=== PATIENT | female | born 1955 | race Caucasian/White ===

== ENCOUNTER 2016-06-25 09:37 | Day surgery (SDC) | payer OTHER ==
[2016-06-20 16:13] VITALS: BMI 41.5
[~2016-06-25 09:37] MED LIST: LACTATED RINGERS 1,000 ML IV SCH
[2016-06-25 10:04] VITALS: TEMP 97.7
[2016-06-25] MEDS ORDERED: LIDOCAINE 1% 20 ML VIAL (10MG/ML) FOR IV START INTRADERMA ONE (10:04)
[2016-06-25 10:20] LABS: Glucose,Whole Blood 112 mg/dL (75-99)
--- NOTE | 2016-06-25 11:24 | P.PCN ---
Date of Procedure: 06/25/16 Procedure(s) Performed: PREOPERATIVE DIAGNOSIS : 1- Lumbar spondylosis with Facet Arthropathy without myelopathy . 2- Lumber degenerative disc disease POSTOPERATIVE DIAGNOSIS: 1- Lumbar spondylosis with Facet Arthropathy without myelopathy . 2- Lumber degenerative disc disease PROCEDURE: Diagnostic bilateral L2-3 , L3 -4 , L4 -5 , and L5-S1 medial branch block under fluoroscopy #2nd ANESTHESIA: Local with 1% lidocaine8 ml ,and IV sedation with Versed 2 mg and Fentanyl 100 mcg. EBL: Minimal COMPLICATION: None. IV FLUIDS: 100 mL of normal saline. PROCEDURE INDICATION: Chronic low back pain secondary to Facet arthropathy unresponsive to conservative treatment. PROCEDURE DESCRIPTION: the patient was seen and identified in the preop holding area , risks and benefits and possible complications of the procedure and alternative were discussed with the patient, and the patient agreed to proceed with the procedure and signed the consent IV was started and vital signs monitored during the procedure and fluoroscopy was used to maximize the benefit and accuracy of the needle placement, and sedation was given to decrease patient anxiety, patient was taken to the procedure room and placed in prone position vital signs monitored in the back prepped with chlorhexidine X3 then under strict sterile technique using a right oblique fluoroscopy ,the junction of the transverse process and the superior articulating process of the right L2-3 , L3- 4 , L4- 5, and L5-S1 vertebra which corresponding to the fluoroscopy image of the eye of the Paulino dog on the block side for the medial branches and subsequently , after local infiltration of skin and subcu tissuies with lidocaine 1% one mL at each level ,then 22-gauge 5 inches Quincke-type needles , 4 needle was used , each one of them placed at the junction of the base of the transverse process and the superior articular process at the appropriate level, and the needle was advanced until the periosteum contacted, needle placement confirmed with AP oblique and lateral view and after appropriate needle placement confirmed, and after negative aspiration for heme and CSF and there was no paresthesia 2 mL of Marcaine 0.5% , then half mL injected at each level after negative aspiration the needle subsequently removed and the same procedure repeated for the left side at left side at L2-3, L3-4, L4- 5 and L5-S1 levels. At the end of the procedure and the needles removed and a bandage applied after the skin was cleaned the cleaning solution patient taken to recovery room in stable condition and monitors in the recovery room for 20-30 minutes and discharged home in stable condition after discharge criteria met and patient will follow up with the pain clinic in 2-4 weeks NO steroid was used for the procedure .
[2016-06-25] MEDS ORDERED: BUPIVACAINE (PF) 0.5% 30 ML VIAL ONE (11:27)
[2016-06-25] MEDS ORDERED: MIDAZOLAM 2 MG/2 ML VIAL ONE (11:27)
[2016-06-25] MEDS ORDERED: fentaNYL (PF) 50 MCG/ML 2 ML AMP ONE (11:27)
[2016-06-25] MEDS ORDERED: IV FLUID CONTINUATION 1,000 ML IV ONE ×2 (11:34)
--- NOTE | 2016-06-25 11:34 | FL ---
Fluoroscopy INDICATION: Pain FINDINGS: Fluoroscopy time: 15 seconds. Images obtained: 4. IMPRESSIONS: 1. Documentation of fluoroscopy.
[2016-06-25 11:41] VITALS: RESP 16
[2016-06-25 12:03] VITALS: BP 136/83; PULSE 71
== END 2016-06-25 11:55 | disposition home or self-care (01) ==
LOC: ORPAIN 09:37
PROVIDERS: ATTEND Specialist
DX: G89.29 Other chronic pain (principal); M51.36 Other intervertebral disc degeneration, lumbar region; M47.816 Spondylosis without myelopathy or radiculopathy, lumbar region; M46.96 Unspecified inflammatory spondylopathy, lumbar region; J44.9 Chronic obstructive pulmonary disease, unspecified; J45.909 Unspecified asthma, uncomplicated
CPT/HCPCS: 64493; 64494; 64495; 99152; J2250; J3010

== ENCOUNTER 2016-08-02 09:34 | Day surgery (SDC) | payer OTHER ==
[2016-07-31 09:45] VITALS: BMI 39.9
[2016-08-02 09:55] VITALS: TEMP 97.9
[2016-08-02] MEDS ORDERED: BUPIVACAINE (PF) 0.25% 30 ML VIAL ONE (10:11)
--- NOTE | 2016-08-02 10:40 | P.PCN ---
Date of Procedure: 08/02/16 Preoperative Diagnosis: Postoperative Diagnosis: Procedure(s) Performed: Implants: Anesthesia: local Surgeon: Alvaro Jeff Pathology: none sent Condition: stable Disposition: PACU Indications for Procedure: Operative Findings: Description of Procedure: PREOPERATIVE DIAGNOSIS: Lumbar spondylosis without myelopathy and facet arthropathy POSTOPERATIVE DIAGNOSIS: Lumbar spondylosis without myelopathy and facet arthropathy PROCEDURES: Right Radiofrequency thermocoagulation, L2, L3, L4, and L5 medial branch, with fluoroscopic guidance. ANESTHESIA: 1% lidocaine plain EBL: Minimal PROCEDURE INDICATION: The patient with low back pain secondary to lumbar arthropathy who had more than 50% relief of pain with previous diagnostic lumbar medial branch block with bupivacaine. Patient presents for RFA today; no use of blood thinners. PROCEDURE DESCRIPTION / TECHNIQUE: The patient was seen and identified in the preoperative area. Risks, benefits, complications, and alternatives were discussed with the patient (including but not limited to incomplete pain relief , bleeding, infection, nerve damage, and allergies to medications), the patient agreed to proceed with the procedure and signed the consent after all questions were answered. Patient was taken to the OR and time out was completed to verify proper patient , position, laterality of pain, and allergies. Pt was placed in the prone position. IV was started. Vital signs remained stable throughout the procedure. A pillow was placed under the patients chest to decrease lordosis. The lumbosacral area was prepped and draped in the usual sterile fashion. Vital signs were closely monitored during the procedure. Using AP and then oblique fluoroscopy, the eye of the Paulino dog corresponding to the connection between the superior and transverse articular processes of right L3, L4, L5 and top of the sacrum were identified, marked, and localized with 1% lidocaine. Subsequently, a 18 gauge, 150-mm radiofrequency cannula with a 10-mm active tip was advanced guided by fluoroscopy to each of the eyes of the Paulino dog at right L2, L3, L4, and L5 medial branches. Each site then underwent sensory testing at 50 Hz and 0 to 1 volt and motor testing at 2 Hz and 0 to 3 volt with local stimulation, but no radicular symptoms down the legs. Thereafter the right L2, L3, L4, and L5 medial branch sites underwent radiofrequency thermocoagulation at 80 degrees Celsius for 90 seconds after injecting 0.5 ml of PF lidocaine 1%. After thermocoagulation, 1 ml of the block solution containing 2 mL of preservative- free 0.5% bupivacaine was injected at the right L2, L3, L4, and L5 medial branch levels after negative aspiration of CSF and blood and with no paresthesias. Cannulas were retracted while injecting lidocaine 1% until the needles were removed. At the end of the procedure, the skin was cleansed and bandages were applied. COMPLICATIONS: No acute complications. DISPOSITION / PLANS: The patient was placed in a supine position and transferred to the recovery area in a stable condition for observation and was discharged from the recovery room after meeting discharge criteria. Home discharge instructions given to the patient by the staff. The patient was reexamined prior to discharge and there were no issues. The patient will schedule a left lumbar L2-S1 RFA in 3-4 weeks.
--- NOTE | 2016-08-02 11:00 | FL ---
EXAMINATION TYPE: FL guided pain mgmt statistic DATE OF EXAM: 08/02/2016 10:44 AM CLINICAL HISTORY: Low back pain. TECHNIQUE: Fluoroscopy. COMPARISON: None. FINDINGS: Fluoroscopic guidance was provided during pain relief procedure performed by Dr. Jeff . A total of 24 seconds of fluoroscopic time was utilized during the procedure and two spot images are acquired. Images acquired shows needle localization at multiple levels off the midline in the lower lumbar spine. IMPRESSION: As Above.
[2016-08-02 11:05] VITALS: BP 142/85; PULSE 89; RESP 18
== END 2016-08-02 11:16 | disposition home or self-care (01) ==
LOC: ORPAIN 09:34
PROVIDERS: ATTEND Specialist
DX: G89.29 Other chronic pain (principal); M47.816 Spondylosis without myelopathy or radiculopathy, lumbar region; M46.96 Unspecified inflammatory spondylopathy, lumbar region; Z79.52 Long term (current) use of systemic steroids
CPT/HCPCS: 64635; 64636

== ENCOUNTER 2016-10-03 09:07 | Day surgery (SDC) | payer OTHER ==
[2016-09-27 15:44] VITALS: BMI 39.9
[2016-10-03 09:31] VITALS: RESP 20; TEMP 97.9
--- NOTE | 2016-10-03 10:44 | P.PCN ---
Date of Procedure: 10/03/16 Preoperative Diagnosis: Postoperative Diagnosis: Procedure(s) Performed: Implants: Surgeon: Alvaro Jeff Pathology: none sent Condition: stable Disposition: PACU Indications for Procedure: Operative Findings: Description of Procedure: PREOPERATIVE DIAGNOSIS: Lumbar spondylosis without myelopathy and facet arthropathy POSTOPERATIVE DIAGNOSIS: Lumbar spondylosis without myelopathy and facet arthropathy PROCEDURES: Left Radiofrequency thermocoagulation, L2-L3, L3-L4, L4-L5, and L5- S1 medial branch, with fluoroscopic guidance. ANESTHESIA: 1% lidocaine plain EBL: Minimal PROCEDURE INDICATION: The patient with low back pain secondary to lumbar arthropathy who had more than 50% relief of pain with previous diagnostic lumbar medial branch block with bupivacaine. Patient presents for left lumbar RFA today after right side completed in July with good results; no use of blood thinners. PROCEDURE DESCRIPTION / TECHNIQUE: The patient was seen and identified in the preoperative area. Risks, benefits, complications, and alternatives were discussed with the patient (including but not limited to incomplete pain relief , bleeding, infection, nerve damage, and allergies to medications), the patient agreed to proceed with the procedure and signed the consent after all questions were answered. Patient was taken to the OR and time out was completed to verify proper patient , position, laterality of pain, and allergies. Pt was placed in the prone position. IV was started. Vital signs remained stable throughout the procedure. A pillow was placed under the patients chest to decrease lordosis. The lumbosacral area was prepped and draped in the usual sterile fashion. Vital signs were closely monitored during the procedure. Using AP and then oblique fluoroscopy, the eye of the aPulino dog corresponding to the connection between the superior and transverse articular processes of left L3, L4, L5 and top of the sacrum were identified, marked, and localized with 1% lidocaine. Subsequently, a 18 gauge, 150-mm radiofrequency cannula with a 10-mm active tip was advanced guided by fluoroscopy to each of the eyes of the P[place]ino dog at left L2, L3, L4, and L5 medial branches. Each site then underwent sensory testing at 50 Hz and 0 to 1 volt and motor testing at 2 Hz and 0 to 3 volt with local stimulation, but no radicular symptoms down the legs. Thereafter the left L2, L3, L4, and L5 medial branch sites underwent radiofrequency thermocoagulation at 80 degrees Celsius for 90 seconds after injecting 0.5 ml of PF lidocaine 1%. After thermocoagulation, 1 ml of the block solution containing 2 mL of preservative-free 0.5% bupivacaine (NO STEROID) was injected at the left L2, L3, L4, and L5 medial branch levels after negative aspiration of CSF and blood and with no paresthesias. Cannulas were retracted while injecting lidocaine 1% until the needles were removed. At the end of the procedure, the skin was cleansed and bandages were applied. COMPLICATIONS: No acute complications. DISPOSITION / PLANS: The patient was placed in a supine position and transferred to the recovery area in a stable condition for observation and was discharged from the recovery room after meeting discharge criteria. Home discharge instructions given to the patient by the staff. The patient was reexamined prior to discharge and there were no issues. The patient will schedule a follow up in the pain clinic in 4-6 weeks.
[2016-10-03] MEDS ORDERED: IV FLUID CONTINUATION 1,000 ML IV ONE (10:58)
--- NOTE | 2016-10-03 10:58 | FL ---
FLUOROSCOPY 6 seconds of fluoroscopy time were utilized during Pain Injection. 4 images document the procedure.
[2016-10-03 11:16] VITALS: BP 132/82; PULSE 93
--- NOTE | 2016-10-05 10:01 | CDI ---
Documentation Clarification OP Dear Dr. Jeff, Please provide clarification regarding type of sedation provided. Procedure note states 1% lidocaine plain. The Anesthesia Record has Moderate Sedation checked under Anesthesia Plan. PLEASE RESPOND TO THIS QUERY BY DICTATING AN ADDENDUM TO YOU PROCEDURE NOTE. Thank you for our assistance, SOFIYA Sánchez If you have any questions, please contact Receiving Tank Operator, Demetria Degroot at [facility]
--- NOTE | 2016-10-10 10:13 | CDI ---
Documentation Clarification OP Dear Dr. Jeff, Please provide clarification regarding type of sedation provided. Procedure note states 1% lidocaine plain. The Anesthesia Record has Moderate Sedation checked under Anesthesia Plan. PLEASE RESPOND TO THIS QUERY BY DICTATING AN ADDENDUM TO YOU PROCEDURE NOTE. Thank you for our assistance, SOFIYA Sánchez If you have any questions, please contact Supervisor Belt And Link Assembly, Demetria Degroot at [facility]
== END 2016-10-03 11:37 | disposition home or self-care (01) ==
LOC: ORPAIN 09:07
PROVIDERS: ATTEND Anesthesiology
DX: G89.29 Other chronic pain (principal); M47.816 Spondylosis without myelopathy or radiculopathy, lumbar region; M46.96 Unspecified inflammatory spondylopathy, lumbar region
CPT/HCPCS: 64635; 64636 ×3; 99152; J2250; J3010

== ENCOUNTER → 2016-10-31 | Outpatient (CLI) | payer OTHER ==
--- NOTE | 2016-10-31 11:50 | NM ---
EXAMINATION TYPE: NM stress cardiolite complete DATE OF EXAM: 10/31/2016 COMPARISON: NONE HISTORY: Precordial chest pain and abnormal EKG TECHNIQUE: After the intravenous administration of 10.2 mCi Tc 99m Sestamibi - Rest images obtained 45 minutes post injection. The patient exercised using a PATIENCE protocol and 1 minute prior to peak exercise was injected with 27.0 mCi Tc 99m Sestamibi - Stress images obtained 10 minutes post injecti on. FINDINGS: Targeted heart rate was achieved during performance of the study. Review of stress and rest SPECT shelley ges demonstrates no distinct perfusion abnormality. Gated analysis shows normal wall motion with an estimated left ventricular ejection fraction of 58 %. IMPRESSION: No scintigraphic evidence for reversible ischemia
--- NOTE | 2016-10-31 14:26 | EST ---
DATE OF SERVICE: 10/31/2016 TYPE OF REPORT: PATIENCE CARDIOLITE STRESS TEST INDICATION: SVT, C/O dizzy BASELINE HEART RATE: 105 BASELINE BLOOD PRESSURE: 138/88 MAXIMUM HEART RATE: 143 MAXIMUM BLOOD PRESSURE: 154/101 85% MPHR: 133 100% MPHR: 157 METS: 4.0 MAXIMUM STAGE REACHED: I TOTAL EXERCISE TIME: 2:30 Baseline EKG revealed normal sinus rhythm without significant ST-T changes. Patient walked for nearly 3 minutes on standard Patience protocol, achieved a maximum heart rate of 143 beats per minute, developed fatigue and shortness of breath and some dizziness. EKG did not reveal any ST segment changes to indicate ischemia. IMPRESSION: 1. By EKG criteria, this is a negative stress test with extremely impaired exercise capacity. 2. The nuclear scan results, which are more pertinent will be reported by the radiologist. TARYN
== END ==
LOC: RADNMMAIN 08:56
PROVIDERS: ATTEND Nuclear Medicine Nuclear Cardiology
DX: I47.1 Supraventricular tachycardia (principal); R60.9 Edema, unspecified; R06.2 Wheezing
CPT/HCPCS: 93017; 93225; 93226; 78452; A9500

== ENCOUNTER → 2016-12-06 | Outpatient (CLI) | payer OTHER ==
--- NOTE | 2016-12-07 11:09 | MM ---
Reason for exam: screening (asymptomatic). Last mammogram was performed 1 year ago. History: Patient is postmenopausal and is nulliparous. Took hormonal contraceptives for 2 years. Physical Findings: A clinical breast exam by your physician is recommended on an annual basis and results should be correlated with mammographic findings. MG Screening Mammo w CAD Bilateral CC and MLO view(s) were taken. Prior study comparison: November 30, 2015, bilateral MG screening mammo w CAD. November 24, 2014, bilateral MG diagnostic mammo w CAD ROSINA. There are scattered fibroglandular densities. Benign calcifications in the left breast. No significant changes when compared with prior studies. ASSESSMENT: Benign, BI-RAD 2 RECOMMENDATION: Routine screening mammogram of both breasts in 1 year.
== END | disposition home or self-care (01) ==
LOC: RADMAMWWP 09:33
PROVIDERS: ATTEND Internal Medicine Geriatric Medicine
DX: Z12.31 Encounter for screening mammogram for malignant neoplasm of breast (principal)

== ENCOUNTER → 2016-12-18 | Outpatient (CLI) | payer OTHER ==
[2016-12-18 11:52] VITALS: BP 131/83; PULSE 95; RESP 18; TEMP 98
--- NOTE | 2016-12-18 21:59 | P.CONS ---
History of Present Illness - Reason for Consult Consult date: 12/18/16 - History of Present Illness This is a follow-up visit for this 61 years old female with a chronic history of low back pain, he was diagnosed with lumbar spondylosis and we did diagnostic medial branch block lumbar area was successful later on we did radiofrequency ablation of the medial branch lumbar area L2 to S1, currently patient complaining of severe low back pain localized in the buttock area bilaterally, at the lateral aspect of the buttock around the iliac crest area bilaterally, she denies any motor or sensory deficit she denies any fever or night sweats which she denies any change in the bowel movement or urination, the pain is constant with some exacerbation in intensity, she is currently on Zanaflex 2 mg every 8 hours Past Medical History Past Medical History: Asthma, COPD, GERD/Reflux, Hyperlipidemia, Osteoarthritis (OA) Additional Past Medical History / Comment(s): VOCAL CORD DYSFUNCTION-UNDER CONTROL AT THIS TIME W/MEDS, takes medication for elevated heart rate related to meds that she takes, pain lower back History of Any Multi-Drug Resistant Organisms: Acinetobacter (MDRO) Year Discovered:: 2016 MDRO Source:: STOMACH Past Surgical History: Hernia Repair, Orthopedic Surgery Additional Past Surgical History / Comment(s): BENIGN TUMOR REMOVED FROM RT HAND , BILATERAL CATARACTS, BILATERAL BUNIONECTOMY, left knee surgery. PAIN CLINIC PROCEDURES Past Anesthesia/Blood Transfusion Reactions: Previous Problems w/ Anesthesia Additional Past Anesthesia/Blood Transfusion Reaction / Comm: SLOW TO COME OUT OF ANESTHESIA, "does not take much" States has difficulty lying flat on her back. Past Psychological History: No Psychological Hx Reported Smoking Status: Former smoker Past Alcohol Use History: None Reported Additional Past Alcohol Use History / Comment(s): quit smoking 2010, smoked for 20 yrs- 1 PPD Past Drug Use History: None Reported - Past Family History Mother Family Medical History: Deep Vein Thrombosis (DVT) Father Family Medical History: Cancer Medications and Allergies Home Medications Medication Instructions Recorded Confirmed Type Albuterol Sulfate [Ventolin HFA] 1 - 2 puff INHALATION Q6H PRN 05/20/14 History Azelastine HCl 137 mcg NS BID PRN 05/20/14 12/18/16 History Budesonide [Pulmicort Flexhaler] 1 puff INHALATION DAILY 05/20/14 12/18/16 History Cetirizine HCl 10 mg PO DAILY 05/20/14 12/18/16 History Multivitamins, Thera [Multivitamin] 1 each PO DAILY 05/20/14 12/18/16 History Omeprazole [PriLOSEC] 40 mg PO AC-BRKFST 05/20/14 12/18/16 History Ranitidine HCl [Zantac] 150 mg PO BID 05/20/14 12/18/16 History Theophylline 12 Hour [Dean-Dur] 300 mg PO HS 05/20/14 12/18/16 History Ubidecarenone [Co Q-10] 200 mg PO DAILY 05/20/14 12/18/16 History Zafirlukast 10 mg PO BID 05/20/14 12/18/16 History Umeclidinium Brm/Vilanterol Tr 1 each IH DAILY 11/11/14 12/18/16 History [Anoro Ellipta 62.5-25 Mcg INH] Lovastatin [Lovastatin] 20 mg PO DAILY 12/17/14 12/18/16 History Verapamil HCl [Verapamil ER] 120 mg PO DAILY 12/17/14 12/18/16 History tiZANidine [Zanaflex] 2 mg PO Q8HR PRN #90 tablet 01/23/16 12/18/16 Rx Acetaminophen [Tylenol] 500 mg PO Q6H PRN 01/25/16 12/18/16 History Ibuprofen [Motrin] 800 mg PO DAILY PRN 01/25/16 12/18/16 History predniSONE 5 mg PO DAILY PRN 01/25/16 12/18/16 History Furosemide [Lasix] 20 mg PO DAILY PRN 05/01/16 12/18/16 History Cholecalciferol [Vitamin D3] 2,000 unit PO DAILY 06/11/16 12/18/16 History Potassium Chloride [Klor-Con 20] 20 meq PO DAILY PRN 06/11/16 12/18/16 History Albuterol Nebulized [Ventolin 2.5 mg INHALATION Q6H PRN 06/20/16 12/18/16 History Nebulized] Baclofen 5 mg PO HS PRN 06/20/16 12/18/16 History Loratadine [Claritin] 10 mg PO DAILY PRN 06/20/16 12/18/16 History Allergies Allergy/AdvReac Type Severity Reaction Status Date / Time amoxicillin Allergy GI Verified 12/18/16 11:42 DISTRESS AND DROWSINESS budesonide [From Symbicort] Allergy Anaphylaxis Verified 12/18/16 11:42 cholestyramine Allergy Diarrhea Verified 12/18/16 11:42 ciclesonide [From [place]] Allergy RINGING IN Verified 12/18/16 11:42 THE EARS clarithromycin Allergy GI Verified 12/18/16 11:42 DISTRESS AND DROWSINESS doxycycline Allergy GI Verified 12/18/16 11:42 DISTRESS AND DROWSINESS etodolac Allergy MUSCLE Verified 12/18/16 11:42 CRAMPS fluticasone propionate Allergy RASH, Verified 12/18/16 11:42 [From Advair Diskus] ITCHING formoterol fumarate Allergy DRY MOUTH, Verified 12/18/16 11:42 [From Symbicort] RINGING IN THE EARS gabapentin [From Neurontin] Allergy MUSCLE Verified 12/18/16 11:42 CRAMPS, SENSATION OF BUGS CRAWLING ON LEGS gemfibrozil Allergy Rapid Verified 12/18/16 11:42 Heart Rate mometasone furoate Allergy RASH, Verified 12/18/16 11:42 [From Asmanex Twisthaler] VISUAL CHANGES omalizumab [From Xolair] Allergy Anaphylaxis Verified 12/18/16 11:42 prednisolone acetate, Allergy LIPS AND Verified 12/18/16 11:42 micronized THROAT [prednisolone acetate, micro] SWELLING prednisone Allergy Anaphylaxis Verified 12/18/16 11:42 pregabalin [From Lyrica] Allergy MUSCLE Verified 12/18/16 11:42 CRAMPS, SENSATION OF BUGS CRAWLING ON LEGS rosuvastatin calcium Allergy MUSCLE Verified 12/18/16 11:42 [From Crestor] CRAMPS salmeterol xinafoate Allergy Rash/Hives Verified 12/18/16 11:42 [From Advair Diskus] simvastatin Allergy SENSATION Verified 12/18/16 11:42 OF BUGS CRAWLING ON LEGS thyroid, pork AdvReac Diarrhea Verified 12/18/16 11:42 [From [place] Thyroid] Physical Exam Vitals: Vital Signs Temp Pulse Resp BP Pulse Ox 12/18/16 11:46 98 F 95 18 131/83 97 Intake and Output 12/18/16 12/18/16 12/18/16 06:59 14:59 22:59 Other: Weight 113.398 kg Patient Weight 12/19/16 06:59 Weight 113.398 kg Physical Examinations : 1-Constitutiona : Cooperative , not in acute distress . 2-HEENT : nech ; supple , no Lymphadenopathy , normal thyroid size . eyes : no ptosis , no icterus, no photophobia . ENT : normal of hearing , normal oropharynx , no Thrush . 3- Respiratory : Chest clear to auscultations Bilaterally , no wheezing , no Rhonchi . 4- Cardiovascular : regular rate and rhythem , S1 , S2 , no S3 , no S4. 5- Gastrointestinal : abdomen soft no tenderness , bowel sounds positive all four quadrents , no organomegally . 6- Genitourinary : Defferred . 7- neurologic : Cranial nerve II to XII intact , no focal neurological deffecit . 8-psychatric : alert , oriented X 3 , appropriate affect , intact judgment and insight . 9-Lymphatic : no Lymphadenopathy . 10- musculoskeltal : , Lumber spine = normal moter stegnth lower extremities ,thigh and legs .5/5 deep tendon reflexes : normal Knee Jerk , normal ankle Jerk . 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
== END | disposition home or self-care (01) ==
LOC: PNWHC3 10:14
PROVIDERS: ATTEND Specialist
DX: M51.36 Other intervertebral disc degeneration, lumbar region (principal); M47.816 Spondylosis without myelopathy or radiculopathy, lumbar region; M46.86 Other specified inflammatory spondylopathies, lumbar region; Z79.899 Other long term (current) drug therapy; Z88.0 Allergy status to penicillin; Z88.8 Allergy status to other drugs, medicaments and biological substances
CPT/HCPCS: 99211

== ENCOUNTER → 2016-12-25 | Day surgery (SDC) | payer OTHER ==
[2016-12-20 14:32] VITALS: BMI 39.9
[~2016-12-25] MED LIST changes: +IV FLUID CONTINUATION 1,000 ML IV ONE; +LACTATED RINGERS 1,000 ML IV ONE; -LACTATED RINGERS 1,000 ML IV SCH; +LIDOCAINE 1% 20 ML VIAL (10MG/ML) FOR IV START INTRADERMA ONE
[2016-12-25 10:18] VITALS: RESP 16; TEMP 98
[2016-12-25 10:19] LABS: Glucose,Whole Blood 105 mg/dL (75-99)
--- NOTE | 2016-12-25 11:09 | P.PCN ---
Date of Procedure: 12/25/16 Surgeon: Alvaro Jeff Pathology: none sent Condition: stable Disposition: PACU Description of Procedure: PREOPERATIVE DIAGNOSIS: 1-Bilateral buttock pain likely secondary to cluneal neuralgia POSTOPERATIVE DIAGNOSIS:. same PROCEDURES: 1-Bilateral superior cluneal nerve block with fluoroscopic guidance EBL: Minimal. 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 No use of blood thinners. Cluneal NB #1 today. PROCEDURE DESCRIPTION: The patient was seen and identified in the preoperative area. Risks, benefits, complications, and alternatives were discussed with the patient, with risks including but not limited to bleeding, infection, nerve damage, incomplete pain relief, and allergic reactions to medications. The patient agreed to proceed with the procedure and signed the consent. IV was started, and vital signs were stable. Patient was taken to the OR and time out was completed to verify proper patient , laterality of procedure, and allergies. The patient was placed in the prone position on procedure table. The left gluteal buttock area and low back were prepped and draped in the usual sterile fashion. Vital signs were closely monitored during the procedure and sedation was given by anesthesia team. The fluoroscopic camera was placed in AP view and the top of the left iliac crest and greater sciatic foramen were identified. Subsequently, a 22-gauge 5 inch spinal needle was introduced to the posterior and top of the left iliac crest under direct fluoroscopic visualization. At first, the needle was directed toward the crest until it hit bone and was then walked off to the top of the crest. Subsequently, 1 ml of a solution containing total 12 mL of 0.5% preservative-free bupivacaine mixed with 40 mg of Kenalog was injected after negative aspiration. The needle was then maneuvered to the left and to the right to multiple locations long the top of the left side of the iliac crest and a total of 6 ml solution was injected on the left side after intermittent, negative aspirations. The entire procedure was repeated on the right side as above. Needle was withdrawn intact. Skin was cleansed, and bandages were applied. COMPLICATIONS: None. DISPOSITION / PLANS: The patient was placed in a supine position and transferred to the recovery area in a stable condition for observation and was discharged from the recovery room after meeting discharge criteria. Home discharge instructions given to the patient by the staff. The patient was reexamined prior to discharge and there were no issues. We will plan to repeat this procedure in 4-6 weeks if the patient gets relief.
--- NOTE | 2016-12-25 11:26 | FL ---
EXAMINATION TYPE: FL guided pain mgmt statistic DATE OF EXAM: 12/25/2016 HISTORY: Pain 13 sec fluro
[2016-12-25 13:03] VITALS: BP 122/87; PULSE 99
== END | disposition home or self-care (01) ==
LOC: ORPAIN 09:27
PROVIDERS: ATTEND Anesthesiology
DX: G89.29 Other chronic pain (principal); G58.8 Other specified mononeuropathies; J44.9 Chronic obstructive pulmonary disease, unspecified; B19.20 Unspecified viral hepatitis C without hepatic coma; K21.9 Gastro-esophageal reflux disease without esophagitis; E78.5 Hyperlipidemia, unspecified; M19.90 Unspecified osteoarthritis, unspecified site; Z87.891 Personal history of nicotine dependence; Z79.51 Long term (current) use of inhaled steroids; Z79.899 Other long term (current) drug therapy; Z88.1 Allergy status to other antibiotic agents; Z88.6 Allergy status to analgesic agent; Z88.0 Allergy status to penicillin; Z88.8 Allergy status to other drugs, medicaments and biological substances
CPT/HCPCS: 99152; 64450 ×2; J2250; J3301; J3010

== ENCOUNTER → 2017-01-01 | Outpatient (CLI) | payer OTHER ==
--- NOTE | 2017-01-02 13:02 | BD ---
EXAMINATION TYPE: MG DEXA axial skeleton. DATE OF EXAM: 01/01/2017 COMPARISON: NONE CLINICAL HISTORY: PT IS A 61 YR OLD FEMALE WITH HX OF: M81.0, OSTEOPOROSIS Height: 63.5 Weight: 256 FRAX RISK QUESTIONS: Alcohol (3 or more units per day): NO Family History (Parent hip fracture): NO Glucocorticoids (More than 3mos): YES (Ex: prednisone, prednisolone, methylprednisolone, dexamethasone, and hydrocortisone). History of Fracture in Adulthood: YES Secondary Osteoporosis: NO 1. Type 1 Diabetes: NO 2. Hyperthyroidism: NO 3. Menopause before 45: NO 4. Malnutrition: NO 5. Chronic liver disease: NO Rheumatoid Arthritis: NO Current Tobacco Use: NO RISK FACTORS HISTORY OF: TOE FX, AT 60 YRS OLD, THIS YR...LT FOOT IN THE PAST...WITH BILAT FOOT SURG. Family History of Osteoporosis: NO Active: NOT TOO MUCH Diet low in dairy products/other sources of calcium: NO Postmenopausal woman: AT 49 YRS OLD Take estrogen and/or progesterone medications: NO Hyperparathyroidism: NO Adrenal Insufficiency: NO MEDICATIONS: Prednisone or other steroids: PREDNISONE, AND ASTHMA INHALERS How Lon YRS, PREDNISONE PRN ON AND OFF X6 YRS Thyroid Medications: YES, IN THE PAST MEDS ABOUT 2 YRS Additional Medications: BP MEDS, REFLUX MEDS, STATINS FOR CHOLESTEROL, VIT D, NSAIDS, AND PAIN MEDS Additional History: SEVERE OSTEOARTHRITIS, ASTHMA, HYPERTENSION EXAM MEASUREMENTS: Bone mineral densitometry was performed using the SonoPlot System. Bone mineral density as measured about the Lumbar spine is: ----- L1-L4(G/cm2): 1.401 T Score Values are as follows: ----- L1: 1.5 ----- L2: 1.8 ----- L3: 2.4 ----- L4: 1.6 ----- L1-L4: 1.8 Bone mineral density THIS IS HER FIRST BONE DENSITY TEST AT [facility] Bone mineral density about the R hip (g/cm2): 1.086 Bone mineral density about the L hip (g/cm2): 1.045 T Score values are as follows: -----R Neck: -0.5 -----L Neck: -0.5 -----R Total: 0.6 -----L Total: 0.3 Bone mineral density FIRST STUDY WITH EVELYN AMBER MENDIETA FRAX%'S: THERE IS A 16.1% CHANCE OF MAJOR OSTEOPOROTIC FX AND A 0.7% FOR HIP FX....PROBABILITY OF F X IN 10YRS TIME IMPRESSION: Normal (Values between +1 and -1 indicate normal bone mass). Consider repeating this study in 5 year s or sooner if there is some new clinical indication. NOTE: T-SCORE=SD OF THE YOUNG ADULT MEAN.
== END | disposition home or self-care (01) ==
LOC: RADBDWWP 09:27
PROVIDERS: ATTEND Internal Medicine Geriatric Medicine
DX: M81.0 Age-related osteoporosis without current pathological fracture (principal)
CPT/HCPCS: 77080

== ENCOUNTER → 2017-05-16 | Outpatient (CLI) | payer OTHER ==
[2017-05-16 11:53] VITALS: BP 138/82; PULSE 83; RESP 16
--- NOTE | 2017-05-16 22:04 | P.PN ---
Subjective Progress Note Date: 05/16/17 This is 61 years old female, with a chronic history of severe bilateral buttock pain, we have done bilateral cluneal nerve block and the fluoroscopy guidance 2 , and she had excellent pain relief after each block, she was very satisfied with the result of the treatment, she denies any motor or sensory deficit, she continued to use Motrin 800 mg when necessary, Zanaflex 2 mg 3 times a day when necessary, she denies any side effect of the medication, and because patient had a good result after the cluneal nerve block she will be good candidate for radiofrequency ablation of the cluneal nerve, procedure risk and benefits and alternatives discussed with the patient and she agreed with proceeding Objective - Vital Signs Vital signs: Vital Signs Temp Pulse 83 05/16/17 11:44 Resp 16 05/16/17 11:44 BP 138/82 05/16/17 11:44 Pulse Ox Intake & Output 05/16/17 05/16/17 05/17/17 06:59 18:59 06:59 Weight 112.945 kg
== END ==
LOC: PNWHC3 10:17
PROVIDERS: ATTEND Specialist
DX: M54.31 Sciatica, right side (principal); M54.32 Sciatica, left side; Z79.899 Other long term (current) drug therapy; Z79.891 Long term (current) use of opiate analgesic
CPT/HCPCS: 99211

== ENCOUNTER 2017-06-13 09:13 | Day surgery (SDC) | payer OTHER ==
[2017-06-11 10:53] VITALS: BMI 39.3
[2017-06-13 09:52] VITALS: RESP 16; TEMP 97.5
[2017-06-13] MEDS ORDERED: LIDOCAINE 1% 20 ML VIAL (10MG/ML) FOR IV START INTRADERMA ONE (09:53)
[2017-06-13] MEDS ORDERED: LACTATED RINGERS 1,000 ML IV ONE (09:53)
[2017-06-13] MEDS ORDERED: LACTATED RINGERS 1,000 ML IV SCH (10:00)
[2017-06-13] MEDS ORDERED: IV FLUID CONTINUATION 600 ML IV ONE (11:08)
[2017-06-13 11:35] VITALS: BP 120/84; PULSE 91
--- NOTE | 2017-06-13 12:28 | FL ---
Fluoroscopy HISTORY: Pain 9 seconds fluoroscopy time supplied to the referring clinician. 1 intraoperative C-arm images docume nt the procedure. See dictated report from anesthesia.
--- NOTE | 2017-06-19 15:34 | P.PCN ---
Date of Procedure: 06/13/17 Surgeon: Alvaro Jeff Pathology: none sent Condition: stable Disposition: PACU Description of Procedure: PREOPERATIVE DIAGNOSIS: 1-Bilateral cluneal neuralgia POSTOPERATIVE DIAGNOSIS:. same PROCEDURES: Left superior cluneal nerve block (3 total) and radiofrequency ablation (3 total ) EBL:Minimal. PROCEDURE INDICATIONS: This patient with a history of buttock pain secondary to bilateral cluneal neuralgia unresponsive to conservative management, presents for cluneal NB and RFA at this visit. No use of blood thinners. PROCEDURE DESCRIPTION: The patient was seen and identified in the preoperative area. Risks, benefits, complications, and alternatives were discussed with the patient, with risks including but not limited to bleeding, infection, nerve damage, incomplete pain relief, and allergic reactions to medications. The patient agreed to proceed with the procedure and signed the consent. IV was started, and vital signs were stable. Patient was taken to the OR and time out was completed to verify proper patient , laterality of procedure, and allergies. The patient was placed in the prone position on procedure table. The left gluteal buttock area and low back were prepped and draped in the usual sterile fashion. Vital signs were closely monitored during the procedure. The fluoroscopic camera was placed in AP view and the top of the left iliac crest and greater sciatic foramen were identified. Subsequently, an 18-g 100-mm radiofrequency cannula with 10 mm active tip was placed at the top of the iliac crest on the posterior portion until it hit bone and was then walked off to the top of the crest. Subsequently, two more cannulas of the same size were placed approximately 3-4 mm medial and both were walked off the bone to the top of the iliac crest. Each site then underwent motor testing at 2 Hz and 0 to 3 volt with local stimulation, but no radicular symptoms down the legs or into the groin. Thereafter the three sites underwent radiofrequency thermocoagulation at 80 degrees celsius for 90 seconds after injecting 0.5 ml of PF lidocaine 1%. After thermocoagulation, 2 ml of the block solution containing Kenalog 40 mg and 3 mL of preservative-free 0.5% bupivacaine was injected at the each site after negative aspiration of CSF and blood and with no paresthesias. Cannulas were retracted while injecting lidocaine 1% until the needles were removed. [place] were withdrawn intact. Skin was cleansed, and bandages were applied. COMPLICATIONS: None. DISPOSITION / PLANS: The patient was placed in a supine position and transferred to the recovery area in a stable condition for observation and was discharged from the recovery room after meeting discharge criteria. Home discharge instructions given to the patient by the staff. The patient was reexamined prior to discharge and there were no issues except for some injection site pain. She will follow up for right cluneal RFA at next visit.
== END 2017-06-13 11:39 | disposition home or self-care (01) ==
LOC: ORPAIN 09:13
PROVIDERS: ATTEND Anesthesiology
DX: G58.8 Other specified mononeuropathies (principal)
CPT/HCPCS: 64640; J2250; J3301; J3010; 99152

== ENCOUNTER → 2017-07-03 | Outpatient (CLI) | payer OTHER ==
[~2017-07-03] MED LIST changes: -IV FLUID CONTINUATION 1,000 ML IV ONE; -LACTATED RINGERS 1,000 ML IV ONE; -LIDOCAINE 1% 20 ML VIAL (10MG/ML) FOR IV START INTRADERMA ONE; +TETANUS-DIPHTHERIA TOX (PF) 0.5 ML VIAL IM ONE
[2017-07-03 12:53] VITALS: BP 139/85; PULSE 86; RESP 16
--- NOTE | 2017-07-03 13:10 | P.PN ---
Progress Note - Text Progress Note Date: 07/03/17 Patient returns for followup for chronic back pain with radiation to buttocks and hips. Patient recently underwent left cluneal RFA, which caused bruising over her low back and very little relief, and also new pain in her left buttock. Patient continues on no regular medications for pain. Patient denies adverse drug effects from medications. Today, pt denies new-onset weakness, bowel/bladder incontinence, or any other signs or symptoms of cauda equina syndrome. There are no signs of acute intoxication, and no indications of medication diversion or overuse. In addition to above, 13-point review of systems is also negative for chest pain , shortness of breath, changes in vision, changes in hearing, new onset weakness , abdominal pain, diarrhea, extreme fatigue, malaise, fever, skin changes, homicidal or suicidal ideation, or bowel or bladder incontinence. Vital Signs: Reviewed in EMR Gen: WDWN, AAOx3, NAD HEENT: NCAT, EOMI, hearing grossly normal Pulm: resp unlabored Abd: soft, NT, ND Neck: supple, trachea midline TTP over lateral buttocks bilaterally Imaging: Reviewed in EMR Assessment: 1. lumbar spondylosis 2. cluneal neuralgia 3. chronic pain syndrome Plan: 1. Explanation: Opioid and psychological risk scores were reviewed. Diagnoses , prognoses, and multiple treatment options including but not limited to physical therapy, interventional therapies, adjuvant medical therapies, narcotic medication therapies, and surgery were discussed with the patient and all questions were answered to the patient's satisfaction. 2. Opioid agreement: no opioids prescribed today 3. Counseling: The patient was counseled extensively on BODY MASS INDEX, EXERCISE. Specifically, the patient was instructed regarding the importance of weight control, and exercise in the context of both chronic pain and overall health. 4. Procedures: change R cluneal RFA to bilateral cluneal NB 5. Consultations: None 6. Investigations: UDS appropriate, MAPS queried and appropriate 7. Medications: none prescribed; offered patient steroid dose karina, but she refused 8. Disposition: f/u for procedure as scheduled in July PQRS measures: 1-Patient's medications are documented in the chart. 2-Tobacco use is negative 3-Patient has not had a pneumococcal vaccine. 4-Advanced care planning discussed, patient unable to give. 5-Opioid contract NOT signed with the patient. 6-Pain positive, follow-up visit or procedure scheduled 7-Patient's blood pressure measured and documented, and patient will follow up with the primary care due to hypertension. 8-Patient's weight was measured, and body mass index ABOVE the normal limits, and counseling was done. Patient instructed to follow up with PCP. 9-Patient WAS NOT identified as an unhealthy alcohol user.
== END | disposition home or self-care (01) ==
LOC: PNWHC3 11:47
PROVIDERS: ATTEND Anesthesiology
DX: G89.4 Chronic pain syndrome (principal); M54.9 Dorsalgia, unspecified; M47.816 Spondylosis without myelopathy or radiculopathy, lumbar region; G58.8 Other specified mononeuropathies; Z23 Encounter for immunization
CPT/HCPCS: 90714; 90471; G0463; 99211

== ENCOUNTER 2017-07-22 08:56 | Day surgery (SDC) | payer OTHER ==
[2017-07-18 15:44] VITALS: BMI 39.3
[2017-07-22] MEDS ORDERED: LACTATED RINGERS 1,000 ML IV SCH (09:45)
[2017-07-22 10:23] VITALS: TEMP 98.6
--- NOTE | 2017-07-22 10:50 | P.PCN ---
Date of Procedure: 07/22/17 Surgeon: Alvaro Jeff Pathology: none sent Condition: stable Disposition: PACU Description of Procedure: PREOPERATIVE DIAGNOSIS: 1-Bilateral buttock pain likely secondary to cluneal neuralgia POSTOPERATIVE DIAGNOSIS:. same PROCEDURES: 1-Bilateral superior cluneal nerve block with fluoroscopic guidance EBL: Minimal. 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 No use of blood thinners. Cluneal NB today after nearly 100% relief for limited period of time from prior procedures. PROCEDURE DESCRIPTION: The patient was seen and identified in the preoperative area. Risks, benefits, complications, and alternatives were discussed with the patient, with risks including but not limited to bleeding, infection, nerve damage, incomplete pain relief, and allergic reactions to medications. The patient agreed to proceed with the procedure and signed the consent. IV was started, and vital signs were stable. Patient was taken to the OR and time out was completed to verify proper patient , laterality of procedure, and allergies. The patient was placed in the prone position on procedure table. The left gluteal buttock area and low back were prepped and draped in the usual sterile fashion. Vital signs were closely monitored during the procedure and sedation was given by anesthesia team. The fluoroscopic camera was placed in AP view and the top of the left iliac crest and greater sciatic foramen were identified. Subsequently, a 22-gauge 5 inch spinal needle was introduced to the posterior and top of the left iliac crest under direct fluoroscopic visualization. At first, the needle was directed toward the crest until it hit bone and was then walked off to the top of the crest. Subsequently, 1 ml of a solution containing total 11 mL of 0.5% preservative-free bupivacaine mixed with 40 mg of Kenalog was injected after negative aspiration. The needle was then maneuvered to the left and to the right to multiple locations long the top of the left side of the iliac crest and a total of 6 ml solution was injected on the left side after intermittent, negative aspirations. Needle was withdrawn intact. The entire procedure was repeated on the right side as above and 6 ml injected on right side as well. Needle was withdrawn intact. Skin was cleansed, and bandages were applied. COMPLICATIONS: None. DISPOSITION / PLANS: The patient was placed in a supine position and transferred to the recovery area in a stable condition for observation and was discharged from the recovery room after meeting discharge criteria. Home discharge instructions given to the patient by the staff. The patient was reexamined prior to discharge and there were no issues. We will plan to repeat this procedure in approximately 8 weeks. Patient had severe pain after cluneal RFA done previously and does not want this procedure done for the other side at this point.
[2017-07-22] MEDS ORDERED: IV FLUID CONTINUATION 1,000 ML IV ONE (10:56)
[2017-07-22 10:58] VITALS: RESP 18
[2017-07-22 11:15] VITALS: BP 124/71; PULSE 81
--- NOTE | 2017-07-22 11:45 | FL ---
EXAMINATION TYPE: FL guided pain mgmt statistic DATE OF EXAM: 07/22/2017 COMPARISON: NONE HISTORY: Pain TECHNIQUE: Fluoroscopy. FINDINGS/IMPRESSION: Fluoroscopic guidance was provided during procedure performed by Dr. Jeff. A total of 19 seconds of fluoroscopic time was utilized during the procedure and 12 spot images was acq uired demonstrating localization over the iliac crests.
== END 2017-07-22 11:34 | disposition home or self-care (01) ==
LOC: ORPAIN 08:56
PROVIDERS: ATTEND Anesthesiology
DX: G89.4 Chronic pain syndrome (principal); M79.2 Neuralgia and neuritis, unspecified; M47.816 Spondylosis without myelopathy or radiculopathy, lumbar region
CPT/HCPCS: 64450; J2250; J1030; J3010; 99152

== ENCOUNTER → 2017-09-03 | Outpatient (CLI) | payer OTHER ==
[2017-09-03 11:45] VITALS: BP 136/80; PULSE 91; RESP 18
--- NOTE | 2017-09-03 12:35 | P.PN ---
Progress Note - Text Progress Note Date: 09/03/17 Patient returns for followup for chronic back pain with radiation to buttocks and hips. Patient recently underwent bilateral cluneal NB, which gave her almost no relief; she has previously had excellent relief from these procedures when they were done in the past. Patient continues on no regular medications for pain except baclofen prescribed by Dr. Garnica. Patient denies adverse drug effects from medications. Today, pt denies new-onset weakness, bowel/bladder incontinence, or any other signs or symptoms of cauda equina syndrome. There are no signs of acute intoxication, and no indications of medication diversion or overuse. In addition to above, 13-point review of systems is also negative for chest pain , shortness of breath, changes in vision, changes in hearing, new onset weakness , abdominal pain, diarrhea, extreme fatigue, malaise, fever, skin changes, homicidal or suicidal ideation, or bowel or bladder incontinence. Vital Signs: Reviewed in EMR Gen: WDWN, AAOx3, NAD HEENT: NCAT, EOMI, hearing grossly normal Pulm: resp unlabored Abd: soft, NT, ND Neck: supple, trachea midline TTP over lateral buttocks bilaterally, R > L Imaging: Reviewed in EMR Assessment: 1. lumbar spondylosis 2. cluneal neuralgia 3. chronic pain syndrome Plan: 1. Explanation: Opioid and psychological risk scores were reviewed. Diagnoses , prognoses, and multiple treatment options including but not limited to physical therapy, interventional therapies, adjuvant medical therapies, narcotic medication therapies, and surgery were discussed with the patient and all questions were answered to the patient's satisfaction. 2. Opioid agreement: no opioids prescribed today 3. Counseling: The patient was counseled extensively on BODY MASS INDEX, EXERCISE. Specifically, the patient was instructed regarding the importance of weight control, and exercise in the context of both chronic pain and overall health. 4. Procedures: bilateral cluneal NB to be done on September 19. Consultations: None 6. Investigations: UDS prev appropriate, MAPS queried and appropriate 7. Medications: Fioricet #15 with no refill (patient has severe sedation with most opioids) 8. Disposition: f/u for procedure as scheduled PQRS measures: 1-Patient's medications are documented in the chart. 2-Tobacco use is negative 3-Patient has not had a pneumococcal vaccine. 4-Advanced care planning discussed, patient unable to give. 5-Opioid contract NOT signed with the patient. 6-Pain positive, follow-up visit or procedure scheduled 7-Patient's blood pressure measured and documented, and patient will follow up with the primary care due to hypertension. 8-Patient's weight was measured, and body mass index ABOVE the normal limits, and counseling was done. Patient instructed to follow up with PCP. 9-Patient WAS NOT identified as an unhealthy alcohol user.
== END | disposition home or self-care (01) ==
LOC: PNWHC3 09:53
PROVIDERS: ATTEND Anesthesiology
DX: G89.4 Chronic pain syndrome (principal); M47.816 Spondylosis without myelopathy or radiculopathy, lumbar region; G58.8 Other specified mononeuropathies; Z79.899 Other long term (current) drug therapy
CPT/HCPCS: 99211

== ENCOUNTER 2017-09-24 09:29 | Day surgery (SDC) | payer OTHER ==
[2017-09-20 12:58] VITALS: BMI 39.3
[2017-09-24 11:15] VITALS: TEMP 98.1
[2017-09-24 11:29] LABS: Glucose,Whole Blood 122 mg/dL (75-99)
[2017-09-24] MEDS ORDERED: LACTATED RINGERS 1,000 ML IV ONE (11:29)
--- NOTE | 2017-09-24 12:52 | P.PCN ---
Date of Procedure: 09/24/17 Procedure(s) Performed: PREOPERATIVE DIAGNOSIS: 1-Bilateral buttock pain likely secondary to cluneal neuralgia POSTOPERATIVE DIAGNOSIS:.same as preoperative diagnosis Anesthesia= moderate sedation with Versed 2 mg and fentanyl 100 g and local infiltration with lidocaine 1% 3 ml , forskin and subcutaneous tissue infiltration PROCEDURES: 1-Bilateral superior cluneal nerve block with fluoroscopic guidance EBL: Minimal. 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 No use of blood thinners. Cluneal NB today after nearly 100% relief for limited period of time from prior procedures. PROCEDURE DESCRIPTION: The patient was seen and identified in the preoperative area. Risks, benefits, complications, and alternatives were discussed with the patient, with risks including but not limited to bleeding, infection, nerve damage, incomplete pain relief, and allergic reactions to medications. The patient agreed to proceed with the procedure and signed the consent. IV was started, and vital signs were stable. Patient was taken to the OR and time out was completed to verify proper patient , laterality of procedure, and allergies. The patient was placed in the prone position on procedure table. The left gluteal buttock area and low back were prepped and draped in the usual sterile fashion. Vital signs were closely monitored during the procedure and sedation was given by anesthesia team. The fluoroscopic camera was placed in AP view and the top of the left iliac crest and greater sciatic foramen were identified. Subsequently, a 22-gauge 5 inch spinal needle was introduced to the posterior and top of the left iliac crest under direct fluoroscopic visualization. At first, the needle was directed toward the crest until it hit bone and was then walked off to the top of the crest. Subsequently, 1 ml of a solution containing total 6 mL of 0.5% preservative-free bupivacaine mixed with 40 mg of Kenalog was injected after negative aspiration. Needle was withdrawn intact. The entire procedure was repeated on the right side as above and 6 ml injected on right side as well. Needle was withdrawn intact. Skin was cleansed, and bandages were applied. COMPLICATIONS: None. DISPOSITION / PLANS: The patient was placed in a supine position and transferred to the recovery area in a stable condition for observation and was discharged from the recovery room after meeting discharge criteria. Home discharge instructions given to the patient by the staff. The patient was reexamined prior to discharge and there were no issues.
[2017-09-24 13:06] VITALS: RESP 18
--- NOTE | 2017-09-24 13:18 | FL ---
EXAMINATION TYPE: FL guided pain mgmt statistic DATE OF EXAM: 09/24/2017 HISTORY: Pain 8 seconds of fluoro. 2 images scanned.
[2017-09-24 13:24] VITALS: BP 119/78
[2017-09-24] MEDS ORDERED: IV FLUID CONTINUATION 1,000 ML IV ONE (13:35)
[2017-09-24 14:03] VITALS: PULSE 81
== END 2017-09-24 13:58 | disposition home or self-care (01) ==
LOC: ORPAIN 09:29
PROVIDERS: ATTEND Specialist
DX: G58.8 Other specified mononeuropathies (principal); Z78.0 Asymptomatic menopausal state
CPT/HCPCS: 64450; J2250; J3301

== ENCOUNTER → 2017-10-22 | Outpatient (CLI) | payer OTHER ==
[2017-10-22 12:10] VITALS: BP 157/91; PULSE 96; RESP 18; TEMP 98.1
--- NOTE | 2017-10-22 12:27 | P.PN ---
Subjective Progress Note Date: 10/22/17 This is a 62-year-old female with history of lower back pain with radiation to the mid thighs bilaterally. The patient had RFA on the lumbar medial branches and cluneal nerve blocks which did not help her pain. On the last MRI she had of the lumbar spine which was done in 2016 the right mild lumbar stenosis. In addition to above, 13-point review of systems is also negative for chest pain , shortness of breath, changes in vision, changes in hearing, new onset weakness , abdominal pain, diarrhea, extreme fatigue, malaise, fever, skin changes, homicidal or suicidal ideation, or bowel or bladder incontinence. Vital Signs: Reviewed in EMR Gen: WDWN, AAOx3, NAD HEENT: NCAT, EOMI, hearing grossly normal Pulm: resp unlabored,CTA Heart is regular no murmurs Neck: supple, trachea midline Neuro exam of the lower extremities showed normal muscle strength bilaterally and symmetrically however she has no deep tendon effacing bilaterally Imaging: Reviewed in EMR Assessment: 1. lumbar spondylosis without myelopathy 2. Lumbar stenosis 3. chronic pain syndrome Plan: 1. Explanation: Opioid and psychological risk scores were reviewed. Diagnoses , prognoses, and multiple treatment options including but not limited to physical therapy, interventional therapies, adjuvant medical therapies, narcotic medication therapies, and surgery were discussed with the patient and all questions were answered to the patient's satisfaction. 2. Opioid agreement: no opioids prescribed today 3. Counseling: The patient was counseled extensively on BODY MASS INDEX, EXERCISE. Specifically, the patient was instructed regarding the importance of weight control, and exercise in the context of both chronic pain and overall health. 4. Procedures: Lumbar epidural steroid injection under fluoroscopic guidance 5. Consultations: None 6. Investigations: UDS prev appropriate, MAPS queried and appropriate 7. Medications: None prescribed today 8. Disposition: f/u for procedure as scheduled PQRS measures: 1-Patient's medications are documented in the chart. 2-Tobacco use is negative 3-Patient has not had a pneumococcal vaccine. 4-Advanced care planning discussed, patient unable to give. 5-Opioid contract NOT signed with the patient. 6-Pain positive, follow-up visit or procedure scheduled 7-Patient's blood pressure measured and documented, and patient will follow up with the primary care due to hypertension. 8-Patient's weight was measured, and body mass index ABOVE the normal limits, and counseling was done. Patient instructed to follow up with PCP. 9-Patient WAS NOT identified as an unhealthy alcohol user. Objective - Vital Signs Vital signs: Vital Signs Temp 98.1 F 10/22/17 12:06 Pulse 96 10/22/17 12:06 Resp 18 10/22/17 12:06 BP 157/91 10/22/17 12:06 Pulse Ox Intake & Output 10/21/17 10/22/17 10/22/17 18:59 06:59 18:59 Weight 109.316 kg
== END | disposition home or self-care (01) ==
LOC: PNWHC3 11:00
PROVIDERS: ATTEND Anesthesiology
DX: G89.4 Chronic pain syndrome (principal); M48.061 Spinal stenosis, lumbar region without neurogenic claudication; M47.816 Spondylosis without myelopathy or radiculopathy, lumbar region
CPT/HCPCS: 99211

== ENCOUNTER 2017-11-13 09:02 | Day surgery (SDC) | payer OTHER ==
[2017-11-11 10:07] VITALS: BMI 39.3
[~2017-11-13 09:02] MED LIST changes: +LACTATED RINGERS 1,000 ML IV SCH; -TETANUS-DIPHTHERIA TOX (PF) 0.5 ML VIAL IM ONE
[2017-11-13 09:25] VITALS: RESP 16; TEMP 97.1
--- NOTE | 2017-11-13 10:12 | P.PCN ---
Date of Procedure: 11/13/17 Procedure(s) Performed: PREOPERATIVE DIAGNOSIS: 1- Lumbar spinal stenosis 2-Lumbar spondylosis with Facet arthropathy without myelopathy POSTOPERATIVE DIAGNOSIS: Same as preoperative diagnosis PROCEDURE 1. Lumbar epidural steroid injection under fluoroscopic guidance at the L5-S1 level. 2. Lumbar epidurogram. ANESTHESIA: Local with 1% lidocaine 3 ml and , moderate sedation with intravenous Versed 2 mg ,and fentanyle 50 Mcg EBL: Minimal PROCEDURE INDICATION: The patient with low back pain ,symptoms unresponsive to conservative treatment. Fluoroscopy was used to optimize visualization of the needle placement and to maximize safety. PROCEDURE DESCRIPTION / TECHNIQUE: The patient was seen and identified in the preoperative area. Risks, benefits , complications including but not limited to infections ,bleeding ,allergic reaction to the medications ,nerve damage and not complete pain releife , and alternatives were discussed with the patient. The patient agreed to proceed with the procedure and signed the consent. IV was started, and vital signs were stable. Patient was taken to the OR and time out was completed. The patient was placed in the prone position on procedure table and a pillow was placed under the abdomen to reduce lumbar lordosis. The lumbosacral area was prepped and draped in the usual sterile fashion.ere closely monitored during the procedure. Conscious sedation was used during the procedure to decrease patients anxiety. Vital signs was monitered during the entire procedure. Using anterior-posterior fluoroscopy, the L5-S1 interlaminar space was identified and the skin over this site was marked and then infiltrated with 1% lidocaine subcutaneously. Subsequently, a 20-gauge Tuohy epidural needle was inserted and advanced toward the epidural space using the ``Loss of resistance technique and guided by AP and lateral fluoroscopy. The correct needle position in the epidural space was verified with the injection of 2 mL of the water soluble contrast dye Isovue 200 contrast and observing an excellent epidurogram with the epidural spread of the dye, after negative aspiration for blood and CSF and in the absence of paresthesias. Again after negative aspiration, a 6 ml mixture containing 80 mg Depo-Medrol , and 2 ml of preservative free Normal Saline, and 2 ml of preservative free lidocaine 1% solution was injected and a washout of epidurogram was seen. Needle was withdrawn intact, skin was cleansed, and bandages were applied. COMPLICATIONS: None DISPOSITION / PLANS: The patient was placed in a supine position and transferred to the recovery area in a stable condition for observation. There was no evidence of lower extremity motor or sensory deficit after the procedure. Patient was discharged from the recovery room after meeting discharge criteria. Home discharge instructions were given to the patient by the staff. The patient was reexamined prior to discharge. The patient will schedule a follow up in the clinic in 2-4 weeks.
[2017-11-13 10:41] VITALS: BP 116/79; PULSE 94
--- NOTE | 2017-11-13 11:49 | FL ---
EXAMINATION TYPE: FL guided pain mgmt statistic DATE OF EXAM: 11/13/2017 HISTORY: Pain lumbar epidural, 1 sec fluoro, 1 image scanned
== END 2017-11-13 11:05 | disposition home or self-care (01) ==
LOC: ORPAIN 09:02
PROVIDERS: ATTEND Specialist
DX: M48.061 Spinal stenosis, lumbar region without neurogenic claudication (principal); M47.816 Spondylosis without myelopathy or radiculopathy, lumbar region; M51.36 Other intervertebral disc degeneration, lumbar region; J44.9 Chronic obstructive pulmonary disease, unspecified
CPT/HCPCS: 62323; J2250; J1030; J3010; Q9966

== ENCOUNTER → 2017-11-26 | Outpatient (CLI) | payer OTHER ==
--- NOTE | 2017-11-28 13:07 | MM ---
Reason for exam: screening (asymptomatic). Last mammogram was performed 1 year ago. History: Patient is postmenopausal and is nulliparous. Took hormonal contraceptives for 2 years. Physical Findings: A clinical breast exam by your physician is recommended on an annual basis and results should be correlated with mammographic findings. MG Screening Mammo w CAD Bilateral CC and MLO view(s) were taken. Prior study comparison: December 06, 2016, bilateral MG screening mammo w CAD. November 30, 2015, bilateral MG screening mammo w CAD. The breast tissue is almost entirely fat. Left 12 o'clock focal asymmetry unchanged. No significant changes when compared with prior studies. ASSESSMENT: Negative, BI-RAD 1 RECOMMENDATION: Routine screening mammogram of both breasts in 1 year.
== END | disposition home or self-care (01) ==
LOC: RADMAMWWP 09:26
PROVIDERS: ATTEND Internal Medicine Geriatric Medicine
DX: Z12.31 Encounter for screening mammogram for malignant neoplasm of breast (principal)
CPT/HCPCS: 77067

== ENCOUNTER 2017-12-03 09:15 | Day surgery (SDC) | payer OTHER ==
[2017-12-02 08:48] VITALS: BMI 39.3
[2017-12-03 11:27] VITALS: RESP 16; TEMP 98
[2017-12-03 11:46] LABS: Glucose,Whole Blood 104 mg/dL (75-99)
--- NOTE | 2017-12-03 12:44 | P.PCN ---
Date of Procedure: 12/03/17 Procedure(s) Performed: PREOPERATIVE DIAGNOSIS: 1- Lumbar spinal stenosis. 2-Lumbar spondylosis with Facet arthropathy without myelopathy POSTOPERATIVE DIAGNOSIS: 1-Lumber spinal stenosis 2-Lumbar spondylosis with Facet arthropathy without myelopathy PROCEDURE 1. Lumbar epidural steroid injection under fluoroscopic guidance at the L5-S1 level. 2. Lumbar epidurogram. ANESTHESIA: Local with 1% lidocaine 3 ml and , moderate sedation with intravenous Versed 2 mg ,and fentanyle 50 Mcg EBL: Minimal PROCEDURE INDICATION: The patient with low back pain and radiculitis symptoms unresponsive to conservative treatment. Fluoroscopy was used to optimize visualization of the needle placement and to maximize safety. PROCEDURE DESCRIPTION / TECHNIQUE: The patient was seen and identified in the preoperative area. Risks, benefits , complications including but not limited to infections ,bleeding ,allergic reaction to the medications ,nerve damage and not complete pain releife , and alternatives were discussed with the patient. The patient agreed to proceed with the procedure and signed the consent. IV was started, and vital signs were stable. Patient was taken to the OR and time out was completed. The patient was placed in the prone position on procedure table and a pillow was placed under the abdomen to reduce lumbar lordosis. The lumbosacral area was prepped and draped in the usual sterile fashion.ere closely monitored during the procedure. Conscious sedation was used during the procedure to decrease patients anxiety. Vital signs was monitered during the entire procedure. Using anterior-posterior fluoroscopy, the L5-S1 interlaminar space was identified and the skin over this site was marked and then infiltrated with 1% lidocaine subcutaneously. Subsequently, a 20-gauge Tuohy epidural needle was inserted and advanced toward the epidural space using the ``Loss of resistance technique and guided by AP and lateral fluoroscopy. The correct needle position in the epidural space was verified with the injection of 2 mL of the water soluble contrast dye Isovue 200 contrast and observing an excellent epidurogram with the epidural spread of the dye, after negative aspiration for blood and CSF and in the absence of paresthesias. Again after negative aspiration, a 6 ml mixture containing 80 mg Depomedrole, and 2 ml of preservative free Normal Saline, and 2 ml of preservative free lidocaine 1% solution was injected and a washout of epidurogram was seen. Needle was withdrawn intact, skin was cleansed, and bandages were applied. COMPLICATIONS: None DISPOSITION / PLANS: The patient was placed in a supine position and transferred to the recovery area in a stable condition for observation. There was no evidence of lower extremity motor or sensory deficit after the procedure. Patient was discharged from the recovery room after meeting discharge criteria. Home discharge instructions were given to the patient by the staff. The patient was reexamined prior to discharge. The patient will schedule a follow up in the clinic in 2-4 weeks.
[2017-12-03] MEDS ORDERED: IV FLUID CONTINUATION 1,000 ML IV ONE (13:07)
[2017-12-03 13:14] VITALS: BP 115/80; PULSE 84
--- NOTE | 2017-12-03 22:38 | FL ---
EXAMINATION TYPE: FL guided pain mgmt statistic DATE OF EXAM: 12/03/2017 FLUOROSCOPY Fluoroscopy time of seconds was used during lumbar epidural injection. 2 image/s document/s the proc edure.
== END 2017-12-03 13:27 | disposition home or self-care (01) ==
LOC: ORPAIN 09:15
PROVIDERS: ATTEND Specialist
DX: M48.061 Spinal stenosis, lumbar region without neurogenic claudication (principal); M47.26 Other spondylosis with radiculopathy, lumbar region; M51.16 Intervertebral disc disorders with radiculopathy, lumbar region; J44.9 Chronic obstructive pulmonary disease, unspecified; Z78.0 Asymptomatic menopausal state; Z91.09 Other allergy status, other than to drugs and biological substances
CPT/HCPCS: 62323; J2250; J1030; J3010; Q9966

== ENCOUNTER → 2017-12-27 | Outpatient (CLI) | payer OTHER ==
[2017-12-27 12:07] LABS: Albumin 4.2 g/dL (3.5-5.0); Calcium 9.3 mg/dL (8.4-10.2); Potassium 4.1 mmol/L (3.5-5.1); Total Bilirubin 0.4 mg/dL (0.2-1.3); Total Protein 7.1 g/dL (6.3-8.2)
--- NOTE | 2017-12-27 13:18 | CT ---
EXAMINATION TYPE: CT angio chest DATE OF EXAM: 12/27/2017 COMPARISON: NONE HISTORY: SOB CT DLP: 1375 mGycm. Automated Exposure Control for Dose Reduction was Utilized. CONTRAST: CTA scan of the thorax is performed without and with IV Contrast, patient injected with 100 ml mL of Isovue 370, pulmonary embolism protocol. MIP Images are created on CT scanner and reviewed. FINDINGS: LUNGS: There is background mild to borderline moderate underlying emphysematous change with mild ling pheral fibrosis and reticulation scattered throughout both lungs. Dependent atelectasis bilateral low er lobes is seen. No suspicious parenchymal nodule or mass is identified bilaterally. No pleural effu taya or pneumothorax is seen. Tracheobronchial tree shows mild central peribronchial wall thickening. MEDIASTINUM: There is suboptimal bolus, more dense contrast is seen in aorta, exam is essentially non diagnostic for pulmonary embolism. There are no greater than 1 cm hilar or mediastinal lymph nodes. No cardiomegaly or pericardial effusion is seen. OTHER: Small size hiatal hernia is present. Liver is diffusely low dense consistent with fatty infilt ration. Dextroconvex scoliosis centered in the lower thoracic spine is seen. IMPRESSION: 1. Nondiagnostic for pulmonary embolism. 2. Background mild underlying emphysematous change and scattered parenchymal fibrosis. No suspicious acute pulmonary process is seen.
== END | disposition home or self-care (01) ==
LOC: RADCTMAIN 11:06
PROVIDERS: ATTEND Nurse Practitioner Family
DX: I26.99 Other pulmonary embolism without acute cor pulmonale (principal); J84.10 Pulmonary fibrosis, unspecified; J43.9 Emphysema, unspecified
CPT/HCPCS: 80053; 71275; 36415; Q9967

== ENCOUNTER 2018-02-13 13:09 | Observation (INO) | payer OTHER ==
--- NOTE | 2018-02-13 14:08 | XR ---
EXAMINATION TYPE: XR chest 2V DATE OF EXAM: 02/13/2018 COMPARISON: 04/27/2015 HISTORY: Shortness of breath. History of asthma and COPD. TECHNIQUE: Frontal and lateral views of the chest are obtained. FINDINGS: There is no focal air space opacity, pleural effusion, or pneumothorax seen. The cardiac silhouette size is within normal limits. The osseous structures are intact. Multifocal linear bibas ilar atelectasis is seen. Pulmonary hyperinflation and flattening of the diaphragms represents underl rosalina COPD. There is slight right hemidiaphragm eventration. Mild multilevel degenerative changes of t he thoracic spine are seen. IMPRESSION: No acute cardiopulmonary process. Radiographic sequela of COPD and multifocal basilar at electasis.
[2018-02-13 16:31] LABS: Basophils # (A) 0.1 k/uL (0-0.2); Basophils % (A) 1 %; Eosinophils # (A) 0.6 k/uL (0-0.7); Eosinophils % (A) 6 %; HCT 42.8 % (34.0-46.0); HGB 14.5 gm/dL (11.4-16.0); Lymphocytes # (A) 2.9 k/uL (1.0-4.8); Lymphocytes % (A) 27 %; MCH 30.8 pg (25.0-35.0); MCHC 33.9 g/dL (31.0-37.0); MCV 90.7 fL (80.0-100.0); Mean Platelet Volume 7.5; Monocytes # (A) 0.4 k/uL (0-1.0); Monocytes % (A) 3 %; Neutrophils # (A) 6.8 k/uL (1.3-7.7); Neutrophils % (A) 63 %; Platelet Count 300 k/uL (150-450); RBC 4.71 m/uL (3.80-5.40); RDW 13.5 % (11.5-15.5); WBC 10.8 k/uL (3.8-10.6)
--- NOTE | 2018-02-13 16:44 | ED ---
General Adult HPI - General Chief complaint: Shortness of Breath Stated complaint: JACQUES Time Seen by Provider: 02/13/18 15:24 Source: patient, RN notes reviewed Mode of arrival: ambulatory Limitations: no limitations - History of Present Illness Initial comments: This a 62-year-old female presents emergency Department chief complaint of exertional shortness of breath. Patient states that she's had progressive shortness of breath over the last 3-4 weeks. Patient was seen by metal cnc operator and she was placed on antibiotics and steroids. She states that she is still worse. She states that she has no relief with her updraft. Patient denies any current chest pain. She has no history of congestive heart failure. Patient did have a CT a few weeks ago to rule out PE but is a nondiagnostic study. Patient denies any current fever, chills, headache or dizziness. Patient has not had a recent echo - Related Data Home Medications Medication Instructions Recorded Confirmed Albuterol Sulfate [Ventolin HFA] 1 - 2 puff INHALATION RT-Q6H PRN 05/20/1402/13 Azelastine HCl 137 mcg NS BID PRN 05/20/14 02/13/18 Budesonide [Pulmicort Flexhaler] 1 puff INHALATION RT-DAILY 05/20/14 02/13/18 Cetirizine HCl 10 mg PO DAILY 05/20/14 02/13/18 Multivitamins, Thera [Multivitamin] 1 tab PO DAILY 05/20/14 02/13/18 Omeprazole [PriLOSEC] 40 mg PO AC-BRKFST 05/20/14 02/13/18 Ranitidine HCl [Zantac] 150 mg PO BID 05/20/14 02/13/18 Umeclidinium Brm/Vilanterol Tr 1 puff INHALATION RT-DAILY 11/11/14 02/13/18 [Anoro Ellipta 62.5-25 Mcg INH] Acetaminophen [Tylenol] 500 mg PO Q6H PRN 01/25/16 02/13/18 predniSONE 5 mg PO DAILY PRN 01/25/16 02/13/18 Furosemide [Lasix] 20 mg PO DAILY PRN 05/01/16 02/13/18 Cholecalciferol [Vitamin D3] 2,000 unit PO Q48H 06/11/16 02/13/18 Potassium Chloride [Klor-Con 20] 20 meq PO HS PRN 06/11/16 02/13/18 Albuterol Nebulized [Ventolin 2.5 mg INHALATION Q6H PRN 06/20/16 02/13/18 Nebulized] Baclofen 5 mg PO HS PRN 06/20/16 02/13/18 Diltiazem HCl [Diltiazem 24Hr ER] 120 mg PO DAILY 07/18/17 02/13/18 Ibuprofen [Motrin] 800 mg PO BID 07/22/17 02/13/18 Meclizine [Antivert] 6.25 mg PO DAILY 07/22/17 02/13/18 Ketotifen 0.025% Ophth Soln 1 drop BOTH EYES BID PRN 09/03/17 02/13/18 [Zaditor] Ezetimibe [Zetia] 10 mg PO HS 11/11/17 02/13/18 Zafirlukast 10 mg PO BID 11/11/17 02/13/18 Allergies Allergy/AdvReac Type Severity Reaction Status Date / Time formoterol fumarate Allergy Severe Anaphylaxis Verified 02/13/18 15:45 [From Symbicort] amoxicillin Allergy GI Verified 02/13/18 15:45 DISTRESS AND DROWSINESS atorvastatin [From Lipitor] Allergy Unknown Verified 02/13/18 15:45 budesonide [From Symbicort] Allergy Anaphylaxis Verified 02/13/18 15:45 clarithromycin Allergy GI Verified 02/13/18 15:45 DISTRESS AND DROWSINESS doxycycline Allergy GI Verified 02/13/18 15:45 DISTRESS AND DROWSINESS omalizumab [From Xolair] Allergy Anaphylaxis Verified 02/13/18 15:45 prednisolone acetate, Allergy Anaphylaxis Verified 02/13/18 15:45 micronized [prednisolone acetate, micro] prednisone Allergy Anaphylaxis-IN Verified 02/13/18 15:45 LARGE DOSES cholestyramine AdvReac Diarrhea Verified 02/13/18 15:45 ciclesonide [From [place]] AdvReac RINGING IN Verified 02/13/18 15:45 THE EARS etodolac AdvReac MUSCLE Verified 02/13/18 15:45 CRAMPS fluticasone propionate AdvReac RASH, Verified 02/13/18 15:45 [From Advair Diskus] ITCHING gabapentin [From Neurontin] AdvReac MUSCLE Verified 02/13/18 15:45 CRAMPS, SENSATION OF BUGS CRAWLING ON LEGS gemfibrozil AdvReac Rapid Verified 02/13/18 15:45 Heart Rate lovastatin AdvReac cramps Verified 02/13/18 15:45 mometasone furoate AdvReac RASH, Verified 02/13/18 15:45 [From Asmanex Twisthaler] VISUAL CHANGES pregabalin [From Lyrica] AdvReac MUSCLE Verified 02/13/18 15:45 CRAMPS, SENSATION OF BUGS CRAWLING ON LEGS rosuvastatin calcium AdvReac MUSCLE Verified 02/13/18 15:45 [From Crestor] CRAMPS salmeterol xinafoate AdvReac Rash/Hives Verified 02/13/18 15:45 [From Advair Diskus] simvastatin AdvReac SENSATION Verified 02/13/18 15:45 OF BUGS CRAWLING ON LEGS thyroid, pork AdvReac Diarrhea Verified 02/13/18 15:45 [From [place] Thyroid] Review of Systems ROS Statement: Those systems with pertinent positive or pertinent negative responses have been documented in the HPI. ROS Other: All systems not noted in ROS Statement are negative. 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 PAIN CLINIC PROCEDURES Past Anesthesia/Blood Transfusion Reactions: Previous Problems w/ Anesthesia Additional Past Anesthesia/Blood Transfusion Reaction / Comment(s): SLOW TO COME OUT OF ANESTHESIA, "does not take much" States has difficulty lying flat on her back. Past Psychological History: No Psychological Hx Reported Smoking Status: Former smoker - Past Family History Mother Family Medical History: Deep Vein Thrombosis (DVT) Father Family Medical History: Cancer General Exam Limitations: no limitations General appearance: alert, in no apparent distress Head exam: Present: atraumatic, normocephalic, normal inspection Eye exam: Present: normal appearance, PERRL, EOMI. Absent: scleral icterus, conjunctival injection, periorbital swelling ENT exam: Present: normal exam, normal oropharynx, mucous membranes moist, TM's normal bilaterally, normal external ear exam Neck exam: Present: normal inspection, full ROM. Absent: tenderness, meningismus, lymphadenopathy Respiratory exam: Present: normal lung sounds bilaterally. Absent: respiratory distress, wheezes, rales, rhonchi, stridor Cardiovascular Exam: Present: normal rhythm, tachycardia, normal heart sounds. Absent: systolic murmur, diastolic murmur, rubs, gallop, clicks GI/Abdominal exam: Present: soft, normal bowel sounds. Absent: distended, tenderness, guarding, rebound, rigid Skin exam: Present: warm, dry, intact, normal color. Absent: rash Course Vital Signs 02/13/18 02/13/18 02/13/18 13:46 15:57 17:57 Temperature 98.4 F Pulse Rate 106 H 124 H Respiratory 18 20 24 Rate Blood Pressure 131/94 O2 Sat by Pulse 94 L 93 L Oximetry EKG Findings - EKG Comments: EKG Findings:: EKG performed at 16:30 sinus tachycardia with rate 109 MS 146 QRS 82 QT/QTC 354/476 Medical Decision Making - Medical Decision Making 62-year-old female presented for exertional shortness of breath. Patient does have underlying COPD though she has clear lungs at this time. D-dimer is negative CT does not need to be obtained throughout PE and she had a prior CT. Patient did have an for a pulse ox in which she became very dyspneic, tachycardic to 120 to 1:30 and desaturation. Patient will be admitted for cardiology evaluation, echocardiogram - Lab Data Result diagrams: 02/13/18 16:00 02/13/18 16:51 Lab Results 02/13/18 02/13/18 02/13/18 Range/Units 16:00 16:00 16:00 WBC 10.8 H (3.8-10.6) k/uL RBC 4.71 (3.80-5.40) m/uL Hgb 14.5 (11.4-16.0) gm/dL Hct 42.8 (34.0-46.0) % MCV 90.7 (80.0-100.0) fL MCH 30.8 (25.0-35.0) pg MCHC 33.9 (31.0-37.0) g/dL RDW 13.5 (11.5-15.5) % Plt Count 300 (150-450) k/uL Neutrophils % 63 % Lymphocytes % 27 % Monocytes % 3 % Eosinophils % 6 % Basophils % 1 % Neutrophils # 6.8 (1.3-7.7) k/uL Lymphocytes # 2.9 (1.0-4.8) k/uL Monocytes # 0.4 (0-1.0) k/uL Eosinophils # 0.6 (0-0.7) k/uL Basophils # 0.1 (0-0.2) k/uL PT 9.5 (9.0-12.0) sec INR 0.9 (<1.2) APTT 24.6 (22.0-30.0) sec D-Dimer 0.38 (<0.60) mg/L FEU Sodium (137-145) mmol/L Potassium (3.5-5.1) mmol/L Chloride (98-107) mmol/L Carbon Dioxide (22-30) mmol/L Anion Gap mmol/L BUN (7-17) mg/dL Creatinine (0.52-1.04) mg/dL Est GFR (CKD-EPI)AfAm (>60 ml/min/1.73 sqM) Est GFR (CKD-EPI)NonAf (>60 ml/min/1.73 sqM) Glucose (74-99) mg/dL Plasma Lactic Acid Kavon 2.2 H* (0.7-2.0) mmol/L Calcium (8.4-10.2) mg/dL Total Bilirubin (0.2-1.3) mg/dL AST (14-36) U/L ALT (9-52) U/L Alkaline Phosphatase (38-126) U/L Total Creatine Kinase (30-135) U/L CK-MB (CK-2) (0.0-2.4) ng/mL CK-MB (CK-2) Rel Index Troponin I (0.000-0.034) ng/mL NT-Pro-B Natriuret Pep pg/mL Total Protein (6.3-8.2) g/dL Albumin (3.5-5.0) g/dL 02/13/18 02/13/18 02/13/18 Range/Units 16:00 16:51 16:51 WBC (3.8-10.6) k/uL RBC (3.80-5.40) m/uL Hgb (11.4-16.0) gm/dL Hct (34.0-46.0) % MCV (80.0-100.0) fL MCH (25.0-35.0) pg MCHC (31.0-37.0) g/dL RDW (11.5-15.5) % Plt Count (150-450) k/uL Neutrophils % % Lymphocytes % % Monocytes % % Eosinophils % % Basophils % % Neutrophils # (1.3-7.7) k/uL Lymphocytes # (1.0-4.8) k/uL Monocytes # (0-1.0) k/uL Eosinophils # (0-0.7) k/uL Basophils # (0-0.2) k/uL PT (9.0-12.0) sec INR (<1.2) APTT (22.0-30.0) sec D-Dimer (<0.60) mg/L FEU Sodium 141 (137-145) mmol/L Potassium 3.9 (3.5-5.1) mmol/L Chloride 107 (98-107) mmol/L Carbon Dioxide 23 (22-30) mmol/L Anion Gap 11 mmol/L BUN 20 H (7-17) mg/dL Creatinine 0.98 (0.52-1.04) mg/dL Est GFR (CKD-EPI)AfAm 71 (>60 ml/min/1.73 sqM) Est GFR (CKD-EPI)NonAf 61 (>60 ml/min/1.73 sqM) Glucose 116 H (74-99) mg/dL Plasma Lactic Acid Kavon (0.7-2.0) mmol/L Calcium 9.9 (8.4-10.2) mg/dL Total Bilirubin 0.6 (0.2-1.3) mg/dL AST 51 H (14-36) U/L ALT 95 H (9-52) U/L Alkaline Phosphatase 107 (38-126) U/L Total Creatine Kinase 111 (30-135) U/L CK-MB (CK-2) 1.2 (0.0-2.4) ng/mL CK-MB (CK-2) Rel Index 1.1 Troponin I <0.012 (0.000-0.034) ng/mL NT-Pro-B Natriuret Pep 136 pg/mL Total Protein 6.9 (6.3-8.2) g/dL Albumin 4.1 (3.5-5.0) g/dL Disposition Clinical Impression: Exertional dyspnea, Oxygen desaturation, Tachycardia, COPD (chronic obstructive pulmonary disease) Disposition: ADMITTED IP TO THIS HOSP Condition: Fair Referrals: Yoel Garnica MD [Primary Care Provider] - 1-2 days
[2018-02-13 16:49] LABS: D-Dimer 0.38 mg/L FEU (<0.60); INR 0.9 (<1.2); Partial Thromboplastin Time 24.6 sec (22.0-30.0); Prothrombin Time 9.5 sec (9.0-12.0)
[2018-02-13 17:16] LABS: Albumin 4.1 g/dL (3.5-5.0); Calcium 9.9 mg/dL (8.4-10.2); Potassium 3.9 mmol/L (3.5-5.1); Total Bilirubin 0.6 mg/dL (0.2-1.3); Total Protein 6.9 g/dL (6.3-8.2)
[2018-02-13 17:28] LABS: Creatine Kinase 111 U/L (30-135)
[2018-02-13 17:41] LABS: Creatine Kinase MB 1.2 ng/mL (0.0-2.4); Troponin I <0.012 ng/mL (0.000-0.034)
[2018-02-13] MEDS ORDERED: NALOXONE 0.4 MG/ML 1 ML VIAL IV PRN (18:10)
[2018-02-13] MEDS ORDERED: ACETAMINOPHEN TAB 325 MG TAB PO PRN (18:10)
[2018-02-13] MEDS ORDERED: BACLOFEN 10 MG TAB PO PRN (18:11)
[2018-02-13] MEDS ORDERED: ALBUTEROL NEBULIZED 2.5 MG/3 ML INHALATION PRN (18:11)
[2018-02-13] MEDS ORDERED: POTASSIUM CHLORIDE ER 20 MEQ TAB.ER PO PRN (18:11)
[2018-02-13] MEDS ORDERED: FUROSEMIDE 20 MG TAB PO PRN (18:11)
[2018-02-13] MEDS ORDERED: SODIUM CHLORIDE 0.9% 500 ML 500 ML IV ONE (18:34)
[2018-02-13 19:16] VITALS: BMI 41.5
[2018-02-13] MEDS: FAMOTIDINE 20 MG TAB PO SCH (19:51)
[2018-02-13] MEDS ORDERED: CHOLECALCIFEROL 1,000 UNIT TAB PO SCH (20:00)
[2018-02-13] MEDS ORDERED: EZETIMIBE 10 MG TAB PO SCH (21:00)
[2018-02-13] MEDS ORDERED: MONTELUKAST 5 MG CHEWABLE PO SCH (21:00)
[2018-02-13 23:32] VITALS: RESP 18
[2018-02-14] MEDS ORDERED: PANTOPRAZOLE 40 MG TABLET PO SCH (07:30)
[2018-02-14] MEDS ORDERED: NON-FORMULARY DRUG (Budesonide [Pulmicort Flexhaler] 1 PUFF) INHALATION SCH (08:00)
[2018-02-14] MEDS ORDERED: NON-FORMULARY DRUG (Umeclidinium Brm/Vilanterol Tr [Anoro Ellipta 62.5-25 Mcg Inh] 1 PUFF) INHALATION SCH (08:00)
[2018-02-14] MEDS ORDERED: DILTIAZEM CD 120 MG CAP.ER.24H PO SCH (09:00)
[2018-02-14] MEDS ORDERED: MECLIZINE 12.5 MG TAB PO SCH (09:00)
[2018-02-14] MEDS ORDERED: LORATADINE 10 MG TAB PO SCH (09:00)
[2018-02-14] MEDS: FAMOTIDINE 20 MG TAB PO SCH (09:56)
[2018-02-14] MEDS ORDERED: FUROSEMIDE 10 MG/ML 4 ML VIAL IV STA (10:40)
[2018-02-14 10:57] LABS: Magnesium 1.9 mg/dL (1.6-2.3)
--- NOTE | 2018-02-14 11:02 | P.CRDCN ---
History of Present Illness History of present illness: This is a pleasant 62-year-old female past medical history significant for asthma, COPD, dyslipidemia, former nicotine dependency morbid obesity. She denies history of coronary artery disease, hypertension or diabetes mellitus. She states she has never followed with a ribbon hand for any reason. We have been asked to see her in consultation for symptoms of shortness of breath. She states for the previous month she has felt short of breath and tachycardic with minimal exertion. She states when this first started a month ago she saw her primary care physician and was sent for a CT of her chest which revealed mild underlying emphysematous changes with scattered parenchymal fibrosis with no suspicious acute pulmonary process seen and nondiagnostic for pulmonary embolism. She was then started on a Z-Timur for possible upper respiratory infection which she completed and had no change in her symptoms. She then saw her pillow agent in the office and was started on oral steroids. She has been taking these for approximately the previous 3 weeks. Around about the time when she started the steroids she started noting increased swelling of her legs. She has a prescription for Lasix 20 mg that she can take as needed for which she has been taking consistently for the previous 3 weeks every day. Despite all of this she continues to feel short of breath with exertion and states as soon as she stands up and moves around her heart starts racing in a regular fashion. She denies ever having symptoms of chest pain, dizziness, nausea, vomiting or diaphroesis. EKG reveals sinus tachycardia heart rate [address] or T wave abnormalities noted. Chest x-ray is negative for an acute cardiopulmonary process. Laboratory data reviewed, WBC 10.8, hemoglobin 14.5, platelets 300, d-dimer 0.3 , sodium 141, potassium 3.9, creatine 0.98, lactic asked on admission 2. 2 repeat this morning 1.8, cardiac enzymes negative 1, NT proBNP 136, AST 51 and ALT 95. Current cardiac medications include diltiazem 120 mg daily, Lasix 20 mg daily as needed. She states she was started on diltiazem secondary to chronic tachycardia related to all of her pulmonary medications. Most recent stress test performed October 2016 was a Cardiolite stress test was negative for stress-induced ischemia. She wore a Holter monitor October 2016 which revealed mostly sinus tachycardia with evidence of PVCs, couplets bigeminy and trigeminy and diary was asymptomatic. At the time of my exam: CONSTITUTIONAL: Denies fever. Denies chills. EYES: Denies blurred vision. Denies vision changes. Denies eye pain. EARS, NOSE, MOUTH & THROAT: Denies headache. Denies sore throat. Denies ear pain. CARDIOVASCULAR: Denies chest pain. Denies shortness of breath. Denies orthopnea. Denies PND. Denies palpitations. RESPIRATORY: Denies cough. GASTROINTESTINAL: Denies abdominal pain. Denies diarrhea. Denies constipation. Denies nausea. Denies vomiting. MUSCULOSKELETAL: Denies myalgias. INTEGUMENTARY: Denies pruitis. Denies rash. NEUROLOGIC: Denies numbness. Denies tingling. Denies weakness. PSYCHIATRIC: Denies anxiety. Denies depression. ENDOCRINE: Denies fatigue. Denies weight change. Denies polydipsia. Denies polyurina. GENITOURINARY: Denies burning, hematuria or urgency with micturation. HEMATOLOGIC: Denies history of anemia. Denies bleeding. Blood pressure 124/85 heart rate 107 afebrile maintaining oxygen saturation on room air GENERAL: This is a 62-year-old female in no apparent distress at the time of my examination. Morbidly obese. HEENT: Head is atraumatic, normocephalic. Pupils are equal, round. Sclerae anicteric. Conjunctivae are clear. Mucous membranes of the mouth are moist. Neck is supple. There is no jugular venous distention. No carotid bruit is heard. LUNGS: Clear to auscultation no wheezes, rales or rhonchi. No chest wall tenderness is noted on palpation or with deep breathing. Diminished bilaterally. HEART: Regular rate and rhythm without murmurs, rubs or gallops. S1 and S2 heard. ABDOMEN: Soft, nontender. Bowel sounds are heard. No organomegaly noted. EXTREMITIES: 1+ pitting bilateral lower extremity edema and no calf tenderness noted. VASCULAR: Radial and dorsalis pedis pulses palpated, no evidence of clubbing. NEUROLOGIC: Patient is awake, alert and oriented x3. ASSESSMENT Exertional shortness of breath for the last 4 weeks Sinus tachycardia Dyslipidemia Asthma COPD Former nicotine dependence Morbid obesity, BMI 41.6 PLAN Obtain 2D echocardiogram and doppler study to assess cardiac structure and function. Check magnesium and TSH. Give one time dose of IV lasix for lower extremity edema. This correlates with the initiation of steroids and may be reactive to that with no other symptoms of heart failure. Symptoms more likely related to pulmonary etiology. Treat the underlying causes of sinus tachycardia. No clinical evidence of heart failure with clear lungs, no orhopnea/PND and normal NTproBNP. Lifestyle modifications recommended for weight loss. Ongoing medical management. Thank you kindly for this consultation. Nurse Practitioner note has been reviewed, I agree with a documented findings and plan of care. Patient was seen and examined. 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 PAIN CLINIC PROCEDURES Past Anesthesia/Blood Transfusion Reactions: Previous Problems w/ Anesthesia Additional Past Anesthesia/Blood Transfusion Reaction / Comment(s): SLOW TO COME OUT OF ANESTHESIA, "does not take much" States has difficulty lying flat on her back. Past Psychological History: No Psychological Hx Reported Smoking Status: Former smoker Past Alcohol Use History: Rare Additional Past Alcohol Use History / Comment(s): quit smoking 2010, smoked for 20 yrs- 1 PPD Past Drug Use History: None Reported - Past Family History Mother Family Medical History: Deep Vein Thrombosis (DVT) Father Family Medical History: Cancer Medications and Allergies Home Medications Medication Instructions Recorded Confirmed Type Albuterol Sulfate [Ventolin HFA] 1 - 2 puff INHALATION RT-Q6H PRN 05/20/1402/13 History Azelastine HCl 137 mcg NS BID PRN 05/20/14 02/13/18 History Budesonide [Pulmicort Flexhaler] 1 puff INHALATION RT-DAILY 05/20/14 02/13/18 History Cetirizine HCl 10 mg PO DAILY 05/20/14 02/13/18 History Multivitamins, Thera [Multivitamin] 1 tab PO DAILY 05/20/14 02/13/18 History Omeprazole [PriLOSEC] 40 mg PO AC-BRKFST 05/20/14 02/13/18 History Ranitidine HCl [Zantac] 150 mg PO BID 05/20/14 02/13/18 History Umeclidinium Brm/Vilanterol Tr 1 puff INHALATION RT-DAILY 11/11/14 02/13/18 History [Anoro Ellipta 62.5-25 Mcg INH] Acetaminophen [Tylenol] 500 mg PO Q6H PRN 01/25/16 02/13/18 History predniSONE 5 mg PO DAILY PRN 01/25/16 02/13/18 History Furosemide [Lasix] 20 mg PO DAILY PRN 05/01/16 02/13/18 History Cholecalciferol [Vitamin D3] 2,000 unit PO Q48H 06/11/16 02/13/18 History Potassium Chloride [Klor-Con 20] 20 meq PO HS PRN 06/11/16 02/13/18 History Albuterol Nebulized [Ventolin 2.5 mg INHALATION Q6H PRN 06/20/16 02/13/18 History Nebulized] Baclofen 5 mg PO HS PRN 06/20/16 02/13/18 History Diltiazem HCl [Diltiazem 24Hr ER] 120 mg PO DAILY 07/18/17 02/13/18 History Ibuprofen [Motrin] 800 mg PO BID 07/22/17 02/13/18 History Meclizine [Antivert] 6.25 mg PO DAILY 07/22/17 02/13/18 History Ketotifen 0.025% Ophth Soln 1 drop BOTH EYES BID PRN 09/03/17 02/13/18 History [Zaditor] Ezetimibe [Zetia] 10 mg PO HS 11/11/17 02/13/18 History Zafirlukast 10 mg PO BID 11/11/17 02/13/18 History Allergies Allergy/AdvReac Type Severity Reaction Status Date / Time formoterol fumarate Allergy Severe Anaphylaxis Verified 02/13/18 15:45 [From Symbicort] amoxicillin Allergy GI Verified 02/13/18 15:45 DISTRESS AND DROWSINESS atorvastatin [From Lipitor] Allergy Unknown Verified 02/13/18 15:45 budesonide [From Symbicort] Allergy Anaphylaxis Verified 02/13/18 15:45 clarithromycin Allergy GI Verified 02/13/18 15:45 DISTRESS AND DROWSINESS doxycycline Allergy GI Verified 02/13/18 15:45 DISTRESS AND DROWSINESS omalizumab [From Xolair] Allergy Anaphylaxis Verified 02/13/18 15:45 prednisolone acetate, Allergy Anaphylaxis Verified 02/13/18 15:45 micronized [prednisolone acetate, micro] prednisone Allergy Anaphylaxis-IN Verified 02/13/18 15:45 LARGE DOSES cholestyramine AdvReac Diarrhea Verified 02/13/18 15:45 ciclesonide [From [place]] AdvReac RINGING IN Verified 02/13/18 15:45 THE EARS etodolac AdvReac MUSCLE Verified 02/13/18 15:45 CRAMPS fluticasone propionate AdvReac RASH, Verified 02/13/18 15:45 [From Advair Diskus] ITCHING gabapentin [From Neurontin] AdvReac MUSCLE Verified 02/13/18 15:45 CRAMPS, SENSATION OF BUGS CRAWLING ON LEGS gemfibrozil AdvReac Rapid Verified 02/13/18 15:45 Heart Rate lovastatin AdvReac cramps Verified 02/13/18 15:45 mometasone furoate AdvReac RASH, Verified 02/13/18 15:45 [From Asmanex Twisthaler] VISUAL CHANGES pregabalin [From Lyrica] AdvReac MUSCLE Verified 02/13/18 15:45 CRAMPS, SENSATION OF BUGS CRAWLING ON LEGS rosuvastatin calcium AdvReac MUSCLE Verified 02/13/18 15:45 [From Crestor] CRAMPS salmeterol xinafoate AdvReac Rash/Hives Verified 02/13/18 15:45 [From Advair Diskus] simvastatin AdvReac SENSATION Verified 02/13/18 15:45 OF BUGS CRAWLING ON LEGS thyroid, pork AdvReac Diarrhea Verified 02/13/18 15:45 [From [place] Thyroid] Physical Exam Vitals: Vital Signs Temp Pulse Pulse Resp BP BP Pulse Ox 02/14/18 08:00 97.4 F L 107 H 18 124/85 94 L 02/14/18 03:37 98.5 F 92 18 126/71 92 L 02/14/18 03:20 18 02/13/18 23:33 18 02/13/18 23:31 98.0 F 100 18 145/79 92 L 02/13/18 20:00 98.2 F 103 H 16 141/99 96 02/13/18 19:37 14 02/13/18 18:00 114 H 14 143/90 95 02/13/18 17:57 124 H 24 93 L 02/13/18 17:50 115 H 13 143/90 95 02/13/18 17:40 105 H 16 130/98 95 02/13/18 17:30 107 H 25 H 158/97 95 02/13/18 17:20 112 H 20 158/97 95 02/13/18 17:10 112 H 25 H 140/100 95 02/13/18 17:00 105 H 20 143/98 94 L 02/13/18 16:50 109 H 20 143/98 93 L 02/13/18 16:40 111 H 20 145/101 95 02/13/18 16:30 108 H 20 94 L 02/13/18 16:20 128 H 22 94 L 02/13/18 16:10 117 H 22 95 02/13/18 16:05 120 H 17 95 02/13/18 15:57 20 02/13/18 13:46 98.4 F 106 H 18 131/94 94 L Intake and Output 02/13/18 02/14/18 02/14/18 22:59 06:59 14:59 Other: Voiding Method Toilet Toilet Toilet # Voids 1 2 Weight 113.398 kg Results 02/13/18 16:00 02/13/18 16:51 Cardiac Enzymes 02/13/18 02/13/18 Range/Units 16:51 16:51 AST 51 H (14-36) U/L CK-MB (CK-2) 1.2 (0.0-2.4) ng/mL Troponin I <0.012 (0.000-0.034) ng/mL Coagulation 02/13/18 Range/Units 16:00 PT 9.5 (9.0-12.0) sec APTT 24.6 (22.0-30.0) sec CBC 02/13/18 Range/Units 16:00 WBC 10.8 H (3.8-10.6) k/uL RBC 4.71 (3.80-5.40) m/uL Hgb 14.5 (11.4-16.0) gm/dL Hct 42.8 (34.0-46.0) % Plt Count 300 (150-450) k/uL Comprehensive Metabolic Panel 02/13/18 Range/Units 16:51 Sodium 141 (137-145) mmol/L Potassium 3.9 (3.5-5.1) mmol/L Chloride 107 (98-107) mmol/L Carbon Dioxide 23 (22-30) mmol/L BUN 20 H (7-17) mg/dL Creatinine 0.98 (0.52-1.04) mg/dL Glucose 116 H (74-99) mg/dL Calcium 9.9 (8.4-10.2) mg/dL AST 51 H (14-36) U/L ALT 95 H (9-52) U/L Alkaline Phosphatase 107 (38-126) U/L Total Protein 6.9 (6.3-8.2) g/dL Albumin 4.1 (3.5-5.0) g/dL Current Medications Generic Name Dose Route Start Last Admin Trade Name Freq PRN Reason Stop Dose Admin Acetaminophen 650 mg 02/13/18 18:10 Tylenol Tab PO Q6HR PRN Mild Pain or Fever > 100.5 Albuterol Sulfate 2.5 mg 02/13/18 18:11 Ventolin Nebulized INHALATION RT-Q6H PRN Dyspnea Baclofen 5 mg 02/13/18 18:11 Lioresal PO HS PRN Muscle Spasm Cholecalciferol 2,000 unit 02/13/18 20:00 02/13/18 19:51 Vitamin D3 PO Not Given Q48H [facility] Diltiazem HCl 120 mg 02/14/18 09:00 02/14/18 09:56 Cardizem Cd PO Not Given DAILY DAVIS Ezetimibe 10 mg 02/13/18 21:00 02/13/18 19:51 Zetia PO Not Given HS DAVIS Famotidine 20 mg 02/13/18 21:00 02/14/18 09:56 Pepcid PO Not Given BID DAVIS Furosemide 20 mg 02/13/18 18:11 Lasix PO DAILY PRN Edema Loratadine 10 mg 02/14/18 09:00 02/14/18 09:56 Claritin PO Not Given DAILY [facility] Meclizine HCl 6.25 mg 02/14/18 09:00 02/14/18 09:57 Antivert PO Not Given DAILY DAVIS Montelukast Sodium 5 mg 02/13/18 21:00 02/13/18 19:51 Singulair Chew PO Not Given HS DAVIS Naloxone HCl 0.2 mg 02/13/18 18:10 Narcan IV Q2M PRN Opioid Reversal Non-Formulary Medication 1 puff 02/14/18 08:00 Budesonide [Pulmicort Flexhaler] INHALATION RT-DAILY DAVIS Non-Formulary Medication 1 puff 02/14/18 08:00 Umeclidinium Brm/Vilanterol Tr [Anoro Ellipta 62.5-25 Mcg Inh] INHALATION RT-DAILY DAVIS Pantoprazole Sodium 40 mg 02/14/18 07:30 02/14/18 09:55 Protonix PO Not Given AC-BRKFST [facility] Potassium Chloride 20 meq 02/13/18 18:11 K-Dur 20 PO HS PRN TAKE WITH FUROSEMIDE Intake and Output 02/13/18 02/14/18 02/14/18 22:59 06:59 14:59 Other: Voiding Method Toilet Toilet Toilet # Voids 1 2 Weight 113.398 kg 02/13/18 16:00 02/13/18 16:51
[2018-02-14 12:18] VITALS: BP 119/62; PULSE 87; TEMP 97.8
[2018-02-14] MEDS ORDERED: METOPROLOL TARTRATE 12.5 MG TAB PO SCH (13:15)
--- NOTE | 2018-02-14 15:19 | P.HPIM ---
History of Present Illness H&P Date: 02/14/18 (This document was also put's H&P and discharge summary) 62 years old female patient of Dr. Palmer and Dr. Rust past medical history of asthma, COPD, hyperlipidemia, osteoarthritis comes in with shortness of breath on exertion happening for a few weeks. Patient was seen by the nurse practitioner in the office and was given Z-Timur followed by seen by Dr. Rust with 3 weeks of steroid with no improvement. Patient states that she works 2030 feet she gets short of breath. She quit smoking 2010 and had a 20 pack year history. She did underwent a CT and she'll one month back but which was nondiagnostic for pulmonary embolism. Patient was seen by cardiology but filled patient's symptoms are more likely to be pulmonary associated. Patient does document sinus tachycardia. She does have history of palpitation the past and had a Holter monitor in October 2016 that showed PVCs, couplets bigeminy and trigeminy. Patient also underwent stress test in October 2016 which was negative for stress-induced ischemia. Patient was given the option of getting a CT angiogram while in the hospital as well as bilateral lower extremity Doppler but decided to get it as outpatient. On assessment and vitals patient is afebrile, tachycardic 107 sinus, blood pressure 124/85 saturating well on room air. EKG suggests a sinus tachycardia pvcs or PACs seen. Labs suggested WBC 10.8, creatinine 0.98, glucose 116 WBC 2.2 on admission and improved to 1.8. Review of Systems Constitutional: Denies chills, Denies fever, Denies lethargy, Denies malaise, Denies poor appetite, Denies weakness, Denies weight loss Eyes: denies decreased vision, denies diplopia, denies discharge, denies pain Ears: deny: decreased hearing Ears, nose, mouth and throat: Denies dental pain, Denies headache, Denies nasal discharge, Denies nose pain Cardiovascular: Denies chest pain, endorses decreased exercise tolerance, Denies edema, Denies high blood pressure, Denies irregular heart beat, endorses palpitations, Denies paroxysmal nocturnal dyspnea, Denies rapid heart beat, Denies shortness of breath Respiratory: Denies congestion, Denies cough, Denies cough with sputum, endorses dyspnea, Denies home oxygen, Denies wheezing Gastrointestinal: Denies abdominal pain, Denies change in bowel habits, Denies coffee ground emesis, Denies early satiety, Denies excessive gas, Denies heartburn, Denies hematemesis, Denies hematochezia, Denies loss of appetite, Denies nausea, Denies vomiting Genitourinary: Denies dysuria, Denies flank pain, Denies kidney stones, Denies menorrhagia, Denies urgency, Denies urinary frequency Musculoskeletal: Denies gait dysfunction, Denies limitation of motion, Denies morning stiffness, Denies muscle cramps Integumentary: Denies rash, Denies wounds, Denies brittle nails, Denies change in hair/nails, Denies darkening of skin Neurological: Denies balance difficulties, Denies change in speech, Denies double vision, Denies gait dysfunction, Denies loss of vision, Denies motor disturbance, Denies numbness, Denies paralysis, Denies paresthesias, Denies seizures Psychiatric: Denies anxiety, Denies depression Endocrine: Denies excessive sweating, Denies excessive thirst, Denies high blood sugars, Denies palpitations Hematologic/Lymphatic: Denies easy bruising, Denies lymphadenopathy Past Medical History Past Medical History: Asthma, COPD, GERD/Reflux, Hyperlipidemia, Osteoarthritis (OA) Additional Past Medical History / Comment(s): VOCAL CORD DYSFUNCTION-UNDER CONTROL AT THIS TIME W/MEDS, rapid heart rate History of Any Multi-Drug Resistant Organisms: Acinetobacter (MDRO) Date of last positivie culture/infection: 2015 MDRO Source:: unknown Past Surgical History: Hernia Repair, Orthopedic Surgery Additional Past Surgical History / Comment(s): BENIGN TUMOR REMOVED FROM RT HAND , BILATERAL CATARACTS, BILATERAL BUNIONECTOMY, left knee surgery. PAIN CLINIC PROCEDURES Past Anesthesia/Blood Transfusion Reactions: Previous Problems w/ Anesthesia Additional Past Anesthesia/Blood Transfusion Reaction / Comment(s): SLOW TO COME OUT OF ANESTHESIA, "does not take much" States has difficulty lying flat on her back. Past Psychological History: No Psychological Hx Reported Smoking Status: Former smoker Past Alcohol Use History: Rare Additional Past Alcohol Use History / Comment(s): quit smoking 2010, smoked for 20 yrs- 1 PPD Past Drug Use History: None Reported - Past Family History Mother Family Medical History: Deep Vein Thrombosis (DVT) Father Family Medical History: Cancer Medications and Allergies Home Medications Medication Instructions Recorded Confirmed Type Albuterol Sulfate [Ventolin HFA] 1 - 2 puff INHALATION RT-Q6H PRN 05/20/1402/13 History Azelastine HCl 137 mcg NS BID PRN 05/20/14 02/13/18 History Budesonide [Pulmicort Flexhaler] 1 puff INHALATION RT-DAILY 05/20/14 02/13/18 History Cetirizine HCl 10 mg PO DAILY 05/20/14 02/13/18 History Multivitamins, Thera [Multivitamin 1 tab PO DAILY 05/20/14 02/13/18 History (formulary)] Omeprazole [PriLOSEC] 40 mg PO AC-BRKFST 05/20/14 02/13/18 History Ranitidine HCl [Zantac] 150 mg PO BID 05/20/14 02/13/18 History Umeclidinium Brm/Vilanterol Tr 1 puff INHALATION RT-DAILY 11/11/14 02/13/18 History [Anoro Ellipta 62.5-25 Mcg INH] Acetaminophen [Tylenol] 500 mg PO Q6H PRN 01/25/16 02/13/18 History predniSONE 5 mg PO DAILY PRN 01/25/16 02/13/18 History Furosemide [Lasix] 20 mg PO DAILY PRN 05/01/16 02/13/18 History Cholecalciferol [Vitamin D3] 2,000 unit PO Q48H 06/11/16 02/13/18 History Potassium Chloride [Klor-Con 20] 20 meq PO HS PRN 06/11/16 02/13/18 History Albuterol Nebulized [Ventolin 2.5 mg INHALATION Q6H PRN 06/20/16 02/13/18 History Nebulized] Baclofen 5 mg PO HS PRN 06/20/16 02/13/18 History Diltiazem HCl [Diltiazem 24Hr ER] 120 mg PO DAILY 07/18/17 02/13/18 History Ibuprofen [Motrin] 800 mg PO BID 07/22/17 02/13/18 History Meclizine [Antivert] 6.25 mg PO DAILY 07/22/17 02/13/18 History Ketotifen 0.025% Ophth Soln 1 drop BOTH EYES BID PRN 09/03/17 02/13/18 History [Zaditor] Ezetimibe [Zetia] 10 mg PO HS 11/11/17 02/13/18 History Zafirlukast 10 mg PO BID 11/11/17 02/13/18 History Metoprolol Tartrate [Lopressor] 12.5 mg PO BID #60 tab 02/14/18 Rx Allergies Allergy/AdvReac Type Severity Reaction Status Date / Time formoterol fumarate Allergy Severe Anaphylaxis Verified 02/13/18 15:45 [From Symbicort] amoxicillin Allergy GI Verified 02/13/18 15:45 DISTRESS AND DROWSINESS atorvastatin [From Lipitor] Allergy Unknown Verified 02/13/18 15:45 budesonide [From Symbicort] Allergy Anaphylaxis Verified 02/13/18 15:45 clarithromycin Allergy GI Verified 02/13/18 15:45 DISTRESS AND DROWSINESS doxycycline Allergy GI Verified 02/13/18 15:45 DISTRESS AND DROWSINESS omalizumab [From Xolair] Allergy Anaphylaxis Verified 02/13/18 15:45 prednisolone acetate, Allergy Anaphylaxis Verified 02/13/18 15:45 micronized [prednisolone acetate, micro] prednisone Allergy Anaphylaxis-IN Verified 02/13/18 15:45 LARGE DOSES cholestyramine AdvReac Diarrhea Verified 02/13/18 15:45 ciclesonide [From [place]] AdvReac RINGING IN Verified 02/13/18 15:45 THE EARS etodolac AdvReac MUSCLE Verified 02/13/18 15:45 CRAMPS fluticasone propionate AdvReac RASH, Verified 02/13/18 15:45 [From Advair Diskus] ITCHING gabapentin [From Neurontin] AdvReac MUSCLE Verified 02/13/18 15:45 CRAMPS, SENSATION OF BUGS CRAWLING ON LEGS gemfibrozil AdvReac Rapid Verified 02/13/18 15:45 Heart Rate lovastatin AdvReac cramps Verified 02/13/18 15:45 mometasone furoate AdvReac RASH, Verified 02/13/18 15:45 [From Asmanex Twisthaler] VISUAL CHANGES pregabalin [From Lyrica] AdvReac MUSCLE Verified 02/13/18 15:45 CRAMPS, SENSATION OF BUGS CRAWLING ON LEGS rosuvastatin calcium AdvReac MUSCLE Verified 02/13/18 15:45 [From Crestor] CRAMPS salmeterol xinafoate AdvReac Rash/Hives Verified 02/13/18 15:45 [From Advair Diskus] simvastatin AdvReac SENSATION Verified 02/13/18 15:45 OF BUGS CRAWLING ON LEGS thyroid, pork AdvReac Diarrhea Verified 02/13/18 15:45 [From [place] Thyroid] Physical Exam Vitals: Vital Signs Temp Pulse Pulse Resp BP BP Pulse Ox 02/14/18 12:00 97.8 F 87 18 119/62 95 02/14/18 08:00 97.4 F L 107 H 18 124/85 94 L 02/14/18 03:37 98.5 F 92 18 126/71 92 L 02/14/18 03:20 18 02/13/18 23:33 18 02/13/18 23:31 98.0 F 100 18 145/79 92 L 02/13/18 20:00 98.2 F 103 H 16 141/99 96 02/13/18 19:37 14 02/13/18 18:00 114 H 14 143/90 95 02/13/18 17:57 124 H 24 93 L 02/13/18 17:50 115 H 13 143/90 95 02/13/18 17:40 105 H 16 130/98 95 02/13/18 17:30 107 H 25 H 158/97 95 02/13/18 17:20 112 H 20 158/97 95 02/13/18 17:10 112 H 25 H 140/100 95 02/13/18 17:00 105 H 20 143/98 94 L 02/13/18 16:50 109 H 20 143/98 93 L 02/13/18 16:40 111 H 20 145/101 95 02/13/18 16:30 108 H 20 94 L 02/13/18 16:20 128 H 22 94 L 02/13/18 16:10 117 H 22 95 02/13/18 16:05 120 H 17 95 02/13/18 15:57 20 Intake and Output 02/14/18 02/14/18 02/14/18 06:59 14:59 22:59 Intake Total 100 Balance 100 Intake: Oral 100 Other: Voiding Method Toilet Toilet # Voids 2 - Constitutional General appearance: cooperative, no acute distress, obese - EENT Eyes: anicteric sclerae, PERRLA, normal appearance ENT: hearing grossly normal - Neck Neck: no lymphadenopathy, normal ROM, no other, no rigidity, no stridor, no thyromegaly - Respiratory Respiratory: bilateral: CTA, negative: diminished, dullness, rales, rhonchi - Cardiovascular Rhythm: regular Heart sounds: normal: S1, S2 Abnormal Heart Sounds: no systolic murmur, no diastolic murmur, no rub, no S3 Gallop, no S4 Gallop, no click, 1+ pitting edema in lower extremity - Gastrointestinal General gastrointestinal: normal bowel sounds, soft - Integumentary Integumentary: no rash - Neurologic Neurologic: CNII-XII intact - Musculoskeletal Musculoskeletal: gait normal, strength equal bilaterally - Psychiatric Psychiatric: A&O x's 3, appropriate affect Results CBC & Chem 7: 02/13/18 16:00 02/13/18 16:51 Labs: Abnormal Lab Results - Last 24 Hours (Table) 02/13/18 02/13/18 02/13/18 Range/Units 16:00 16:00 16:51 WBC 10.8 H (3.8-10.6) k/uL BUN 20 H (7-17) mg/dL Glucose 116 H (74-99) mg/dL Plasma Lactic Acid Kavon 2.2 H* (0.7-2.0) mmol/L AST 51 H (14-36) U/L ALT 95 H (9-52) U/L Thrombosis Risk Factor Assmnt - DVT/VTE Prophylaxis DVT/VTE Prophylaxis: Pharmacologic Prophylaxis ordered - Choose All That Apply Each Risk Factor Represents 2 Points: Age 61-74 years Thrombosis Risk Factor Assessment Total Risk Factor Score: 2 Thrombosis Risk Factor Assessment Level: Low Risk Assessment and Plan Plan: #1 acute on chronic shortness of breath on exertion likely secondary to worsening COPD not currently in COPD exacerbation. Pulmonary embolism could not be ruled out with a CT as it was nondiagnostic for it. Patient offered CTA and venous Doppler is inpatient but she opted out of this option and decided to come to the clinic and get it evaluated. #2 sinus tachycardia. With history of bigeminy and quadrectomy Continue Cardizem 120 mg by mouth daily. Metoprolol 12.5 mg twice a day added. #3 COPD/asthma no wheezing on examination we'll continue DuoNeb as needed for shortness of breath. Continue Singulair. Continue anoro ellipta the patient need to be reevaluated with PFT as outpatient and would need advancement of care if no improvement with the above nebulizer treatment. Continue Pulmicort daily living #4 GERD continue ranitidine 150 twice a day #4 DVT prophylaxis with heparin every 12 #5 code status full code Position home with self-care
--- NOTE | 2018-02-14 18:14 | ECHOF ---
Referral Reason:sob MEASUREMENTS -------- HEIGHT: 165.1 cm WEIGHT: 113.4 kg BP: RVIDd: 2.9 cm (< 3.3) IVSd: 1.3 cm (0.6 - 1.1) LVIDd: 4.6 cm (3.9 - 5.3) LVPWd: 1.2 cm (0.6 - 1.1) IVSs: 1.6 cm LVIDs: 2.9 cm LVPWs: 1.3 cm LA Diam: 2.6 cm (2.7 - 3.8) LAESV Index (A-L): 19.25 ml/m Ao Diam: 3.4 cm (2.0 - 3.7) AV Cusp: 1.8 cm (1.5 - 2.6) LA Diam: 3.3 cm (2.7 - 3.8) MV EXCURSION: 17.961 mm (> 18.000) MV EF SLOPE: 68 mm/s (70 - 150) EPSS: 1.1 cm MV E Christiano: 0.51 m/s MV DecT: 259 ms MV A Christiano: 0.95 m/s MV E/A Ratio: 0.54 RAP: 5.00 mmHg RVSP: 12.36 mmHg FINDINGS -------- Sinus rhythm. This was a techncally difficult study with suboptimal views, , Lumason utilized for enhancement of im ages. The left ventricular size is normal. There is mild concentric left ventricular hypertrophy. Overa ll left ventricular systolic function is normal with, an EF between 55 - 60 %. The right ventricle is normal in size. The left atrial size is normal. The right atrial size is normal. 5.0mg OF Lumason UTLIZED: 2 OR MORE WALL SEGMENTS NOT VISUALIZED. The aortic valve is trileaflet, and appears structurally normal. No aortic stenosis or regurgitation. The mitral valve is normal. Mild mitral regurgitation is present. Mild tricuspid regurgitation present. There is no evidence of pulmonary hypertension. The right v entricular systolic pressure, as measured by Doppler, is 12.36mmHg. The pulmonic valve was not well visualized. There is no pulmonic regurgitation present. The aortic root size is normal. Echo free space represents a pericardial fat pad. CONCLUSIONS -------- 1. Sinus rhythm. 2. This was a techncally difficult study with suboptimal views, , Lumason utilized for enhancement of images. 3. The left ventricular size is normal. 4. There is mild concentric left ventricular hypertrophy. 5. Overall left ventricular systolic function is normal with, an EF between 55 - 60 %. 6. The left atrial size is normal. 7. 5.0mg OF Lumason UTLIZED: 2 OR MORE WALL SEGMENTS NOT VISUALIZED. 8. The aortic valve is trileaflet, and appears structurally normal. No aortic stenosis or regurgitati on. 9. Mild mitral regurgitation is present. 10. Mild tricuspid regurgitation present. 11. There is no evidence of pulmonary hypertension. 12. The pulmonic valve was not well visualized. 13. There is no pulmonic regurgitation present. 14. The aortic root size is normal. 15. Echo free space represents a pericardial fat pad. PRISON GUARD: Latanya Nguyen RDCS
== END 2018-02-14 13:49 | disposition home or self-care (01) ==
LOC: EC 13:09 → 1SOBS 18:20
PROVIDERS: ADMIT Internal Medicine; ATTEND Internal Medicine
DX: R06.02 Shortness of breath (principal); J44.9 Chronic obstructive pulmonary disease, unspecified; E78.5 Hyperlipidemia, unspecified; J38.3 Other diseases of vocal cords; M19.90 Unspecified osteoarthritis, unspecified site; R00.0 Tachycardia, unspecified; E66.01 Morbid (severe) obesity due to excess calories; Z68.41 Body mass index [BMI] 40.0-44.9, adult; Z86.19 Personal history of other infectious and parasitic diseases; Z87.891 Personal history of nicotine dependence; Z88.1 Allergy status to other antibiotic agents; Z88.3 Allergy status to other anti-infective agents; Z88.0 Allergy status to penicillin; Z88.8 Allergy status to other drugs, medicaments and biological substances
CPT/HCPCS: 99285; 36415; 93005; 85379; 83880; 80053; 84443; 82550; 82553; 83605; 83735; 84484; 85025; 85610; 85730; 87040; 71046; G0378 ×2; C8929; Q9950; 93306

== ENCOUNTER → 2018-02-18 | Outpatient (CLI) | payer OTHER ==
--- NOTE | 2018-02-18 10:18 | CT ---
EXAMINATION TYPE: CT angio chest DATE OF EXAM: 02/18/2018 COMPARISON: 12/27/2017 HISTORY: SOB CT DLP: 807.4 mGycm CONTRAST: CT chest with contrast and 3D reconstruction with MIP imaging is performed with IV Contrast, patient injected with 62 mL of Isovue 370. Contrast-enhanced CT of the chest was performed through the course of the pulmonary arteries with rachel g and mediastinal window settings submitted. 3D reconstruction with MIP imaging was also performed. PULMONARY ARTERIES: The pulmonary arteries and their major tributaries are patent. I do not see luis enrique dence for sizable filling defect to suggest pulmonary embolic process. LUNGS: The lungs are clear and free of infiltrate. No evidence for atelectasis. No pulmonary nodule or mass is detected. No pleural effusion. MEDIASTINUM: Thoracic aorta is of normal caliber,however, evaluation is limited given timing of the contrast bolus. If there is concern for thoracic aortic pathology consider KENNY. Correlate clinicall y . The heart is not enlarged. No evidence for mediastinal mass. No mediastinal lymph nodes greater than 1cm. HILAR STRUCTURES: No evidence for mass. No hilar lymph nodes greater than 1 cm. UPPER ABDOMEN: No significant abnormality is seen. IMPRESSION: 1. No evidence for Pulmonary embolism at this time.
== END | disposition home or self-care (01) ==
LOC: RADCTMAIN 09:34
PROVIDERS: ATTEND Internal Medicine
DX: R06.02 Shortness of breath (principal)
CPT/HCPCS: 71275; Q9967

== ENCOUNTER → 2018-04-03 | Outpatient (CLI) | payer OTHER ==
--- NOTE | 2018-04-03 11:59 | CT ---
EXAMINATION TYPE: CT abdomen pelvis w con DATE OF EXAM: 04/03/2018 COMPARISON: NONE HISTORY: 62-year-old female Left upper quadrant pain TECHNIQUE: Contiguous axial scanning of the abdomen and pelvis following administration of 100 ml Iso daniel 300 IV contrast. Delayed images through the kidneys and coronal/sagittal reconstructions perform ed. CT DLP: 3337.6 mGycm Automated exposure control for dose reduction was used. FINDINGS: Heart normal size without pericardial effusion. Small to moderate size hiatal hernia. Mild dependent atelectasis. No pleural effusion. Liver mildly enlarged at 19.0 cm with diffuse low attenuation of the hepatic parenchyma. Portal venou s system is patent. No biliary ductal dilatation. Gallbladder, adrenal glands, right kidney, spleen, and pancreas appear within normal limits. Subcentimeter hypodensity lateral left kidney too small for accurate CT characterization, likely cyst . Scattered nonenlarged mesenteric lymph nodes are present. No abdominal lymphadenopathy identified. Diverticulosis along the cecum and ascending colon and mild along the sigmoid colon. Scattered mild s tool wording there are no pericolonic inflammatory change. Normal appendix. Question prior ventral abdominal wall hernia repair. Along the right and inferior margin of possible mesh material, there is up. Local hernia containing a couple nondilated small bowel loops. The hernia sac measures 7.4 cm wide in the neck of the hernia, sagittal image 59, measures 2.0 cm. There is some irregular thickened soft tissue or inflammatory changes seen in the region of the umbil icus superficial to the abdominal wall. No dilated small bowel, free fluid, or free air. Bulky fibroid uterus with calcified and noncalcified fibroids measuring up to 5.9 cm. The uterus appe ars retroflexed. The endometrium is not evaluated. Ovaries not clearly seen. Some prominent external iliac chain lymph nodes measure up to 9 mm and are probably reactive/post inf lammatory. Bones: Degenerative changes mid to lower lumbar spine with grade 1 anterolisthesis at L4-L5. No osseo us destructive process. IMPRESSION: 1. QUESTION PRIOR VENTRAL ABDOMINAL MESH REPAIR. ALONG THE RIGHT INFEROLATERAL MARGIN OF POSSIBLE MES H MATERIAL, THERE IS A 7.4 CM RIGHT PERIUMBILICAL ABDOMINAL WALL HERNIA CONTAINING A COUPLE SMALL BOW EL LOOPS. THE HERNIA NECK MEASURES 2.0 CM. NO EVIDENCE FOR BOWEL OBSTRUCTION. 2. SOME IRREGULAR SOFT TISSUE THICKENING VERSUS INFLAMMATION ALONG THE UMBILICUS SUPERFICIAL TO THE A BDOMINAL WALL COULD REPRESENT SCARRING OR CELLULITIS. CLINICAL CORRELATION RECOMMENDED. 3. HEPATOMEGALY (19.0 CM) WITH AT LEAST MODERATE HEPATIC STEATOSIS. 4. SMALL HIATAL HERNIA. 5. SCATTERED MILD COLONIC DIVERTICULOSIS. NO EVIDENCE FOR ACUTE DIVERTICULITIS. 6. BULKY FIBROID UTERUS.
== END | disposition home or self-care (01) ==
LOC: RADCTMAIN 09:26
PROVIDERS: ATTEND Internal Medicine
DX: D25.9 Leiomyoma of uterus, unspecified (principal); K42.9 Umbilical hernia without obstruction or gangrene; K44.9 Diaphragmatic hernia without obstruction or gangrene; K57.30 Diverticulosis of large intestine without perforation or abscess without bleeding; K76.0 Fatty (change of) liver, not elsewhere classified; R16.0 Hepatomegaly, not elsewhere classified
CPT/HCPCS: 74177; Q9967

== ENCOUNTER 2018-05-21 09:11 | Day surgery (SDC) | payer OTHER ==
[2018-05-16 15:56] VITALS: BMI 43.2
[2018-05-21 10:06] VITALS: TEMP 96.9
[2018-05-21] MEDS: LACTATED RINGERS 1,000 ML IV SCH ×2 (10:28→10:29)
[2018-05-21] MEDS ORDERED: PROPOFOL 10 MG/ML 20 ML VIAL IV ONE (10:32)
[2018-05-21] MEDS ORDERED: LIDOCAINE 1% INJ 10MG/ML (20 ML MDV) ONE (10:32)
--- NOTE | 2018-05-21 10:42 | P.PCN ---
Date of Procedure: 05/21/18 Procedure(s) Performed: BRIEF HISTORY: Patient is a 62-year-old, pleasant, white female, scheduled for an upper endoscopy as a part of evaluation of epigastric pain and long-standing history of GERD.. PROCEDURE PERFORMED: Esophagogastroduodenoscopy with biopsy PREOPERATIVE DIAGNOSIS: Chronic epigastric pain and long-standing history of GERD . IV sedation per anesthesia. PROCEDURE: After informed consent was obtained, the patient was brought into the endoscopy unit. IV sedation was administered by Anesthesia under continuous monitoring. Initially the Olympus GIF-140 video endoscope was inserted into the mouth. Esophagus intubated without any difficulty. It was gradually advanced into the stomach and duodenum and carefully examined. The bulb and the second part of the duodenum appeared normal. The scope at this time was withdrawn to the stomach, adequately insufflated with air, and upon careful examination, mucosa of the antrum,had linear areas of erythema consistent with gastritis and biopsies were done from this area. They, cardia and the fundus appeared normal. The scope was then withdrawn into the esophagus. The GE junction was located at 36 cm from the incisors. Moderate size hiatal hernia noted. The esophagus appeared normal. There were no erosions or ulcerations seen and the patient tolerated the procedure well. IMPRESSION: 1 Mild antral gastritis . 2. Small to moderate size hiatal hernia but no evidence of esophagitis or Ivey's esophagus. RECOMMENDATIONS: The findings of this examination were discussed with the patient as well as a family. She was advised to follow with the biopsy results. She'll continue Prilosec and Zantac as prescribed and follow antireflux measures.
[2018-05-21 10:55] VITALS: RESP 16
[2018-05-21 11:12] VITALS: BP 140/94; PULSE 90
== END 2018-05-21 11:34 | disposition home or self-care (01) ==
LOC: ORWHC2ENDO 09:11
PROVIDERS: ATTEND Internal Medicine Gastroenterology
DX: K29.50 Unspecified chronic gastritis without bleeding (principal); K21.9 Gastro-esophageal reflux disease without esophagitis; K44.9 Diaphragmatic hernia without obstruction or gangrene; Z79.899 Other long term (current) drug therapy; J45.909 Unspecified asthma, uncomplicated; E66.01 Morbid (severe) obesity due to excess calories; Z68.41 Body mass index [BMI] 40.0-44.9, adult; Z79.51 Long term (current) use of inhaled steroids
CPT/HCPCS: 88305; 43239; J2001; J2704

== ENCOUNTER → 2018-11-28 | Outpatient (CLI) | payer MEDICARE, OTHER ==
--- NOTE | 2018-12-01 08:11 | MM ---
Reason for exam: screening (asymptomatic). Last mammogram was performed 1 year ago. History: Patient is postmenopausal and is nulliparous. Took hormonal contraceptives for 2 years. Physical Findings: A clinical breast exam by your physician is recommended on an annual basis and results should be correlated with mammographic findings. MG 3D Screening Mammo W/Cad Bilateral CC and MLO view(s) were taken. Prior study comparison: November 26, 2017, bilateral MG screening mammo w CAD. December 06, 2016, bilateral MG screening mammo w CAD. There are scattered fibroglandular densities. There are benign appearing round calcifications bilaterally. Asymmetric breast tissue in the left upper outer quadrant, stable. There is no discrete abnormality. ASSESSMENT: Benign, BI-RAD 2 RECOMMENDATION: Routine screening mammogram of both breasts in 1 year.
== END | disposition home or self-care (01) ==
LOC: RADMAMWWP 09:54
PROVIDERS: ATTEND Internal Medicine Geriatric Medicine
DX: Z12.31 Encounter for screening mammogram for malignant neoplasm of breast (principal)
CPT/HCPCS: 77063; 77067; 81001

== ENCOUNTER 2018-12-24 10:35 | Day surgery (SDC) | payer MEDICARE, OTHER ==
[2018-12-04 15:08] VITALS: BMI 43.2
[~2018-12-24 10:35] MED LIST changes: +ACETAMINOPHEN TAB 500 MG TAB PO ONE; +GABAPENTIN 300 MG CAP PO ONE; +HYDROmorphone 0.5 MG/0.5 ML SYRINGE IVP PRN; -LACTATED RINGERS 1,000 ML IV SCH; +LIDOCAINE 1% 20 ML VIAL (10MG/ML) FOR IV START INTRADERMA PRN; +MELOXICAM 7.5 MG TAB PO ONE; +METOCLOPRAMIDE 5 MG/ML 2 ML VIAL IVP PRN; +ONDANSETRON 4 MG/2 ML VIAL IVP ONE; +Pre Op ABX Message 1 EACH MISC MISCELLANE ONE; +ROPIVACAINE 246.25 MG, EPINEPHrine 0.5 MG, KETOROLAC 30 MG, cloNIDine HCL/PF 80 MCG, WA... MISCELLANE ONE; +TRANEXAMIC ACID 1,000 MG in SODIUM CHLORIDE 0.9% 100 ML IVPB ONE
[2018-12-24] MEDS: LACTATED RINGERS 1,000 ML IV SCH (11:44)
[2018-12-24] MEDS ORDERED: DEXAMETHASONE SOD PHOSPHATE 10 MG/ML 1 ML VIAL IV ONE (11:45)
[2018-12-24] MEDS ORDERED: fentaNYL (PF) 50 MCG/ML 2 ML AMP ONE (12:29)
[2018-12-24] MEDS ORDERED: TRANEXAMIC ACID 1,000 MG/10 ML VIAL ONE (12:29)
[2018-12-24] MEDS ORDERED: PHENYLEPHRINE-0.9% NACL SYG 1 MG/10 ML SYRINGE ONE (12:29)
[2018-12-24] MEDS ORDERED: MORPHINE SULFATE (PF) 0.3 MG/0.3 ML SYR ONE (12:29)
[2018-12-24] MEDS ORDERED: SODIUM CHLORIDE 0.9% 100 ML BAG ONE (12:29)
[2018-12-24] MEDS ORDERED: PROPOFOL 10 MG/ML 20 ML VIAL IV ONE (12:29)
[2018-12-24] MEDS ORDERED: MIDAZOLAM 2 MG/2 ML VIAL ONE (12:29)
[2018-12-24] MEDS ORDERED: ceFAZolin 3,000 MG in SODIUM CHLORIDE 0.9% IRRIGATIO 3,000 ML IRRIGATION ONE (12:33)
[2018-12-24] MEDS ORDERED: MAGNESIUM HYDROXIDE 2,400 MG/10 ML CUP PO PRN (12:38)
[2018-12-24] MEDS ORDERED: HYDROmorphone 0.5 MG/0.5 ML SYRINGE IVP PRN ×2 (12:38)
[2018-12-24] MEDS ORDERED: BISACODYL 10 MG SUPP RECTAL PRN (12:38)
[2018-12-24] MEDS ORDERED: ONDANSETRON 4 MG/2 ML VIAL IVP PRN (12:38)
[2018-12-24] MEDS ORDERED: HYDROcodone/APAP 5-325MG 1 EACH TAB PO PRN (12:38)
[2018-12-24] MEDS ORDERED: HYDROcodone/APAP 10-325MG 1 EACH TAB PO PRN (12:38)
[2018-12-24] MEDS ORDERED: NA PHOS,M-B/NA PHOS,DI-BA 133 ML ENEMA RECTAL PRN (12:38)
[2018-12-24] MEDS ORDERED: TEMAZEPAM 15 MG CAP PO PRN (12:38)
[2018-12-24] MEDS ORDERED: traMADol 50 MG TAB PO PRN (12:38)
[2018-12-24] MEDS ORDERED: NALOXONE 0.4 MG/ML 1 ML VIAL IV PRN ×2 (12:38→12:46)
[2018-12-24] MEDS ORDERED: DIAZEPAM 5 MG TAB PO PRN (12:38)
[2018-12-24] MEDS ORDERED: MORPHINE SULFATE 2 MG/ML SYRINGE IVP PRN (12:46)
[2018-12-24] MEDS ORDERED: LACTATED RINGERS 1,000 ML IV ONE (15:04)
--- NOTE | 2018-12-24 15:25 | XR ---
EXAMINATION TYPE: XR knee limited RT DATE OF EXAM: 12/24/2018 CLINICAL HISTORY: Right knee pain and arthritis status post total knee replacement. TECHNIQUE: Portable AP and crosstable lateral views of the right knee are obtained immediately posto peratively. COMPARISON: None FINDINGS: Metallic hardware from total right knee arthroplasty is seen and appears satisfactory in a lignment and position. There is evidence of recent surgery with diffuse subcutaneous gas and soft ti ssue swelling noted. IMPRESSION: METALLIC HARDWARE FROM TOTAL RIGHT KNEE ARTHROPLASTY IS SATISFACTORY IN ALIGNMENT.
[2018-12-24] MEDS: diphenhydrAMINE 50 MG/ML 1 ML VIAL IVP PRN ×2 (16:40→22:39)
[2018-12-24] MEDS ORDERED: POTASSIUM CHLORIDE ER 20 MEQ TAB.ER PO PRN (17:28)
[2018-12-24] MEDS ORDERED: AZELASTINE 137MCG/SPRAY NASAL PRN (17:28)
[2018-12-24] MEDS ORDERED: ALBUTEROL INHALER 60 PUFF/8 GM INHALER INHALATION PRN (17:28)
[2018-12-24] MEDS ORDERED: KETOTIFEN 0.025% OPHTH DROPS 5 ML BTL BOTH EYES PRN (17:28)
[2018-12-24] MEDS ORDERED: ALBUTEROL NEBULIZED 2.5 MG/3 ML INHALATION PRN (17:28)
[2018-12-24] MEDS: SENNOSIDES-DOCUSATE SODIUM 1 EACH TAB PO SCH (19:50)
[2018-12-24] MEDS ORDERED: EZETIMIBE 10 MG TAB PO SCH (21:00)
[2018-12-24] MEDS ORDERED: MONTELUKAST 5 MG CHEWABLE PO SCH (21:00)
--- NOTE | 2018-12-24 23:55 | OP ---
OPERATIVE REPORT DATE OF PROCEDURE: 12/24/2018 PREOPERATIVE DIAGNOSIS: Right knee osteoarthrosis. POSTOPERATIVE DIAGNOSIS: Right knee osteoarthrosis. PROCEDURE PERFORMED: Right total knee arthroplasty. SURGEON: Curtis Bateman MD KNOCKDOWN MAN: Arvind GREGORY ANESTHESIA: Spinal with sedation. ESTIMATED BLOOD LOSS: 100 mL. TOURNIQUET TIME: Tourniquet time was 44 minutes at 250 mmHg. COMPLICATIONS: None apparent. DRAINS: None. DISPOSITION: Post-Anesthesia Care Unit. INDICATIONS: Chinyere is a very pleasant 63-year-old female with longstanding history of right knee pain. History and physical examination were consistent with advanced right knee osteoarthrosis. She has been through very long and significant nonoperative management up to this point. Further treatment options were discussed and she has decided to go forward with right total knee arthroplasty. The risks of the procedure were discussed with her in detail. These risks include but are not limited to risk of infection, nerve damage, bleeding, pain and risk of deep vein thrombosis which could lead to fatal pulmonary embolism. There is also risk of loosening of the implant which could require revision operation. The patient understands these risks. All of her questions were answered to her satisfaction. Appropriate informed consent was obtained. DESCRIPTION OF THE PROCEDURE: The patient was identified in the preoperative holding area. Surgical site was marked by both the patient and myself. She was given 2 grams of Ancef IV for prophylactic purposes. She was then transferred to the operative suite. She was placed supine on the operating room table. Spinal anesthetic was then administered and dosed per the anesthesia department without apparent complication. Examination under anesthesia was then performed. The patient was 2 to 3 degrees shy of full extension. She had 100 degrees of flexion, and the medial collateral ligament, lateral collateral ligament and posterior cruciate ligaments were stable. Tourniquet was then placed high on the right upper thigh, well padded in preparation for surgery. The patient's right lower extremity than prepped and draped in the usual sterile fashion. Standard surgical pause was undertaken to ensure that we were operating on the correct site and that appropriate preoperative antibiotics had been given. All staff in the room were in agreement and we proceeded. The outlines of the patella were marked with a surgical pen. A planned 12 cm vertical incision centered over the patella was marked with the surgical pen. Leg was then exsanguinated with an Esmarch dressing. The knee was then flexed and the tourniquet was inflated to 250 mmHg. The total tourniquet time for the procedure was 44 minutes. Incision was then made with a 10 blade scalpel. Dissection was carried down sharply to the overlying fascia. Great care was taken to minimize the skin flaps. The knee was then exposed using a standard medial parapatellar approach. A small cuff of quadriceps tendon was then left for suturing. She was in a bit of varus preoperatively. A standard medial release was then made. The superficial medial collateral ligament was dissected off the bone around to the posterior aspect of the proximal tibia. The medial meniscus was then excised as well. The lateral meniscus was also released anteriorly. The leg was then externally rotated. The patella was everted. The knee was flexed. The retractors were then placed to protect the collateral ligaments. I then proceeded to remove the infrapatellar fat pad. This was excised sharply tangentially with the fibers of the patellar tendon. I then proceeded to remove the peripheral osteophytes. This was done with a rongeur. I then proceeded with the distal femoral resection. She did have near-full extension. A planned 9 mm resection was then done. The femoral canal was then entered in the midline of the femur approximately 10 mm anterior to the origin of the posterior cruciate ligament. The toshia was then advanced down the center of the femur and placed intramedullary. Based on the preoperative radiographs, the angle between the anatomic and mechanical axes of the femur was approximately 4 to 5 degrees. The valgus angle of the femoral cutting guide was then set at 4 degrees for the right knee. The distal femoral cutting guide was then advanced over the intramedullary toshia. This was seated firmly against the femur. I then, as mentioned, planned to take 9 mm off the distal femur. The cutting block was then secured onto the femur with pins. The jig was removed and the distal femoral cut was made through the slot of the block. The pins were then removed and the distal femoral cutting block was removed. The accuracy of the distal femoral cuts was checked with 2 flat bars. I then proceeded with femoral sizing. The posterior referencing sizing guide was held firmly against the resected distal surface of the femur. Posterior condyles were resting on the posterior plane of the guide. The sizing stylus was then placed onto the anterior femur. Size was measured as a size 7. I then assessed for femoral rotation. Plan was for 3 degrees of external rotation. Three degrees of external rotation was placed onto the jig. These holes were then marked. We then confirmed the rotation by 3 separate methods. This was done using epicondylar axis as well as Whitesides line and posterior referencing. It was deemed that the external rotation was proper. I then went forward with placing the femoral cutting block. This was placed over the previously placed pin holes. The Mejia wing was then placed onto the anterior slots, which ensured that we would not notch the anterior femur with the anterior femoral cut. I then proceeded with the anterior femoral cut. This was flush with the anterior cortex of the femur. The posterior cuts were then made followed by the anterior chamfer cut and then the posterior chamfer cut. The cutting block was then removed. Throughout the resection, the collateral ligaments were protected with retractors. I then placed a trial size 7 femur. It fit very nicely medial to lateral and fit flush with the distal end of the femur. The drill holes were then made. I then proceeded with the tibial cut. I planned for a cruciate-retaining knee. The guide was placed and set for varus, valgus and for slope. The height was set for an approximate 2 mm resection from the medial tibial plateau, which was the lower side. I was happy with the alignment and the amount of resection. The cutting block was then pinned to the proximal tibia. The alignment toshia was removed and the proximal tibia was resected with a reciprocating saw. Again this was done with retractors protecting the collateral ligaments as well as the posterior cruciate ligament. I then proceeded to evaluate the flexion and extension gaps. A 10 mm block was then placed. The flexion and extension gaps were equal. I then proceeded with resection of the posterior osteophytes. There were very minimal posterior osteophytes. This was done with a curved osteotome. This resected the posterior osteophytes, and posterior capsule stripping was done off the posterior aspect of the femur at this time. The osteophytes were then removed. I then proceeded with resection of the patella. The thickness of the patella was measured using the caliper. Thickness was 22 mm. Thickness of the anticipated patellar dome was taken into account. The resection was then performed and confirmed to be equal in 4 quadrants using a caliper. Approximately 14 mm of bone remained after resection. A 32 x 8.5 standard patellar trial was then placed. The holes were drilled and the trial was then placed. I then proceeded with sizing of the tibial plate. A size D tibial plate fit very nicely. I then placed the trial femur and the tibial tray and the patellar button. A 10 mm trial tibial insert was also placed. The components fit very nicely. She had full extension and flexion. The extension and flexion gaps were equal and stable to both varus and valgus stress. The patella tracked appropriately. Tibial tray rotation was marked with a Bovie. This was externally rotated properly. I then proceed with tibial preparation. I first drilled the femoral holes and removed the femoral component. The tibial tray was then set for proper external rotation as well as mediolateral placement onto the tibia. It was then pinned into place. I then proceeded with punching the keel. I then decided to proceed with cementing of all of our components. The knee was thoroughly irrigated with sterile saline solution via pulse lavage. The lateral geniculate artery was identified and cauterized. All blood was removed from the bone of the tibia, femur and patella with pulse lavage. I then proceeded with cementing. Two packs of antibiotic bone cement were prepared on the back table by the surgical oncologist. I then proceeded with cementing the tibia first. The cement was impacted into the keel as well as seated deeply seated in the bone. A second coat of cement was then placed. The tibia was then impacted into place. Excess cement was removed with Shashank's and Joker's. I then proceeded with cementing the femoral component. The femoral component was also cemented using standard technique. Excess cement was removed. A 10 mm trial insert was then placed into the knee. It was brought into full extension with a constant axial load placed until the cement had hardened. The patellar component was then cemented. This was held firmly with a compressive device until the cement had dried. When the cement had dried, the knee was taken out of extension. All excess cement was removed from around the prosthesis. I then trialed the knee with a 10 mm insert. Flexion and extension gaps were appropriate. The knee was stable. It came into full extension. I decided to go forward with a 10 mm medial-congruent cruciate-retaining tibial insert. Polyethylene was then placed onto the tibial tray and locked into place. The knee was then reduced. The knee was again further irrigated with sterile saline solution with antibiotic added. The tourniquet was then deflated. The total tourniquet time for the procedure was 44 minutes at 250 mmHg. Final components were Chidi Persona size 7 cruciate-retaining femoral component, size D tibial tray, a 10 mm medial-congruent cruciate-retaining polyethylene insert and a 32 x 8.5 mm patella. I then proceeded with closure. Again the knee was thoroughly irrigated. The quadriceps tendon and the medial retinaculum were reapproximated with #2 Ethibond suture. The extensor mechanism was then closed with a running #2 Quill suture. Subcutaneous tissues were closed with 2-0 Vicryl interrupted suture. The skin was closed with a running 3-0 Quill suture. Dermabond was applied to the incision. Sterile compressive dressings were then applied. All sponge and needle counts were deemed correct prior to closure. The patient tolerated the procedure without apparent complication. She was transferred to the recovery room in stable condition. MMODL / ERICN: [id number] /
[2018-12-25] MEDS: LACTATED RINGERS 1,000 ML IV SCH (03:33)
[2018-12-25] MEDS: diphenhydrAMINE 50 MG/ML 1 ML VIAL IVP PRN (04:40)
--- NOTE | 2018-12-25 05:23 | P.PN ---
Progress Note - Text Progress Note Date: 12/25/18 63 yo female s/p total right knee arthroplasty, pod#1. Patient received intrathecal morphine for post-op pain control. No complaints overnight except for severe itching which was successfully treated with three doses of Benadryl. VAS=o/10 at rest, 4-5/10 when ambulating. No headache, no nausea or vomiting. No urinary retention.
[2018-12-25 07:05] LABS: Basophils % (A) 0 %; Eosinophils # (A) 0.1 k/uL (0-0.7); Eosinophils % (A) 1 %; HCT 38.8 % (34.0-46.0); HGB 12.9 gm/dL (11.4-16.0); Lymphocytes # (A) 1.9 k/uL (1.0-4.8); Lymphocytes % (A) 13 %; MCHC 33.3 g/dL (31.0-37.0); MCV 93.2 fL (80.0-100.0); Monocytes # (A) 0.5 k/uL (0-1.0); Monocytes % (A) 3 %; Neutrophils # (A) 11.4 k/uL (1.3-7.7); Neutrophils % (A) 82 %; Platelet Count 242 k/uL (150-450); RBC 4.16 m/uL (3.80-5.40); RDW 12.8 % (11.5-15.5)
[2018-12-25] MEDS: UMECLIDINIUM BRM INHALATION SCH (08:23)
[2018-12-25] MEDS: VILANTEROL TR INHALATION SCH (08:23)
[2018-12-25] MEDS: PANTOPRAZOLE 40 MG TABLET PO SCH (08:50)
[2018-12-25] MEDS: amLODIPine 5 MG TAB PO SCH (08:50)
[2018-12-25] MEDS: LORATADINE 10 MG TAB PO SCH (08:51)
[2018-12-25] MEDS: HYDROCHLOROTHIAZIDE 25 MG TAB PO SCH (08:51)
[2018-12-25] MEDS: CHOLECALCIFEROL 1,000 UNIT TAB PO SCH (08:51)
[2018-12-25] MEDS: MAGNESIUM OXIDE 400 MG TAB PO SCH (08:51)
[2018-12-25] MEDS: MULTIVITAMINS, THERA 1 EACH TAB PO SCH (08:51)
[2018-12-25] MEDS ORDERED: NON FORMULARY DRUG (Ubidecarenone [Co Q-10] 200 MG) PO SCH (09:00)
--- NOTE | 2018-12-25 09:31 | P.DS ---
Providers Expected date of discharge: 12/25/18 Attending physician: Curtis Bateman Consults: 12/24/18 12:38 Consult Physician Routine Consulting Provider: Yoel Garnica Reason/Comments: pot op medical management Do you want consulting provider notified?: Yes Primary care physician: Yoel Garnica - Discharge Diagnosis(es) (1) Osteoarthritis of right knee Patient was admitted to the OR on 12/24/2018 to undergo a right total knee arthroplasty. She had failed conservative measures an outpatient and desired to proceed with elective surgery after given informed consent.. She underwent the above procedure which she tolerated well without complication. Postoperative hospital course has remained without complication. On day of discharge she is afebrile, vital signs stable, labs within acceptable ranges, tolerating by mouth meds and diet, voiding without difficulty, positive flatus, denies abdominal pain or calf pain, pain is controlled on oral pain medication and has no new complaints. Wound is benign, neurovascular status is intact, calf is soft and nontender, abdomen soft and nontender. Review of systems is negative for numbness, tingling, fever, chills, chest pain, shortness of breath, nausea, vomiting, dizziness, headaches, slurred speech or other. Current Visit: Yes Status: Acute Priority: Medium Procedures: Right TKA Patient Condition at Discharge: Good Plan - Discharge Summary Discharge Rx Participant: Yes New Discharge Prescriptions: New Aspirin 325 mg PO BID #60 tab HYDROcodone/APAP 7.5-325MG [[place] 7.5-325] 1 - 2 tab PO Q6HR PRN #56 tab PRN Reason: Pain No Action Ranitidine HCl [Zantac] 150 mg PO BID Omeprazole [PriLOSEC] 40 mg PO AC-BRKFST Cetirizine HCl 10 mg PO DAILY Albuterol Sulfate [Ventolin HFA] 1 - 2 puff INHALATION RT-Q6H PRN PRN Reason: Shortness Of Breath Budesonide [Pulmicort Flexhaler] 1 puff INHALATION RT-DAILY Azelastine HCl 137 mcg NS BID PRN PRN Reason: allergies Umeclidinium Brm/Vilanterol Tr [Anoro Ellipta 62.5-25 Mcg INH] 1 puff INHALATION RT-DAILY predniSONE 5 mg PO DAILY PRN PRN Reason: asthma Acetaminophen [Tylenol] 500 mg PO Q8H Potassium Chloride [Klor-Con 20] 20 meq PO HS PRN PRN Reason: takes w/hctz Cholecalciferol [Vitamin D3 (25 Mcg = 1000 Iu)] 2,000 unit PO Q48H Albuterol Nebulized [Ventolin Nebulized] 2.5 mg INHALATION Q6H PRN PRN Reason: Dyspnea Ketotifen 0.025% Ophth Soln [Zaditor] 1 drop BOTH EYES BID PRN PRN Reason: DRY EYES Zafirlukast 10 mg PO BID Ezetimibe [Zetia] 10 mg PO HS Loperamide [Imodium] 4 mg PO Q8H PRN PRN Reason: Diarrhea Lidocaine 5% Patch [Lidoderm] 1 patch TOPICAL DAILY PRN PRN Reason: Pain amLODIPine [Norvasc] 5 mg PO DAILY Hydrochlorothiazide [Hydrodiuril] 25 mg PO DAILY Ubidecarenone [Co Q-10] 200 mg PO DAILY Magnesium 400 mg PO DAILY Discharge Medication List Albuterol Sulfate [Ventolin HFA] 1 - 2 puff INHALATION RT-Q6H PRN 05/20/14 [History] Azelastine HCl 137 mcg NS BID PRN 05/20/14 [History] Budesonide [Pulmicort Flexhaler] 1 puff INHALATION RT-DAILY 05/20/14 [History] Cetirizine HCl 10 mg PO DAILY 05/20/14 [History] Omeprazole [PriLOSEC] 40 mg PO AC-BRKFST 05/20/14 [History] Ranitidine HCl [Zantac] 150 mg PO BID 05/20/14 [History] Umeclidinium Brm/Vilanterol Tr [Anoro Ellipta 62.5-25 Mcg INH] 1 puff INHALATION RT-DAILY 11/11/14 [History] Acetaminophen [Tylenol] 500 mg PO Q8H 01/25/16 [History] predniSONE 5 mg PO DAILY PRN 01/25/16 [History] Cholecalciferol [Vitamin D3 (25 Mcg = 1000 Iu)] 2,000 unit PO Q48H 06/11/16 [History] Potassium Chloride [Klor-Con 20] 20 meq PO HS PRN 06/11/16 [History] Albuterol Nebulized [Ventolin Nebulized] 2.5 mg INHALATION Q6H PRN 06/20/16 [History] Ketotifen 0.025% Ophth Soln [Zaditor] 1 drop BOTH EYES BID PRN 09/03/17 [History] Zafirlukast 10 mg PO BID 11/11/17 [History] Ezetimibe [Zetia] 10 mg PO HS 05/16/18 [History] Loperamide [Imodium] 4 mg PO Q8H PRN 05/21/18 [History] Hydrochlorothiazide [Hydrodiuril] 25 mg PO DAILY 12/04/18 [History] Lidocaine 5% Patch [Lidoderm] 1 patch TOPICAL DAILY PRN 12/04/18 [History] Magnesium 400 mg PO DAILY 12/04/18 [History] Ubidecarenone [Co Q-10] 200 mg PO DAILY 12/04/18 [History] amLODIPine [Norvasc] 5 mg PO DAILY 12/04/18 [History] Aspirin 325 mg PO BID #60 tab 12/25/18 [Rx] HYDROcodone/APAP 7.5-325MG [[place] 7.5-325] 1 - 2 tab PO Q6HR PRN #56 tab 12/25/18 [Rx] Follow up Appointment(s)/Referral(s): [facility], [NON-STAFF] - Curtis Bateman MD [STAFF PHYSICIAN] - 10 Days Activity/Diet/Wound Care/Special Instructions: Keep wound clean and dry Take meds as directed Follow-up with Dr. Bateman in office Weight bear as tolerated May shower in 3 days if no bleeding Discharge Disposition: HOME WITH HOME HEALTH SERVICES
--- NOTE | 2018-12-25 10:09 | P.CONS ---
History of Present Illness - Reason for Consult Consult date: 12/25/18 Requesting physician: Curtis Bateman - Chief Complaint Status post right total knee arthroplasty, asthma/COPD, hypertension, ather - History of Present Illness 83-year-old female one of my office patient with history of asthma, hypertension, panic edema, severe GERD, severe ALLERGY with multiple level ALLERGIC reaction to medication in the past who had severe osteoarthritis as well has been suffering from worsening pain and discomfort of the right knee for the last few years had seen orthopedic in the past had multiple conservative management with injection physical therapy and Synvix. Continue to be in pain and discomfort. Patient was seen Dr. Bateman and schedule elective right total knee arthroplasty which was done successfully on 12/24/2018 patient was admitted to the floor afterward she is in slight discomfort otherwise doing well developed to have mild itching from her wrap hydrocodone. Patient had epidural for her surgery did not have any pain management system afterward. Patient be going home today she has been stable able to ambulate with walker require minimum help and the pain is well controlled. Review of Systems CONSTITUTIONAL: Well-developed no acute respiratory distress. EYES: No icterus sclerae, no conjunctivitis. EARS, NOSE, MOUTH, THROAT, and FACE: No sore throat, lymphadenopathy, carotid bruits or deformity. Positive tinnitus RESPIRATORY: Positive shortness of breath and wheezes CARDIOVASCULAR: No CP, Palpitation, PND, Orthopnea, or angina. GASTROINTESTINAL: No Abd pain, Nausea or vomiting, no Diarrhea or constipation, No GI Bleed, no distention or masses. GENITOURINARY: Negative for Hematuria or UTI, no kidney stones. INTEGUMENT/BREAST: Negative for any muscular injury with mild osteoarthritis.. HEMATOLOGIC/LYMPHATIC: Negative for bleed or purpura. MUSCULOSKELTAL: Right knee slight discomfort from the incision area NEURLOGICAL: No LOC, Sz or syncope, blurred vision dizziness or abnormality.. BEHAVIORAL/PSYCH: Negative. ENDOCRINE: Negative. Past Medical History Past Medical History: Asthma, COPD, GERD/Reflux, Hyperlipidemia, Musculoskeletal Disorder, Osteoarthritis (OA) Additional Past Medical History / Comment(s): hx. rapid heart rate controlled by medication, low back pain History of Any Multi-Drug Resistant Organisms: Acinetobacter (MDRO) Year Discovered:: 2015 MDRO Source:: unknown Past Surgical History: Hernia Repair, Orthopedic Surgery Additional Past Surgical History / Comment(s): BENIGN TUMOR REMOVED FROM RT HAND, BILATERAL CATARACTS, BILATERAL BUNIONECTOMY, left knee surgery. PAIN CLINIC PROCEDURES Past Anesthesia/Blood Transfusion Reactions: Previous Problems w/ Anesthesia Additional Past Anesthesia/Blood Transfusion Reaction / Comm: SLOW TO COME OUT OF ANESTHESIA, "does not take much" States has difficulty lying flat on her back Past Psychological History: No Psychological Hx Reported Smoking Status: Former smoker Past Alcohol Use History: Rare Additional Past Alcohol Use History / Comment(s): quit smoking 2010, smoked for 20 yrs- 1 PPD Past Drug Use History: None Reported - Past Family History Mother Family Medical History: Deep Vein Thrombosis (DVT) Father Family Medical History: Cancer Medications and Allergies Home Medications Medication Instructions Recorded Confirmed Type Albuterol Sulfate [Ventolin HFA] 1 - 2 puff INHALATION RT-Q6H PRN 05/20/14 12/24/18 History Azelastine HCl 137 mcg NS BID PRN 05/20/14 12/24/18 History Budesonide [Pulmicort Flexhaler] 1 puff INHALATION RT-DAILY 05/20/14 12/24/18 History Cetirizine HCl 10 mg PO DAILY 05/20/14 12/24/18 History Omeprazole [PriLOSEC] 40 mg PO AC-BRKFST 05/20/14 12/24/18 History Ranitidine HCl [Zantac] 150 mg PO BID 05/20/14 12/24/18 History Umeclidinium Brm/Vilanterol Tr 1 puff INHALATION RT-DAILY 11/11/14 12/24/18 History [Anoro Ellipta 62.5-25 Mcg INH] Acetaminophen [Tylenol] 500 mg PO Q8H 01/25/16 12/24/18 History predniSONE 5 mg PO DAILY PRN 01/25/16 12/24/18 History Cholecalciferol [Vitamin D3 (25 2,000 unit PO Q48H 06/11/16 12/24/18 History Mcg = 1000 Iu)] Potassium Chloride [Klor-Con 20] 20 meq PO HS PRN 06/11/16 12/24/18 History Albuterol Nebulized [Ventolin 2.5 mg INHALATION Q6H PRN 06/20/16 12/24/18 History Nebulized] Ketotifen 0.025% Ophth Soln 1 drop BOTH EYES BID PRN 09/03/17 12/24/18 History [Zaditor] Zafirlukast 10 mg PO BID 11/11/17 12/24/18 History Ezetimibe [Zetia] 10 mg PO HS 05/16/18 12/24/18 History Loperamide [Imodium] 4 mg PO Q8H PRN 05/21/18 12/24/18 History Hydrochlorothiazide [Hydrodiuril] 25 mg PO DAILY 12/04/18 12/24/18 History Lidocaine 5% Patch [Lidoderm] 1 patch TOPICAL DAILY PRN 12/04/18 12/24/18 History Magnesium 400 mg PO DAILY 12/04/18 12/24/18 History Ubidecarenone [Co Q-10] 200 mg PO DAILY 12/04/18 12/24/18 History amLODIPine [Norvasc] 5 mg PO DAILY 12/04/18 12/24/18 History Aspirin 325 mg PO BID #60 tab 12/25/18 Rx HYDROcodone/APAP 7.5-325MG [[place] 1 - 2 tab PO Q6HR PRN #56 tab 12/25/18 Rx 7.5-325] hydrOXYzine PAMOATE [Vistaril] 25 mg PO QID PRN #90 cap 12/25/18 Rx Allergies Allergy/AdvReac Type Severity Reaction Status Date / Time formoterol fumarate Allergy Severe Anaphylaxis Verified 12/24/18 11:07 [From Symbicort] amoxicillin Allergy GI Verified 12/24/18 11:07 DISTRESS AND DROWSINESS atorvastatin [From Lipitor] Allergy Unknown Verified 12/24/18 11:07 budesonide [From Symbicort] Allergy Anaphylaxis Verified 12/24/18 11:07 clarithromycin Allergy GI Verified 12/24/18 11:07 DISTRESS AND DROWSINESS doxycycline Allergy GI Verified 12/24/18 11:07 DISTRESS AND DROWSINESS omalizumab [From Xolair] Allergy Anaphylaxis Verified 12/24/18 11:07 prednisolone acetate, Allergy Anaphylaxis Verified 12/24/18 11:07 micronized [prednisolone acetate, micro] prednisone Allergy Anaphylaxis-IN Verified 12/24/18 11:07 LARGE DOSES albuterol [From Combivent] AdvReac tinnitus Verified 12/24/18 11:07 cholestyramine AdvReac Diarrhea Verified 12/24/18 11:07 ciclesonide [From [place]] AdvReac RINGING IN Verified 12/24/18 11:07 THE EARS etodolac AdvReac MUSCLE Verified 12/24/18 11:07 CRAMPS fluorometholone AdvReac caused Verified 12/24/18 11:07 [From FML Forte] hair to fall out fluticasone propionate AdvReac RASH, Verified 12/24/18 11:07 [From Advair Diskus] ITCHING furosemide [From Lasix] AdvReac tinnitus Verified 12/24/18 11:07 gabapentin [From Neurontin] AdvReac MUSCLE Verified 12/24/18 11:07 CRAMPS, SENSATION OF BUGS CRAWLING ON LEGS gemfibrozil AdvReac Rapid Verified 12/24/18 11:07 Heart Rate ibuprofen AdvReac tinnitus Verified 12/24/18 11:07 ipratropium [From Combivent] AdvReac tinnitus Verified 12/24/18 11:07 lovastatin AdvReac cramps Verified 12/24/18 11:07 metoprolol AdvReac Diarrhea Verified 12/24/18 11:07 mometasone furoate AdvReac RASH, Verified 12/24/18 11:07 [From Asmanex Twisthaler] VISUAL CHANGES pregabalin [From Lyrica] AdvReac MUSCLE Verified 12/24/18 11:07 CRAMPS, SENSATION OF BUGS CRAWLING ON LEGS rosuvastatin calcium AdvReac MUSCLE Verified 12/24/18 11:07 [From Crestor] CRAMPS salmeterol xinafoate AdvReac Rash/Hives Verified 12/24/18 11:07 [From Advair Diskus] simvastatin AdvReac SENSATION Verified 12/24/18 11:07 OF BUGS CRAWLING ON LEGS thyroid, pork AdvReac Diarrhea Verified 12/24/18 11:07 [From [place] Thyroid] Physical Exam Vitals: Vital Signs Temp Pulse Pulse Pulse Resp BP Pulse Ox 12/25/18 02:38 98.8 F 95 17 115/83 91 L 12/25/18 00:50 18 12/24/18 20:15 18 12/24/18 20:10 97.8 F 102 H 18 110/75 92 L 12/24/18 19:58 97.8 F 102 H 18 110/75 92 L 10/09/19 17:15 89 130/80 12/24/18 17:00 89 135/75 12/24/18 16:52 15 96 12/24/18 16:45 90 133/108 12/24/18 16:30 89 123/82 12/24/18 16:15 89 121/84 12/24/18 16:00 94 136/84 12/24/18 15:45 87 120/79 12/24/18 15:30 64 113/71 12/24/18 15:15 97.7 F 90 14 116/76 91 L 12/24/18 15:00 92 18 124/69 92 L 12/24/18 14:46 93 18 118/64 92 L 12/24/18 14:32 91 18 115/64 92 L 12/24/18 14:22 97.4 F L 83 16 109/55 92 L 12/24/18 11:23 97.9 F 107 H 18 141/87 93 L Intake and Output 12/24/18 12/24/18 12/25/18 14:59 22:59 06:59 Intake Total 851 0 600 Output Total 100 Balance 751 0 600 Intake: IV 851 0 Intake, IV Titration 600 Amount Lactated Ringers 1,000 ml 600 @ 20 mls/hr IV .Q24H [facility] Rx#:[id number] Output: Estimated Blood Loss 100 Other: Voiding Method Toilet # Voids 1 2 Weight 119.7 kg General Appearance: Alert, cooperative, no distress, appears stated age. Mildly overweight Neck HEENT: Supple, no lymphadenopathy, no thyroid enlargement, no carotid bruits. Lungs: Decreased breath some bilaterally with fine rhonchi positive mild expiratory wheezes Chest Wall: Decrease expansion with deep inspiration no tenderness and no deformity was found on exam, no costochondral pain or discomfort. Heart: Regular rate and rhythm, S1, S2 normal, no murmur, rub or gallop. Back: Symmetric, no curvature, ROM normal, no CVA tenderness. Abdomen: Soft, non-tender, bowel sounds active all four quadrants, no masses, no organomegaly. Extremities: Incision on the right knee has no induration or redness discomfort no major swelling no pain or discomfort behind the knee area. Pulses: 2+ and symmetric. Skin: Skin color, texture, tugor normal, no rashes or lesions. Neurologic: Alert oriented x3 cranial nerves II through XII intact, no motor deficit, no abnormal balance or gait. Results CBC & Chem 7: 12/25/18 06:54 Assessment and Plan Plan: 1 status post total knee arthroplasty: Stable resume all home meds continue pain management, GI, DVT and pulmonary prophylaxis protocol. 2 hypertension: Continue patient on Norvasc 5 mg a day still on hydrochlorothiazide 25 mg daily. 3 chronic history of asthma/COPD with severe ALLERGY has been on Anoro along with Pulmicort and still on Ventolin nebulizer. 4 hyperlipidemia: Patient is on Zetia 10 mg a day could not tolerate any form of statin in the past with multiple side effect. 5 severe ALLERGY: Has been on Accolate along with sertraline and nasal spray. 6 severe GERD: Patient is doing well on omeprazole and Zantac. 7 mild IBS with mild diarrhea has been on Imodium on an as-needed basis. 8 pain management: Patient will be on hydrocodone 7.5 mg half to 1 tablet every 6 hours as needed and will Vistril 25 mg every 8 hours as needed as well. 9 GI prophylaxis: Patient is on PPI. CODE STATUS: Full code. Dr. Bateman thank you very much for the consult if I can be any further help to please let me know thank you.
[2018-12-25] MEDS: HYDROmorphone 0.5 MG/0.5 ML SYRINGE IVP PRN (12:04)
[2018-12-25] MEDS: oxyCODONE ER 10 MG TAB.ER.12H PO SCH ×2 (15:36→22:53)
[2018-12-25] MEDS: HYDROcodone/APAP 10-325MG 1 EACH TAB PO PRN (20:43)
[2018-12-25] MEDS: SENNOSIDES-DOCUSATE SODIUM 1 EACH TAB PO SCH (22:43)
[2018-12-26] MEDS: HYDROcodone/APAP 10-325MG 1 EACH TAB PO PRN ×2 (01:48→07:33)
[2018-12-26] MEDS: UMECLIDINIUM BRM INHALATION SCH (08:23)
[2018-12-26] MEDS: MAGNESIUM OXIDE 400 MG TAB PO SCH (08:23)
[2018-12-26] MEDS: VILANTEROL TR INHALATION SCH (08:23)
[2018-12-26] MEDS: LORATADINE 10 MG TAB PO SCH (08:24)
[2018-12-26] MEDS: oxyCODONE ER 10 MG TAB.ER.12H PO SCH (08:24)
[2018-12-26] MEDS: HYDROCHLOROTHIAZIDE 25 MG TAB PO SCH (08:25)
[2018-12-26] MEDS: amLODIPine 5 MG TAB PO SCH (08:25)
[2018-12-26] MEDS: PANTOPRAZOLE 40 MG TABLET PO SCH (08:25)
[2018-12-26] MEDS: LACTATED RINGERS 1,000 ML IV SCH (08:25)
[2018-12-26] MEDS ORDERED: oxyCODONE-APAP 10-325MG 1 EACH TAB PO PRN ×2 (09:21)
--- NOTE | 2018-12-26 09:30 | P.PN ---
Subjective Progress Note Date: 12/26/18 Principal diagnosis: S/P Right TKA Patient is seen at bedside this morning. She is postop day #2 from left total knee arthroplasty. She is struggling with pain control at the surgical site but denies any new complaints. She denies numbness, tingling or calf pain. Review of systems is negative for fever, chills, chest pain, shortness of breath or other Objective - Vital Signs Vital signs: Vital Signs Temp 98.5 F 12/26/18 07:00 Pulse 102 H 12/26/18 07:00 Resp 16 12/26/18 07:00 BP 116/65 12/26/18 07:00 Pulse Ox 92 L 12/26/18 07:00 Intake & Output 12/25/18 12/26/18 12/26/18 18:59 06:59 18:59 Other: Voiding Method Toilet Toilet # Voids 2 1 - Exam Inspection reveals a benign surgical wound. There is no active bleeding or drai nage. Neurovascular status is intact throughout the lower extremity with motor and sensation fully intact. Calf is soft and nontender. 2+ dorsalis pedis pulse and less than 2 second cap refill is present. - Constitutional General appearance: Present: no acute distress - Labs CBC & Chem 7: 12/25/18 06:54 Assessment and Plan (1) Osteoarthritis of right knee Narrative/Plan: Se will continue with routine postop orthopedic protocol including pain management, wound care, PT, DVT prophylaxis and medical management. We will increase/adjust her pain meds. Expect that she will transfer to home in next 1-2 days Current Visit: Yes Status: Acute Priority: Medium Code(s): M17.11 - UNILATERAL PRIMARY OSTEOARTHRITIS, RIGHT KNEE SNOMED Code(s): [id number] Time with Patient: Less than 30
[2018-12-26] MEDS: HYDROmorphone 0.5 MG/0.5 ML SYRINGE IVP PRN (09:49)
[2018-12-26] MEDS ORDERED: ASPIRIN 325 MG TAB PO STA (10:28)
[2018-12-26] MEDS: MULTIVITAMINS, THERA 1 EACH TAB PO SCH (11:47)
--- NOTE | 2018-12-26 12:34 | P.PN ---
Subjective Progress Note Date: 12/26/18 Principal diagnosis: Chief Complaint Status post right total knee arthroplasty, asthma/COPD, hypertension, ather - History of Present Illness 83-year-old female one of my office patient with history of asthma, hypertension, panic edema, severe GERD, severe ALLERGY with multiple level ALLERGIC reaction to medication in the past who had severe osteoarthritis as well has been suffering from worsening pain and discomfort of the right knee for the last few years had seen orthopedic in the past had multiple conservative management with injection physical therapy and Synvix. Continue to be in pain and discomfort. Patient was seen Dr. Bateman and schedule elective right total knee arthroplasty which was done successfully on 12/24/2018 patient was admitted to the floor afterward she is in slight discomfort otherwise doing well developed to have mild itching from her wrap hydrocodone. Patient had epidural for her surgery did not have any pain management system afterward. Patient be going home today she has been stable able to ambulate with walker require minimum help and the pain is well controlled. 12/26: Patient developed to have atypical pain through the night was kept in the hospital still complaining of significant pain and discomfort in the right side going all the way to her foot we'll consult anesthesia for possible epidural injection or Route trigger point injection on the side. As an outpatient patie nt now was having pain management to the lumbar area with the pain clinic in [facility]. Objective - Vital Signs Vital signs: Vital Signs Temp 98.5 F 12/26/18 07:00 Pulse 102 H 12/26/18 07:00 Resp 16 12/26/18 07:00 BP 116/65 12/26/18 07:00 Pulse Ox 92 L 12/26/18 07:00 Intake & Output 12/25/18 12/26/18 12/26/18 18:59 06:59 18:59 Other: Voiding Method Toilet Toilet # Voids 2 1 - Exam Review of Systems CONSTITUTIONAL: Well-developed no acute respiratory distress. EYES: No icterus sclerae, no conjunctivitis. EARS, NOSE, MOUTH, THROAT, and FACE: No sore throat, lymphadenopathy, carotid bruits or deformity. Positive tinnitus RESPIRATORY: Positive shortness of breath and wheezes CARDIOVASCULAR: No CP, Palpitation, PND, Orthopnea, or angina. GASTROINTESTINAL: No Abd pain, Nausea or vomiting, no Diarrhea or constipation, No GI Bleed, no distention or masses. GENITOURINARY: Negative for Hematuria or UTI, no kidney stones. INTEGUMENT/BREAST: Negative for any muscular injury with mild osteoarthritis.. HEMATOLOGIC/LYMPHATIC: Negative for bleed or purpura. MUSCULOSKELTAL: Right knee slight discomfort from the incision area NEURLOGICAL: No LOC, Sz or syncope, blurred vision dizziness or abnormality.. BEHAVIORAL/PSYCH: Negative. ENDOCRINE: Negative. PE: General Appearance: Alert, cooperative, no distress, appears stated age. Mildly overweight Neck HEENT: Supple, no lymphadenopathy, no thyroid enlargement, no carotid bruits. Lungs: Decreased breath some bilaterally with fine rhonchi positive mild expiratory wheezes Chest Wall: Decrease expansion with deep inspiration no tenderness and no deformity was found on exam, no costochondral pain or discomfort. Heart: Regular rate and rhythm, S1, S2 normal, no murmur, rub or gallop. Back: Symmetric, no curvature, ROM normal, no CVA tenderness. Abdomen: Soft, non-tender, bowel sounds active all four quadrants, no masses, no organomegaly. Extremities: Incision on the right knee has no induration or redness discomfort no major swelling no pain or discomfort behind the knee area. Pulses: 2+ and symmetric. Skin: Skin color, texture, tugor normal, no rashes or lesions. Neurologic: Alert oriented x3 cranial nerves II through XII intact, no motor deficit, no abnormal balance or gait. - Labs CBC & Chem 7: 12/25/18 06:54 Assessment and Plan Plan: 1 status post total knee arthroplasty: Stable resume all home meds continue pain management, GI, DVT and pulmonary prophylaxis protocol. Patient still have slight increased pain will be seen anesthesia pain management for possible trigger point injection in the meanwhile remain on hydrocodone and Dilaudid as needed. 2 hypertension: Continue patient on Norvasc 5 mg a day still on hydrochlorothiazide 25 mg daily. 3 chronic history of asthma/COPD with severe ALLERGY has been on Anoro along with Pulmicort and still on Ventolin nebulizer. 4 hyperlipidemia: Patient is on Zetia 10 mg a day could not tolerate any form of statin in the past with multiple side effect. 5 severe ALLERGY: Has been on Accolate along with sertraline and nasal spray. 6 severe GERD: Patient is doing well on omeprazole and Zantac. 7 mild IBS with mild diarrhea has been on Imodium on an as-needed basis. 8 pain management: Patient will be on hydrocodone 7.5 mg half to 1 tablet every 6 hours as needed and will Vistril 25 mg every 8 hours as needed as well. With the worsening pain possible consult anesthesia and trigger point injection might be helpful.
[2018-12-26] MEDS ORDERED: fentaNYL (PF) 50 MCG/ML 2 ML AMP IV ONE (12:47)
[2018-12-26] MEDS ORDERED: MIDAZOLAM 2 MG/2 ML VIAL IV ONE (12:50)
--- NOTE | 2018-12-26 13:17 | P.ANPRN ---
Procedure Note - Anesthesia - Nerve Block Performed Right Adductor Canal Infusion Time Out Performed: Yes Date of Procedure: 12/26/18 Procedure Start Time: 12:46 Procedure Stop Time: 13:03 Location of Patient Procedure: PACU Indication: Acute Post-Operative Pain, Requested by Surgeon Sedation Type: Sedate with meaningful contact maintained Preparation: Sterile Prep, Sterile Dressing Position: Supine Needle Types: Pajunk Needle Gauge: 21 Ultrasound used to visualize needle placement: Yes Ultrasound used to observe medication spread: Yes Blood Aspirated: No Pain Paresthesia on Injection Noted: No Resistance on Injection: Normal Image Stored and Saved: Yes Events: Uneventful and Well Tolerated (ropi .5% 20cc plus dexamethasone 4mg)
--- NOTE | 2018-12-26 13:21 | P.ANPRN ---
Procedure Note - Anesthesia - Nerve Block Performed Right Other (see comment) Single Time Out Performed: Yes ( ipack block) Date of Procedure: 12/26/18 Procedure Start Time: 12:46 Procedure Stop Time: 13:03 Location of Patient Procedure: PACU Indication: Acute Post-Operative Pain, Requested by Surgeon Sedation Type: Sedate with meaningful contact maintained Preparation: Sterile Prep Position: Left Lateral Needle Types: Pajunk Needle Gauge: 21 Ultrasound used to visualize needle placement: Yes Ultrasound used to observe medication spread: Yes Blood Aspirated: No Pain Paresthesia on Injection Noted: No Resistance on Injection: Normal Image Stored and Saved: Yes Events: Uneventful and Well Tolerated (ropi .5% 20cc)
[2018-12-26] MEDS ORDERED: ROPIVACAINE 0.2%-NS ON-Q PUMP 1,090 MG, EMPTY PAIN BALL 1 EACH MISCELLANE PRN ×2 (13:23→14:01)
[2018-12-26] MEDS: SENNOSIDES-DOCUSATE SODIUM 1 EACH TAB PO SCH (20:28)
[2018-12-26] MEDS: oxyCODONE ER 20 MG TAB.ER.12H PO SCH (20:28)
[2018-12-26] MEDS: ASPIRIN 325 MG TAB PO SCH (20:28)
[2018-12-27] MEDS: HYDROcodone/APAP 10-325MG 1 EACH TAB PO PRN (05:08)
[2018-12-27] MEDS: LACTATED RINGERS 1,000 ML IV SCH (05:20)
--- NOTE | 2018-12-27 07:09 | P.PN ---
Progress Note - Text Progress Note Date: 12/27/18 Patient with complaints of lateral thigh pain. Lateral thigh is tender to palpation. The knee pain is much improved after the adductor canal block and iPack block. Patient participating in PT. VSS Adductor canal catheter site clean and dry Lateral thigh without bruising or palpable hematoma A/P POD#3 s/p R TKA and Day#1 s/p adductor canal block and iPACK - continue adductor catheter - multimodal analgesia (NSAID that pt able to tolerate), [place]
[2018-12-27 07:16] LABS: Basophils % (A) 0 %; Eosinophils # (A) 0.1 k/uL (0-0.7); Eosinophils % (A) 1 %; HCT 38.4 % (34.0-46.0); HGB 12.1 gm/dL (11.4-16.0); Lymphocytes # (A) 2.7 k/uL (1.0-4.8); Lymphocytes % (A) 27 %; MCH 29.4 pg (25.0-35.0); MCHC 31.6 g/dL (31.0-37.0); MCV 93.2 fL (80.0-100.0); Monocytes # (A) 0.5 k/uL (0-1.0); Monocytes % (A) 5 %; Neutrophils # (A) 6.6 k/uL (1.3-7.7); Neutrophils % (A) 65 %; Platelet Count 237 k/uL (150-450); RBC 4.12 m/uL (3.80-5.40); RDW 12.8 % (11.5-15.5); WBC 10.2 k/uL (3.8-10.6)
[2018-12-27 07:37] VITALS: BP 144/89; PULSE 91; RESP 16; TEMP 98.2
[2018-12-27] MEDS: oxyCODONE ER 20 MG TAB.ER.12H PO SCH (08:00)
[2018-12-27] MEDS: amLODIPine 5 MG TAB PO SCH (08:01)
[2018-12-27] MEDS: ASPIRIN 325 MG TAB PO SCH (08:01)
[2018-12-27] MEDS: PANTOPRAZOLE 40 MG TABLET PO SCH (08:04)
[2018-12-27] MEDS: LORATADINE 10 MG TAB PO SCH (08:04)
[2018-12-27] MEDS: CHOLECALCIFEROL 1,000 UNIT TAB PO SCH (08:04)
[2018-12-27] MEDS: HYDROCHLOROTHIAZIDE 25 MG TAB PO SCH (08:04)
[2018-12-27] MEDS: MAGNESIUM OXIDE 400 MG TAB PO SCH (08:04)
--- NOTE | 2018-12-27 08:30 | P.DS ---
Providers Expected date of discharge: 12/27/18 Attending physician: Curtis Bateman Consults: 12/24/18 12:38 Consult Physician Routine Consulting Provider: Yoel Garnica Consult Reason/Comments: pot op medical management Do you want consulting provider notified?: Yes 12/26/18 10:37 Consult to Anesthesia Routine Consulting Provider: Anesthesia,Services Consult Reason/Comments: post op anesthesia Primary care physician: Yoel Garnica - Discharge Diagnosis(es) (1) Osteoarthritis of right knee Current Visit: Yes Status: Acute Priority: Medium (2) Status post total right knee replacement Current Visit: Yes Status: Acute Hospital Course: This is a 63-year-old female with known history of degenerative arthritis of the right knee. The patient presents for evaluation. After discussion and consideration patient elects to proceed with total knee arthroplasty. The patient is seen preoperatively by Dr. Bateman and medically cleared for surgery by their primary care physician. Patient is admitted to [facility] on 12/24/2018 for total knee arthroplasty. The procedures performed without complication or sequelae. The patient is doing well postoperatively. Labs and vital signs are stable on day of discharge. On day of discharge patient's knee incision is healing well. There is minimal erythema. There is no drainage noted at this time. There is minimal soft tissue swelling to the knee. Patient has full foot and ankle motion without difficulty or pain. Calf is soft and nontender to palpation. Neurovascular status to the right lower extremity is intact. Patient is discharged home in good condition. Opioid start talking form is reviewed and signed at patient bedside. Please see med rec for accurate list of home medications. Patient Condition at Discharge: Good Plan - Discharge Summary Discharge Rx Participant: Yes New Discharge Prescriptions: New Aspirin 325 mg PO BID #60 tab hydrOXYzine PAMOATE [Vistaril] 25 mg PO QID PRN #90 cap PRN Reason: Itching HYDROcodone/APAP 10-325MG [[place] 10-325] 1 - 2 tab PO Q6H PRN #45 tab PRN Reason: Pain oxyCODONE ER [OxyCONTIN] 20 mg PO Q12HR 3 Days #6 tab No Action Ranitidine HCl [Zantac] 150 mg PO BID Omeprazole [PriLOSEC] 40 mg PO AC-BRKFST Cetirizine HCl 10 mg PO DAILY Albuterol Sulfate [Ventolin HFA] 1 - 2 puff INHALATION RT-Q6H PRN PRN Reason: Shortness Of Breath Budesonide [Pulmicort Flexhaler] 1 puff INHALATION RT-DAILY Azelastine HCl 137 mcg NS BID PRN PRN Reason: allergies Umeclidinium Brm/Vilanterol Tr [Anoro Ellipta 62.5-25 Mcg INH] 1 puff INHALATION RT-DAILY predniSONE 5 mg PO DAILY PRN PRN Reason: asthma Acetaminophen [Tylenol] 500 mg PO Q8H Potassium Chloride [Klor-Con 20] 20 meq PO HS PRN PRN Reason: takes w/hctz Cholecalciferol [Vitamin D3 (25 Mcg = 1000 Iu)] 2,000 unit PO Q48H Albuterol Nebulized [Ventolin Nebulized] 2.5 mg INHALATION Q6H PRN PRN Reason: Dyspnea Ketotifen 0.025% Ophth Soln [Zaditor] 1 drop BOTH EYES BID PRN PRN Reason: DRY EYES Zafirlukast 10 mg PO BID Ezetimibe [Zetia] 10 mg PO HS Loperamide [Imodium] 4 mg PO Q8H PRN PRN Reason: Diarrhea Lidocaine 5% Patch [Lidoderm] 1 patch TOPICAL DAILY PRN PRN Reason: Pain amLODIPine [Norvasc] 5 mg PO DAILY Hydrochlorothiazide [Hydrodiuril] 25 mg PO DAILY Ubidecarenone [Co Q-10] 200 mg PO DAILY Magnesium 400 mg PO DAILY Discharge Medication List Albuterol Sulfate [Ventolin HFA] 1 - 2 puff INHALATION RT-Q6H PRN 05/20/14 [History] Azelastine HCl 137 mcg NS BID PRN 05/20/14 [History] Budesonide [Pulmicort Flexhaler] 1 puff INHALATION RT-DAILY 05/20/14 [History] Cetirizine HCl 10 mg PO DAILY 05/20/14 [History] Omeprazole [PriLOSEC] 40 mg PO AC-BRKFST 05/20/14 [History] Ranitidine HCl [Zantac] 150 mg PO BID 05/20/14 [History] Umeclidinium Brm/Vilanterol Tr [Anoro Ellipta 62.5-25 Mcg INH] 1 puff INHALATION RT-DAILY 11/11/14 [History] Acetaminophen [Tylenol] 500 mg PO Q8H 01/25/16 [History] predniSONE 5 mg PO DAILY PRN 01/25/16 [History] Cholecalciferol [Vitamin D3 (25 Mcg = 1000 Iu)] 2,000 unit PO Q48H 06/11/16 [History] Potassium Chloride [Klor-Con 20] 20 meq PO HS PRN 06/11/16 [History] Albuterol Nebulized [Ventolin Nebulized] 2.5 mg INHALATION Q6H PRN 06/20/16 [History] Ketotifen 0.025% Ophth Soln [Zaditor] 1 drop BOTH EYES BID PRN 09/03/17 [History] Zafirlukast 10 mg PO BID 11/11/17 [History] Ezetimibe [Zetia] 10 mg PO HS 05/16/18 [History] Loperamide [Imodium] 4 mg PO Q8H PRN 05/21/18 [History] Hydrochlorothiazide [Hydrodiuril] 25 mg PO DAILY 12/04/18 [History] Lidocaine 5% Patch [Lidoderm] 1 patch TOPICAL DAILY PRN 12/04/18 [History] Magnesium 400 mg PO DAILY 12/04/18 [History] Ubidecarenone [Co Q-10] 200 mg PO DAILY 12/04/18 [History] amLODIPine [Norvasc] 5 mg PO DAILY 12/04/18 [History] Aspirin 325 mg PO BID #60 tab 12/25/18 [Rx] hydrOXYzine PAMOATE [Vistaril] 25 mg PO QID PRN #90 cap 12/25/18 [Rx] HYDROcodone/APAP 10-325MG [Charl[place] 10-325] 1 - 2 tab PO Q6H PRN #45 tab 12/27/18 [Rx] oxyCODONE ER [OxyCONTIN] 20 mg PO Q12HR 3 Days #6 tab 12/27/18 [Rx] Follow up Appointment(s)/Referral(s): Yoel Garnica MD [Primary Care Provider] - 1 Week (office will call with appointment time ) [facility], [NON-STAFF] - Curtis Bateman MD [STAFF PHYSICIAN] - 01/06/19 9:50 am Patient Instructions/Handouts: Knee Replacement (DC) Activity/Diet/Wound Care/Special Instructions: Keep wound clean and dry Take meds as directed Follow-up with Dr. Bateman in office Weight bear as tolerated May shower in 3 days if no bleeding Discharge Disposition: HOME WITH HOME HEALTH SERVICES
[2018-12-27] MEDS ORDERED: HYDROcodone/APAP 7.5-325MG 1 EACH TAB PO PRN ×2 (10:03)
--- NOTE | 2018-12-27 10:30 | P.PN ---
Subjective Progress Note Date: 12/27/18 83-year-old female one of my office patient with history of asthma, hypertension, panic edema, severe GERD, severe ALLERGY with multiple level ALLERGIC reaction to medication in the past who had severe osteoarthritis as well has been suffering from worsening pain and discomfort of the right knee for the last few years had seen orthopedic in the past had multiple conservative management with injection physical therapy and [facility]. Continue to be in pain and discomfort. Patient was seen Dr. Bateman and schedule elective right total knee arthroplasty which was done successfully on 12/24/2018 patient was admitted to the floor afterward she is in slight discomfort otherwise doing well developed to have mild itching from her wrap hydrocodone. Patient had epidural for her surgery did not have any pain management system afterward. Patient be going home today she has been stable able to ambulate with walker require minimum help and the pain is well controlled. 12/26: Patient developed to have atypical pain through the night was kept in the hospital still complaining of significant pain and discomfort in the right side going all the way to her foot we'll consult anesthesia for possible epidural injection or Route trigger point injection on the side. As an outpatient patient now was having pain management to the lumbar area with the pain clinic in [facility]. 12/27/2017: Patient is doing well this morning. She is anxious to go home. Patient states that her pain has been managed at this time. She has On-Q pump in place. Vital signs are stable, patient is afebrile, lab work is unremarkab le. Review Of Systems: Constitutional: No fever, no chills, no night sweats. No weight change. No weakness, fatigue or lethargy. No daytime sleepiness. EENT: No headache. No blurred vision or double vision, no loss of vision. No loss of Hearing, no ringing in the ears, no dizziness. No nasal drainage or congestion. No epistaxis. No sore throat. Lungs: No shortness of breath, cough, no sputum production. No wheezing. Cardiovascular: No chest pain, no lower extremity edema. No palpitations. No paroxysmal nocturnal dyspnea. No orthopnea. No lightheadedness or dizziness. No syncopal episodes. Abdominal: no abdominal discomfort. No nausea, vomiting. no diarrhea. No constipation. No bloody or tarry stools. no loss of appetite. Genitourinary: No dysuria, increased frequency, urgency. No urinary retention. Musculoskeletal: Reports controlled right knee pain. No myalgias. No muscle weakness, no gait dysfunction, no frequent falls. No back pain. No neck pain. Integumentary: No wounds, no lesions. No rash or pruritus. No unusual bruising. No change in hair or nails. Neurologic: No aphasia. No facial droop. No change in mentation. No head injury. No headache. No paralysis. No paresthesia. Psychiatric: No depression. No anxiety. No mood swings. Endocrine: No abnormal blood sugars. No weight change. No excessive sweating or thirst. Objective - Vital Signs Vital signs: Vital Signs Temp 98.2 F 12/27/18 07:00 Pulse 91 12/27/18 07:00 Resp 16 12/27/18 07:00 BP 144/89 12/27/18 07:00 Pulse Ox 95 12/27/18 07:00 Intake & Output 12/26/18 12/27/18 12/27/18 18:59 06:59 18:59 Other: Voiding Method Toilet # Voids 3 1 - Exam General Appearance: Alert, cooperative, no distress, appears stated age. Mildly overweight Neck HEENT: Supple, no lymphadenopathy, no thyroid enlargement, no carotid bruits. Lungs: Decreased breath some bilaterally with fine rhonchi positive mild expiratory wheezes Chest Wall: Decrease expansion with deep inspiration no tenderness and no deformity was found on exam, no costochondral pain or discomfort. Heart: Regular rate and rhythm, S1, S2 normal, no murmur, rub or gallop. Back: Symmetric, no curvature, ROM normal, no CVA tenderness. Abdomen: Soft, non-tender, bowel sounds active all four quadrants, no masses, no organomegaly. Extremities: Incision on the right knee has no induration or redness discomfort no major swelling no pain or discomfort behind the knee area. Pulses: 2+ and symmetric. Skin: Skin color, texture, tugor normal, no rashes or lesions. Neurologic: Alert oriented x3 cranial nerves II through XII intact, no motor deficit, no abnormal balance or gait. - Labs CBC & Chem 7: 12/27/18 06:31 Assessment and Plan Plan: 1 status post total knee arthroplasty: Stable resume all home meds continue pain management, GI, DVT and pulmonary prophylaxis protocol. On-Q pump in place. Patient to be discharged today with home care. Follow up with primary care physician with [facility] scheduled appointment in 2 weeks. 2 hypertension: Continue patient on Norvasc 5 mg a day still on hydrochlorothiazide 25 mg daily. 3 chronic history of asthma/COPD with severe ALLERGY has been on Anoro along with Pulmicort and still on Ventolin nebulizer. 4 hyperlipidemia: Patient is on Zetia 10 mg a day could not tolerate any form of statin in the past with multiple side effect. 5 severe ALLERGY: Has been on Accolate along with sertraline and nasal spray. 6 severe GERD: Patient is doing well on omeprazole and Zantac. 7 mild IBS with mild diarrhea has been on Imodium on an as-needed basis. 8 pain management: Patient will be on hydrocodone 7.5 mg half to 1 tablet every 6 hours as needed and will Vistril 25 mg every 8 hours as needed as well. On-Q pump in place. Discharge plan: Home today with home care Impression and plan of care have been directed as dictated by the signing physician. Robina Martinez nurse practitioner acting as scribe for signing physician.
[2018-12-27] MEDS: VILANTEROL TR INHALATION SCH (11:50)
[2018-12-27] MEDS: UMECLIDINIUM BRM INHALATION SCH (11:50)
== END 2018-12-27 13:04 | disposition home health service (06) ==
LOC: OR 10:35 → 4SSUR 14:34 → OR 12-26 23:39 → 4SSUR 12-26 23:39 → OR 12-27 13:04
PROVIDERS: ATTEND Orthopaedic Surgery Sports Medicine
DX: M17.0 Bilateral primary osteoarthritis of knee (principal); E78.5 Hyperlipidemia, unspecified; J98.4 Other disorders of lung; J44.9 Chronic obstructive pulmonary disease, unspecified; R63.5 Abnormal weight gain; Z68.41 Body mass index [BMI] 40.0-44.9, adult; I10 Essential (primary) hypertension; K21.9 Gastro-esophageal reflux disease without esophagitis; Z97.3 Presence of spectacles and contact lenses; M75.41 Impingement syndrome of right shoulder; Z87.891 Personal history of nicotine dependence; Z98.42 Cataract extraction status, left eye; Z98.41 Cataract extraction status, right eye; Z80.0 Family history of malignant neoplasm of digestive organs; Z83.3 Family history of diabetes mellitus; Z82.49 Family history of ischemic heart disease and other diseases of the circulatory system; Z82.5 Family history of asthma and other chronic lower respiratory diseases; Z84.1 Family history of disorders of kidney and ureter; Z84.89 Family history of other specified conditions; Z79.891 Long term (current) use of opiate analgesic; Z79.51 Long term (current) use of inhaled steroids; Z79.899 Other long term (current) drug therapy; Z88.6 Allergy status to analgesic agent; Z88.1 Allergy status to other antibiotic agents; Z88.8 Allergy status to other drugs, medicaments and biological substances
CPT/HCPCS: 27447; 94640; 97116; 97161; 64448; 76942; 85025 ×2; 88300; 73560; C1776; C1713; J2250; J0171; J1200 ×2; J1100; J0690 ×3; J2405; J2274; J3010; J1885; J2795; J2370; J2704; J0735; J1170

== ENCOUNTER 2019-09-17 15:19 | Emergency (ER) | payer MEDICARE, OTHER ==
[2019-09-17] MEDS ORDERED: SODIUM CHLORIDE 0.9% 1,000 ML IV STA ×2 (15:28→16:49)
[2019-09-17] MEDS ORDERED: SODIUM CHLORIDE 0.9% 500 ML 500 ML IV STA (15:28)
--- NOTE | 2019-09-17 15:33 | ED ---
Arrhythmia/Palpitations HPI - General Stated Complaint: SVT Time Seen by Provider: 09/17/19 15:19 Source: patient, EMS, RN notes reviewed Mode of arrival: EMS - History of Present Illness Initial Comments: This is a 64-year-old female with a prior history of SVT approximately 7-8 years ago who states her normal heart rates between 9900 who states he had been out shopping this morning and while eating lunch started feeling a wave of warmth and flushed feeling going across her body some lightheadedness she put a pulse oximetry and noted that her heart rate was around 180 and 200 bpm she did call 911. She'll solve a maneuvers were performed with some moderate success patient did also resume SVT and after another she'll solve a maneuver heart rate dropped down to about 130s. Some vague discomfort to the sternal notch area but no other findings no sweating no cough fevers chills nausea and he kind of other symptoms reported. No new medications she believes the previous episode was secondary to gabapentum. No other modifying factors she is feeling improved at this time MD Complaint: rapid heart beat - Related Data Home Medications Medication Instructions Recorded Confirmed Albuterol Sulfate [Ventolin HFA] 2 puff INHALATION RT-Q4H PRN 05/20/14 09/17/19 Azelastine HCl 137 mcg EA NOSTRIL BID 05/20/14 09/17/19 Budesonide [Pulmicort Flexhaler] 1 puff INHALATION RT-DAILY 05/20/14 09/17/19 Omeprazole [PriLOSEC] 20 mg PO AC-BRKFST 05/20/14 09/17/19 Umeclidinium Brm/Vilanterol Tr 1 puff INHALATION RT-DAILY 11/11/14 09/17/19 [Anoro Ellipta 62.5-25 Mcg INH] Acetaminophen [Tylenol] 500 mg PO Q8H PRN 01/25/16 09/17/19 predniSONE 5 mg PO DAILY PRN 01/25/16 09/17/19 Albuterol Nebulized [Ventolin 2.5 mg INHALATION RT-QID PRN 06/20/16 09/17/19 Nebulized] Ketotifen 0.025% Ophth Soln 1 drop BOTH EYES BID PRN 09/03/17 09/17/19 [Zaditor] Zafirlukast 10 mg PO BID 11/11/17 09/17/19 Ezetimibe [Zetia] 10 mg PO HS 05/16/18 09/17/19 Hydrochlorothiazide [Hydrodiuril] 25 mg PO DAILY 12/04/18 09/17/19 amLODIPine [Norvasc] 5 mg PO DAILY 12/04/18 09/17/19 Magnesium Oxide 400 mg PO HS 09/17/19 09/17/19 Allergies Allergy/AdvReac Type Severity Reaction Status Date / Time formoterol fumarate Allergy Severe Anaphylaxis Verified 09/17/19 17:30 [From Symbicort] amoxicillin Allergy GI Verified 09/17/19 17:30 DISTRESS AND DROWSINESS atorvastatin [From Lipitor] Allergy Unknown Verified 09/17/19 17:30 budesonide [From Symbicort] Allergy Anaphylaxis Verified 09/17/19 17:30 clarithromycin Allergy GI Verified 09/17/19 17:30 DISTRESS AND DROWSINESS doxycycline Allergy GI Verified 09/17/19 17:30 DISTRESS AND DROWSINESS omalizumab [From Xolair] Allergy Anaphylaxis Verified 09/17/19 17:30 prednisolone acetate, Allergy Anaphylaxis Verified 09/17/19 17:30 micronized [prednisolone acetate, micro] prednisone Allergy Anaphylaxis-IN Verified 09/17/19 17:30 LARGE DOSES albuterol [From Combivent] AdvReac tinnitus Verified 09/17/19 17:30 cholestyramine AdvReac Diarrhea Verified 09/17/19 17:30 ciclesonide [From Alvesco] AdvReac RINGING IN Verified 09/17/19 17:30 THE EARS etodolac AdvReac MUSCLE Verified 09/17/19 17:30 CRAMPS fluorometholone AdvReac caused Verified 09/17/19 17:30 [From FML Forte] hair to fall out fluticasone propionate AdvReac RASH, Verified 09/17/19 17:30 [From Advair Diskus] ITCHING furosemide [From Lasix] AdvReac tinnitus Verified 09/17/19 17:30 gabapentin [From Neurontin] AdvReac MUSCLE Verified 09/17/19 17:30 CRAMPS, SENSATION OF BUGS CRAWLING ON LEGS gemfibrozil AdvReac Rapid Verified 09/17/19 17:30 Heart Rate ibuprofen AdvReac tinnitus Verified 09/17/19 17:30 ipratropium [From Combivent] AdvReac tinnitus Verified 09/17/19 17:30 lovastatin AdvReac cramps Verified 09/17/19 17:30 metoprolol AdvReac Diarrhea Verified 09/17/19 17:30 mometasone furoate AdvReac RASH, Verified 09/17/19 17:30 [From Asmanex Twisthaler] VISUAL CHANGES pregabalin [From Lyrica] AdvReac MUSCLE Verified 09/17/19 17:30 CRAMPS, SENSATION OF BUGS CRAWLING ON LEGS rosuvastatin calcium AdvReac MUSCLE Verified 09/17/19 17:30 [From Crestor] CRAMPS salmeterol xinafoate AdvReac Rash/Hives Verified 09/17/19 17:30 [From Advair Diskus] simvastatin AdvReac SENSATION Verified 09/17/19 17:30 OF BUGS CRAWLING ON LEGS thyroid, pork AdvReac Diarrhea Verified 09/17/19 17:30 [From Oketo Thyroid] Review of Systems ROS Statement: Those systems with pertinent positive or pertinent negative responses have been documented in the HPI. ROS Other: All systems not noted in ROS Statement are negative. Past Medical History Past Medical History: Asthma, COPD, GERD/Reflux, Hyperlipidemia, Musculoskeletal Disorder, Osteoarthritis (OA) Additional Past Medical History / Comment(s): hx. rapid heart rate controlled by medication, low back pain History of Any Multi-Drug Resistant Organisms: Acinetobacter (MDRO) Date of last positivie culture/infection: 2015 MDRO Source:: unknown Past Surgical History: Hernia Repair, Orthopedic Surgery Additional Past Surgical History / Comment(s): BENIGN TUMOR REMOVED FROM RT HAND, BILATERAL CATARACTS, BILATERAL BUNIONECTOMY, left knee surgery. PAIN CLINIC PROCEDURES Past Anesthesia/Blood Transfusion Reactions: Previous Problems w/ Anesthesia Additional Past Anesthesia/Blood Transfusion Reaction / Comment(s): SLOW TO COME OUT OF ANESTHESIA, "does not take much" States has difficulty lying flat on her back Past Psychological History: No Psychological Hx Reported Smoking Status: Former smoker Past Alcohol Use History: Rare Additional Past Alcohol Use History / Comment(s): quit smoking 2010, smoked for 20 yrs- 1 PPD Past Drug Use History: None Reported - Past Family History Mother Family Medical History: Deep Vein Thrombosis (DVT) Father Family Medical History: Cancer General Exam - General Exam Comments Initial Comments: This is a well-developed well-nourished awake alert oriented 3 female General appearance: alert, in no apparent distress Head exam: Present: atraumatic, normocephalic, normal inspection Eye exam: Present: normal appearance, PERRL, EOMI. Absent: scleral icterus, conjunctival injection, periorbital swelling ENT exam: Present: mucous membranes dry Neck exam: Present: normal inspection. Absent: tenderness, meningismus, lymphadenopathy Respiratory exam: Present: normal lung sounds bilaterally. Absent: respiratory distress, wheezes, rales, rhonchi, stridor Cardiovascular Exam: Present: normal rhythm, tachycardia, normal heart sounds. Absent: systolic murmur, diastolic murmur, rubs, gallop, clicks GI/Abdominal exam: Present: soft, normal bowel sounds. Absent: distended, tenderness, guarding, rebound, rigid Extremities exam: Present: normal inspection, full ROM, normal capillary refill. Absent: tenderness, pedal edema, joint swelling, calf tenderness Back exam: Present: normal inspection Neurological exam: Present: alert, oriented X3, CN II-XII intact Psychiatric exam: Present: normal affect, normal mood Skin exam: Present: warm, dry, intact, normal color. Absent: rash Course Vital Signs 09/17/19 09/17/19 09/17/19 15:39 15:47 16:50 Temperature 98.5 F Pulse Rate 124 H 122 H Pulse Rate [ 122 H 112 H Director [employer] ] Respiratory 18 18 18 Rate Blood Pressure 139/75 Blood Pressure [Sitting] Blood Pressure [Standing] Blood Pressure 106/72 [Supine] O2 Sat by Pulse 95 Oximetry 09/17/19 09/17/19 16:53 16:54 Temperature Pulse Rate Pulse Rate [ 115 H 125 H Director [employer] Education ] Respiratory 18 18 Rate Blood Pressure Blood Pressure 109/76 [Sitting] Blood Pressure 137/94 [Standing] Blood Pressure [Supine] O2 Sat by Pulse Oximetry EKG Findings - EKG Results: EKG: interpreted by ARIANNE, sinus rhythm EKG shows: tachycardia (Sinus tachycardia 124 IA interval 148 QRS 80 QT/QTC 318/456. Nonspecific ST configuration) Medical Decision Making - Medical Decision Making I did reevaluate patient multiple occasions she did spontaneously resolve from her SVT. She did respond to IV fluids with normalization of her heart rate. Symptoms. Patient will be discharged to follow-up with Dr. Garnica and return if needed. Patient is in agreement with this. - Lab Data Result diagrams: 09/17/19 15:41 09/17/19 15:41 Lab Results 09/17/19 09/17/19 09/17/19 Range/Units 15:41 15:41 15:41 WBC 10.1 (3.8-10.6) k/uL RBC 4.88 (3.80-5.40) m/uL Hgb 14.7 (11.4-16.0) gm/dL Hct 43.8 (34.0-46.0) % MCV 89.8 (80.0-100.0) fL MCH 30.1 (25.0-35.0) pg MCHC 33.5 (31.0-37.0) g/dL RDW 13.1 (11.5-15.5) % Plt Count 256 (150-450) k/uL Neutrophils % 64 % Lymphocytes % 28 % Monocytes % 4 % Eosinophils % 3 % Basophils % 0 % Neutrophils # 6.5 (1.3-7.7) k/uL Lymphocytes # 2.8 (1.0-4.8) k/uL Monocytes # 0.4 (0-1.0) k/uL Eosinophils # 0.3 (0-0.7) k/uL Basophils # 0.0 (0-0.2) k/uL PT 10.0 (9.0-12.0) sec INR 1.0 (<1.2) APTT 24.6 (22.0-30.0) sec D-Dimer 0.41 (<0.60) mg/L FEU Sodium 137 (137-145) mmol/L Potassium 4.0 (3.5-5.1) mmol/L Chloride 109 H (98-107) mmol/L Carbon Dioxide 21 L (22-30) mmol/L Anion Gap 7 mmol/L BUN 24 H (7-17) mg/dL Creatinine 1.20 H (0.52-1.04) mg/dL Est GFR (CKD-EPI)AfAm 55 (>60 ml/min/1.73 sqM) Est GFR (CKD-EPI)NonAf 47 (>60 ml/min/1.73 sqM) Glucose 140 H (74-99) mg/dL Calcium 9.6 (8.4-10.2) mg/dL Magnesium 1.9 (1.6-2.3) mg/dL Total Bilirubin 0.4 (0.2-1.3) mg/dL AST 31 (14-36) U/L ALT 37 H (4-34) U/L Alkaline Phosphatase 107 (38-126) U/L Creatine Kinase 142 H (30-135) U/L Troponin I (0.000-0.034) ng/mL Total Protein 6.8 (6.3-8.2) g/dL Albumin 4.2 (3.5-5.0) g/dL TSH 3.050 (0.465-4.680) mIU/L 09/17/19 Range/Units 15:41 WBC (3.8-10.6) k/uL RBC (3.80-5.40) m/uL Hgb (11.4-16.0) gm/dL Hct (34.0-46.0) % MCV (80.0-100.0) fL MCH (25.0-35.0) pg MCHC (31.0-37.0) g/dL RDW (11.5-15.5) % Plt Count (150-450) k/uL Neutrophils % % Lymphocytes % % Monocytes % % Eosinophils % % Basophils % % Neutrophils # (1.3-7.7) k/uL Lymphocytes # (1.0-4.8) k/uL Monocytes # (0-1.0) k/uL Eosinophils # (0-0.7) k/uL Basophils # (0-0.2) k/uL PT (9.0-12.0) sec INR (<1.2) APTT (22.0-30.0) sec D-Dimer (<0.60) mg/L FEU Sodium (137-145) mmol/L Potassium (3.5-5.1) mmol/L Chloride (98-107) mmol/L Carbon Dioxide (22-30) mmol/L Anion Gap mmol/L BUN (7-17) mg/dL Creatinine (0.52-1.04) mg/dL Est GFR (CKD-EPI)AfAm (>60 ml/min/1.73 sqM) Est GFR (CKD-EPI)NonAf (>60 ml/min/1.73 sqM) Glucose (74-99) mg/dL Calcium (8.4-10.2) mg/dL Magnesium (1.6-2.3) mg/dL Total Bilirubin (0.2-1.3) mg/dL AST (14-36) U/L ALT (4-34) U/L Alkaline Phosphatase (38-126) U/L Creatine Kinase (30-135) U/L Troponin I <0.012 (0.000-0.034) ng/mL Total Protein (6.3-8.2) g/dL Albumin (3.5-5.0) g/dL TSH (0.465-4.680) mIU/L - Radiology Data Radiology results: report reviewed (I did review the imaging and report no acute findings.), image reviewed Disposition Clinical Impression: Paroxysmal supraventricular tachycardia, Dehydration, Sinus tachycardia Disposition: HOME SELF-CARE Condition: Good Instructions (If sedation given, give patient instructions): Supraventricular Tachycardia (ED), Dehydration (ED) Is patient prescribed a controlled substance at d/c from ED?: No Referrals: Yoel Garnica MD [Primary Care Provider] - 1-2 days
[2019-09-17 15:53] LABS: Basophils % (A) 0 %; Eosinophils # (A) 0.3 k/uL (0-0.7); Eosinophils % (A) 3 %; HCT 43.8 % (34.0-46.0); HGB 14.7 gm/dL (11.4-16.0); Lymphocytes # (A) 2.8 k/uL (1.0-4.8); Lymphocytes % (A) 28 %; MCH 30.1 pg (25.0-35.0); MCHC 33.5 g/dL (31.0-37.0); MCV 89.8 fL (80.0-100.0); Mean Platelet Volume 7.7; Monocytes # (A) 0.4 k/uL (0-1.0); Monocytes % (A) 4 %; Neutrophils # (A) 6.5 k/uL (1.3-7.7); Neutrophils % (A) 64 %; Platelet Count 256 k/uL (150-450); RBC 4.88 m/uL (3.80-5.40); RDW 13.1 % (11.5-15.5); WBC 10.1 k/uL (3.8-10.6)
[2019-09-17 16:04] VITALS: RESP 18
[2019-09-17 16:04] LABS: Albumin 4.2 g/dL (3.5-5.0); Calcium 9.6 mg/dL (8.4-10.2); Magnesium 1.9 mg/dL (1.6-2.3); Total Bilirubin 0.4 mg/dL (0.2-1.3); Total Protein 6.8 g/dL (6.3-8.2)
[2019-09-17 16:08] LABS: D-Dimer 0.41 mg/L FEU (<0.60); Partial Thromboplastin Time 24.6 sec (22.0-30.0)
--- NOTE | 2019-09-17 16:34 | XR ---
EXAMINATION TYPE: XR chest 2V DATE OF EXAM: 09/17/2019 COMPARISON: 02/13/2018 HISTORY: 64-year-old female with dysrhythmia TECHNIQUE: AP and lateral views FINDINGS: Heart upper limits of normal in size. Mild interstitial prominence is unchanged. Hazy lung densities related to overlying soft tissue. No consolidation or pleural effusion. IMPRESSION: Chronic appearing changes. No definite acute cardiopulmonary process.
[2019-09-17 18:30] VITALS: BP 126/88; PULSE 96; TEMP 98
== END 2019-09-17 18:25 | disposition home or self-care (01) ==
LOC: EC 15:19
DX: I47.1 Supraventricular tachycardia (principal); E86.0 Dehydration; J44.9 Chronic obstructive pulmonary disease, unspecified; K21.9 Gastro-esophageal reflux disease without esophagitis; E78.5 Hyperlipidemia, unspecified; M19.90 Unspecified osteoarthritis, unspecified site; Z79.51 Long term (current) use of inhaled steroids; Z79.899 Other long term (current) drug therapy; Z88.0 Allergy status to penicillin; Z88.1 Allergy status to other antibiotic agents; Z88.6 Allergy status to analgesic agent; Z88.8 Allergy status to other drugs, medicaments and biological substances; Z87.891 Personal history of nicotine dependence
CPT/HCPCS: 36415; 71046; 80053; 82550; 83735; 84443; 84484; 85025; 85379; 85610; 85730; 96360; 96361; 99285

== ENCOUNTER → 2019-11-25 | Outpatient (CLI) | payer MEDICARE, OTHER | END | disposition home or self-care (01) | LOC: RADMRIMAIN 09:08 | PROVIDERS: ATTEND Orthopaedic Surgery Orthopaedic Surgery of the Spine | DX: Z53.9 Procedure and treatment not carried out, unspecified reason (principal) ==

== ENCOUNTER → 2020-01-08 | Outpatient (CLI) | payer MEDICARE, OTHER ==
--- NOTE | 2020-01-08 10:08 | US ---
EXAMINATION TYPE: US venous doppler duplex LE DATE OF EXAM: 01/08/2020 9:08 AM COMPARISON: NONE CLINICAL HISTORY: 64-year-old female M79.605 pain in limb. Redness, edema left lower leg SIDE PERFORMED: left TECHNIQUE: The lower extremity deep venous system is examined utilizing real time linear array sonog jarad with graded compression, doppler sonography and color-flow sonography. FINDINGS: VESSELS IMAGED: External Iliac Vein (EIV) Common Femoral Vein Deep Femoral Vein Greater Saphenous Vein * Femoral Vein Popliteal Vein Small Saphenous Vein * Proximal Calf Veins (* superficial vessels) Left Leg: no evidence of DVT IMPRESSION: No evidence for DVT within the left lower extremity imaged from the groin to the upper calf.
== END | disposition home or self-care (01) ==
LOC: RADUSWWP 08:47
PROVIDERS: ATTEND Internal Medicine Geriatric Medicine
DX: M79.605 Pain in left leg (principal)

== ENCOUNTER → 2020-02-03 | Outpatient (CLI) | payer MEDICARE, OTHER ==
--- NOTE | 2020-02-05 09:21 | MM ---
Reason for exam: screening (asymptomatic). Last mammogram was performed 1 year and 2 months ago. History: Patient is postmenopausal and is nulliparous. Took hormonal contraceptives for 2 years. Physical Findings: A clinical breast exam by your physician is recommended on an annual basis and results should be correlated with mammographic findings. MG 3D Screening Mammo W/Cad Bilateral CC and MLO view(s) were taken. Prior study comparison: November 28, 2018, bilateral MG 3d screening mammo w/cad. November 26, 2017, bilateral MG screening mammo w CAD. There are scattered fibroglandular densities. Focal asymmetry left anterior breast. No significant changes when compared with prior studies. ASSESSMENT: Benign, BI-RAD 2 RECOMMENDATION: Routine screening mammogram of both breasts in 1 year.
== END | disposition home or self-care (01) ==
LOC: RADMAMWWP 09:14
PROVIDERS: ATTEND Internal Medicine Geriatric Medicine
DX: Z12.31 Encounter for screening mammogram for malignant neoplasm of breast (principal)
CPT/HCPCS: 77063; 77067

== ENCOUNTER 2020-03-03 11:13 | Emergency (ER) | payer MEDICARE, OTHER ==
[2020-03-03 11:19] VITALS: RESP 18
[2020-03-03] MEDS ORDERED: SODIUM CHLORIDE 0.9% 500 ML 500 ML IV STA (11:37)
--- NOTE | 2020-03-03 11:42 | ED ---
General Adult HPI - General Chief complaint: Arrhythmia/Palpitations Stated complaint: Anxiety Time Seen by Provider: 03/03/20 11:17 Source: patient, EMS, RN notes reviewed Mode of arrival: EMS Limitations: no limitations - History of Present Illness Initial comments: 64-year-old female with a past medical history of asthma, COPD, GERD, hyperlipidemia, SVT presents to the emergency room for a chief complaint of rapid heart rate. Patient reports that she was making breakfast when she started to "feel funny." Patient checked her heart rate and it was 200. Patient reports that this has happened before to her and feels similar to previous episodes of SVT. She admits to mild shortness of breath that is improving. She had slight dizziness at the time. No chest pain. Patient reports that she has seen cardiology for this before.Patient has no other complaints at this time including chest pain, abdominal pain, nausea or vomiting, headache, or visual changes. - Related Data Home Medications Medication Instructions Recorded Confirmed Albuterol Sulfate [Ventolin HFA] 2 puff INHALATION RT-Q4H PRN 05/20/14 09/17/19 Azelastine HCl 137 mcg EA NOSTRIL BID 05/20/14 09/17/19 Budesonide [Pulmicort Flexhaler] 1 puff INHALATION RT-DAILY 05/20/14 09/17/19 Omeprazole [PriLOSEC] 20 mg PO AC-BRKFST 05/20/14 09/17/19 Umeclidinium Brm/Vilanterol Tr 1 puff INHALATION RT-DAILY 11/11/14 09/17/19 [Anoro Ellipta 62.5-25 Mcg INH] Acetaminophen [Tylenol] 500 mg PO Q8H PRN 01/25/16 09/17/19 predniSONE 5 mg PO DAILY PRN 01/25/16 09/17/19 Albuterol Nebulized [Ventolin 2.5 mg INHALATION RT-QID PRN 06/20/16 09/17/19 Nebulized] Ketotifen 0.025% Ophth Soln 1 drop BOTH EYES BID PRN 09/03/17 09/17/19 [Zaditor] Zafirlukast 10 mg PO BID 11/11/17 09/17/19 Ezetimibe [Zetia] 10 mg PO HS 05/16/18 09/17/19 amLODIPine [Norvasc] 5 mg PO DAILY 12/04/18 09/17/19 hydroCHLOROthiazide [Hydrodiuril] 25 mg PO DAILY 12/04/18 09/17/19 Magnesium Oxide 400 mg PO HS 09/17/19 09/17/19 Allergies Allergy/AdvReac Type Severity Reaction Status Date / Time formoterol fumarate Allergy Severe Anaphylaxis Verified 09/17/19 17:30 [From Symbicort] amoxicillin Allergy GI Verified 09/17/19 17:30 DISTRESS AND DROWSINESS atorvastatin [From Lipitor] Allergy Unknown Verified 09/17/19 17:30 budesonide [From Symbicort] Allergy Anaphylaxis Verified 09/17/19 17:30 clarithromycin Allergy GI Verified 09/17/19 17:30 DISTRESS AND DROWSINESS doxycycline Allergy GI Verified 09/17/19 17:30 DISTRESS AND DROWSINESS omalizumab [From Xolair] Allergy Anaphylaxis Verified 09/17/19 17:30 prednisolone acetate, Allergy Anaphylaxis Verified 09/17/19 17:30 micronized [prednisolone acetate, micro] prednisone Allergy Anaphylaxis-IN Verified 09/17/19 17:30 LARGE DOSES albuterol [From Combivent] AdvReac tinnitus Verified 09/17/19 17:30 cholestyramine AdvReac Diarrhea Verified 09/17/19 17:30 ciclesonide [From [place]vesco] AdvReac RINGING IN Verified 09/17/19 17:30 THE EARS etodolac AdvReac MUSCLE Verified 09/17/19 17:30 CRAMPS fluorometholone AdvReac caused Verified 09/17/19 17:30 [From FML Forte] hair to fall out fluticasone propionate AdvReac RASH, Verified 09/17/19 17:30 [From Advair Diskus] ITCHING furosemide [From Lasix] AdvReac tinnitus Verified 09/17/19 17:30 gabapentin [From Neurontin] AdvReac MUSCLE Verified 09/17/19 17:30 CRAMPS, SENSATION OF BUGS CRAWLING ON LEGS gemfibrozil AdvReac Rapid Verified 09/17/19 17:30 Heart Rate ibuprofen AdvReac tinnitus Verified 09/17/19 17:30 ipratropium [From Combivent] AdvReac tinnitus Verified 09/17/19 17:30 lovastatin AdvReac cramps Verified 09/17/19 17:30 metoprolol AdvReac Diarrhea Verified 09/17/19 17:30 mometasone furoate AdvReac RASH, Verified 09/17/19 17:30 [From Asmanex Twisthaler] VISUAL CHANGES pregabalin [From Lyrica] AdvReac MUSCLE Verified 09/17/19 17:30 CRAMPS, SENSATION OF BUGS CRAWLING ON LEGS rosuvastatin calcium AdvReac MUSCLE Verified 09/17/19 17:30 [From Crestor] CRAMPS salmeterol xinafoate AdvReac Rash/Hives Verified 09/17/19 17:30 [From Advair Diskus] simvastatin AdvReac SENSATION Verified 09/17/19 17:30 OF BUGS CRAWLING ON LEGS thyroid, pork AdvReac Diarrhea Verified 09/17/19 17:30 [From [place] Thyroid] Review of Systems ROS Statement: Those systems with pertinent positive or pertinent negative responses have been documented in the HPI. ROS Other: All systems not noted in ROS Statement are negative. Past Medical History Past Medical History: Asthma, COPD, GERD/Reflux, Hyperlipidemia, Musculoskeletal Disorder, Osteoarthritis (OA) Additional Past Medical History / Comment(s): hx. rapid heart rate controlled by medication, low back pain History of Any Multi-Drug Resistant Organisms: Acinetobacter (MDRO) Date of last positivie culture/infection: 2015 MDRO Source:: unknown Past Surgical History: Hernia Repair, Orthopedic Surgery Additional Past Surgical History / Comment(s): BENIGN TUMOR REMOVED FROM RT HAND, BILATERAL CATARACTS, BILATERAL BUNIONECTOMY, left knee surgery. PAIN CLINIC PROCEDURES Past Anesthesia/Blood Transfusion Reactions: Previous Problems w/ Anesthesia Additional Past Anesthesia/Blood Transfusion Reaction / Comment(s): SLOW TO COME OUT OF ANESTHESIA, "does not take much" States has difficulty lying flat on her back Past Psychological History: No Psychological Hx Reported Smoking Status: Former smoker Past Alcohol Use History: Rare Past Drug Use History: None Reported - Past Family History Mother Family Medical History: Deep Vein Thrombosis (DVT) Father Family Medical History: Cancer General Exam Limitations: no limitations Course Vital Signs 03/03/20 11:13 Temperature 97.1 F L Pulse Rate 106 H Respiratory 18 Rate Blood Pressure 146/87 O2 Sat by Pulse 97 Oximetry EKG Findings - EKG Comments: EKG Findings:: Normal sinus rhythm, ventricular rate 93, KS interval 166, QTc 445 Medical Decision Making - Medical Decision Making Patient presents with stable vitals, well-appearing. Symptoms subsiding. Patient in the 90s heart rate when I'm in the room. EKG shows normal sinus rhythm. Laboratory evaluation was obtained. CBC CMP unremarkable. Magnesium 2.0. Troponin is normal. Chest x-ray is negative. No history of chest pain with this episode. I discussed inpatient versus outpatient management. 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 She is taking diltiazem for this. She will return here for any worsening symptoms. - Lab Data Result diagrams: 03/03/20 11:42 03/03/20 11:42 Lab Results 03/03/20 03/03/20 03/03/20 Range/Units 11:42 11:42 11:42 WBC 10.0 (3.8-10.6) k/uL RBC 5.06 (3.80-5.40) m/uL Hgb 14.6 (11.4-16.0) gm/dL Hct 44.8 (34.0-46.0) % MCV 88.5 (80.0-100.0) fL MCH 29.0 (25.0-35.0) pg MCHC 32.7 (31.0-37.0) g/dL RDW 13.0 (11.5-15.5) % Plt Count 279 (150-450) k/uL MPV 7.8 Neutrophils % 66 % Lymphocytes % 24 % Monocytes % 4 % Eosinophils % 5 % Basophils % 1 % Neutrophils # 6.6 (1.3-7.7) k/uL Lymphocytes # 2.4 (1.0-4.8) k/uL Monocytes # 0.4 (0-1.0) k/uL Eosinophils # 0.5 (0-0.7) k/uL Basophils # 0.1 (0-0.2) k/uL PT 9.7 (9.0-12.0) sec INR 0.9 (<1.2) APTT 25.1 (22.0-30.0) sec Sodium 139 (137-145) mmol/L Potassium 4.4 (3.5-5.1) mmol/L Chloride 107 (98-107) mmol/L Carbon Dioxide 22 (22-30) mmol/L Anion Gap 10 mmol/L BUN 20 H (7-17) mg/dL Creatinine 0.98 (0.52-1.04) mg/dL Est GFR (CKD-EPI)AfAm 70 (>60 ml/min/1.73 sqM) Est GFR (CKD-EPI)NonAf 60 (>60 ml/min/1.73 sqM) Glucose 119 H (74-99) mg/dL Calcium 9.3 (8.4-10.2) mg/dL Magnesium 2.0 (1.6-2.3) mg/dL Total Bilirubin 0.5 (0.2-1.3) mg/dL AST 33 (14-36) U/L ALT 36 H (4-34) U/L Alkaline Phosphatase 91 (38-126) U/L Troponin I (0.000-0.034) ng/mL Total Protein 6.9 (6.3-8.2) g/dL Albumin 4.1 (3.5-5.0) g/dL 03/03/ Range/Units 11:42 WBC (3.8-10.6) k/uL RBC (3.80-5.40) m/uL Hgb (11.4-16.0) gm/dL Hct (34.0-46.0) % MCV (80.0-100.0) fL MCH (25.0-35.0) pg MCHC (31.0-37.0) g/dL RDW (11.5-15.5) % Plt Count (150-450) k/uL MPV Neutrophils % % Lymphocytes % % Monocytes % % Eosinophils % % Basophils % % Neutrophils # (1.3-7.7) k/uL Lymphocytes # (1.0-4.8) k/uL Monocytes # (0-1.0) k/uL Eosinophils # (0-0.7) k/uL Basophils # (0-0.2) k/uL PT (9.0-12.0) sec INR (<1.2) APTT (22.0-30.0) sec Sodium (137-145) mmol/L Potassium (3.5-5.1) mmol/L Chloride (98-107) mmol/L Carbon Dioxide (22-30) mmol/L Anion Gap mmol/L BUN (7-17) mg/dL Creatinine (0.52-1.04) mg/dL Est GFR (CKD-EPI)AfAm (>60 ml/min/1.73 sqM) Est GFR (CKD-EPI)NonAf (>60 ml/min/1.73 sqM) Glucose (74-99) mg/dL Calcium (8.4-10.2) mg/dL Magnesium (1.6-2.3) mg/dL Total Bilirubin (0.2-1.3) mg/dL AST (14-36) U/L ALT (4-34) U/L Alkaline Phosphatase (38-126) U/L Troponin I <0.012 (0.000-0.034) ng/mL Total Protein (6.3-8.2) g/dL Albumin (3.5-5.0) g/dL Disposition Clinical Impression: Palpitations, History of PSVT (paroxysmal supraventricular tachycardia) Disposition: HOME SELF-CARE Condition: Good Instructions (If sedation given, give patient instructions): Supraventricular Tachycardia (ED) Additional Instructions: Please follow-up with your cook specialty foreign food. Return to the emergency room for any worsening symptoms. Is patient prescribed a controlled substance at d/c from ED?: No Referrals: Yoel Garnica MD [Primary Care Provider] - 1-2 days Time of Disposition: 12:49
[2020-03-03 11:54] LABS: Basophils # (A) 0.1 k/uL (0-0.2); Basophils % (A) 1 %; Eosinophils # (A) 0.5 k/uL (0-0.7); Eosinophils % (A) 5 %; HCT 44.8 % (34.0-46.0); HGB 14.6 gm/dL (11.4-16.0); Lymphocytes # (A) 2.4 k/uL (1.0-4.8); Lymphocytes % (A) 24 %; MCHC 32.7 g/dL (31.0-37.0); MCV 88.5 fL (80.0-100.0); Mean Platelet Volume 7.8; Monocytes # (A) 0.4 k/uL (0-1.0); Monocytes % (A) 4 %; Neutrophils # (A) 6.6 k/uL (1.3-7.7); Neutrophils % (A) 66 %; Platelet Count 279 k/uL (150-450); RBC 5.06 m/uL (3.80-5.40)
[2020-03-03 12:03] LABS: Albumin 4.1 g/dL (3.5-5.0); Calcium 9.3 mg/dL (8.4-10.2); Potassium 4.4 mmol/L (3.5-5.1); Total Bilirubin 0.5 mg/dL (0.2-1.3); Total Protein 6.9 g/dL (6.3-8.2)
[2020-03-03 12:08] LABS: INR 0.9 (<1.2); Partial Thromboplastin Time 25.1 sec (22.0-30.0); Prothrombin Time 9.7 sec (9.0-12.0)
--- NOTE | 2020-03-03 12:23 | XR ---
EXAMINATION TYPE: XR chest 2V DATE OF EXAM: 03/03/2020 COMPARISON: 09/17/2019 INDICATION: Dysrhythmia TECHNIQUE: Frontal and lateral views of the chest are obtained. FINDINGS: The heart size is normal. The pulmonary vasculature is normal. The lungs are clear. There is hyperinflation and flattening the diaphragms. IMPRESSION: 1. No acute pulmonary process.
[2020-03-03 13:01] VITALS: BP 149/79; PULSE 88; TEMP 97.9
== END 2020-03-03 13:02 | disposition home or self-care (01) ==
LOC: EC 11:13
DX: R00.2 Palpitations (principal); J44.9 Chronic obstructive pulmonary disease, unspecified; K21.9 Gastro-esophageal reflux disease without esophagitis; E78.5 Hyperlipidemia, unspecified; Z79.51 Long term (current) use of inhaled steroids; Z79.899 Other long term (current) drug therapy; Z88.8 Allergy status to other drugs, medicaments and biological substances; Z88.0 Allergy status to penicillin; Z88.1 Allergy status to other antibiotic agents; Z88.6 Allergy status to analgesic agent; Z86.79 Personal history of other diseases of the circulatory system; Z87.891 Personal history of nicotine dependence
CPT/HCPCS: 36415; 71046; 80053; 83735; 84484; 85025; 85610; 85730; 93005; 99285

== ENCOUNTER 2020-05-20 10:18 | Observation (INO) | payer MEDICARE, OTHER ==
[2020-05-20] MEDS ORDERED: ASPIRIN 81 MG PO STA (10:36)
[2020-05-20] MEDS ORDERED: SODIUM CHLORIDE 0.9% 500 ML 500 ML IV STA (10:36)
[2020-05-20 11:06] LABS: Basophils # (A) 0.1 k/uL (0-0.2); Basophils % (A) 1 %; Eosinophils # (A) 0.5 k/uL (0-0.7); Eosinophils % (A) 4 %; HCT 45.6 % (34.0-46.0); HGB 15.6 gm/dL (11.4-16.0); Lymphocytes # (A) 3.2 k/uL (1.0-4.8); Lymphocytes % (A) 26 %; MCH 30.6 pg (25.0-35.0); MCHC 34.2 g/dL (31.0-37.0); MCV 89.3 fL (80.0-100.0); Mean Platelet Volume 7.6; Monocytes # (A) 0.6 k/uL (0-1.0); Monocytes % (A) 5 %; Neutrophils % (A) 64 %; Platelet Count 264 k/uL (150-450); RDW 12.9 % (11.5-15.5); WBC 12.5 k/uL (3.8-10.6)
--- NOTE | 2020-05-20 11:09 | ED ---
Chest Pain HPI - General Source: patient, RN notes reviewed Mode of arrival: wheelchair Limitations: no limitations <Esteban Clark - Last Filed: 05/20/20 12:36> <Shahid House - Last Filed: 05/20/20 13:04> - General Chief Complaint: Chest Pain Stated Complaint: palpitations, SOB Time Seen by Provider: 05/20/20 10:27 - History of Present Illness Initial Comments: 64-year-old female presents emergency Department with chief complaint of palpitations with chest discomfort. Patient states that started last night wher e she started having severe chest pounding, pressure. Patient states that she tries ambulate symptoms worsen. Patient states it's more short of breath. No history of PE or DVT she has no history of asthma but states not bothering her. Patient denies any prior cardiac disease she does take medications for hyperlipidemia. Denies leg pain and leg swelling or usual no back pain no abdominal complaints. (Esteban Clark) - Related Data Home Medications Medication Instructions Recorded Confirmed Albuterol Sulfate [Ventolin HFA] 2 puff INHALATION RT-Q4H PRN 05/20/14 05/20/20 Azelastine HCl 137 mcg EA NOSTRIL BID PRN 05/20/14 05/20/20 Budesonide [Pulmicort Flexhaler] 1 puff INHALATION RT-DAILY 05/20/14 05/20/20 Umeclidinium Brm/Vilanterol Tr 1 puff INHALATION RT-DAILY 11/11/14 05/20/20 [Anoro Ellipta 62.5-25 Mcg INH] predniSONE 5 mg PO DAILY PRN 01/25/16 05/20/20 Albuterol Nebulized [Ventolin 2.5 mg INHALATION RT-QID PRN 06/20/16 05/20/20 Nebulized] Ketotifen 0.025% Ophth Soln 1 drop BOTH EYES BID PRN 09/03/17 05/20/20 [Zaditor] Zafirlukast 10 mg PO BID 11/11/17 05/20/20 Ezetimibe [Zetia] 10 mg PO HS 05/16/18 05/20/20 Magnesium Oxide 400 mg PO HS 09/17/19 05/20/20 Clindamycin [Cleocin] 150 mg PO QID 05/20/20 05/20/20 HYDROcodone/APAP 5-325MG [[place] 1 tab PO Q4H PRN 05/20/20 05/20/20 5-325] Meclizine [Antivert] 6.25 mg PO DAILY 05/20/20 05/20/20 Omeprazole 40 mg PO DAILY 05/20/20 05/20/20 Triamcinolone 0.1% Cream [Kenalog 1 applic TOPICAL BID PRN 05/20/20 05/20/20 0.1% Cream] Ubidecarenone [Co Q-10] 200 mg PO DAILY 05/20/20 05/20/20 dilTIAZem HCL [Diltiazem HCl] 60 mg PO BID 05/20/20 05/20/20 hydrALAZINE HCL [Apresoline] 25 mg PO BID PRN 05/20/20 05/20/20 Allergies Allergy/AdvReac Type Severity Reaction Status Date / Time formoterol fumarate Allergy Severe Anaphylaxis Verified 05/20/20 12:11 [From Symbicort] amoxicillin Allergy GI Verified 05/20/20 12:11 DISTRESS AND DROWSINESS atorvastatin [From Lipitor] Allergy Leg Cramps Verified 05/20/20 12:11 budesonide [From Symbicort] Allergy Anaphylaxis Verified 05/20/20 12:11 clarithromycin Allergy GI Verified 05/20/20 12:11 DISTRESS AND DROWSINESS doxycycline Allergy GI Verified 05/20/20 12:11 DISTRESS AND DROWSINESS omalizumab [From Xolair] Allergy Anaphylaxis Verified 05/20/20 12:11 prednisolone acetate, Allergy Anaphylaxis Verified 05/20/20 12:11 micronized [prednisolone acetate, micro] prednisone Allergy Anaphylaxis-IN Verified 05/20/20 12:11 LARGE DOSES albuterol [From Combivent] AdvReac tinnitus Verified 05/20/20 12:11 beclomethasone [From Qvar] AdvReac Headache/Rash/Visual Verified 05/20/20 12:11 Changes cholestyramine AdvReac Diarrhea Verified 05/20/20 12:11 ciclesonide [From [place]vesco] AdvReac RINGING IN Verified 05/20/20 12:11 THE EARS diltiazem [From Cartia XT] AdvReac tinnitus Verified 05/20/20 12:11 etodolac AdvReac MUSCLE Verified 05/20/20 12:11 CRAMPS fluorometholone AdvReac caused Verified 05/20/20 12:11 [From FML Forte] hair to fall out fluticasone propionate AdvReac RASH, Verified 05/20/20 12:11 [From Advair Diskus] ITCHING furosemide [From Lasix] AdvReac tinnitus Verified 05/20/20 12:11 gabapentin [From Neurontin] AdvReac MUSCLE Verified 05/20/20 12:11 CRAMPS, SENSATION OF BUGS CRAWLING ON LEGS gemfibrozil AdvReac Rapid Verified 05/20/20 12:11 Heart Rate ibuprofen AdvReac tinnitus Verified 05/20/20 12:11 ipratropium [From Combivent] AdvReac tinnitus Verified 05/20/20 12:11 levofloxacin [From Levaquin] AdvReac Muscle Verified 05/20/20 12:11 Cramps/Lower Back Pain lovastatin AdvReac cramps Verified 05/20/20 12:11 metoprolol AdvReac Diarrhea Verified 05/20/20 12:11 mometasone furoate AdvReac RASH, Verified 05/20/20 12:11 [From Asmanex Twisthaler] VISUAL CHANGES pregabalin [From Lyrica] AdvReac MUSCLE Verified 05/20/20 12:11 CRAMPS, SENSATION OF BUGS CRAWLING ON LEGS rosuvastatin calcium AdvReac MUSCLE Verified 05/20/20 12:11 [From Crestor] CRAMPS salmeterol xinafoate AdvReac Rash/Hives Verified 05/20/20 12:11 [From Advair Diskus] simvastatin AdvReac SENSATION Verified 05/20/20 12:11 OF BUGS CRAWLING ON LEGS thyroid, pork AdvReac Diarrhea Verified 05/20/20 12:11 [From [place] Thyroid] tiotropium AdvReac Dry Verified 05/20/20 12:11 [From [place]iriva with mouth/Ringing HandiHaler] in ears Review of Systems ROS Other: All systems not noted in ROS Statement are negative. <Esteban Clark - Last Filed: 05/20/20 12:36> ROS Other: All systems not noted in ROS Statement are negative. <Shahid House - Last Filed: 05/20/20 13:04> ROS Statement: Those systems with pertinent positive or pertinent negative responses have been documented in the HPI. EKG Findings - EKG Comments: EKG Findings:: EKG performed at 10:33 sinus tachycardia rate of 103 [address] 154 QRS 78 QT/QTC 346/453 <Esteban Clark - Last Filed: 05/20/20 12:36> Past Medical History Past Medical History: Asthma, COPD, GERD/Reflux, Hyperlipidemia, Musculoskeletal Disorder, Osteoarthritis (OA) Additional Past Medical History / Comment(s): hx. rapid heart rate controlled by medication, low back pain History of Any Multi-Drug Resistant Organisms: Acinetobacter (MDRO) Date of last positivie culture/infection: 2015 MDRO Source:: unknown Past Surgical History: Hernia Repair, Orthopedic Surgery Additional Past Surgical History / Comment(s): BENIGN TUMOR REMOVED FROM RT HAND, BILATERAL CATARACTS, BILATERAL BUNIONECTOMY, left knee surgery. PAIN CLINIC PROCEDURES Past Anesthesia/Blood Transfusion Reactions: Previous Problems w/ Anesthesia Additional Past Anesthesia/Blood Transfusion Reaction / Comment(s): SLOW TO COME OUT OF ANESTHESIA, "does not take much" States has difficulty lying flat on her back Past Psychological History: No Psychological Hx Reported Smoking Status: Former smoker Past Alcohol Use History: Rare Past Drug Use History: None Reported - Past Family History Mother Family Medical History: Deep Vein Thrombosis (DVT) Father Family Medical History: Cancer <Esteban Clark - Last Filed: 05/20/20 12:36> General Exam Limitations: no limitations General appearance: alert, in no apparent distress Head exam: Present: atraumatic, normocephalic, normal inspection Eye exam: Present: normal appearance, PERRL, EOMI. Absent: scleral icterus, conjunctival injection, periorbital swelling ENT exam: Present: normal exam, normal oropharynx, mucous membranes moist Neck exam: Present: normal inspection, full ROM. Absent: tenderness, meningismus, lymphadenopathy Respiratory exam: Present: normal lung sounds bilaterally. Absent: respiratory distress, wheezes, rales, rhonchi, stridor Cardiovascular Exam: Present: normal rhythm, tachycardia, normal heart sounds. Absent: systolic murmur, diastolic murmur, rubs, gallop, clicks GI/Abdominal exam: Present: soft, normal bowel sounds. Absent: distended, tenderness, guarding, rebound, rigid Extremities exam: Present: normal capillary refill. Absent: pedal edema, calf tenderness Neurological exam: Present: alert, oriented X3 <Esteban Clark - Last Filed: 05/20/20 12:36> Course <Shahid House - Last Filed: 05/20/20 13:04> Vital Signs 05/20/20 05/20/20 10:23 11:53 Temperature 97.8 F Pulse Rate 105 H 83 Respiratory 16 18 Rate Blood Pressure 151/62 115/75 O2 Sat by Pulse 95 98 Oximetry - Reevaluation(s) Reevaluation #1: 05/20/20 13:02 Patient reexamined and reevaluated by myself, Dr. House. Patient resting comfortably in bed. Patient still complains of some palpitations and mild discomfort at this time. Patient has had exertional dyspnea. Radial and pedal pulses 2/4 bilateral. Heart sounds are normal. Case was discussed with Dr. Patterson, who will admit covering for Dr. Garnica. She does request metoprolol 20.5 twice a day. This was held secondary to ALLERGY. Also requests echo and aspirin. I do agree with PA findings. This includes diagnostic of dictation and treatment plan. 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 (Shahid House) Chest Pain MDM <Esteban Clark - Last Filed: 05/20/20 12:36> - [facility] EKG did not reveal any acute changes. Patient still symptomatic. Patient labs including d-dimer negative. Patiently will be placed inpatient for echocardiogram, cardiac rule out, triage evaluation. (Esteban Clark) Disposition <Esteban Clark - Last Filed: 05/20/20 12:36> <Shahid House - Last Filed: 05/20/20 13:04> Clinical Impression: Chest pain, Palpitations, Exertional dyspnea Disposition: ADMITTED IP TO THIS HOSP Condition: Fair Referrals: Yoel Garnica MD [Primary Care Provider] - 1-2 days
[2020-05-20 11:16] LABS: Albumin 4.3 g/dL (3.5-5.0); Calcium 9.6 mg/dL (8.4-10.2); Magnesium 1.9 mg/dL (1.6-2.3); Potassium 4.4 mmol/L (3.5-5.1); Total Bilirubin 0.4 mg/dL (0.2-1.3); Total Protein 7.1 g/dL (6.3-8.2)
[2020-05-20 11:18] LABS: D-Dimer 0.27 mg/L FEU (<0.60); INR 0.9 (<1.2); Partial Thromboplastin Time 23.7 sec (22.0-30.0); Prothrombin Time 9.8 sec (9.0-12.0)
--- NOTE | 2020-05-20 11:18 | XR ---
EXAMINATION TYPE: XR chest 2V DATE OF EXAM: 05/20/2020 COMPARISON: Chest x-ray March 03, 2020 HISTORY: Chest pain. TECHNIQUE: Frontal and lateral views of the chest are obtained. FINDINGS: There is chronic parenchymal change without suspicious new focal air space opacity, pleura l effusion, or pneumothorax seen. The cardiac silhouette size is stable and within normal limits. Overlying EKG leads. Underlying scoliotic curvature redemonstrated. IMPRESSION: Chronic changes without acute pulmonary process.
[2020-05-20] MEDS ORDERED: HEPARIN SODIUM,PORCINE 5,000 UNIT/ML 1 ML VIAL IV ONE (12:37)
[2020-05-20] MEDS ORDERED: NITROGLYCERIN SL TABS 0.4 MG TAB SUBLINGUAL PRN (12:37)
[2020-05-20] MEDS ORDERED: HEPARIN SODIUM,PORCINE 5,000 UNIT/ML 1 ML VIAL IV PRN (12:37)
[2020-05-20] MEDS ORDERED: HEPARIN SOD,PORK IN 0.45% NACL 25,000 UNIT in 0.45% NACL 1 250ML.BAG IV SCH (12:45)
--- NOTE | 2020-05-20 14:58 | P.HPIM ---
History of Present Illness H&P Date: 05/20/20 This is a 64-year-old pleasant female patient of Dr. Garnica, and Dr. Israel, underlying history of asthma on allergen immunotherapy from dr Foley and COPD osteoarthritis, SVT, CK D stage II anxiety disorder, focal cord dysfunction, multiple drug ALLERGIES in sensitivities admitted through the emerg ency room secondary to palpitations, no prior history of CAD or diabetes mellitus, admitted through emergency room secondary to palpitations an d her heart beating hard. And chest discomfort. Patient also has dyspnea on exertion, for the past few days. Patient denies any cough no fever no chills, no nausea no vomiting no hemoptysis no diarrhea, her last stress test was performed approximately October 2016 for Cardiolite stress test which was negative for stress-induced ischemia, patient currently is on diltiazem, however she comes in with palpitations, which is pounding, and worse with exertion. Patient denies any edema, or leg pain. Patient does not have any epigastric or abdominal complaints, she is on albuterol HFA at home every 4 when necessary, and zafirlucast or her asthma. She cannot take Symbicort secondary to anaphylaxis action, also cannot get prednisolone, secondary to anaphylaxis, and cannot take prednisone clobetasol [place] fluticasone from Advair. She comes into the emergency room with the above complaints, she was screened negative for coronary virus PCR, troponin is 0.012, WBC count of 12.5, chest x- ray chronic changes without any acute processes EKG shows sinus tachycardia, age undetermined inferior infarct, heart rate 103, normal QT, she was kept in for observation secondary to chest pain and the palpitations and dyspnea on exertion. No d-dimer was done from the emergency room, creatinine on admission was 1.17, from a previous of 1.2 in September, and 0.98 in 2018. nt-proBNP of 105. Consult with cardiology, for dyspnea and exertion with chest pressure, with thumping heart beats Palpitations but not irregular rhythm Review of Systems Constitutional: Reports as per HPI, Denies anorexia, Denies chills, Denies chronic headaches, Denies chronic pain, Denies daytime sleepiness, Denies fatigue, Denies fever, Denies lethargy, Denies malaise, Denies night sweats, Denies poor appetite, Denies sweats, Denies weakness, Denies weight gain, Denies weight loss Ears, nose, mouth and throat: Reports as per HPI Cardiovascular: Reports as per HPI, Reports chest pain, Reports decreased exercise tolerance, Reports dyspnea on exertion Respiratory: Reports dyspnea, Denies as per HPI, Denies congestion, Denies cough, Denies cough with sputum, Denies excessive sputum, Denies hemoptysis, Denies home oxygen, Denies pain, Denies pain on inspiration, Denies pleurisy, Denies respiratory infections, Denies sleep apnea, Denies snoring, Denies whee zing Gastrointestinal: Reports as per HPI Genitourinary: Reports as per HPI, Denies abnormal vaginal bleeding, Denies decreased libido, Denies difficulty conceiving, Denies difficulty voiding, Denies dysmenorrhea, Denies dyspareunia, Denies dysuria, Denies flank pain, Denies genital sores, Denies hematuria, Denies hot flashes, Denies incomplete emptying, Denies kidney stones, Denies menorrhagia, Denies mixed incontinence, Denies nocturia, Denies pelvic pain, Denies post void dribbling, Denies , Denies prolapse symptoms, Denies stress incontinence, Denies urge incontinence, Denies urgency, Denies urinary frequency, Denies vaginal disch arge, Denies vaginal dryness, Denies vaginal itching, Denies vaginal odor Menstruation: Reports as per HPI Musculoskeletal: Reports as per HPI Integumentary: Reports as per HPI, Denies acne, Denies boils, Denies brittle nails, Denies change in hair/nails, Denies color changes, Denies darkening of skin, Denies depigmentation, Denies dryness, Denies foot/leg ulcers, Denies growths, Denies hirsutism, Denies lesions, Denies onychomycosis, Denies pruritus, Denies rash, Denies sores, Denies striae, Denies unusual bruising, De nies wounds Neurological: Reports as per HPI, Denies aphasia, Denies ataxia, Denies balance difficulties, Denies burning pain, Denies change in mentation, Denies change in smell/taste, Denies change in speech, Denies confusion, Denies convulsions, Denies double vision, Denies gait dysfunction, Denies head injury, Denies headaches, Denies hearing difficulties, Denies lack of coordination, Denies loss of vision, Denies memory loss, Denies migraines, Denies motor disturbance, Denies numbness, Denies paralysis, Denies paresthesias, Denies seizures, Denies sensory deficit, Denies spasticity, Denies syncope, Denies tic, Denies tingling, Denies transient paralysis, Denies tremors, Denies vertigo, Denies weakness, Denies visual changes Psychiatric: Reports as per HPI Endocrine: Reports as per HPI, Denies cold intolerance, Denies deepening of the voice, Denies excessive sweating, Denies excessive thirst, Denies fatigue, Denies flushing, Denies heat intolerance, Denies high blood sugars, Denies increase in ring/shoe/hat size, Denies low blood sugars, Denies nocturia, Denies palpitations, Denies polydipsia, Denies polyphagia, Denies polyuria, Denies proptosis, Denies recent glucocorticoid use, Denies thyroid mass, Denies weight change Allergic/Immunologic: Reports as per HPI Past Medical History Past Medical History: Asthma, COPD, GERD/Reflux, Hyperlipidemia, Musculoskeletal Disorder, Osteoarthritis (OA), Pneumonia Additional Past Medical History / Comment(s): Rapid heart beat at times, past COPD, hiatal hernia, bronchitis, arthritis in multiple joints, chronic low back pain, occasional vertigo, currently being treated for tonsillitis with antibiotic. History of Any Multi-Drug Resistant Organisms: Acinetobacter (MDRO) Date of last positivie culture/infection: 2015 MDRO Source:: unknown Past Surgical History: Hernia Repair, Orthopedic Surgery Additional Past Surgical History / Comment(s): R hand benign tumor removed, bilateral feet bunionectomies, total R knee arthroplaty, pain clinic procedures, abdominal hernia repair, colonoscopy. Past Anesthesia/Blood Transfusion Reactions: Previous Problems w/ Anesthesia Additional Past Anesthesia/Blood Transfusion Reaction / Comment(s): SLOW TO COME OUT OF ANESTHESIA, "does not take much" States has difficulty lying flat on her back Smoking Status: Former smoker - Past Family History Mother Family Medical History: Deep Vein Thrombosis (DVT) Father Family Medical History: Cancer Additional Family Medical History / Comment(s): Father of pancreatic cancer. Medications and Allergies Home Medications Medication Instructions Recorded Confirmed Type Albuterol Sulfate [Ventolin HFA] 2 puff INHALATION RT-Q4H PRN 05/20/14 05/20/20 History Azelastine HCl 137 mcg EA NOSTRIL BID PRN 05/20/14 05/20/20 History Budesonide [Pulmicort Flexhaler] 1 puff INHALATION RT-DAILY 05/20/14 05/20/20 History Umeclidinium Brm/Vilanterol Tr 1 puff INHALATION RT-DAILY 11/11/14 05/20/20 History [Anoro Ellipta 62.5-25 Mcg INH] predniSONE 5 mg PO DAILY PRN 01/25/16 05/20/20 History Albuterol Nebulized [Ventolin 2.5 mg INHALATION RT-QID PRN 06/20/16 05/20/20 History Nebulized] Ketotifen 0.025% Ophth Soln 1 drop BOTH EYES BID PRN 09/03/17 05/20/20 History [Zaditor] Zafirlukast 10 mg PO BID 11/11/17 05/20/20 History Ezetimibe [Zetia] 10 mg PO HS 05/16/18 05/20/20 History Magnesium Oxide 400 mg PO HS 09/17/19 05/20/20 History Clindamycin [Cleocin] 150 mg PO QID 05/20/20 05/20/20 History HYDROcodone/APAP 5-325MG [[place] 1 tab PO Q4H PRN 05/20/20 05/20/20 History 5-325] Meclizine [Antivert] 6.25 mg PO DAILY 05/20/20 05/20/20 History Omeprazole 40 mg PO DAILY 05/20/20 05/20/20 History Triamcinolone 0.1% Cream [Kenalog 1 applic TOPICAL BID PRN 05/20/20 05/20/20 History 0.1% Cream] Ubidecarenone [Co Q-10] 200 mg PO DAILY 05/20/20 05/20/20 History dilTIAZem HCL [Diltiazem HCl] 60 mg PO BID 05/20/20 05/20/20 History hydrALAZINE HCL [Apresoline] 25 mg PO BID PRN 05/20/20 05/20/20 History Allergies Allergy/AdvReac Type Severity Reaction Status Date / Time formoterol fumarate Allergy Severe Anaphylaxis Verified 05/20/20 12:11 [From Symbicort] amoxicillin Allergy GI Verified 05/20/20 12:11 DISTRESS AND DROWSINESS atorvastatin [From Lipitor] Allergy Leg Cramps Verified 05/20/20 12:11 budesonide [From Symbicort] Allergy Anaphylaxis Verified 05/20/20 12:11 clarithromycin Allergy GI Verified 05/20/20 12:11 DISTRESS AND DROWSINESS doxycycline Allergy GI Verified 05/20/20 12:11 DISTRESS AND DROWSINESS omalizumab [From Xolair] Allergy Anaphylaxis Verified 05/20/20 12:11 prednisolone acetate, Allergy Anaphylaxis Verified 05/20/20 12:11 micronized [prednisolone acetate, micro] prednisone Allergy Anaphylaxis-IN Verified 05/20/20 12:11 LARGE DOSES albuterol [From Combivent] AdvReac tinnitus Verified 05/20/20 12:11 beclomethasone [From Qvar] AdvReac Headache/Rash/Visual Verified 05/20/20 12:11 Changes cholestyramine AdvReac Diarrhea Verified 05/20/20 12:11 ciclesonide [From Alvesco] AdvReac RINGING IN Verified 05/20/20 12:11 THE EARS diltiazem [From Cartia XT] AdvReac tinnitus Verified 05/20/20 12:11 etodolac AdvReac MUSCLE Verified 05/20/20 12:11 CRAMPS fluorometholone AdvReac caused Verified 05/20/20 12:11 [From FML Forte] hair to fall out fluticasone propionate AdvReac RASH, Verified 05/20/20 12:11 [From Advair Diskus] ITCHING furosemide [From Lasix] AdvReac tinnitus Verified 05/20/20 12:11 gabapentin [From Neurontin] AdvReac MUSCLE Verified 05/20/20 12:11 CRAMPS, SENSATION OF BUGS CRAWLING ON LEGS gemfibrozil AdvReac Rapid Verified 05/20/20 12:11 Heart Rate ibuprofen AdvReac tinnitus Verified 05/20/20 12:11 ipratropium [From Combivent] AdvReac tinnitus Verified 05/20/20 12:11 levofloxacin [From Levaquin] AdvReac Muscle Verified 05/20/20 12:11 Cramps/Lower Back Pain lovastatin AdvReac cramps Verified 05/20/20 12:11 metoprolol AdvReac Diarrhea Verified 05/20/20 12:11 mometasone furoate AdvReac RASH, Verified 05/20/20 12:11 [From Asmanex Twisthaler] VISUAL CHANGES pregabalin [From Lyrica] AdvReac MUSCLE Verified 05/20/20 12:11 CRAMPS, SENSATION OF BUGS CRAWLING ON LEGS rosuvastatin calcium AdvReac MUSCLE Verified 05/20/20 12:11 [From Crestor] CRAMPS salmeterol xinafoate AdvReac Rash/Hives Verified 05/20/20 12:11 [From Advair Diskus] simvastatin AdvReac SENSATION Verified 05/20/20 12:11 OF BUGS CRAWLING ON LEGS thyroid, pork AdvReac Diarrhea Verified 05/20/20 12:11 [From [place] Thyroid] tiotropium AdvReac Dry Verified 05/20/20 12:11 [From Spiriva with mouth/Ringing HandiHaler] in ears Physical Exam Vitals: Vital Signs Temp Pulse Pulse Resp BP BP Pulse Ox 05/20/20 14:22 98.1 F 91 16 142/83 97 05/20/20 13:21 91 17 112/86 98 05/20/20 11:53 83 18 115/75 98 05/20/20 10:23 97.8 F 105 H 16 151/62 95 Intake and Output 05/19/20 05/20/20 05/20/20 22:59 06:59 14:59 Other: Weight 117.934 kg - Constitutional General appearance: cooperative, no acute distress - EENT Eyes: EOMI, PERRLA, dentition normal ENT: NA/AT, normal oropharynx - Neck Neck: normal ROM - Respiratory Respiratory: bilateral: CTA, negative: diminished, dullness, rales, rhonchi - Cardiovascular Rhythm: regular Heart sounds: normal: S1, S2 Results CBC & Chem 7: 05/20/20 10:53 05/20/20 10:53 Labs: Abnormal Lab Results - Last 24 Hours (Table) 05/20/20 05/20/20 Range/Units 10:53 10:53 WBC 12.5 H (3.8-10.6) k/uL Neutrophils # 8.0 H (1.3-7.7) k/uL Carbon Dioxide 21 L (22-30) mmol/L BUN 23 H (7-17) mg/dL Creatinine 1.17 H (0.52-1.04) mg/dL Glucose 106 H (74-99) mg/dL Laboratory Results WBC 12.5 k/uL (3.8-10.6) H 05/20/20 10:53 RBC 5.10 m/uL (3.80-5.40) 05/20/20 10:53 Hgb 15.6 gm/dL (11.4-16.0) 05/20/20 10:53 Hct 45.6 % (34.0-46.0) 05/20/20 10:53 MCV 89.3 fL (80.0-100.0) 05/20/20 10:53 MCH 30.6 pg (25.0-35.0) 05/20/20 10:53 MCHC 34.2 g/dL (31.0-37.0) 05/20/20 10:53 RDW 12.9 % (11.5-15.5) 05/20/20 10:53 Plt Count 264 k/uL (150-450) 05/20/20 10:53 MPV 7.6 05/20/20 10:53 Neutrophils % 64 % 05/20/20 10:53 Lymphocytes % 26 % 05/20/20 10:53 Monocytes % 5 % 05/20/20 10:53 Eosinophils % 4 % 05/20/20 10:53 Basophils % 1 % 05/20/20 10:53 Neutrophils # 8.0 k/uL (1.3-7.7) H 05/20/20 10:53 Lymphocytes # 3.2 k/uL (1.0-4.8) 05/20/20 10:53 Monocytes # 0.6 k/uL (0-1.0) 05/20/20 10:53 Eosinophils # 0.5 k/uL (0-0.7) 05/20/20 10:53 Basophils # 0.1 k/uL (0-0.2) 05/20/20 10:53 PT 9.8 sec (9.0-12.0) 05/20/20 10:53 INR 0.9 (<1.2) 05/20/20 10:53 APTT 23.7 sec (22.0-30.0) 05/20/20 10:53 D-Dimer 0.27 mg/L FEU (<0.60) 05/20/20 10:53 Sodium 137 mmol/L (137-145) 05/20/20 10:53 Potassium 4.4 mmol/L (3.5-5.1) 05/20/20 10:53 Chloride 106 mmol/L (98-107) 05/20/20 10:53 Carbon Dioxide 21 mmol/L (22-30) L 05/20/20 10:53 Anion Gap 10 mmol/L 05/20/20 10:53 BUN 23 mg/dL (7-17) H 05/20/20 10:53 Creatinine 1.17 mg/dL (0.52-1.04) H 05/20/20 10:53 Est GFR (CKD-EPI)AfAm 56 (>60 ml/min/1.73 sqM) 05/20/20 10:53 Est GFR (CKD-EPI)NonAf 49 (>60 ml/min/1.73 sqM) 05/20/20 10:53 Glucose 106 mg/dL (74-99) H 05/20/20 10:53 Calcium 9.6 mg/dL (8.4-10.2) 05/20/20 10:53 Magnesium 1.9 mg/dL (1.6-2.3) 05/20/20 10:53 Total Bilirubin 0.4 mg/dL (0.2-1.3) 05/20/20 10:53 AST 25 U/L (14-36) 05/20/20 10:53 ALT 33 U/L (4-34) 05/20/20 10:53 Alkaline Phosphatase 88 U/L (38-126) 05/20/20 10:53 Troponin I <0.012 ng/mL (0.000-0.034) 05/20/20 10:53 NT-Pro-B Natriuret Pep 105 pg/mL 05/20/20 10:53 Total Protein 7.1 g/dL (6.3-8.2) 05/20/20 10:53 Albumin 4.3 g/dL (3.5-5.0) 05/20/20 10:53 Coronavirus (PCR) Not Detected (Not Detectd) 05/20/20 13:21 Thrombosis Risk Factor Assmnt - DVT/VTE Prophylaxis DVT/VTE Prophylaxis: Pharmacologic Prophylaxis ordered - Choose All That Apply Any of the Below Risk Factors Present?: Yes Each Factor Represents 1 point: Obesity (BMI >25) Other Risk Factors: Yes Each Risk Factor Represents 2 Points: Age 61-74 years Each Risk Factor Represents 3 Points: Family history of DVT/PE Other congenital or acquired thrombophilia - If yes, enter type in comment: No Thrombosis Risk Factor Assessment Total Risk Factor Score: 6 Thrombosis Risk Factor Assessment Level: High Risk Assessment and Plan Plan: #1 acute chest pressure, with no prior history of CAD, acute on chronic shortness of breath on exertion , ruled out acute Pulmonary embolism but cannot rule out underlying occlusive coronary disease,, check d-dimer normal at 0.27, check IgE, initial set of troponins negative, [employer]PER[employer] proBNP is normal, checked for IgE, underlying history of asthma with multiple sensitivities to prescription medications,, patient most likely would need a chemical stress test, Lexiscan, however I will wait for further recommendations from cardiology. 2 sinus tachycardia. With history of bigeminy and quadrectomy Continue Cardizem 60 mg by mouth daily. Which can be increased to 60 mg 3 times a day pending blood pressure regulation, patient taking tea, which we recommend to cahnge to green tea or pomegranate tea 3 COPD/asthma no bronchospasm examination we'll continue DuoNeb as needed for shortness of breath. Continue Singulair. Patient is noted to have anaphylaxis from omalizumab (Xolair) Continue anoro ellipta the patient need to be reevaluated with PFT as outpatient follows with Dr. Israel, checkfor IgE levels and alpha-1 antitrypsin level and phenotype 4. Hyperlipidemia on Zetia, unable to get statins again as above 5 GERD on omeprazole 40 mg maintenance daily however she is now on omeprazole, this can be changed to Pepcid if tolerated. 6 . CK D stage III, current GFR of 49 7 DVT prophylaxis with heparin every 12 5 code status full code discharge planning, expect discharge to home, once cleared by cardiology 23 hour observation
[2020-05-20] MEDS ORDERED: AZELASTINE 137MCG/SPRAY EA NOSTRIL PRN (15:26)
[2020-05-20] MEDS ORDERED: HYDROcodone/APAP 5-325MG 1 EACH TAB PO PRN (15:26)
[2020-05-20] MEDS ORDERED: ALBUTEROL NEBULIZED 2.5 MG/3 ML INHALATION PRN (15:26)
[2020-05-20] MEDS ORDERED: KETOTIFEN 0.025% OPHTH DROPS 5 ML BTL BOTH EYES PRN (15:26)
[2020-05-20] MEDS ORDERED: TRIAMCINOLONE 0.1% CREAM 80 GM TUBE TOPICAL PRN (15:26)
[2020-05-20] MEDS ORDERED: hydrALAZINE HCL 20 MG/ML 1 ML VIAL IVP PRN (15:29)
[2020-05-20] MEDS: CLINDAMYCIN 150 MG CAP PO SCH ×2 (17:37→20:28)
[2020-05-20] MEDS: MONTELUKAST 10 MG TAB PO SCH (20:28)
[2020-05-20] MEDS: EZETIMIBE 10 MG TAB PO SCH (20:28)
[2020-05-20] MEDS: MAGNESIUM OXIDE 400 MG TAB PO SCH (20:28)
[2020-05-20] MEDS: DILTIAZEM ORAL 60 MG TAB PO SCH (20:28)
[2020-05-21 03:45] LABS: Mean Platelet Volume 7.5; Platelet Count 215 k/uL (150-450)
[2020-05-21 05:48] LABS: Cholesterol 232 mg/dL (<200); HDL Cholesterol 82 mg/dL (40-60); LDL Cholesterol,Calculated 122 mg/dL (0-99); Triglycerides 139 mg/dL (<150)
[2020-05-21] MEDS ORDERED: ASPIRIN 325 MG TAB PO SCH (09:00)
[2020-05-21] MEDS: DILTIAZEM ORAL 60 MG TAB PO SCH ×2 (09:04→20:37)
[2020-05-21] MEDS: PANTOPRAZOLE 40 MG TABLET PO SCH (09:04)
[2020-05-21] MEDS: CLINDAMYCIN 150 MG CAP PO SCH ×4 (09:04→20:37)
[2020-05-21] MEDS: MECLIZINE 12.5 MG TAB PO SCH (09:04)
[2020-05-21] MEDS: NYSTATIN 100,000 UNIT/ML SUSP 500,000 UNIT/5 ML CUP PO SCH ×4 (12:26→20:37)
--- NOTE | 2020-05-21 14:00 | P.DS ---
Providers Date of admission: 05/20/20 13:01 Attending physician: Hodan Patterson Consults: 05/20/20 12:37 Consult Physician Urgent Consulting Provider: Bridger Smith Consult Reason/Comments: chest pain, palpitations Do you want consulting provider notified?: Yes [facility] Course: This is a 64-year-old pleasant female patient of Dr. Garnica, and Dr. Israel, underlying history of asthma on allergen immunotherapy from dr Foley and COPD osteoarthritis, SVT, CK D stage II anxiety disorder, focal cord dysfunction, multiple drug ALLERGIES in sensitivities admitted through the emergency room secondary to palpitations, no prior history of CAD or diabetes mellitus, admitted through emergency room secondary to palpitations an d her heart beating hard. And chest discomfort. Patient also has dyspnea on exertion, for the past few days. Patient denies any cough no fever no chills, no nausea no vomiting no hemoptysis no diarrhea, her last stress test was performed approximately October 2016 for Cardiolite stress test which was negative for stress-induced ischemia, patient currently is on diltiazem, however she comes in with palpitations, which is pounding, and worse with exertion. Patient denies any edema, or leg pain. Patient does not have any epigastric or abdominal complaints, she is on albuterol HFA at home every 4 when necessary, and zafirlucast or her asthma. She cannot take Symbicort secondary to anaphylaxis action, also cannot get prednisolone, secondary to anaphylaxis, and cannot take prednisone clobetasol [place]ves[place] fluticasone from Advair. She comes into the emergency room with the above complaints, she was screened negative for coronary virus PCR, troponin is 0.012, WBC count of 12.5, chest x- ray chronic changes without any acute processes EKG shows sinus tachycardia, age undetermined inferior infarct, heart rate 103, normal QT, she was kept in for observation secondary to chest pain and the palpitations and dyspnea on exertion. No d-dimer was done from the emergency room, creatinine on admission was 1.17, from a previous of 1.2 in September, and 0.98 in 2018. nt-proBNP of 105. Consult with cardiology, for dyspnea and exertion with chest pressure, with thumping heart beats Palpitations but not irregular rhythm 05/21: Patient is on resting comfortably at the edge of the bed. No acute distress. Patient states she continues to have palpitations and pounding in her chest however she has no shortness of breath or difficulty breathing. Patient is set up an appointment with Dr. Bonds next Saturday. She'll be able to go home if cleared by cardiology today. Discharge diagnoses 1. Acute chest pressure with no prior history of CAD. Acute on chronic shortness of breath on exertion, rule out acute pulmonary embolism but cannot rule out underlying occlusive coronary disease. 2. Sinus tachycardia 3. COPD/asthma 4. Hyperlipidemia 5. GERD 6. Chronic kidney disease stage III Discharge disposition: Home with self-care Impression and plan of care have been directed as dictated by the signing physician. Robina Martinez nurse practitioner acting as scribe for signing physician. Patient Condition at Discharge: Fair Plan - Discharge Summary Discharge Rx Participant: No New Discharge Prescriptions: Continue Albuterol Sulfate [Ventolin HFA] 2 puff INHALATION RT-Q4H PRN PRN Reason: Shortness Of Breath Budesonide [Pulmicort Flexhaler] 1 puff INHALATION RT-DAILY Azelastine HCl 137 mcg EA NOSTRIL BID PRN PRN Reason: Allergy Symptoms Umeclidinium Brm/Vilanterol Tr [Anoro Ellipta 62.5-25 Mcg INH] 1 puff INHALATION RT-DAILY predniSONE 5 mg PO DAILY PRN PRN Reason: asthma Albuterol Nebulized [Ventolin Nebulized] 2.5 mg INHALATION RT-QID PRN PRN Reason: Dyspnea Ketotifen 0.025% Ophth Soln [Zaditor] 1 drop BOTH EYES BID PRN PRN Reason: DRY/ITCHY EYES Zafirlukast 10 mg PO BID Ezetimibe [Zetia] 10 mg PO HS Magnesium Oxide 400 mg PO HS Clindamycin [Cleocin] 150 mg PO QID dilTIAZem HCL [Diltiazem HCl] 60 mg PO BID hydrALAZINE HCL [Apresoline] 25 mg PO BID PRN PRN Reason: bp over 160/90 HYDROcodone/APAP 5-325MG [[place] 5-325] 1 tab PO Q4H PRN PRN Reason: Pain Meclizine [Antivert] 6.25 mg PO DAILY Omeprazole 40 mg PO DAILY Triamcinolone 0.1% Cream [Kenalog 0.1% Cream] 1 applic TOPICAL BID PRN PRN Reason: Rash Ubidecarenone [Co Q-10] 200 mg PO DAILY Discharge Medication List Albuterol Sulfate [Ventolin HFA] 2 puff INHALATION RT-Q4H PRN 05/20/14 [History] Azelastine HCl 137 mcg EA NOSTRIL BID PRN 05/20/14 [History] Budesonide [Pulmicort Flexhaler] 1 puff INHALATION RT-DAILY 05/20/14 [History] Umeclidinium Brm/Vilanterol Tr [Anoro Ellipta 62.5-25 Mcg INH] 1 puff INHALATION RT-DAILY 11/11/14 [History] predniSONE 5 mg PO DAILY PRN 01/25/16 [History] Albuterol Nebulized [Ventolin Nebulized] 2.5 mg INHALATION RT-QID PRN 06/20/16 [History] Ketotifen 0.025% Ophth Soln [Zaditor] 1 drop BOTH EYES BID PRN 09/03/17 [History] Zafirlukast 10 mg PO BID 11/11/17 [History] Ezetimibe [Zetia] 10 mg PO HS 05/16/18 [History] Magnesium Oxide 400 mg PO HS 09/17/19 [History] Clindamycin [Cleocin] 150 mg PO QID 05/20/20 [History] HYDROcodone/APAP 5-325MG [[place] 5-325] 1 tab PO Q4H PRN 05/20/20 [History] Meclizine [Antivert] 6.25 mg PO DAILY 05/20/20 [History] Omeprazole 40 mg PO DAILY 05/20/20 [History] Triamcinolone 0.1% Cream [Kenalog 0.1% Cream] 1 applic TOPICAL BID PRN 05/20/20 [History] Ubidecarenone [Co Q-10] 200 mg PO DAILY 05/20/20 [History] dilTIAZem HCL [Diltiazem HCl] 60 mg PO BID 05/20/20 [History] hydrALAZINE HCL [Apresoline] 25 mg PO BID PRN 05/20/20 [History] Follow up Appointment(s)/Referral(s): Yoel Garnica MD [Primary Care Provider] - 1-2 days
--- NOTE | 2020-05-21 15:33 | P.CRDCN ---
<Leena Sykes - Last Filed: 05/21/20 15:32> History of Present Illness Consult date: 05/21/20 History of present illness: HISTORY OF PRESENT ILLNESS: This is a 64-year-old female with a past medical history significant for hypertension, hyperlipidemia, asthma, and former nicotine dependence. 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 We have been asked to see the patient in consultation for chest pain. Patient examined this morning at the bedside. Patient denies having any chest pain prior to coming to the hospital or sense she has been admitted. She reports her main complaint was feeling like her heart was pounding. She states that she did not feel like her heart was racing but could just feel her heart beating out of her chest. She also reports she has been short of breath with exertion. She denies any shortness of breath at rest. Patient had an echocardiogram performed in 2018 revealing ejection fraction 55-60%. Patient also underwent stress test in 2017 which was negative for ischemia. DIAGNOSTICS: EKG reveals sinus tachycardia with a heart rate of 103. ST depression in V3 through V6 which is slightly more pronounced from previous EKG. Q waves inferiorly. Chest xray chronic changes without acute pulmonary process Laboratory data: WBC 12.5. Hemoglobin 15.6. Platelet count 264. D-dimer 0.27. Sodium 137. Potassium 4.4. BUN 23. Creatinine 1.17. Troponin negative 3. BNP 105. Current home cardiac medications include hydralazine 25 mg twice a day and Cardizem 60 mg twice a day REVIEW OF SYSTEMS: At the time of my exam: CONSTITUTIONAL: Denies fever or chills. HEENT: Denies blurred vision, vision changes, or eye pain. Denies hemoptysis CARDIOVASCULAR: Denies chest pain, orthopnea, PND or palpitations RESPIRATORY: No shortness of breath. GASTROINTESTINAL: Denies abdominal pain. Denies nausea or vomiting. HEMATOLOGIC: Denies bleeding disorders. GENITOURINARY: Denies any blood in urine. SKIN: Denies pruitis. Denies rash. PHYSICAL EXAM: VITAL SIGNS: Reviewed. GENERAL: Well-developed in no acute distress. HEENT: Head is normocephalic. Pupils are equal, round. Sclerae anicteric. Mucous membranes of the mouth are moist. Neck supple. No JVD or thyromegaly LUNGS: Respirations even and unlabored. Lungs essentially clear to auscultation bilaterally. HEART: Regular rate and rhythm. S1 and S2 heard. ABDOMEN: Soft. Nondistended. Nontender. EXTREMITIES: Normal range of motion. No clubbing or cyanosis. Peripheral pulses intact. No lower extremity edema NEUROLOGIC: Awake and alert. Oriented x 3. ASSESSMENT: Exertional shortness of breath with complaints of "feeling her heart pounding" Hypertension Hyperlipidemia Asthma Former nicotine dependence PLAN: An acute coronary event has been ruled out Discontinue IV heparin Patient currently without complaints of chest pain Resume home cardiac medications Obtain 2D echo to assess cardiac structure and function Patient will be scheduled for Rochelle scan on Saturday Nurse practitioner note has been reviewed by physician. Signing provider agrees with the documented findings, assessment, and plan of care. Past Medical History Past Medical History: Asthma, COPD, GERD/Reflux, Hyperlipidemia, Musculoskeletal Disorder, Osteoarthritis (OA), Pneumonia Additional Past Medical History / Comment(s): Rapid heart beat at times, past COPD, hiatal hernia, bronchitis, arthritis in multiple joints, chronic low back pain, occasional vertigo, currently being treated for tonsillitis with antibiotic. History of Any Multi-Drug Resistant Organisms: Acinetobacter (MDRO) Date of last positivie culture/infection: 2015 MDRO Source:: unknown Past Surgical History: Hernia Repair, Orthopedic Surgery Additional Past Surgical History / Comment(s): R hand benign tumor removed, bilateral feet bunionectomies, total R knee arthroplaty, pain clinic procedures, abdominal hernia repair, colonoscopy. Past Anesthesia/Blood Transfusion Reactions: Previous Problems w/ Anesthesia Additional Past Anesthesia/Blood Transfusion Reaction / Comment(s): SLOW TO COME OUT OF ANESTHESIA, "does not take much" States has difficulty lying flat on her back Smoking Status: Former smoker - Past Family History Mother Family Medical History: Deep Vein Thrombosis (DVT) Father Family Medical History: Cancer Additional Family Medical History / Comment(s): Father of pancreatic cancer. Medications and Allergies Home Medications Medication Instructions Recorded Confirmed Type Albuterol Sulfate [Ventolin HFA] 2 puff INHALATION RT-Q4H PRN 05/20/14 05/20/20 History Azelastine HCl 137 mcg EA NOSTRIL BID PRN 05/20/14 05/20/20 History Budesonide [Pulmicort Flexhaler] 1 puff INHALATION RT-DAILY 05/20/14 05/20/20 History Umeclidinium Brm/Vilanterol Tr 1 puff INHALATION RT-DAILY 11/11/14 05/20/20 History [Anoro Ellipta 62.5-25 Mcg INH] predniSONE 5 mg PO DAILY PRN 01/25/16 05/20/20 History Albuterol Nebulized [Ventolin 2.5 mg INHALATION RT-QID PRN 06/20/16 05/20/20 History Nebulized] Ketotifen 0.025% Ophth Soln 1 drop BOTH EYES BID PRN 09/03/17 05/20/20 History [Zaditor] Zafirlukast 10 mg PO BID 11/11/17 05/20/20 History Ezetimibe [Zetia] 10 mg PO HS 05/16/18 05/20/20 History Magnesium Oxide 400 mg PO HS 09/17/19 05/20/20 History Clindamycin [Cleocin] 150 mg PO QID 05/20/20 05/20/20 History HYDROcodone/APAP 5-325MG [Thurman 1 tab PO Q4H PRN 05/20/20 05/20/20 History 5-325] Meclizine [Antivert] 6.25 mg PO DAILY 05/20/20 05/20/20 History Omeprazole 40 mg PO DAILY 05/20/20 05/20/20 History Triamcinolone 0.1% Cream [Kenalog 1 applic TOPICAL BID PRN 05/20/20 05/20/20 History 0.1% Cream] Ubidecarenone [Co Q-10] 200 mg PO DAILY 05/20/20 05/20/20 History dilTIAZem HCL [Diltiazem HCl] 60 mg PO BID 05/20/20 05/20/20 History hydrALAZINE HCL [Apresoline] 25 mg PO BID PRN 05/20/20 05/20/20 History Allergies Allergy/AdvReac Type Severity Reaction Status Date / Time formoterol fumarate Allergy Severe Anaphylaxis Verified 05/20/20 12:11 [From Symbicort] amoxicillin Allergy GI Verified 05/20/20 12:11 DISTRESS AND DROWSINESS atorvastatin [From Lipitor] Allergy Leg Cramps Verified 05/20/20 12:11 budesonide [From Symbicort] Allergy Anaphylaxis Verified 05/20/20 12:11 clarithromycin Allergy GI Verified 05/20/20 12:11 DISTRESS AND DROWSINESS doxycycline Allergy GI Verified 05/20/20 12:11 DISTRESS AND DROWSINESS omalizumab [From Xolair] Allergy Anaphylaxis Verified 05/20/20 12:11 prednisolone acetate, Allergy Anaphylaxis Verified 05/20/20 12:11 micronized [prednisolone acetate, micro] prednisone Allergy Anaphylaxis-IN Verified 05/20/20 12:11 LARGE DOSES albuterol [From Combivent] AdvReac tinnitus Verified 05/20/20 12:11 beclomethasone [From Qvar] AdvReac Headache/Rash/Visual Verified 05/20/20 12:11 Changes cholestyramine AdvReac Diarrhea Verified 05/20/20 12:11 ciclesonide [From [place]] AdvReac RINGING IN Verified 05/20/20 12:11 THE EARS diltiazem [From Cartia XT] AdvReac tinnitus Verified 05/20/20 12:11 etodolac AdvReac MUSCLE Verified 05/20/20 12:11 CRAMPS fluorometholone AdvReac caused Verified 05/20/20 12:11 [From FML Forte] hair to fall out fluticasone propionate AdvReac RASH, Verified 05/20/20 12:11 [From Advair Diskus] ITCHING furosemide [From Lasix] AdvReac tinnitus Verified 05/20/20 12:11 gabapentin [From Neurontin] AdvReac MUSCLE Verified 05/20/20 12:11 CRAMPS, SENSATION OF BUGS CRAWLING ON LEGS gemfibrozil AdvReac Rapid Verified 05/20/20 12:11 Heart Rate ibuprofen AdvReac tinnitus Verified 05/20/20 12:11 ipratropium [From Combivent] AdvReac tinnitus Verified 05/20/20 12:11 levofloxacin [From Levaquin] AdvReac Muscle Verified 05/20/20 12:11 Cramps/Lower Back Pain lovastatin AdvReac cramps Verified 05/20/20 12:11 metoprolol AdvReac Diarrhea Verified 05/20/20 12:11 mometasone furoate AdvReac RASH, Verified 05/20/20 12:11 [From Asmanex Twisthaler] VISUAL CHANGES pregabalin [From Lyrica] AdvReac MUSCLE Verified 05/20/20 12:11 CRAMPS, SENSATION OF BUGS CRAWLING ON LEGS rosuvastatin calcium AdvReac MUSCLE Verified 05/20/20 12:11 [From Crestor] CRAMPS salmeterol xinafoate AdvReac Rash/Hives Verified 05/20/20 12:11 [From Advair Diskus] simvastatin AdvReac SENSATION Verified 05/20/20 12:11 OF BUGS CRAWLING ON LEGS thyroid, pork AdvReac Diarrhea Verified 05/20/20 12:11 [From [place] Thyroid] tiotropium AdvReac Dry Verified 05/20/20 12:11 [From Spiriva with mouth/Ringing HandiHaler] in ears Physical Exam Vitals: Vital Signs Temp Pulse Pulse Resp BP BP Pulse Ox 05/21/20 08:00 16 05/21/20 07:00 97.6 F 85 16 145/93 94 L 05/21/20 01:35 97.6 F 70 18 105/63 95 05/20/20 20:00 18 05/20/20 19:16 97.6 F 85 18 121/75 94 L 05/20/20 15:05 91 16 05/20/20 14:22 98.1 F 91 16 142/83 97 05/20/20 13:21 91 17 112/86 98 Intake and Output 05/20/20 05/21/20 05/21/20 22:59 06:59 14:59 Intake Total 614.841 95.576 Balance 614.841 95.576 Intake: Intake, IV Titration 74.841 95.576 Amount Heparin Sod,Pork in 0.45% 74.841 95.576 NaCl 25,000 unit In 0.45 % NaCl 1 250ml.bag @ 8.48 UNITS/KG/HR 10.001 mls/ hr IV .Q24H [facility] Rx#: [id number] Oral 540 Other: Voiding Method Toilet Toilet # Voids 2 Results 05/21/20 03:09 05/20/20 10:53 Cardiac Enzymes 05/20/20 05/20/20 Range/Units 17:00 19:46 Troponin I <0.012 <0.012 (0.000-0.034) ng/mL Coagulation 05/20/20 05/21/20 Range/Units 19:46 03:09 APTT 38.6 H 69.4 H (22.0-30.0) sec Lipids 05/21/20 Range/Units 03:09 Triglycerides 139 (<150) mg/dL Cholesterol 232 H (<200) mg/dL HDL Cholesterol 82 H (40-60) mg/dL CBC 05/21/20 Range/Units 03:09 Plt Count 215 (150-450) k/uL Current Medications Generic Name Dose Route Start Last Admin Trade Name Freq PRN Reason Stop Dose Admin Hydrocodone Bitart/Acetaminophen 1 each 05/20/20 15:26 Hydrocodone/Apap 5-325mg 1 Each Tab PO Q4H PRN Pain Albuterol Sulfate 2.5 mg 05/20/20 15:26 Albuterol Nebulized 2.5 Mg/3 Ml INHALATION RT-Q4H PRN Shortness Of Breath Aspirin 325 mg 05/21/20 09:00 05/21/20 09:04 Aspirin 325 Mg Tab PO 325 mg DAILY DAVIS Administration Azelastine HCl 1 spray 05/20/20 15:26 Azelastine 137mcg/Geff EA NOSTRIL BID PRN Allergy Symptoms Clindamycin HCl 150 mg 05/20/20 18:00 05/21/20 12:30 Clindamycin 150 Mg Cap PO 05/24/20 23:59 150 mg QID DAVIS Administration Diltiazem HCl 60 mg 05/20/20 21:00 05/21/20 09:04 Diltiazem Oral 60 Mg Tab PO 60 mg BID DAVIS Administration Ezetimibe 10 mg 05/20/20 21:00 05/20/20 20:28 Ezetimibe 10 Mg Tab PO 10 mg HS DAVIS Administration Hydralazine HCl 10 mg 05/20/20 15:29 Hydralazine Hcl 20 Mg/Ml 1 Ml Vial IVP Q6HR PRN systolic > 160 Ketotifen Fumarate 1 drops 05/20/20 15:26 Ketotifen 0.025% Ophth Drops 5 Ml Btl BOTH EYES BID PRN DRY/ITCHY EYES Magnesium Oxide 400 mg 05/20/20 21:00 05/20/20 20:28 Magnesium Oxide 400 Mg Tab PO Not Given HS DAVIS Meclizine HCl 6.25 mg 05/21/20 09:00 05/21/20 09:04 Meclizine 12.5 Mg Tab PO 6.25 mg DAILY DAVIS Administration Montelukast Sodium 5 mg 05/20/20 21:00 05/20/20 20:28 Montelukast 10 Mg Tab PO Not Given HS DAVIS Nitroglycerin 0.4 mg 05/20/20 12:37 Nitroglycerin Sl Tabs 0.4 Mg Tab SUBLINGUAL Q5M PRN Chest Pain Nystatin 500,000 unit 05/21/20 09:00 05/21/20 12:27 Nystatin 100,000 Unit/Ml Susp 500,000 Unit/5 Ml Cup PO Not Given QID DAVIS Pantoprazole Sodium 40 mg 05/21/20 07:30 05/21/20 09:04 Pantoprazole 40 Mg Tablet PO 40 mg AC-BRKFST DAVIS Administration Triamcinolone Acetonide 1 applic 05/20/20 15:26 Triamcinolone 0.1% Cream 80 Gm Tube TOPICAL BID PRN Rash Intake and Output 05/20/20 05/21/20 05/21/20 22:59 06:59 14:59 Intake Total 614.841 95.576 Balance 614.841 95.576 Intake: Intake, IV Titration 74.841 95.576 Amount Heparin Sod,Pork in 0.45% 74.841 95.576 NaCl 25,000 unit In 0.45 % NaCl 1 250ml.bag @ 8.48 UNITS/KG/HR 10.001 mls/ hr IV .Q24H [facility] Rx#: [id number] Oral 540 Other: Voiding Method Toilet Toilet # Voids 2 05/21/20 03:09 05/20/20 10:53 <Hitesh Combs - Last Filed: 05/21/20 20:30> Physical Exam Vitals: Vital Signs Temp Pulse Resp BP Pulse Ox 05/21/20 18:59 97.7 F 82 18 113/76 97 05/21/20 15:00 97.9 F 83 20 126/81 94 L 05/21/20 14:00 83 20 05/21/20 08:00 16 05/21/20 07:00 97.6 F 85 16 145/93 94 L 05/21/20 01:35 97.6 F 70 18 105/63 95 Intake and Output 05/21/20 05/21/20 05/21/20 06:59 14:59 22:59 Intake Total 95.576 100 Balance 95.576 100 Intake: Intake, IV Titration 95.576 Amount Heparin Sod,Pork in 0.45% 95.576 NaCl 25,000 unit In 0.45 % NaCl 1 250ml.bag @ 8.48 UNITS/KG/HR 10.001 mls/ hr IV .Q24H [facility] Rx#: [id number] Oral 100 Other: Voiding Method Toilet # Voids 2 3 Results 05/21/20 03:09 05/20/20 10:53 Cardiac Enzymes 05/20/20 Range/Units 19:46 Troponin I <0.012 (0.000-0.034) ng/mL Coagulation 05/20/20 05/21/20 Range/Units 19:46 03:09 APTT 38.6 H 69.4 H (22.0-30.0) sec Lipids 05/21/20 Range/Units 03:09 Triglycerides 139 (<150) mg/dL Cholesterol 232 H (<200) mg/dL HDL Cholesterol 82 H (40-60) mg/dL CBC 05/21/20 Range/Units 03:09 Plt Count 215 (150-450) k/uL Current Medications Generic Name Dose Route Start Last Admin Trade Name Freq PRN Reason Stop Dose Admin Hydrocodone Bitart/Acetaminophen 1 each 05/20/20 15:26 Hydrocodone/Apap 5-325mg 1 Each Tab PO Q4H PRN Pain Albuterol Sulfate 2.5 mg 05/20/20 15:26 Albuterol Nebulized 2.5 Mg/3 Ml INHALATION RT-Q4H PRN Shortness Of Breath Aminophylline 100 mg 05/23/20 06:00 Aminophylline 500 Mg/20 Ml Vial IV 05/23/20 20:00 ONCE PRN Patient Response Aspirin 81 mg 05/22/20 09:00 Aspirin 81 Mg PO DAILY [facility] Azelastine HCl 1 spray 05/20/20 15:26 Azelastine 137mcg/Geff EA NOSTRIL BID PRN Allergy Symptoms Caffeine Citrate 60 mg 05/23/20 06:00 Caffeine Citrate 60 Mg/3 Ml Vial IV 05/23/20 20:00 ONCE PRN Patient Response Clindamycin HCl 150 mg 05/20/20 18:00 05/21/20 17:25 Clindamycin 150 Mg Cap PO 05/24/20 23:59 150 mg QID DAVIS Administration Diltiazem HCl 60 mg 05/20/20 21:00 05/21/20 09:04 Diltiazem Oral 60 Mg Tab PO 60 mg BID DAVIS Administration Ezetimibe 10 mg 05/20/20 21:00 05/20/20 20:28 Ezetimibe 10 Mg Tab PO 10 mg HS DAVIS Administration Hydralazine HCl 10 mg 05/20/20 15:29 Hydralazine Hcl 20 Mg/Ml 1 Ml Vial IVP Q6HR PRN systolic > 160 Ketotifen Fumarate 1 drops 05/20/20 15:26 Ketotifen 0.025% Ophth Drops 5 Ml Btl BOTH EYES BID PRN DRY/ITCHY EYES Magnesium Oxide 400 mg 05/20/20 21:00 05/20/20 20:28 Magnesium Oxide 400 Mg Tab PO Not Given HS DAVIS Meclizine HCl 6.25 mg 05/21/20 09:00 05/21/20 09:04 Meclizine 12.5 Mg Tab PO 6.25 mg DAILY DAVIS Administration Montelukast Sodium 5 mg 05/20/20 21:00 05/20/20 20:28 Montelukast 10 Mg Tab PO Not Given HS DAVIS Nitroglycerin 0.4 mg 05/20/20 12:37 Nitroglycerin Sl Tabs 0.4 Mg Tab SUBLINGUAL Q5M PRN Chest Pain Nystatin 500,000 unit 05/21/20 09:00 05/21/20 17:25 Nystatin 100,000 Unit/Ml Susp 500,000 Unit/5 Ml Cup PO 500,000 unit QID DAVIS Administration Pantoprazole Sodium 40 mg 05/21/20 07:30 05/21/20 09:04 Pantoprazole 40 Mg Tablet PO 40 mg AC-BRKFST DAVIS Administration Regadenoson 0.4 mg 05/23/20 06:00 Regadenoson 0.4 Mg/5 Ml Syringe IV 05/23/20 20:00 ONCE PRN Per Protocol Triamcinolone Acetonide 1 applic 05/20/20 15:26 Triamcinolone 0.1% Cream 80 Gm Tube TOPICAL BID PRN Rash Intake and Output 05/21/20 05/21/20 05/21/20 06:59 14:59 22:59 Intake Total 95.576 100 Balance 95.576 100 Intake: Intake, IV Titration 95.576 Amount Heparin Sod,Pork in 0.45% 95.576 NaCl 25,000 unit In 0.45 % NaCl 1 250ml.bag @ 8.48 UNITS/KG/HR 10.001 mls/ hr IV .Q24H [facility] Rx#: [id number] Oral 100 Other: Voiding Method Toilet # Voids 2 3 05/21/20 03:09 05/20/20 10:53
--- NOTE | 2020-05-21 17:38 | ECHOF ---
Referral Reason:Chest pain, exertional dyspnea MEASUREMENTS -------- HEIGHT: 165.1 cm WEIGHT: 117.9 kg BP: 112/86 RVIDd: 3.2 cm (< 3.3) IVSd: 1.3 cm (0.6 - 1.1) LVIDd: 4.5 cm (3.9 - 5.3) LVPWd: 1.1 cm (0.6 - 1.1) IVSs: 1.6 cm LVIDs: 2.3 cm LVPWs: 1.7 cm LA Diam: 3.3 cm (2.7 - 3.8) Ao Diam: 3.5 cm (2.0 - 3.7) AV Cusp: 2.3 cm (1.5 - 2.6) MV EXCURSION: 12.690 mm (> 18.000) MV EF SLOPE: 45 mm/s (70 - 150) EPSS: 1.0 cm MV E Christiano: 0.81 m/s MV DecT: 217 ms MV A Christiano: 1.13 m/s MV E/A Ratio: 0.72 FINDINGS -------- Sinus rhythm. This was a technically adequate study. The left ventricular size is normal. There is mild concentric left ventricular hypertrophy. Overa ll left ventricular systolic function is normal with, an EF between 60 - 65 %. The right ventricle is normal in size. The left atrium is normal in size. The right atrium is normal in size. Interatrial and interventricular septum intact. The aortic valve is trileaflet and appears structurally normal. There is trace mitral regurgitation. Unable to estimate RVSP due to inadequate TR jet spectral doppler profile. Trace/mild (physiologic) pulmonic regurgitation. The aortic root size is normal. IVC Not well visulized. There is no pericardial effusion. CONCLUSIONS -------- 1. The left ventricular size is normal. 2. There is mild concentric left ventricular hypertrophy. 3. Overall left ventricular systolic function is normal with, an EF between 60 - 65 %. 4. The right ventricle is normal in size. 5. There is trace mitral regurgitation. 6. Trace/mild (physiologic) pulmonic regurgitation. 7. There is no pericardial effusion. STORE RECEIVING CLERK: Chiquita Espitia [facility]
[2020-05-21] MEDS: EZETIMIBE 10 MG TAB PO SCH (20:37)
[2020-05-21] MEDS: MONTELUKAST 10 MG TAB PO SCH (20:37)
[2020-05-21] MEDS: MAGNESIUM OXIDE 400 MG TAB PO SCH (20:37)
[2020-05-22 06:30] LABS: Mean Platelet Volume 7.3; Platelet Count 213 k/uL (150-450)
[2020-05-22] MEDS: DILTIAZEM ORAL 60 MG TAB PO SCH ×2 (08:12→20:25)
[2020-05-22] MEDS: PANTOPRAZOLE 40 MG TABLET PO SCH (08:12)
[2020-05-22] MEDS: NYSTATIN 100,000 UNIT/ML SUSP 500,000 UNIT/5 ML CUP PO SCH ×4 (08:12→22:08)
[2020-05-22] MEDS: MECLIZINE 12.5 MG TAB PO SCH (08:12)
[2020-05-22] MEDS: CLINDAMYCIN 150 MG CAP PO SCH ×4 (08:12→22:08)
[2020-05-22] MEDS: ASPIRIN 81 MG PO SCH (08:12)
--- NOTE | 2020-05-22 11:48 | P.PN ---
Subjective Progress Note Date: 05/22/20 This is a 64-year-old pleasant female patient of Dr. Garnica, and Dr. Israel, underlying history of asthma on allergen immunotherapy from dr Foley and COPD osteoarthritis, SVT, CK D stage II anxiety disorder, focal cord dysfunction, multiple drug ALLERGIES in sensitivities admitted through the emergency room secondary to palpitations, no prior history of CAD or diabetes mellitus, admitted through emergency room secondary to palpitations an d her heart beating hard. And chest discomfort. Patient also has dyspnea on exertion, for the past few days. Patient denies any cough no fever no chills, no nausea no vomiting no hemoptysis no diarrhea, her last stress test was performed approximately October 2016 for Cardiolite stress test which was negative for stress-induced ischemia, patient currently is on diltiazem, however she comes in with palpitations, which is pounding, and worse with exertion. P atient denies any edema, or leg pain. Patient does not have any epigastric or abdominal complaints, she is on albuterol HFA at home every 4 when necessary, and zafirlucast or her asthma. She cannot take Symbicort secondary to anaphylaxis action, also cannot get prednisolone, secondary to anaphylaxis, and cannot take prednisone clobetasol Alvesco fluticasone from [facility]. She comes into the emergency room with the above complaints, she was screened negative for coronary virus PCR, troponin is 0.012, WBC count of 12.5, chest x- ray chronic changes without any acute processes EKG shows sinus tachycardia, age undetermined inferior infarct, heart rate 103, normal QT, she was kept in for observation secondary to chest pain and the palpitations and dyspnea on exertion. No d-dimer was done from the emergency room, creatinine on admission was 1.17, from a previous of 1.2 in September, and 0.98 in 2018. nt-proBNP of 105. Consult with cardiology, for dyspnea and exertion with chest pressure, with thumping heart beats Palpitations but not irregular rhythm 05/21: Patient is on resting comfortably at the edge of the bed. No acute distress. Patient states she continues to have palpitations and pounding in her chest however she has no shortness of breath or difficulty breathing. Patient is set up an appointment with Dr. Bonds next Saturday. She'll be able to go home if cleared by cardiology today. 05/22: She was seen by cardiology yesterday and felt that due to the frequency of her palpitations and being in the hospital 6 times in the last few months that a Rochelle scan would be an appropriate testing to be done on Saturday. Patient was given the option to do this as an outpatient when she requested to stay in the hospital for her to be done. Patient was found to be resting on the edge of the bed without any complaints of difficulty breathing. Patient states that she utilizes a Pulmicort inhaler at home. We will order a Pulmicort nebulizer at this time. If the lexiscan is negative on Saturday she will be discharged home. RTC to keep her appointment with Dr. weiner on Saturday. Review of Systems Constitutional: Reports as per HPI, Denies anorexia, Denies chills, Denies chronic headaches, Denies chronic pain, Denies daytime sleepiness, Denies fatigue, Denies fever, Denies lethargy, Denies malaise, Denies night sweats, Denies poor appetite, Denies sweats, Denies weakness, Denies weight gain, Denies weight loss Ears, nose, mouth and throat: Reports as per HPI Cardiovascular: Reports as per HPI, Reports chest pain, Reports decreased exercise tolerance, Reports dyspnea on exertion Respiratory: Reports dyspnea, Denies as per HPI, Denies congestion, Denies cough, Denies cough with sputum, Denies excessive sputum, Denies hemoptysis, Denies home oxygen, Denies pain, Denies pain on inspiration, Denies pleurisy, Denies respiratory infections, Denies sleep apnea, Denies snoring, Denies wheezing Gastrointestinal: Reports as per HPI Genitourinary: Reports as per HPI, Denies abnormal vaginal bleeding, Denies decreased libido, Denies difficulty conceiving, Denies difficulty voiding, Denies dysmenorrhea, Denies dyspareunia, Denies dysuria, Denies flank pain, Denies genital sores, Denies hematuria, Denies hot flashes, Denies incomplete emptying, Denies kidney stones, Denies menorrhagia, Denies mixed incontinence, Denies nocturia, Denies pelvic pain, Denies post void dribbling, Denies , Denies prolapse symptoms, Denies stress incontinence, Denies urge incontinence, Denies urgency, Denies urinary frequency, Denies vaginal discharge, Denies vaginal dryness, Denies vaginal itching, Denies vaginal odor Menstruation: Reports as per HPI Musculoskeletal: Reports as per HPI Integumentary: Reports as per HPI, Denies acne, Denies boils, Denies brittle nails, Denies change in hair/nails, Denies color changes, Denies darkening of skin, Denies depigmentation, Denies dryness, Denies foot/leg ulcers, Denies growths, Denies hirsutism, Denies lesions, Denies onychomycosis, Denies pruritus, Denies rash, Denies sores, Denies striae, Denies unusual bruising, Denies wounds Neurological: Reports as per HPI, Denies aphasia, Denies ataxia, Denies balance difficulties, Denies burning pain, Denies change in mentation, Denies change in smell/taste, Denies change in speech, Denies confusion, Denies convulsions, Denies double vision, Denies gait dysfunction, Denies head injury, Denies headaches, Denies hearing difficulties, Denies lack of coordination, Denies loss of vision, Denies memory loss, Denies migraines, Denies motor disturbance, Denies numbness, Denies paralysis, Denies paresthesias, Denies seizures, Denies sensory deficit, Denies spasticity, Denies syncope, Denies tic, Denies tingling, Denies transient paralysis, Denies tremors, Denies vertigo, Denies weakness, Denies visual changes Psychiatric: Reports as per HPI Endocrine: Reports as per HPI, Denies cold intolerance, Denies deepening of the voice, Denies excessive sweating, Denies excessive thirst, Denies fatigue, Denies flushing, Denies heat intolerance, Denies high blood sugars, Denies increase in ring/shoe/hat size, Denies low blood sugars, Denies nocturia, Denies palpitations, Denies polydipsia, Denies polyphagia, Denies polyuria, Denies proptosis, Denies recent glucocorticoid use, Denies thyroid mass, Denies weight change Allergic/Immunologic: Reports as per HPI Physical exam: General Appearance: Alert, cooperative, no distress, appears stated age. Neck HEENT: Supple, no lymphadenopathy, no thyroid enlargement, no carotid bruits. Lungs: Clear to auscultation without crackles or wheezes no rhonchi, no deformity. Chest Wall: Chest wall normal expansion with deep inspiration no tenderness and no deformity was found on exam, no costochondral pain or discomfort. Heart: Regular rate and rhythm, S1, S2 normal, no murmur, rub or gallop. Back: Symmetric, no curvature, ROM normal, no CVA tenderness. Abdomen: Soft, non-tender, no rebound or rigidity, no hepatosplenomegaly. Extremities: Extremities normal, atraumatic, no cyanosis or edema. Pulses: 2+ and symmetric. Skin: Skin color, texture, tugor normal, no rashes or lesions. Neurologic: Alert oriented x3 cranial nerves II through XII intact, no motor deficit, no abnormal balance or gait Assessment/plan 1 acute chest pressure, with no prior history of CAD, acute on chronic shortness of breath on exertion , ruled out acute Pulmonary embolism but cannot rule out underlying occlusive coronary disease,, check d-dimer normal at 0.27,, initial set of troponins negative, INSPECTOR BICYCLE proBNP is normal, checked for IgE, underlying history of asthma with multiple sensitivities to prescription medications,,Lexiscan ordered for Saturday. Cardiology consult appreciated., 2 sinus tachycardia. With history of bigeminy and quadrectomy Continue Cardize m 60 mg by mouth daily. Which can be increased to 60 mg 3 times a day pending blood pressure regulation, patient taking tea, which we recommend to cahnge to green tea or pomegranate tea 3 COPD/asthma no bronchospasm examination we'll continue DuoNeb as needed for shortness of breath. Continue Singulair. Patient is noted to have anaphylaxis from omalizumab (Xolair) Continue anoro ellipta the patient need to be reevaluated with PFT as outpatient follows with Dr. Israel, checkfor IgE levels an d alpha-1 antitrypsin level and phenotype. pulimcort Palak ordered 4. Hyperlipidemia on Zetia, unable to get statins again as above 5 GERD on omeprazole 40 mg maintenance daily however she is now on omeprazole, this can be changed to Pepcid if tolerated. 6 . CK D stage III, current GFR of 49 7 DVT prophylaxis with heparin every 12 code status full code discharge planning: Possibly Saturday if Lexiscan is negative Impression and plan of care have been directed as dictated by the signing physician. Robina Martinez nurse practitioner acting as scribe for signing physician. Objective - Vital Signs Vital signs: Vital Signs Temp 97.7 F 05/22/20 06:45 Pulse 73 05/22/20 06:45 Resp 18 05/22/20 06:45 BP 139/71 05/22/20 06:45 Pulse Ox 95 05/22/20 06:45 Intake & Output 05/21/20 05/22/20 05/22/20 18:59 06:59 18:59 Intake Total 100 550 Balance 100 550 Intake: IV 10 Invasive Line 2 10 Oral 100 540 Other: Voiding Method Toilet Toilet # Voids 3 2 - Labs CBC & Chem 7: 05/22/20 05:43 05/20/20 10:53
--- NOTE | 2020-05-22 12:32 | P.PN ---
Subjective Progress Note Date: 05/22/20 HISTORY OF PRESENT ILLNESS: 05/21/2020 This is a 64-year-old female with a past medical history significant for hypertension, hyperlipidemia, asthma, and former nicotine dependence. 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 We have been asked to see the patient in consultation for chest pain. Patient examined this morning at the bedside. Patient denies having any chest pain prior to coming to the hospital or sense she has been admitted. She reports her main complaint was feeling like her heart was pounding. She states that she did not feel like her heart was racing but could just feel her heart beating out of her chest. She also reports she has been short of breath with exertion. She denies any shortness of breath at rest. Patient had an echocardiogram performed in 2018 revealing ejection fraction 55-60%. Patient also underwent stress test in 2017 which was negative for ischemia. EKG reveals sinus tachycardia with a heart rate of 103. ST depression in V3 th rough V6 which is slightly more pronounced from previous EKG. Q waves inferiorly. Chest xray chronic changes without acute pulmonary process Laboratory data: WBC 12.5. Hemoglobin 15.6. Platelet count 264. D-dimer 0.27. Sodium 137. Potassium 4.4. BUN 23. Creatinine 1.17. Troponin negative 3. BNP 105. Current home cardiac medications include hydralazine 25 mg twice a day and Cardizem 60 mg twice a day 05/22/2020 Patient examined this morning at the bedside. She denies chest pain or press ure. Denies shortness of breath. She continues to report a sensation of feeling her heart pounding. However she denies having any palpitations. Echocardiogram completed revealing ejection fraction 60-65% and trace mitral regurgitation. PHYSICAL EXAM: VITAL SIGNS: Reviewed. GENERAL: Well-developed in no acute distress. HEENT: Head is normocephalic. Pupils are equal, round. Sclerae anicteric. Mucous membranes of the mouth are moist. Neck supple. No JVD or thyromegaly LUNGS: Respirations even and unlabored. Lungs essentially clear to auscultation bilaterally. HEART: Regular rate and rhythm. S1 and S2 heard. ABDOMEN: Soft. Nondistended. Nontender. EXTREMITIES: Normal range of motion. No clubbing or cyanosis. Peripheral pulses intact. No lower extremity edema NEUROLOGIC: Awake and alert. Oriented x 3. ASSESSMENT: Exertional shortness of breath with complaints of "feeling her heart pounding" Hypertension Hyperlipidemia Asthma Former nicotine dependence PLAN: Continue current cardiac medications Continue telemetry monitoring Patient is scheduled for Rochelle scan tomorrow Nurse practitioner note has been reviewed by physician. Signing provider agrees with the documented findings, assessment, and plan of care. Objective - Vital Signs Vital signs: Vital Signs Temp 97.7 F 05/22/20 06:45 Pulse 73 05/22/20 06:45 Resp 18 05/22/20 06:45 BP 139/71 05/22/20 06:45 Pulse Ox 95 05/22/20 06:45 Intake & Output 05/21/20 05/22/20 05/22/20 18:59 06:59 18:59 Intake Total 100 550 Balance 100 550 Intake: IV 10 Invasive Line 2 10 Oral 100 540 Other: Voiding Method Toilet Toilet # Voids 3 2 - Labs CBC & Chem 7: 05/22/20 05:43 05/20/20 10:53
[2020-05-22] MEDS: BUDESONIDE 0.5 MG/2 ML NEBU INHALATION SCH (19:18)
[2020-05-22] MEDS ORDERED: BUDESONIDE 1 MG/2 ML NEBU INHALATION SCH (20:00)
[2020-05-22] MEDS: MAGNESIUM OXIDE 400 MG TAB PO SCH (20:25)
[2020-05-22] MEDS: EZETIMIBE 10 MG TAB PO SCH (20:25)
[2020-05-22] MEDS: MONTELUKAST 10 MG TAB PO SCH (20:25)
[2020-05-23 05:51] LABS: Mean Platelet Volume 7.3; Platelet Count 267 k/uL (150-450)
[2020-05-23] MEDS ORDERED: AMINOPHYLLINE 500 MG/20 ML VIAL IV PRN (06:00)
[2020-05-23] MEDS ORDERED: CAFFEINE CITRATE 60 MG/3 ML VIAL IV PRN (06:00)
[2020-05-23 06:57] VITALS: BP 125/68; PULSE 72; RESP 16; TEMP 97.4
[2020-05-23] MEDS ORDERED: REGADENOSON 0.4 MG/5 ML SYRINGE IV PRN (07:00)
[2020-05-23] MEDS: PANTOPRAZOLE 40 MG TABLET PO SCH (08:02)
[2020-05-23] MEDS: BUDESONIDE 0.5 MG/2 ML NEBU INHALATION SCH (08:36)
--- NOTE | 2020-05-23 11:14 | P.PN ---
Subjective This is a pleasant 64-year-old female past medical history significant for hypertension, dyslipidemia, asthma and former nicotine dependence. She is seen and examined sitting up in bed in no acute distress. She continues to complain of a pounding sensation in her chest. She had an episode this morning of tachycardia that lasted for 6 beats. According to the patient her pounding is constant. She does not recall specific episode this morning. Blood pressure 125/68 heart rate 72 afebrile maintaining oxygen saturation on room air. Currently maintained on aspirin 81 mg daily, diltiazem 60 mg twice a day and Zetia 10 mg daily. GENERAL: Well-appearing, well-nourished and in no acute distress. NECK: Supple without JVD or thyromegaly. LUNGS: Breath sounds clear to auscultation bilaterally. Respiration equal and unlabored. No wheezes, rales or rhonchi. HEART: Regular rate and rhythm without murmurs, rubs or gallops. S1 and S2 heard. EXTREMITIES: Normal range of motion, no edema. No clubbing or cyanosis. Peripheral pulses intact. ASSESSMENT Chest pain Hypertension Dyslipidemia Asthma Former nicotine dependence Morbid obesity, BMI 43 PLAN Proceed with lexiscan stress test as previously ordered. If abnormal we will con sand analyst coronary angiography. If negative she can be discharged home to follow up in the office. Nurse Practitioner note has been reviewed, I agree with a documented findings and plan of care. Patient was seen and examined. Objective - Vital Signs Vital signs: Vital Signs Temp 97.4 F L 05/23/20 06:56 Pulse 72 05/23/20 06:56 Resp 16 05/23/20 06:56 BP 125/68 05/23/20 06:56 Pulse Ox 96 05/23/20 06:56 Intake & Output 05/22/20 05/23/20 05/23/20 18:59 06:59 18:59 Intake Total 1200 Balance 1200 Weight 117.93 kg Intake: Oral 1200 Other: # Voids 5 1 - Labs CBC & Chem 7: 05/23/20 04:55 05/20/20 10:53
--- NOTE | 2020-05-23 11:14 | EST ---
EXERCISE STRESS AGE: 64 SEX: Female HT: 5'5" WT: 259 lbs. PROTOCOL: Lexiscan Cardiolite STAGE: N/A DURATION OF EXERCISE: N/A HEART RATE REST: 88 BLOOD PRESSURE REST: 128/83 MAXIMUM HEART RATE ACHIEVED: 107 MAXIMUM BLOOD PRESSURE: 145/87 85% MPHR: 131 100% MPHR: 154 METS: N/A INDICATIONS: Chest pain CLINICAL INFORMATION: Baseline rhythm is sinus mechanism, rate of 88, normal axis and intervals. Normal electrocardiogram. Baseline blood pressure 128/83 mmHg. Patient received an injection of Lexiscan. Electrocardiograph monitoring revealed rare PVCs. There was no evidence of diagnostic ischemic ST deviation. Cardiolite was injected per protocol. CONCLUSION: 1. Nondiagnostic electrocardiographic stress testing. 2. Nuclear images will be reported separately. MMODL / IJN: [id number] /
[2020-05-23] MEDS: CLINDAMYCIN 150 MG CAP PO SCH (12:22)
[2020-05-23] MEDS: NYSTATIN 100,000 UNIT/ML SUSP 500,000 UNIT/5 ML CUP PO SCH (12:22)
[2020-05-23] MEDS: MECLIZINE 12.5 MG TAB PO SCH (12:22)
[2020-05-23] MEDS: DILTIAZEM ORAL 60 MG TAB PO SCH (12:22)
[2020-05-23] MEDS: ASPIRIN 81 MG PO SCH (12:22)
--- NOTE | 2020-05-23 14:39 | NM ---
EXAMINATION TYPE: NM stress lexiscan cardiolite DATE OF EXAM: 05/23/2020 COMPARISON: Nuclear medicine Stress test October 31, 2016 HISTORY: Shortness of breath. Chest pain and palpitations. History of tobacco use in the past. Person al history of hypercholesterolemia and asthma. TECHNIQUE: After the intravenous administration of 9.6 mCi Tc 99m Sestamibi - Cardiolite resting SPE CT images acquired 45 minutes post injection. The patient received 0.4mg Lexiscan, 26.6 mCi Tc 99m Sestamibi - Stress images obtained [address] injection FINDINGS: Review of stress and rest SPECT images demonstrates no distinct perfusion abnormality. Area of concer n in the septum towards the base: Reconstructed images is not reproducible on the 3 planar views. Gat ed analysis shows normal wall motion with an estimated left ventricular ejection fraction of 56-63 %. IMPRESSION: No scintigraphic evidence for reversible ischemia.
--- NOTE | 2020-05-23 14:58 | P.DS ---
Providers Date of admission: 05/20/20 13:01 Expected date of discharge: 05/23/20 Attending physician: Hodan Patterson Consults: 05/20/20 12:37 Consult Physician Urgent Consulting Provider: Bridger Smith Consult Reason/Comments: chest pain, palpitations Do you want consulting provider notified?: Yes Primary care physician: [facility] Course: Hospital Course: This is a 64-year-old pleasant female patient of Dr. Garnica, and Dr. Israel, underlying history of asthma on allergen immunotherapy from dr Foley and COPD osteoarthritis, SVT, CK D stage II anxiety disorder, focal cord dysfunction, multiple drug ALLERGIES in sensitivities admitted through the emergency room secondary to palpitations, no prior history of CAD or diabetes mellitus, admitted through emergency room secondary to palpitations an d her heart beating hard. And chest discomfort. Patient also has dyspnea on exertion, for the past few days. Patient denies any cough no fever no chills, no nausea no vomiting no hemoptysis no diarrhea, her last stress test was performed approximately October 2016 for Cardiolite stress test which was negative for stress-induced ischemia, patient currently is on diltiazem, however she comes in with palpitations, which is pounding, and worse with exertion. Patient denies any edema, or leg pain. Patient does not have any epigastric or abdominal complaints, she is on albuterol HFA at home every 4 when necessary, and zafirlucast or her asthma. She cannot take Symbicort secondary to anaphylaxis action, also cannot get prednisolone, secondary to anaphylaxis, and cannot take prednisone clobetasol Alvesco fluticasone from [facility]. She comes into the emergency room with the above complaints, she was screened negative for coronary virus PCR, troponin is 0.012, WBC count of 12.5, chest x- ray chronic changes without any acute processes EKG shows sinus tachycardia, age undetermined inferior infarct, heart rate 103, normal QT, she was kept in for observation secondary to chest pain and the palpitations and dyspnea on exertion. No d-dimer was done from the emergency room, creatinine on admission was 1.17, from a previous of 1.2 in September, and 0.98 in 2018. nt-proBNP of 105. Consult with cardiology, for dyspnea and exertion with chest pressure, with thumping heart beats Palpitations but not irregular rhythm 05/21: Patient is on resting comfortably at the edge of the bed. No acute distress. Patient states she continues to have palpitations and pounding in her chest however she has no shortness of breath or difficulty breathing. Patient is set up an appointment with Dr. Bonds next Saturday. She'll be able to go home if cleared by cardiology today. 05/22: She was seen by cardiology yesterday and felt that due to the frequency of her palpitations and being in the hospital 6 times in the last few months that a Rochelle scan would be an appropriate testing to be done on Saturday. Patient was given the option to do this as an outpatient when she requested to stay in the hospital for her to be done. Patient was found to be resting on the edge of the bed without any complaints of difficulty breathing. Patient states that she utilizes a Pulmicort inhaler at home. We will order a Pulmicort nebulizer at this time. If the lexiscan is negative on Saturday she will be discharged home. RTC to keep her appointment with Dr. weiner on Saturday. 05/23: Patient denies any chest pain, shortness breath, cough. Patient underwent stress Rochelle scan today which was negative and patient was cleared by cardiology for discharge home. He has been afebrile, heart rate 72, blood pressure 125/68, pulse ox 96% on room air. Patient will be discharged home today in stable condition. Discharge diagnoses 1. Acute chest pressure with no prior history of CAD. 2. Sinus tachycardia 3. COPD/asthma 4. Hyperlipidemia 5. GERD 6. Chronic kidney disease stage III Discharge disposition: Home with self-care Patient Condition at Discharge: Good Plan - Discharge Summary Discharge Rx Participant: No New Discharge Prescriptions: Continue Albuterol Sulfate [Ventolin HFA] 2 puff INHALATION RT-Q4H PRN PRN Reason: Shortness Of Breath Budesonide [Pulmicort Flexhaler] 1 puff INHALATION RT-DAILY Azelastine HCl 137 mcg EA NOSTRIL BID PRN PRN Reason: Allergy Symptoms Umeclidinium Brm/Vilanterol Tr [Anoro Ellipta 62.5-25 Mcg INH] 1 puff INHALATION RT-DAILY predniSONE 5 mg PO DAILY PRN PRN Reason: asthma Albuterol Nebulized [Ventolin Nebulized] 2.5 mg INHALATION RT-QID PRN PRN Reason: Dyspnea Ketotifen 0.025% Ophth Soln [Zaditor] 1 drop BOTH EYES BID PRN PRN Reason: DRY/ITCHY EYES Zafirlukast 10 mg PO BID Ezetimibe [Zetia] 10 mg PO HS Magnesium Oxide 400 mg PO HS Clindamycin [Cleocin] 150 mg PO QID dilTIAZem HCL [Diltiazem HCl] 60 mg PO BID hydrALAZINE HCL [Apresoline] 25 mg PO BID PRN PRN Reason: bp over 160/90 HYDROcodone/APAP 5-325MG [Sherburn 5-325] 1 tab PO Q4H PRN PRN Reason: Pain Meclizine [Antivert] 6.25 mg PO DAILY Omeprazole 40 mg PO DAILY Triamcinolone 0.1% Cream [Kenalog 0.1% Cream] 1 applic TOPICAL BID PRN PRN Reason: Rash Ubidecarenone [Co Q-10] 200 mg PO DAILY Discharge Medication List Albuterol Sulfate [Ventolin HFA] 2 puff INHALATION RT-Q4H PRN 05/20/14 [History] Azelastine HCl 137 mcg EA NOSTRIL BID PRN 05/20/14 [History] Budesonide [Pulmicort Flexhaler] 1 puff INHALATION RT-DAILY 05/20/14 [History] Umeclidinium Brm/Vilanterol Tr [Anoro Ellipta 62.5-25 Mcg INH] 1 puff INHALATION RT-DAILY 11/11/14 [History] predniSONE 5 mg PO DAILY PRN 01/25/16 [History] Albuterol Nebulized [Ventolin Nebulized] 2.5 mg INHALATION RT-QID PRN 06/20/16 [History] Ketotifen 0.025% Ophth Soln [Zaditor] 1 drop BOTH EYES BID PRN 09/03/17 [History] Zafirlukast 10 mg PO BID 11/11/17 [History] Ezetimibe [Zetia] 10 mg PO HS 05/16/18 [History] Magnesium Oxide 400 mg PO HS 09/17/19 [History] Clindamycin [Cleocin] 150 mg PO QID 05/20/20 [History] HYDROcodone/APAP 5-325MG [Sherburn 5-325] 1 tab PO Q4H PRN 05/20/20 [History] Meclizine [Antivert] 6.25 mg PO DAILY 05/20/20 [History] Omeprazole 40 mg PO DAILY 05/20/20 [History] Triamcinolone 0.1% Cream [Kenalog 0.1% Cream] 1 applic TOPICAL BID PRN 05/20/20 [History] Ubidecarenone [Co Q-10] 200 mg PO DAILY 05/20/20 [History] dilTIAZem HCL [Diltiazem HCl] 60 mg PO BID 05/20/20 [History] hydrALAZINE HCL [Apresoline] 25 mg PO BID PRN 05/20/20 [History] Follow up Appointment(s)/Referral(s): Hitesh Combs DO [STAFF PHYSICIAN] - 2 Weeks Yoel Garnica MD [Primary Care Provider] - 1 Week Discharge Disposition: HOME SELF-CARE
[2020-05-24 15:19] LABS: Alpha 1 Anti-Trypsin 109 mg/dL (90 - 200)
== END 2020-05-23 15:30 | disposition home or self-care (01) ==
LOC: EC 10:18 → 6NMEDSUR 13:01
PROVIDERS: ADMIT Family Medicine; ATTEND Family Medicine
DX: R07.89 Other chest pain (principal); I47.1 Supraventricular tachycardia; J44.9 Chronic obstructive pulmonary disease, unspecified; I12.9 Hypertensive chronic kidney disease with stage 1 through stage 4 chronic kidney disease, or unspecified chronic kidney disease; N18.30 Chronic kidney disease, stage 3 unspecified; E78.5 Hyperlipidemia, unspecified; K21.9 Gastro-esophageal reflux disease without esophagitis; J03.90 Acute tonsillitis, unspecified; M19.90 Unspecified osteoarthritis, unspecified site; F41.9 Anxiety disorder, unspecified; G89.29 Other chronic pain; M54.5 Low back pain; K44.9 Diaphragmatic hernia without obstruction or gangrene; Z20.822 Contact with and (suspected) exposure to COVID-19; E66.01 Morbid (severe) obesity due to excess calories; Z68.41 Body mass index [BMI] 40.0-44.9, adult; Z79.51 Long term (current) use of inhaled steroids; Z79.52 Long term (current) use of systemic steroids; Z79.899 Other long term (current) drug therapy; Z79.891 Long term (current) use of opiate analgesic; Z88.6 Allergy status to analgesic agent; Z88.1 Allergy status to other antibiotic agents; Z88.0 Allergy status to penicillin; Z91.09 Other allergy status, other than to drugs and biological substances; Z16.24 Resistance to multiple antibiotics; Z87.891 Personal history of nicotine dependence; Z98.42 Cataract extraction status, left eye; Z98.41 Cataract extraction status, right eye; Z98.890 Other specified postprocedural states; Z87.39 Personal history of other diseases of the musculoskeletal system and connective tissue; Z87.01 Personal history of pneumonia (recurrent); Z82.49 Family history of ischemic heart disease and other diseases of the circulatory system; J38.3 Other diseases of vocal cords; Z80.0 Family history of malignant neoplasm of digestive organs
CPT/HCPCS: 96376 ×2; 96366 ×2; 93005 ×2; 96361; 96365; 99285; 36415; 94640; 93017; 93306; 85379; 82103 ×2; 83880; 80061; 80053; 82104; 83735; 84484; 85025; 85049 ×3; 85610; 85730 ×2; 82785; 87635; 71046; 78452; G0378 ×4; A9500; J1644 ×2

== ENCOUNTER → 2020-06-27 | Outpatient (CLI) | payer MEDICARE, OTHER ==
--- NOTE | 2020-06-27 10:33 | CT ---
EXAMINATION TYPE: CT knee RT wo con DATE OF EXAM: 06/27/2020 COMPARISON: Old radiograph 12/24/2018 HISTORY: 64-year-old female M25.561, right knee pain TECHNIQUE: Contiguous axial scanning of the right knee without IV contrast. Coronal and sagittal paulina nstructions performed. CT DLP: 324 mGycm Automated exposure control for dose reduction was used. FINDINGS: Extensive streak and beam hardening artifact from the patient's right knee total arthroplasty. Both d istal femoral and proximal tibial components of the prosthesis appear well seated. Questionable sligh t lucency about the retropatellar facet component. Lucency measures 1.5 mm. Refer to sagittal image 3 5 and axial image 37. Slight lateral patellar tilt is noted. There is a small suprapatellar joint eff usion. Extensor mechanism appears intact. No periprosthetic fracture seen. Otherwise, no evident abno rmal fluid collection seen. IMPRESSION: 1. PATIENT STATUS POST RIGHT TOTAL KNEE ARTHROPLASTY. METAL ARTIFACT LIMITS THE EVALUATION. 2. QUESTIONABLE SLIGHT LUCENCY ABOUT THE RETROPATELLAR FACET COMPONENT OF 1.5 MM. FOR EXAMPLE, REFER TO SAGITTAL IMAGE 35 AND AXIAL IMAGE 37. THIS MAY BE NORMAL POSTSURGICAL CHANGE OR COULD REFLECT FRANSISCA Y LOOSENING AND SHOULD BE CORRELATED CLINICALLY. SLIGHT LATERAL PATELLAR TILT. 3. THE FEMORAL AND TIBIAL COMPONENTS TO THE HARDWARE APPEAR WELL SEATED. 4. SMALL SUPRAPATELLAR JOINT EFFUSION.
== END | disposition home or self-care (01) ==
LOC: RADCTMAIN 08:48
PROVIDERS: ATTEND Orthopaedic Surgery
DX: M25.461 Effusion, right knee (principal); Z96.651 Presence of right artificial knee joint

== ENCOUNTER 2020-11-13 04:24 | Inpatient (IN) | payer MEDICARE, OTHER ==
--- NOTE | 2020-11-13 04:56 | ED ---
Arrhythmia/Palpitations HPI - General Chief Complaint: Arrhythmia/Palpitations Stated Complaint: SVT Time Seen by Provider: 11/13/20 04:26 Source: patient, EMS Mode of arrival: EMS Limitations: no limitations - History of Present Illness Initial Comments: This patient is 65-year-old woman who presents here by ambulance to be evaluated for rapid heartbeat. She has previous history of SVT. She states that she developed an episode of SVT on Saturday night that lasted number of minutes and resolved spontaneously. Tonight the symptoms recurred and they lasted a couple of hours. When the symptoms were not resolving she called EMS. EMS found her heart rate in the 180s to 190s. Initially, they attempted vagal maneuvers to slowly patient's heart rate. They did give a dose of adenosine which return patient to sinus rhythm in the 120s. Patient states that she did have some chest pressure while waiting to be seen in the emergency department, and this was after her heart rate had decreased. MD Complaint: rapid heart beat -: hour(s) Context: occurred during rest Arrhythmia History: SVT Associated Symptoms: shortness of breath, anxiety Treatments Prior to Arrival: vagal maneuvers, adenosine - Related Data Home Medications Medication Instructions Recorded Confirmed Albuterol Sulfate [Ventolin HFA] 2 puff INHALATION RT-Q4H PRN 05/20/14 11/13/20 Budesonide [Pulmicort Flexhaler] 1 puff INHALATION RT-DAILY 05/20/14 11/13/20 Umeclidinium Brm/Vilanterol Tr 1 puff INHALATION RT-DAILY 11/11/14 11/13/20 [Anoro Ellipta 62.5-25 Mcg INH] Albuterol Nebulized [Ventolin 2.5 mg INHALATION RT-QID PRN 06/20/16 11/13/20 Nebulized] Ketotifen 0.025% Ophth Soln 1 drop BOTH EYES BID PRN 09/03/17 11/13/20 [Zaditor] Zafirlukast 10 mg PO BID 11/11/17 11/13/20 Ezetimibe [Zetia] 10 mg PO HS 05/16/18 11/13/20 Magnesium Oxide 400 mg PO HS PRN 09/17/19 11/13/20 HYDROcodone/APAP 5-325MG [[place] 0.3 tab PO Q4H PRN 05/20/20 11/13/20 5-325] Triamcinolone 0.1% Cream [Kenalog 1 applic TOPICAL DAILY PRN 05/20/20 11/13/20 0.1% Cream] Ubidecarenone [Co Q-10] 200 mg PO DAILY 05/20/20 11/13/20 hydrALAZINE HCL [Apresoline] 25 mg PO BID PRN 05/20/20 11/13/20 Omeprazole 20 mg PO DAILY 11/13/20 11/13/20 Previous Rx's Medication Instructions Recorded Diltiazem Oral [Cardizem*] 90 mg PO BID tab 11/14/20 predniSONE 5 mg PO DAILY PRN tab 11/14/20 Allergies Allergy/AdvReac Type Severity Reaction Status Date / Time formoterol fumarate Allergy Severe Anaphylaxis Verified 11/13/20 07:41 [From Symbicort] amoxicillin Allergy GI Verified 11/13/20 07:41 DISTRESS AND DROWSINESS atorvastatin [From Lipitor] Allergy Leg Cramps Verified 11/13/20 07:41 budesonide [From Symbicort] Allergy Anaphylaxis Verified 11/13/20 07:41 clarithromycin Allergy GI Verified 11/13/20 07:41 DISTRESS AND DROWSINESS doxycycline Allergy GI Verified 11/13/20 07:41 DISTRESS AND DROWSINESS omalizumab [From Xolair] Allergy Anaphylaxis Verified 11/13/20 07:41 prednisolone acetate, Allergy Anaphylaxis Verified 11/13/20 07:41 micronized [prednisolone acetate, micro] prednisone Allergy Anaphylaxis-IN Verified 11/13/20 07:41 LARGE DOSES albuterol [From Combivent] AdvReac tinnitus Verified 11/13/20 07:41 beclomethasone [From Qvar] AdvReac Headache/Rash/Visual Verified 11/13/20 07:41 Changes cholestyramine AdvReac Diarrhea Verified 11/13/20 07:41 ciclesonide [From [place]] AdvReac RINGING IN Verified 11/13/20 07:41 THE EARS diltiazem [From Cartia XT] AdvReac tinnitus Verified 11/13/20 07:41 etodolac AdvReac MUSCLE Verified 11/13/20 07:41 CRAMPS fluorometholone AdvReac caused Verified 11/13/20 07:41 [From L Forte] hair to fall out fluticasone propionate AdvReac RASH, Verified 11/13/20 07:41 [From Advair Diskus] ITCHING furosemide [From Lasix] AdvReac tinnitus Verified 11/13/20 07:41 gabapentin [From Neurontin] AdvReac MUSCLE Verified 11/13/20 07:41 CRAMPS, SENSATION OF BUGS CRAWLING ON LEGS gemfibrozil AdvReac Rapid Verified 11/13/20 07:41 Heart Rate ibuprofen AdvReac tinnitus Verified 11/13/20 07:41 ipratropium [From Combivent] AdvReac tinnitus Verified 11/13/20 07:41 levofloxacin [From Levaquin] AdvReac Muscle Verified 11/13/20 07:41 Cramps/Lower Back Pain lovastatin AdvReac cramps Verified 11/13/20 07:41 metoprolol AdvReac Diarrhea Verified 11/13/20 07:41 mometasone furoate AdvReac RASH, Verified 11/13/20 07:41 [From Asmanex Twisthaler] VISUAL CHANGES pregabalin [From Lyrica] AdvReac MUSCLE Verified 11/13/20 07:41 CRAMPS, SENSATION OF BUGS CRAWLING ON LEGS rosuvastatin calcium AdvReac MUSCLE Verified 11/13/20 07:41 [From Crestor] CRAMPS salmeterol xinafoate AdvReac Rash/Hives Verified 11/13/20 07:41 [From Advair Diskus] simvastatin AdvReac SENSATION Verified 11/13/20 07:41 OF BUGS CRAWLING ON LEGS thyroid, pork AdvReac Diarrhea Verified 11/13/20 07:41 [From Loyal Thyroid] tiotropium AdvReac Dry Verified 11/13/20 07:41 [From Spiriva with mouth/Ringing HandiHaler] in ears Review of Systems ROS Statement: Those systems with pertinent positive or pertinent negative responses have been documented in the HPI. ROS Other: All systems not noted in ROS Statement are negative. Constitutional: Denies: fever, chills Respiratory: Denies: cough, dyspnea Cardiovascular: Reports: as per HPI, chest pain, palpitations. Denies: edema, syncope Gastrointestinal: Denies: abdominal pain, nausea, vomiting, diarrhea Genitourinary: Denies: dysuria, hematuria Musculoskeletal: Denies: back pain Skin: Denies: rash Neurological: Denies: headache, weakness Hematological/Lymphatic: Denies: easy bleeding Past Medical History Past Medical History: Asthma, COPD, GERD/Reflux, Hyperlipidemia, Musculoskeletal Disorder, Osteoarthritis (OA), Pneumonia Additional Past Medical History / Comment(s): Rapid heart beat at times, past COPD, hiatal hernia, bronchitis, arthritis in multiple joints, chronic low back pain, occasional vertigo, currently being treated for tonsillitis with ant ibiotic. History of Any Multi-Drug Resistant Organisms: Acinetobacter (MDRO) Date of last positivie culture/infection: 2015 MDRO Source:: unknown Past Surgical History: Hernia Repair, Orthopedic Surgery Additional Past Surgical History / Comment(s): R hand benign tumor removed, bilateral feet bunionectomies, total R knee arthroplaty, pain clinic procedures, abdominal hernia repair, colonoscopy. Past Anesthesia/Blood Transfusion Reactions: Previous Problems w/ Anesthesia Additional Past Anesthesia/Blood Transfusion Reaction / Comment(s): SLOW TO COME OUT OF ANESTHESIA, "does not take much" States has difficulty lying flat on her back Past Psychological History: No Psychological Hx Reported Smoking Status: Former smoker - Past Family History Mother Family Medical History: Deep Vein Thrombosis (DVT) Father Family Medical History: Cancer Additional Family Medical History / Comment(s): Father of pancreatic cancer. General Exam Limitations: no limitations General appearance: alert, in no apparent distress Head exam: Present: atraumatic, normocephalic Eye exam: Present: normal appearance Respiratory exam: Present: normal lung sounds bilaterally. Absent: respiratory distress, wheezes, rales, rhonchi, stridor Cardiovascular Exam: Present: regular rate, normal rhythm, normal heart sounds. Absent: systolic murmur, diastolic murmur, rubs, gallop GI/Abdominal exam: Present: soft. Absent: distended, tenderness, guarding, rebound, rigid, mass, pulsatile mass Extremities exam: Present: normal inspection, normal capillary refill. Absent: pedal edema, calf tenderness Back exam: Present: normal inspection. Absent: CVA tenderness (R), CVA tenderness (L) Neurological exam: Present: alert Skin exam: Present: warm, dry, intact, normal color. Absent: rash Course Vital Signs 11/13/20 11/13/20 11/13/20 04:32 05:32 06:03 Temperature 98.2 F Pulse Rate 122 H 94 84 Respiratory 18 16 16 Rate Blood Pressure 128/76 110/69 O2 Sat by Pulse 98 97 97 Oximetry 11/13/20 06:50 Temperature Pulse Rate 84 Respiratory Rate Blood Pressure O2 Sat by Pulse Oximetry EKG Findings - EKG Results: EKG: interpreted by ERMD, sinus rhythm, normal axis, normal QRS, normal ST/T, no acute changes EKG shows: tachycardia (Rate 104 bpm) Medical Decision Making - Lab Data Result diagrams: 11/13/20 04:47 11/13/20 04:47 Lab Results 11/13/20 11/13/20 11/13/20 Range/Units 04:47 04:47 04:47 WBC 10.0 (3.8-10.6) k/uL RBC 4.79 (3.80-5.40) m/uL Hgb 14.7 (11.4-16.0) gm/dL Hct 44.6 (34.0-46.0) % MCV 93.2 (80.0-100.0) fL MCH 30.7 (25.0-35.0) pg MCHC 32.9 (31.0-37.0) g/dL RDW 13.7 (11.5-15.5) % Plt Count 221 (150-450) k/uL MPV 7.7 Neutrophils % 66 % Lymphocytes % 24 % Monocytes % 4 % Eosinophils % 4 % Basophils % 1 % Neutrophils # 6.6 (1.3-7.7) k/uL Lymphocytes # 2.3 (1.0-4.8) k/uL Monocytes # 0.4 (0-1.0) k/uL Eosinophils # 0.4 (0-0.7) k/uL Basophils # 0.1 (0-0.2) k/uL PT 9.7 (9.0-12.0) sec INR 0.9 (<1.2) APTT 20.9 L (22.0-30.0) sec Sodium 136 L (137-145) mmol/L Potassium 4.1 (3.5-5.1) mmol/L Chloride 108 H (98-107) mmol/L Carbon Dioxide 19 L (22-30) mmol/L Anion Gap 9 mmol/L BUN 17 (7-17) mg/dL Creatinine 1.07 H (0.52-1.04) mg/dL Est GFR (CKD-EPI)AfAm 62 (>60 ml/min/1.73 sqM) Est GFR (CKD-EPI)NonAf 54 (>60 ml/min/1.73 sqM) Glucose 153 H (74-99) mg/dL Calcium 9.4 (8.4-10.2) mg/dL Magnesium 2.1 (1.6-2.3) mg/dL Total Bilirubin 0.4 (0.2-1.3) mg/dL AST 47 H (14-36) U/L ALT 56 H (4-34) U/L Alkaline Phosphatase 116 (38-126) U/L Troponin I (0.000-0.034) ng/mL Total Protein 6.5 (6.3-8.2) g/dL Albumin 3.9 (3.5-5.0) g/dL TSH (0.465-4.680) mIU/L 11/13/20 11/13/20 Range/Units 04:47 04:47 WBC (3.8-10.6) k/uL RBC (3.80-5.40) m/uL Hgb (11.4-16.0) gm/dL Hct (34.0-46.0) % MCV (80.0-100.0) fL MCH (25.0-35.0) pg MCHC (31.0-37.0) g/dL RDW (11.5-15.5) % Plt Count (150-450) k/uL MPV Neutrophils % % Lymphocytes % % Monocytes % % Eosinophils % % Basophils % % Neutrophils # (1.3-7.7) k/uL Lymphocytes # (1.0-4.8) k/uL Monocytes # (0-1.0) k/uL Eosinophils # (0-0.7) k/uL Basophils # (0-0.2) k/uL PT (9.0-12.0) sec INR (<1.2) APTT (22.0-30.0) sec Sodium (137-145) mmol/L Potassium (3.5-5.1) mmol/L Chloride (98-107) mmol/L Carbon Dioxide (22-30) mmol/L Anion Gap mmol/L BUN (7-17) mg/dL Creatinine (0.52-1.04) mg/dL Est GFR (CKD-EPI)AfAm (>60 ml/min/1.73 sqM) Est GFR (CKD-EPI)NonAf (>60 ml/min/1.73 sqM) Glucose (74-99) mg/dL Calcium (8.4-10.2) mg/dL Magnesium (1.6-2.3) mg/dL Total Bilirubin (0.2-1.3) mg/dL AST (14-36) U/L ALT (4-34) U/L Alkaline Phosphatase (38-126) U/L Troponin I <0.012 (0.000-0.034) ng/mL Total Protein (6.3-8.2) g/dL Albumin (3.5-5.0) g/dL TSH 3.380 (0.465-4.680) mIU/L Disposition Clinical Impression: Supraventricular tachycardia, Chest pain Disposition: ADMITTED IP TO THIS HOSP Condition: Good Is patient prescribed a controlled substance at d/c from ED?: No
[2020-11-13 04:59] LABS: Basophils # (A) 0.1 k/uL (0-0.2); Basophils % (A) 1 %; Eosinophils # (A) 0.4 k/uL (0-0.7); Eosinophils % (A) 4 %; HCT 44.6 % (34.0-46.0); HGB 14.7 gm/dL (11.4-16.0); Lymphocytes # (A) 2.3 k/uL (1.0-4.8); Lymphocytes % (A) 24 %; MCH 30.7 pg (25.0-35.0); MCHC 32.9 g/dL (31.0-37.0); MCV 93.2 fL (80.0-100.0); Mean Platelet Volume 7.7; Monocytes # (A) 0.4 k/uL (0-1.0); Monocytes % (A) 4 %; Neutrophils # (A) 6.6 k/uL (1.3-7.7); Neutrophils % (A) 66 %; Platelet Count 221 k/uL (150-450); RBC 4.79 m/uL (3.80-5.40); RDW 13.7 % (11.5-15.5)
--- NOTE | 2020-11-13 05:00 | XR ---
EXAMINATION TYPE: XR chest 1V portable DATE OF EXAM: 11/13/2020 COMPARISON: 05/20/2020 HISTORY: Dysrhythmia. Tachycardia. TECHNIQUE: Single view FINDINGS: Heart is normal. Lungs are clear of consolidation. There are no hilar masses. There is some minimal linear density left lung base. Exam limited by patient's size. IMPRESSION: There is probably some minimal subsegmental atelectasis left lung base that is new compar ed to old exam. No heart failure.
[2020-11-13 05:05] LABS: Albumin 3.9 g/dL (3.5-5.0); Calcium 9.4 mg/dL (8.4-10.2); Magnesium 2.1 mg/dL (1.6-2.3); Potassium 4.1 mmol/L (3.5-5.1); Total Bilirubin 0.4 mg/dL (0.2-1.3); Total Protein 6.5 g/dL (6.3-8.2)
[2020-11-13 05:14] LABS: INR 0.9 (<1.2); Partial Thromboplastin Time 20.9 sec (22.0-30.0); Prothrombin Time 9.7 sec (9.0-12.0)
[2020-11-13] MEDS ORDERED: NITROGLYCERIN SL TABS 0.4 MG TAB SUBLINGUAL PRN (06:29)
[2020-11-13] MEDS ORDERED: hydrALAZINE HCL 25 MG TAB PO PRN (06:32)
[2020-11-13] MEDS ORDERED: HYDROcodone/APAP 5-325MG 1 EACH TAB PO PRN (06:32)
[2020-11-13] MEDS ORDERED: ALBUTEROL NEBULIZED 2.5 MG/3 ML INHALATION PRN (06:32)
[2020-11-13] MEDS ORDERED: KETOTIFEN 0.025% OPHTH DROPS 5 ML BTL BOTH EYES PRN (06:32)
[2020-11-13] MEDS ORDERED: predniSONE 5 MG TAB PO PRN (06:32)
[2020-11-13] MEDS ORDERED: AZELASTINE 137MCG/SPRAY EA NOSTRIL PRN (06:32)
--- NOTE | 2020-11-13 08:30 | P.CRDCN ---
History of Present Illness Consult date: 11/13/20 History of present illness: HISTORY OF PRESENT ILLNESS: This is a 65-year-old female with a past medical history significant for SVT, hypertension, hyperlipidemia, asthma, and former nicotine dependence. Patient follows in the office with Dr. Bergeron. We have been asked to see the patient in consultation for SVT. Patient examined at the bedside. Patient states she was sitting at home as morning around 1:00 when she began to feel her heart johana nding. She states she tried multiple things at home to get her rate to come down such as vagal maneuvers and taking an extra dose of Cardizem but her palpitations persisted so she called EMS. The patient was found to be in SVT with a heart rate in the 180s. Patient was given adenosine with improvement in her heart rate. Patient states this is her third episode this month where she has felt her heart racing but the other 2 episodes resolved on their own. She also reports having an episode in August and one in September. She currently denies chest pain or pressure. She denies shortness of breath. She denies palpitations. Patient states she used to be on 120 mg of Cardizem twice a day but was exhausted and could barely function on that dose so her dose was decreased about 6 months ago. She is currently taking 60 mg twice a day. Telemetry reviewed from EMS revealing SVT. EKG completed on arrival to the hospital revealed sinus mechanism. Chest xray probably some minimal subsegmental atelectasis left lung base that is new compared to exam. No heart failure. Laboratory data: WBC 10.0. Hemoglobin 14.7. Platelet count 221. Sodium 136. Potassium 4.1. BUN 17. Creatinine 1.07. Magnesium 2.1. Troponin negative 1. Current home cardiac medications include hydralazine 25 mg twice a day as needed, Cardizem 60 mg twice a day, Zetia 10 mg daily Most recent echocardiogram obtained in May 2020 revealed ejection fraction 60- 65%. Trace mitral regurgitation. Patient underwent Lexiscan stress test in May 2020 which was negative for ischemia Patient had an event monitor placed in May 2020 at the office which revealed one episode of nonsustained ventricular tachycardia of 7 beats REVIEW OF SYSTEMS: At the time of my exam: CONSTITUTIONAL: Denies fever or chills. HEENT: Denies blurred vision, vision changes, or eye pain. Denies hemoptysis CARDIOVASCULAR: Denies chest pain. Denies orthopnea. Denies PND. Denies palpitations RESPIRATORY: Denies shortness of breath. GASTROINTESTINAL: Denies abdominal pain. Denies nausea or vomiting. HEMATOLOGIC: Denies bleeding disorders. GENITOURINARY: Denies any blood in urine. SKIN: Denies pruitis. Denies rash. PHYSICAL EXAM: VITAL SIGNS: Reviewed. GENERAL: Well-developed in no acute distress. HEENT: Head is normocephalic. Pupils are equal, round. Sclerae anicteric. Mucous membranes of the mouth are moist. Neck supple. No JVD or thyromegaly LUNGS: Respirations even and unlabored. Lungs essentially clear to auscultation bilaterally. HEART: Regular rate and rhythm. S1 and S2 heard. ABDOMEN: Soft. Nondistended. Nontender. EXTREMITIES: Normal range of motion. No clubbing or cyanosis. Peripheral pulses intact. No lower extremity edema NEUROLOGIC: Awake and alert. Oriented x 3. ASSESSMENT: Paroxysmal SVT, converted to sinus mechanism with adenosine Abnormal troponin, may be secondary to above, no evidence of ACS Hypertension Hyperlipidemia Asthma Former nicotine dependence Morbid obesity: BMI 43.3 PLAN: No need to repeat echocardiogram as this was performed in May 2020 Continue telemetry monitoring Continue home cardiac medications Increase Cardizem to 90 mg twice a day Patient may require outpatient EP evaluation for possible ablation Anticipate discharge home tomorrow Further recommendations pending patient course Nurse practitioner note has been reviewed by physician. Signing provider agrees with the documented findings, assessment, and plan of care. Past Medical History Past Medical History: Asthma, COPD, GERD/Reflux, Hyperlipidemia, Musculoskeletal Disorder, Osteoarthritis (OA), Pneumonia Additional Past Medical History / Comment(s): Rapid heart beat at times, past COPD, hiatal hernia, bronchitis, arthritis in multiple joints, chronic low back pain, occasional vertigo, currently being treated for tonsillitis with antibiotic. History of Any Multi-Drug Resistant Organisms: Acinetobacter (MDRO) Date of last positivie culture/infection: 2015 MDRO Source:: unknown Past Surgical History: Hernia Repair, Orthopedic Surgery Additional Past Surgical History / Comment(s): R hand benign tumor removed, bilateral feet bunionectomies, total R knee arthroplaty, pain clinic procedures, abdominal hernia repair, colonoscopy. Past Anesthesia/Blood Transfusion Reactions: Previous Problems w/ Anesthesia Additional Past Anesthesia/Blood Transfusion Reaction / Comment(s): SLOW TO COME OUT OF ANESTHESIA, "does not take much" States has difficulty lying flat on her back Past Psychological History: No Psychological Hx Reported Smoking Status: Former smoker - Past Family History Mother Family Medical History: Deep Vein Thrombosis (DVT) Father Family Medical History: Cancer Additional Family Medical History / Comment(s): Father of pancreatic cancer. Medications and Allergies Home Medications Medication Instructions Recorded Confirmed Type Albuterol Sulfate [Ventolin HFA] 2 puff INHALATION RT-Q4H PRN 05/20/14 11/13/20 History Budesonide [Pulmicort Flexhaler] 1 puff INHALATION RT-DAILY 05/20/14 11/13/20 History Umeclidinium Brm/Vilanterol Tr 1 puff INHALATION RT-DAILY 11/11/14 11/13/20 History [Anoro Ellipta 62.5-25 Mcg INH] Albuterol Nebulized [Ventolin 2.5 mg INHALATION RT-QID PRN 06/20/16 11/13/20 History Nebulized] Ketotifen 0.025% Ophth Soln 1 drop BOTH EYES BID PRN 09/03/17 11/13/20 History [Zaditor] Zafirlukast 10 mg PO BID 11/11/17 11/13/20 History Ezetimibe [Zetia] 10 mg PO HS 05/16/18 11/13/20 History Magnesium Oxide 400 mg PO HS PRN 09/17/19 11/13/20 History HYDROcodone/APAP 5-325MG [[place] 0.3 tab PO Q4H PRN 05/20/20 11/13/20 History 5-325] Triamcinolone 0.1% Cream [Kenalog 1 applic TOPICAL DAILY PRN 05/20/20 11/13/20 History 0.1% Cream] Ubidecarenone [Co Q-10] 200 mg PO DAILY 05/20/20 11/13/20 History dilTIAZem HCL [Diltiazem HCl] 60 mg PO BID 05/20/20 11/13/20 History hydrALAZINE HCL [Apresoline] 25 mg PO BID PRN 05/20/20 11/13/20 History Omeprazole 20 mg PO DAILY 11/13/20 11/13/20 History Allergies Allergy/AdvReac Type Severity Reaction Status Date / Time formoterol fumarate Allergy Severe Anaphylaxis Verified 11/13/20 07:41 [From Symbicort] amoxicillin Allergy GI Verified 11/13/20 07:41 DISTRESS AND DROWSINESS atorvastatin [From Lipitor] Allergy Leg Cramps Verified 11/13/20 07:41 budesonide [From Symbicort] Allergy Anaphylaxis Verified 11/13/20 07:41 clarithromycin Allergy GI Verified 11/13/20 07:41 DISTRESS AND DROWSINESS doxycycline Allergy GI Verified 11/13/20 07:41 DISTRESS AND DROWSINESS omalizumab [From Xolair] Allergy Anaphylaxis Verified 11/13/20 07:41 prednisolone acetate, Allergy Anaphylaxis Verified 11/13/20 07:41 micronized [prednisolone acetate, micro] prednisone Allergy Anaphylaxis-IN Verified 11/13/20 07:41 LARGE DOSES albuterol [From Combivent] AdvReac tinnitus Verified 11/13/20 07:41 beclomethasone [From Qvar] AdvReac Headache/Rash/Visual Verified 11/13/20 07:41 Changes cholestyramine AdvReac Diarrhea Verified 11/13/20 07:41 ciclesonide [From Alvesco] AdvReac RINGING IN Verified 11/13/20 07:41 THE EARS diltiazem [From Cartia XT] AdvReac tinnitus Verified 11/13/20 07:41 etodolac AdvReac MUSCLE Verified 11/13/20 07:41 CRAMPS fluorometholone AdvReac caused Verified 11/13/20 07:41 [From FML Forte] hair to fall out fluticasone propionate AdvReac RASH, Verified 11/13/20 07:41 [From Advair Diskus] ITCHING furosemide [From Lasix] AdvReac tinnitus Verified 11/13/20 07:41 gabapentin [From Neurontin] AdvReac MUSCLE Verified 11/13/20 07:41 CRAMPS, SENSATION OF BUGS CRAWLING ON LEGS gemfibrozil AdvReac Rapid Verified 11/13/20 07:41 Heart Rate ibuprofen AdvReac tinnitus Verified 11/13/20 07:41 ipratropium [From Combivent] AdvReac tinnitus Verified 11/13/20 07:41 levofloxacin [From Levaquin] AdvReac Muscle Verified 11/13/20 07:41 Cramps/Lower Back Pain lovastatin AdvReac cramps Verified 11/13/20 07:41 metoprolol AdvReac Diarrhea Verified 11/13/20 07:41 mometasone furoate AdvReac RASH, Verified 11/13/20 07:41 [From Asmanex Twisthaler] VISUAL CHANGES pregabalin [From Lyrica] AdvReac MUSCLE Verified 11/13/20 07:41 CRAMPS, SENSATION OF BUGS CRAWLING ON LEGS rosuvastatin calcium AdvReac MUSCLE Verified 11/13/20 07:41 [From Crestor] CRAMPS salmeterol xinafoate AdvReac Rash/Hives Verified 11/13/20 07:41 [From Advair Diskus] simvastatin AdvReac SENSATION Verified 11/13/20 07:41 OF BUGS CRAWLING ON LEGS thyroid, pork AdvReac Diarrhea Verified 11/13/20 07:41 [From [place] Thyroid] tiotropium AdvReac Dry Verified 11/13/20 07:41 [From Spiriva with mouth/Ringing HandiHaler] in ears Physical Exam Vitals: Vital Signs Temp Pulse Pulse Resp BP BP Pulse Ox 11/13/20 07:09 97.6 F 88 18 133/87 97 11/13/20 06:50 84 11/13/20 06:03 84 16 110/69 97 11/13/20 05:32 94 16 97 11/13/20 04:32 98.2 F 122 H 18 128/76 98 Intake and Output 11/12/20 11/13/20 11/13/20 22:59 06:59 14:59 Other: # Voids 1 Weight 117.934 kg Results 11/13/20 04:47 11/13/20 04:47 Cardiac Enzymes 11/13/20 11/13/20 Range/Units 04:47 04:47 AST 47 H (14-36) U/L Troponin I <0.012 (0.000-0.034) ng/mL Coagulation 11/13/20 Range/Units 04:47 PT 9.7 (9.0-12.0) sec APTT 20.9 L (22.0-30.0) sec CBC 11/13/20 Range/Units 04:47 WBC 10.0 (3.8-10.6) k/uL RBC 4.79 (3.80-5.40) m/uL Hgb 14.7 (11.4-16.0) gm/dL Hct 44.6 (34.0-46.0) % Plt Count 221 (150-450) k/uL Comprehensive Metabolic Panel 11/13/20 Range/Units 04:47 Sodium 136 L (137-145) mmol/L Potassium 4.1 (3.5-5.1) mmol/L Chloride 108 H (98-107) mmol/L Carbon Dioxide 19 L (22-30) mmol/L BUN 17 (7-17) mg/dL Creatinine 1.07 H (0.52-1.04) mg/dL Glucose 153 H (74-99) mg/dL Calcium 9.4 (8.4-10.2) mg/dL AST 47 H (14-36) U/L ALT 56 H (4-34) U/L Alkaline Phosphatase 116 (38-126) U/L Total Protein 6.5 (6.3-8.2) g/dL Albumin 3.9 (3.5-5.0) g/dL Current Medications Generic Name Dose Route Start Last Admin Trade Name Freq PRN Reason Stop Dose Admin Hydrocodone Bitart/Acetaminophen 1 each 11/13/20 06:32 Hydrocodone/Apap 5-325mg 1 Each Tab PO Q4H PRN Pain Albuterol Sulfate 2.5 mg 11/13/20 06:32 Albuterol Nebulized 2.5 Mg/3 Ml INHALATION RT-QID PRN Dyspnea Azelastine HCl 1 spray 11/13/20 06:32 Azelastine 137mcg/[place] EA NOSTRIL BID PRN Allergy Symptoms Diltiazem HCl 90 mg 11/13/20 09:00 Diltiazem Oral 60 Mg Tab PO BID DAVIS Ezetimibe 10 mg 11/13/20 21:00 Ezetimibe 10 Mg Tab PO HS [facility] Hydralazine HCl 25 mg 11/13/20 06:32 Hydralazine Hcl 25 Mg Tab PO BID PRN bp over 160/90 Ketotifen Fumarate 1 drops 11/13/20 06:32 Ketotifen 0.025% Ophth Drops 5 Ml Btl BOTH EYES BID PRN DRY/ITCHY EYES Magnesium Oxide 400 mg 11/13/20 21:00 Magnesium Oxide 400 Mg Tab PO HS [facility] Meclizine HCl 6.25 mg 11/13/20 09:00 Meclizine 12.5 Mg Tab PO DAILY DAVIS Montelukast Sodium 5 mg 11/13/20 21:00 11/13/20 07:54 Montelukast 5 Mg Chewable PO Not Given HS [facility] Nitroglycerin 0.4 mg 11/13/20 06:29 Nitroglycerin Sl Tabs 0.4 Mg Tab SUBLINGUAL Q5M PRN Chest Pain Non-Formulary Medication 1 puff 11/13/20 08:00 Umeclidinium Brm/Vilanterol Tr [Anoro Ellipta 62.5-25 Mcg Inh] INHALATION RT-DAILY [facility] Non-Formulary Medication 1 puff 11/13/20 08:00 Budesonide [Pulmicort Flexhaler] INHALATION RT-DAILY [facility] Pantoprazole Sodium 40 mg 11/13/20 07:30 Pantoprazole 40 Mg Tablet PO AC-BRKFST [facility] Prednisone 5 mg 11/13/20 06:32 Prednisone 5 Mg Tab PO DAILY PRN asthma Intake and Output 11/12/20 11/13/20 11/13/20 22:59 06:59 14:59 Other: # Voids 1 Weight 117.934 kg 11/13/20 04:47 11/13/20 04:47
[2020-11-13] MEDS ORDERED: NON FORMULARY DRUG (Ubidecarenone [Co Q-10] 100 MG Capsule) PO SCH (09:00)
[2020-11-13] MEDS ORDERED: DILTIAZEM ORAL 60 MG TAB PO SCH (09:00)
[2020-11-13] MEDS: PANTOPRAZOLE 40 MG TABLET PO SCH (09:49)
[2020-11-13] MEDS: DILTIAZEM ORAL 30 MG TAB PO SCH ×2 (09:49→21:29)
--- NOTE | 2020-11-13 10:26 | P.HPIM ---
History of Present Illness H&P Date: 11/13/20 This is a 64-year-old pleasant female patient of Dr. Garnica, and Dr. Israel, underlying history of asthma on allergen immunotherapy from dr Foley ,COPD, osteoarthritis, SVT, CKD stage II, anxiety disorder, focal cord dysfunction, and multiple drug ALLERGIES and sensitivities. She also had a hospitalization in May of this year with complaints of chest pain and palpitations, acute coronary syndrome was ruled out and Lexiscan stress test was negative for any ischemia and patient was cleared to follow up with cardiology as outpatient. Patient now presented to the emergency room after calling EMS due to sustained rapid heart rate. She reports having a few episodes which only had lasted a min rama and resolved on their own previously. She did try multiple things at home to get her heart rate down such as vagal maneuvers and took an extra dose of Cardizem before calling EMS. The patient was found to be in SVT with a heart rate in the 180s. EMS did give her a dose of adenosine with improvement at the time when she arrived to ER she was in sinus tach in the 120s. She currently denies any chest pain or pressure, shortness of breath, palpitations. Chest x- ray showed minimal atelectasis, white blood cells were 10, hemoglobin 14.7 sodium 136, potassium 4.1, B UN 17, creatinine 1.07, first troponin was negative. Vital signs are stable, patient is afebrile, pulse rate 88, blood pressure 133/87, pulse ox 97% on room air. Second troponin did come back marginally positive at 0.039. Cardiology is on the case and will follow with their recommendations. ROS At the time of my exam: CONSTITUTIONAL: Denies fever or chills. Denies malaise, weakness, weight gain or weight loss. CARDIOVASCULAR: Denies chest pain, orthopnea, PND, palpitations, or edema. RESPIRATORY: Denies cough, shortness of breath, or wheezing GASTROINTESTINAL: Denies abdominal pain, diarrhea, constipation, nausea or vomiting. MUSCULOSKELETAL: Denies myalgias. NEUROLOGIC: Denies numbness, tingling or weakness. ENDOCRINE: Denies fatigue, weight change, polydipsia or polyurina. GENITOURINARY: Denies burning, hematuria or urgency with micturation. HEMATOLOGIC: Denies history of anemia or bleeding. PHYSICAL ASSESSMENT General: Patient awake alert and oriented x 3. No acute distress. HEENT: Sclerae are clear. Pupils equal, round and reactive to light bilaterally. No cervical adenopathy. No pharyngeal erythema or exudate. No thyromegaly. Lymphatic: No anterior cervical adenopathy. Chest: Heart regular in rate and rhythm positive S1 and S2. No S3. No S4. No clicks, rubs or murmurs. Lungs: Clear to auscultation bilaterally. No wheezes rales or rhonchi. Respirations even and nonlabored. Abdomen/GI: Bowel sounds present in all 4 quadrants. Bowel sounds normoactive. No abdominal tenderness. No mass. No hepatomegaly or splenomegaly. No bruits. Musculoskeletal/ Extremities: No tenderness on muscular exam. No ecchymosis. Vascular: Radial pulses equal. 2/4. Skin: No rash. Neurologic: Awake, alert and oriented times 3. No lateralizing deficits noted on gross inspection Past Medical History Past Medical History: Asthma, COPD, GERD/Reflux, Hyperlipidemia, Musculoskeletal Disorder, Osteoarthritis (OA), Pneumonia, Supraventricular Tachycardia (SVT) Additional Past Medical History / Comment(s): Rapid heart beat at times, past COPD, hiatal hernia, bronchitis, arthritis in multiple joints, chronic low back pain, occasional vertigo, History of Any Multi-Drug Resistant Organisms: Acinetobacter (MDRO) Date of last positivie culture/infection: 2015 MDRO Source:: unknown Past Surgical History: Hernia Repair, Orthopedic Surgery Additional Past Surgical History / Comment(s): R hand benign tumor removed, bilateral feet bunionectomies, total R knee arthroplaty, pain clinic procedures, abdominal hernia repair, colonoscopy. Past Anesthesia/Blood Transfusion Reactions: Previous Problems w/ Anesthesia Additional Past Anesthesia/Blood Transfusion Reaction / Comment(s): SLOW TO COME OUT OF ANESTHESIA, "does not take much" States has difficulty lying flat on her back Past Psychological History: No Psychological Hx Reported Smoking Status: Former smoker - Past Family History Mother Family Medical History: Deep Vein Thrombosis (DVT) Father Family Medical History: Cancer Additional Family Medical History / Comment(s): Father of pancreatic cancer. Medications and Allergies Home Medications Medication Instructions Recorded Confirmed Type Albuterol Sulfate [Ventolin HFA] 2 puff INHALATION RT-Q4H PRN 05/20/11/13/20 History Budesonide [Pulmicort Flexhaler] 1 puff INHALATION RT-DAILY 05/20/14 11/13/20 History Umeclidinium Brm/Vilanterol Tr 1 puff INHALATION RT-DAILY 11/11/14 11/13/20 History [Anoro Ellipta 62.5-25 Mcg INH] Albuterol Nebulized [Ventolin 2.5 mg INHALATION RT-QID PRN 06/20/16 11/13/20 History Nebulized] Ketotifen 0.025% Ophth Soln 1 drop BOTH EYES BID PRN 09/03/17 11/13/20 History [Zaditor] Zafirlukast 10 mg PO BID 11/11/17 11/13/20 History Ezetimibe [Zetia] 10 mg PO HS 05/16/18 11/13/20 History Magnesium Oxide 400 mg PO HS PRN 09/17/19 11/13/20 History HYDROcodone/APAP 5-325MG [[place] 0.3 tab PO Q4H PRN 05/20/20 11/13/20 History 5-325] Triamcinolone 0.1% Cream [Kenalog 1 applic TOPICAL DAILY PRN 05/20/20 11/13/20 History 0.1% Cream] Ubidecarenone [Co Q-10] 200 mg PO DAILY 05/20/20 11/13/20 History dilTIAZem HCL [Diltiazem HCl] 60 mg PO BID 05/20/20 11/13/20 History hydrALAZINE HCL [Apresoline] 25 mg PO BID PRN 05/20/20 11/13/20 History Omeprazole 20 mg PO DAILY 11/13/20 11/13/20 History Allergies Allergy/AdvReac Type Severity Reaction Status Date / Time formoterol fumarate Allergy Severe Anaphylaxis Verified 11/13/20 07:41 [From Symbicort] amoxicillin Allergy GI Verified 11/13/20 07:41 DISTRESS AND DROWSINESS atorvastatin [From Lipitor] Allergy Leg Cramps Verified 11/13/20 07:41 budesonide [From Symbicort] Allergy Anaphylaxis Verified 11/13/20 07:41 clarithromycin Allergy GI Verified 11/13/20 07:41 DISTRESS AND DROWSINESS doxycycline Allergy GI Verified 11/13/20 07:41 DISTRESS AND DROWSINESS omalizumab [From Xolair] Allergy Anaphylaxis Verified 11/13/20 07:41 prednisolone acetate, Allergy Anaphylaxis Verified 11/13/20 07:41 micronized [prednisolone acetate, micro] prednisone Allergy Anaphylaxis-IN Verified 11/13/20 07:41 LARGE DOSES albuterol [From Combivent] AdvReac tinnitus Verified 11/13/20 07:41 beclomethasone [From Qvar] AdvReac Headache/Rash/Visual Verified 11/13/20 07:41 Changes cholestyramine AdvReac Diarrhea Verified 11/13/20 07:41 ciclesonide [From [place]ves[place]] AdvReac RINGING IN Verified 11/13/20 07:41 THE EARS diltiazem [From Cartia XT] AdvReac tinnitus Verified 11/13/20 07:41 etodolac AdvReac MUSCLE Verified 11/13/20 07:41 CRAMPS fluorometholone AdvReac caused Verified 11/13/20 07:41 [From FML Forte] hair to fall out fluticasone propionate AdvReac RASH, Verified 11/13/20 07:41 [From Advair Diskus] ITCHING furosemide [From Lasix] AdvReac tinnitus Verified 11/13/20 07:41 gabapentin [From Neurontin] AdvReac MUSCLE Verified 11/13/20 07:41 CRAMPS, SENSATION OF BUGS CRAWLING ON LEGS gemfibrozil AdvReac Rapid Verified 11/13/20 07:41 Heart Rate ibuprofen AdvReac tinnitus Verified 11/13/20 07:41 ipratropium [From Combivent] AdvReac tinnitus Verified 11/13/20 07:41 levofloxacin [From Levaquin] AdvReac Muscle Verified 11/13/20 07:41 Cramps/Lower Back Pain lovastatin AdvReac cramps Verified 11/13/20 07:41 metoprolol AdvReac Diarrhea Verified 11/13/20 07:41 mometasone furoate AdvReac RASH, Verified 11/13/20 07:41 [From Asmanex Twisthaler] VISUAL CHANGES pregabalin [From Lyrica] AdvReac MUSCLE Verified 11/13/20 07:41 CRAMPS, SENSATION OF BUGS CRAWLING ON LEGS rosuvastatin calcium AdvReac MUSCLE Verified 11/13/20 07:41 [From Crestor] CRAMPS salmeterol xinafoate AdvReac Rash/Hives Verified 11/13/20 07:41 [From Advair Diskus] simvastatin AdvReac SENSATION Verified 11/13/20 07:41 OF BUGS CRAWLING ON LEGS thyroid, pork AdvReac Diarrhea Verified 11/13/20 07:41 [From [place] Thyroid] tiotropium AdvReac Dry Verified 11/13/20 07:41 [From Spiriva with mouth/Ringing HandiHaler] in ears Physical Exam Vitals: Vital Signs Temp Pulse Pulse Resp BP BP Pulse Ox 11/13/20 07:09 97.6 F 88 18 133/87 97 11/13/20 06:50 84 11/13/20 06:03 84 16 110/69 97 11/13/20 05:32 94 16 97 11/13/20 04:32 98.2 F 122 H 18 128/76 98 Intake and Output 11/12/20 11/13/20 11/13/20 22:59 06:59 14:59 Other: Weight 117.934 kg Results CBC & Chem 7: 11/13/20 04:47 11/13/20 04:47 Labs: Abnormal Lab Results - Last 24 Hours (Table) 11/13/20 11/13/20 Range/Units 04:47 04:47 APTT 20.9 L (22.0-30.0) sec Sodium 136 L (137-145) mmol/L Chloride 108 H (98-107) mmol/L Carbon Dioxide 19 L (22-30) mmol/L Creatinine 1.07 H (0.52-1.04) mg/dL Glucose 153 H (74-99) mg/dL AST 47 H (14-36) U/L ALT 56 H (4-34) U/L Thrombosis Risk Factor Assmnt - DVT/VTE Prophylaxis DVT/VTE Prophylaxis: Low risk, early ambulation encouraged Assessment and Plan Plan: #1. Paroxysmal SVT, converted to sinus tachycardia with adenosine. On Cardizem 90 mg twice a day along with cardiology consult. #2. Hypertension, on Cardizem along with hydralazine 25 mg by mouth twice a day when necessary for systolic greater than 160. #3. Hyperlipidemia, on Zetia 10 mg at bedtime #4. COPD/Asthma: Follows with Dr. Israel, on Singulair 5 mg at bedtime, on albuterol nebulizers 4 times a day and when necessary #5. GERD, on Protonix 40 mg daily #6. CK D stage III, GFR 54 we'll continue to monitor #7. Former nicotine dependence #8. Morbid obesity: BMI 43.3 #9. Marginally elevated troponin, 0.039, Lexiscan stress test in May was negative for ischemia, pending cardiology's recommendations #10. History of vertigo, on Antivert daily. #11. GI prophylaxis, on Protonix #12. DVT prophylaxis, recommend early ambulation Patient will be admitted to the hospital for minimum of 2 night stay. Discharge plan: Likely home with self-care Impression and plan of care have been directed as dictated by the signing physician. Cary Walker nurse practitioner acting as scribe for signing physician.
[2020-11-13] MEDS: MECLIZINE 12.5 MG TAB PO SCH (11:44)
[2020-11-13] MEDS: NON FORMULARY DRUG (Umeclidinium Brm/Vilanterol Tr [Anoro Ellipta 62.5-25 Mcg Inh] 1 EACH INHALATION SCH (14:12)
[2020-11-13] MEDS: BUDESONIDE 90 MCG INHALATION SCH (14:12)
[2020-11-13] MEDS ORDERED: EZETIMIBE 10 MG TAB PO SCH (21:00)
[2020-11-13] MEDS ORDERED: MONTELUKAST 5 MG CHEWABLE PO SCH (21:00)
[2020-11-13] MEDS ORDERED: MAGNESIUM OXIDE 400 MG TAB PO SCH (21:00)
[2020-11-14] MEDS: PANTOPRAZOLE 40 MG TABLET PO SCH (06:11)
[2020-11-14] MEDS ORDERED: ASPIRIN 325 MG TAB PO SCH (09:00)
[2020-11-14] MEDS: NON FORMULARY DRUG (Umeclidinium Brm/Vilanterol Tr [Anoro Ellipta 62.5-25 Mcg Inh] 1 EACH INHALATION SCH (09:15)
[2020-11-14] MEDS: BUDESONIDE 90 MCG INHALATION SCH (09:15)
[2020-11-14] MEDS: MECLIZINE 12.5 MG TAB PO SCH (09:17)
[2020-11-14] MEDS: DILTIAZEM ORAL 30 MG TAB PO SCH (09:18)
[2020-11-14 11:29] VITALS: RESP 16; TEMP 98
--- NOTE | 2020-11-14 11:40 | P.DS ---
Providers Date of admission: 11/13/20 06:29 Expected date of discharge: 11/14/20 Attending physician: Yoel Garnica Consults: 11/13/20 06:29 Consult Physician Routine Consulting Provider: Bridger Smith Consult Reason/Comments: Chest pain. SVT Do you want consulting provider notified?: Yes Primary care physician: [facility] Course: This is a 64-year-old pleasant female patient of Dr. Garnica, and Dr. Israel, underlying history of asthma on allergen immunotherapy from dr Foley ,COPD, osteoarthritis, SVT, CKD stage II, anxiety disorder, focal cord dysfunction, and multiple drug ALLERGIES and sensitivities. She also had a hospitalization in May of this year with complaints of chest pain and palpitations, acute coronary syndrome was ruled out and Lexiscan stress test was negative for any ischemia and patient was cleared to follow up with cardiology as outpatient. Patient now presented to the emergency room after calling EMS due to sustained rapid heart rate. She reports having a few episodes which only had lasted a minute and resolved on their own previously. She did try multiple things at home to get her heart rate down such as vagal maneuvers and took an extra dose of Cardizem before calling EMS. The patient was found to be in SVT with a heart rate in the 180s. EMS did give her a dose of adenosine with improvement at the time when she arrived to ER she was in sinus tach in the 120s. She currently denies any chest pain or pressure, shortness of breath, palpitations. Chest x- ray showed minimal atelectasis, white blood cells were 10, hemoglobin 14.7 sodium 136, potassium 4.1, B UN 17, creatinine 1.07, first troponin was negative. Vital signs are stable, patient is afebrile, pulse rate 88, blood pressure 133/87, pulse ox 97% on room air. Second troponin did come back marginally positive at 0.039. Cardiology is on the case and will follow with their recommendations. 11/14: Patient has been seen and followed by cardiology and Cardizem was increased to 90 mg twice daily. Patient states that she has 60 mg tabs at home that she would like to finish and will take 1-1/2 twice daily until these have been completed. Patient has converted to sinus rhythm and she has been cleared for discharge from cardiology. She is to follow up with Dr. Bergeron in the outpatient setting. DISCHARGE DIAGNOSES #1. Paroxysmal SVT, converted to sinus tachycardia with adenosine. #2. Hypertension #3. Hyperlipidemia #4. Asthma, moderate persistent #5. GERD #6. CKD stage III #7. Former nicotine dependence #8. Morbid obesity: BMI 43.3 #9. Marginally elevated troponin without acute coronary syndrome #10. History of vertigo DISCHARGE PLAN hOME Impression and plan of care have been directed as dictated by the signing physician. Chinyere Smith nurse practitioner acting as scribe for signing physician. Patient Condition at Discharge: Good Plan - Discharge Summary Discharge Rx Participant: Yes New Discharge Prescriptions: New predniSONE 5 mg PO DAILY PRN tab PRN Reason: asthma Diltiazem Oral [Cardizem*] 90 mg PO BID tab Continue Albuterol Sulfate [Ventolin HFA] 2 puff INHALATION RT-Q4H PRN PRN Reason: Shortness Of Breath Budesonide [Pulmicort Flexhaler] 1 puff INHALATION RT-DAILY Umeclidinium Brm/Vilanterol Tr [Anoro Ellipta 62.5-25 Mcg INH] 1 puff INHALATION RT-DAILY Albuterol Nebulized [Ventolin Nebulized] 2.5 mg INHALATION RT-QID PRN PRN Reason: Dyspnea Ketotifen 0.025% Ophth Soln [Zaditor] 1 drop BOTH EYES BID PRN PRN Reason: DRY/ITCHY EYES Zafirlukast 10 mg PO BID Ezetimibe [Zetia] 10 mg PO HS Magnesium Oxide 400 mg PO HS PRN PRN Reason: CRAMPS hydrALAZINE HCL [Apresoline] 25 mg PO BID PRN PRN Reason: bp over 160/90 HYDROcodone/APAP 5-325MG [Conetoe 5-325] 0.3 tab PO Q4H PRN PRN Reason: Pain Triamcinolone 0.1% Cream [Kenalog 0.1% Cream] 1 applic TOPICAL DAILY PRN PRN Reason: Rash Ubidecarenone [Co Q-10] 200 mg PO DAILY Omeprazole 20 mg PO DAILY Discontinued dilTIAZem HCL [Diltiazem HCl] 60 mg PO BID Discharge Medication List Albuterol Sulfate [Ventolin HFA] 2 puff INHALATION RT-Q4H PRN 05/20/14 [History] Budesonide [Pulmicort Flexhaler] 1 puff INHALATION RT-DAILY 05/20/14 [History] Umeclidinium Brm/Vilanterol Tr [Anoro Ellipta 62.5-25 Mcg INH] 1 puff INHALATION RT-DAILY 11/11/14 [History] Albuterol Nebulized [Ventolin Nebulized] 2.5 mg INHALATION RT-QID PRN 06/20/16 [History] Ketotifen 0.025% Ophth Soln [Zaditor] 1 drop BOTH EYES BID PRN 09/03/17 [History] Zafirlukast 10 mg PO BID 11/11/17 [History] Ezetimibe [Zetia] 10 mg PO HS 05/16/18 [History] Magnesium Oxide 400 mg PO HS PRN 09/17/19 [History] HYDROcodone/APAP 5-325MG [Conetoe 5-325] 0.3 tab PO Q4H PRN 05/20/20 [History] Triamcinolone 0.1% Cream [Kenalog 0.1% Cream] 1 applic TOPICAL DAILY PRN 05/20/20 [History] Ubidecarenone [Co Q-10] 200 mg PO DAILY 05/20/20 [History] hydrALAZINE HCL [Apresoline] 25 mg PO BID PRN 05/20/20 [History] Omeprazole 20 mg PO DAILY 11/13/20 [History] Diltiazem Oral [Cardizem*] 90 mg PO BID tab 11/14/20 [Rx] predniSONE 5 mg PO DAILY PRN tab 11/14/20 [Rx] Follow up Appointment(s)/Referral(s): Yoel Garnica MD [Primary Care Provider] - 1-2 days
--- NOTE | 2020-11-14 11:44 | P.PN ---
Subjective Progress Note Date: 11/14/20 HISTORY OF PRESENT ILLNESS: This is a 65-year-old female with a past medical history significant for SVT, hypertension, hyperlipidemia, asthma, and former nicotine dependence. Patient follows in the office with Dr. Bergeron. We have been asked to see the patient in consultation for SVT. Patient examined at the bedside. Patient states she was sitting at home as morning around 1:00 when she began to feel her heart pounding. She states she tried multiple things at home to get her rate to come down such as vagal maneuvers and taking an extra dose of Cardizem but her palpitations persisted so she called EMS. The patient was found to be in SVT with a heart rate in the 180s. Patient was given adenosine with improvement in her heart rate. Patient states this is her third episode this month where she has felt her heart racing but the other 2 episodes resolved on their own. She also reports having an episode in August and one in September. She currently denies chest pain or pressure. She denies shortness of breath. She denies palpitations. Patient states she used to be on 120 mg of Cardizem twice a day but was exhausted and could barely function on that dose so her dose was decreased about 6 months ago. She is currently taking 60 mg twice a day. Telemetry reviewed from EMS revealing SVT. EKG completed on arrival to the hospital revealed sinus mechanism. Chest xray probably some minimal subsegmental atelectasis left lung base that is new compared to exam. No heart failure. Laboratory data: WBC 10.0. Hemoglobin 14.7. Platelet count 221. Sodium 136. Potassium 4.1. BUN 17. Creatinine 1.07. Magnesium 2.1. Troponin negative 1. Current home cardiac medications include hydralazine 25 mg twice a day as needed, Cardizem 60 mg twice a day, Zetia 10 mg daily Most recent echocardiogram obtained in May 2020 revealed ejection fraction 60- 65%. Trace mitral regurgitation. Patient underwent Lexiscan stress test in May 2020 which was negative for ischemia Patient had an event monitor placed in May 2020 at the office which revealed one episode of nonsustained ventricular tachycardia of 7 beats 11/14/2020 Patient examined this morning at the bedside. Patient denies chest pain or pressure. She denies shortness of breath. Telemetry reveals sinus mechanism. She is hoping to be discharged home today. PHYSICAL EXAM: VITAL SIGNS: Reviewed. GENERAL: Well-developed in no acute distress. HEENT: Head is normocephalic. Pupils are equal, round. Sclerae anicteric. Mucous membranes of the mouth are moist. Neck supple. No JVD or thyromegaly LUNGS: Respirations even and unlabored. Lungs essentially clear to auscultation bilaterally. HEART: Regular rate and rhythm. S1 and S2 heard. ABDOMEN: Soft. Nondistended. Nontender. EXTREMITIES: Normal range of motion. No clubbing or cyanosis. Peripheral pulses intact. No lower extremity edema NEUROLOGIC: Awake and alert. Oriented x 3. ASSESSMENT: Paroxysmal SVT, converted to sinus mechanism with adenosine Abnormal troponin, may be secondary to above, no evidence of ACS Hypertension Hyperlipidemia Asthma Former nicotine dependence Morbid obesity: BMI 43.3 PLAN: Continue current cardiac medications Patient is stable for discharge home today from a cardiac standpoint Patient to follow-up with Dr. Bergeron Nurse practitioner note has been reviewed by physician. Signing provider agrees with the documented findings, assessment, and plan of care. Objective - Vital Signs Vital signs: Vital Signs Temp 97.6 F 11/14/20 04:25 Pulse 81 11/14/20 04:25 Resp 17 11/14/20 04:25 BP 114/80 11/14/20 04:25 Pulse Ox 96 11/14/20 07:59 Intake & Output 11/13/20 11/14/20 11/14/20 18:59 06:59 18:59 Intake Total 236 240 Output Total 250 Balance -14 240 Weight 117.934 kg 122.8 kg Intake: Oral 236 240 Output: Urine 250 Other: Voiding Method Toilet # Voids 1 1 - Labs CBC & Chem 7: 11/13/20 04:47 11/13/20 04:47 Labs: Abnormal Lab Results - Last 24 Hours (Table) 11/13/20 Range/Units 10:11 Troponin I 0.041 H* (0.000-0.034) ng/mL
[2020-11-14 14:04] VITALS: BP 122/83; PULSE 103
[2020-11-14 16:27] LABS: Chol/HDL Ratio 3.98; LDL Cholesterol,Calculated 122.2 mg/dL (0.0-131.0); VLDL Calculation 41.8 mg/dL (5.00-40.00)
== END 2020-11-14 14:41 | disposition home or self-care (01) | DRG 309 ==
LOC: EC 04:24 → 3SCARD 06:29
PROVIDERS: ADMIT Internal Medicine Geriatric Medicine; ATTEND Internal Medicine Geriatric Medicine
DX: I47.1 Supraventricular tachycardia (principal); Z68.41 Body mass index [BMI] 40.0-44.9, adult; J44.9 Chronic obstructive pulmonary disease, unspecified; E66.01 Morbid (severe) obesity due to excess calories; N18.30 Chronic kidney disease, stage 3 unspecified; I12.9 Hypertensive chronic kidney disease with stage 1 through stage 4 chronic kidney disease, or unspecified chronic kidney disease; J45.40 Moderate persistent asthma, uncomplicated; K21.9 Gastro-esophageal reflux disease without esophagitis; E78.5 Hyperlipidemia, unspecified; K44.9 Diaphragmatic hernia without obstruction or gangrene; G89.29 Other chronic pain; M54.5 Low back pain; M15.9 Polyosteoarthritis, unspecified; R77.8 Other specified abnormalities of plasma proteins; R42 Dizziness and giddiness; F41.9 Anxiety disorder, unspecified; Z79.51 Long term (current) use of inhaled steroids; Z79.899 Other long term (current) drug therapy; Z87.01 Personal history of pneumonia (recurrent); Z86.19 Personal history of other infectious and parasitic diseases; Z87.19 Personal history of other diseases of the digestive system; Z86.018 Personal history of other benign neoplasm; Z87.39 Personal history of other diseases of the musculoskeletal system and connective tissue; Z87.891 Personal history of nicotine dependence; Z98.890 Other specified postprocedural states; Z88.0 Allergy status to penicillin; Z88.8 Allergy status to other drugs, medicaments and biological substances; Z83.2 Family history of diseases of the blood and blood-forming organs and certain disorders involving the immune mechanism; Z80.0 Family history of malignant neoplasm of digestive organs
CPT/HCPCS: 36415; 71045; 80053; 80061; 83735; 84443; 84484; 85025; 85610; 85730; 93005; 94760; 99285

== ENCOUNTER → 2020-12-09 | Outpatient (CLI) | payer MEDICARE, OTHER ==
--- NOTE | 2020-12-09 10:43 | US ---
EXAMINATION TYPE: US carotid duplex BILAT DATE OF EXAM: 12/09/2020 COMPARISON: NONE CLINICAL HISTORY: H93.A1 Pulsatile tinnitus, right ear. Swishing, tinnitus per order. Hx hypertension , hyperlipidemia, previous smoker. EXAM MEASUREMENTS: RIGHT: Peak Systolic Velocity (PSV) cm/sec ----- Right CCA: 73.3 ----- Right ICA: 87.5 ----- Right ECA: 61.3 ICA/CCA ratio: 1.2 RIGHT: End Diastole cm/sec ----- Right CCA: 16.3 ----- Right ICA: 15.0 ----- Right ECA: 0.0 LEFT: Peak Systolic Velocity (PSV) cm/sec ----- Left CCA: 85.2 ----- Left ICA: 80.6 ----- Left ECA: 78.0 ICA/CCA ratio: 0.9 LEFT: End Diastole cm/sec ----- Left CCA: 28.5 ----- Left ICA: 30.2 ----- Left ECA: 19.8 VERTEBRALS (direction of flow): Right Vertebral: Antegrade Left Vertebral: Antegrade Rhythm: Normal Intimal thickening seen bilaterally. No elevated velocities at this time. ICA appears to be tortuous bilaterally. Difficult to follow right distal ICA. Incidental finding: heterogeneous, complex area seen within left thyroid lobe: 2.4 x 1.6 x 1.8 cm. -Hypoechoic area with hyperechoic center seen within the left neck: 2.1 x 0.7 x 1.2 cm. IMPRESSION: No hemodynamically significant stenosis seen. Criteria for Assigning % of Stenosis / Diameter reduction (Estimation based on the indirect measurements of the internal carotid artery velocities (ICA PSV). 1. Normal (no stenosis)=ICA PSV < 125 cm/s: ratio < 2.0: ICA EDV<40 cm/s. 2. Less than 50% stenosis=ICA PSV < 125 cm/s: ratio < 2.0: ICA EDV<40 cm/s. 3. 50 to 69% stenosis=ICA PSV of 125 to 230 cm/s: ration 2.0 ? 4.0: ICA EDV 40-100 cm/s. 4. Greater than 70% stenosis to near occlusion= ICA PSV > 230 cm/s: ratio > 4.0: ICA EDV > 100 cm/s. 5. Near occlusion= ICA PSV velocities may be low or undetectable: variable ratio and ICA EDV. 6. Total occlusion=unable to detect flow.
== END | disposition home or self-care (01) ==
LOC: RADUSWWP 09:39
PROVIDERS: ATTEND Otolaryngology
DX: H93.A1 Pulsatile tinnitus, right ear (principal); E78.5 Hyperlipidemia, unspecified; I10 Essential (primary) hypertension; Z87.891 Personal history of nicotine dependence
CPT/HCPCS: 93880

== ENCOUNTER → 2020-12-09 | Outpatient (CLI) | payer MEDICARE, OTHER ==
--- NOTE | 2020-12-09 10:05 | CT ---
EXAMINATION TYPE: CT sinus wo con DATE OF EXAM: 12/09/2020 COMPARISON: NONE HISTORY: Chronic sinusitis. Facial pressure and right ear pain. CT DLP: 583.70 mGycm. Automated Exposure Control for Dose Reduction was Utilized. TECHNIQUE: CT scan of the sinuses is performed without contrast, axial images are obtained, coronal r eformatted images are also reviewed. FINDINGS: Mild to moderate mucosal thickening involving ethmoid sinuses bilaterally with additional p osterior inferior right ethmoid sinus opacification. Mild to moderate mucosal thickening involving t he right sphenoid sinus. Remainder paranasal sinuses are clear. The ostiomeatal complex is patent dora aterally on the coronal images. Nasal septum is deviated to left of midline. Visualized portion of mastoid air cells show no abnormal opacification. The globes are intact bilate rally. Visualized brain shows mild to moderate generalized cerebral atrophy and suspected mild chron ic small vessel ischemic change. IMPRESSION: Chronic right sphenoid and bilateral ethmoid sinus disease. Additional posterior inferior right ethmoid acute sinusitis.
== END | disposition home or self-care (01) ==
LOC: RADCTMAIN 09:19
PROVIDERS: ATTEND Otolaryngology
DX: J01.20 Acute ethmoidal sinusitis, unspecified (principal); J32.2 Chronic ethmoidal sinusitis; J32.3 Chronic sphenoidal sinusitis
CPT/HCPCS: 70486

== ENCOUNTER → 2021-01-26 | Outpatient (CLI) | payer MEDICARE, OTHER | END | disposition home or self-care (01) | LOC: LABPAT 10:19 | PROVIDERS: ATTEND Internal Medicine Clinical Cardiac Electrophysiology | DX: Z53.9 Procedure and treatment not carried out, unspecified reason (principal) ==

== ENCOUNTER → 2021-01-26 | Outpatient (CLI) | payer MEDICARE, OTHER ==
[2021-01-26 15:37] LABS: HGB 14.4 g/dL (12.0-15.0); MCH 29.3 pg (27.0-32.0); MCHC 31.3 g/dL (32.0-37.0); MCV 93.7 fL (80.0-97.0); Mean Platelet Volume 10.9 fL (9.5-12.2); Platelet Count 265 X 10*3/uL (140-440); RBC 4.91 X 10*6/uL (4.10-5.20); WBC 9.24 X 10*3/uL (4.50-10.00)
[2021-01-26 16:43] LABS: African American GFR (CKD) 61.5 (60.0-200.0); Blood Urea Nitrogen 15.5 mg/dL (9.0-27.0); C Reactive Protein 1.6 mg/dL (0.00-0.80); Carbon Dioxide 21.7 mmol/L (21.6-31.8); Non-African American GFR(CKD) 53.1 (60.0-200.0); Potassium 4.3 mmol/L (3.5-5.5)
== END | disposition home or self-care (01) ==
LOC: LABWHC1 10:17
PROVIDERS: ATTEND Orthopaedic Surgery
DX: T84.098A Other mechanical complication of other internal joint prosthesis, initial encounter (principal); Y79.2 Prosthetic and other implants, materials and accessory orthopedic devices associated with adverse incidents
CPT/HCPCS: 36415; 80051; 82565; 84520; 85027; 86140

== ENCOUNTER → 2021-02-03 | Outpatient (CLI) | payer MEDICARE, OTHER ==
--- NOTE | 2021-02-06 11:15 | MM ---
Reason for exam: screening (asymptomatic). Last mammogram was performed 1 year ago. History: Patient is postmenopausal and is nulliparous. Took hormonal contraceptives for 2 years. Physical Findings: A clinical breast exam by your physician is recommended on an annual basis and results should be correlated with mammographic findings. MG 3D Screening Mammo W/Cad Bilateral CC and MLO view(s) were taken. Prior study comparison: February 03, 2020, bilateral MG 3d screening mammo w/cad. November 28, 2018, bilateral MG 3d screening mammo w/cad. There are scattered fibroglandular densities. Focal asymmetry left 12 o'clock is unchanged. No significant changes when compared with prior studies. ASSESSMENT: Benign, BI-RAD 2 RECOMMENDATION: Routine screening mammogram of both breasts in 1 year.
== END | disposition home or self-care (01) ==
LOC: RADMAMWWP 09:11
PROVIDERS: ATTEND Internal Medicine Geriatric Medicine
DX: Z12.31 Encounter for screening mammogram for malignant neoplasm of breast (principal); Z78.0 Asymptomatic menopausal state
CPT/HCPCS: 77063; 77067

== ENCOUNTER → 2021-03-01 | Outpatient (CLI) | payer MEDICARE, OTHER ==
--- NOTE | 2021-03-01 10:46 | US ---
EXAMINATION TYPE: US thyroid st tissue head/neck DATE OF EXAM: 03/01/2021 COMPARISON: NONE CLINICAL HISTORY: E04.1 Nodule. GLAND SIZE: Right Lobe: 4.0x1.5x1.3 cm Overall Parenchyma: heterogenous Left Lobe: 3.9x2.2x2.2 cm Overall Parenchyma: heterogeneous Isthmus Thickness: 0.5 cm NODULES RIGHT: # of nodules measured on right: 3 1. 0.5 X 0.7 x 0.4 cm, lower medial, solid or almost completely solid, hypoechoic nodule, which is wider than tall, with smooth margins, without echogenic foci. 2. 0.9 X 1.0 x 0.5 cm, upper mid, solid or almost completely solid, isoechoic nodule, which is wide r than tall, with smooth margins, without echogenic foci. 3. 0.6 X 0.5 x 0.5 cm, mid mid, solid or almost completely solid, isoechoic nodule, which is wider than tall, with smooth margins, without echogenic foci. LEFT: # of nodules measured on left: 2 1. 0.9 X 0.9 x 1.0 cm, upper medial, solid or almost completely solid, hyperechoic nodule, which is taller than wide, with smooth margins, without echogenic foci. 2. 2.2 X 1.6 x 1.9 cm, lower mid, solid or almost completely solid, isoechoic nodule, which is hernan ler than wide, with ill-defined margins, without echogenic foci. Multinodular goiter ISTHMUS: # of nodules measured in the isthmus: 0 Bilateral neck scanned, no evidence of lymphadenopathy. IMPRESSION: Multinodular thyroid with dominant 2.2 cm left thyroid nodule. FNA recommended. 2017 ACR TI-RADS LEVEL: TR-RADS 4 - Moderately Suspicious: Follow if > 1 cm, FNA if > 1.5 cm *Highest TI-RADS level nodule reported
--- NOTE | 2021-03-01 11:52 | BD ---
EXAMINATION TYPE: Axial Bone Density DATE OF EXAM: 03/01/2021 COMPARISON: NONE CLINICAL HISTORY: Height: 65 Weight: 267.5 FRAX RISK QUESTIONS: Alcohol (3 or more units per day): no Family History (Parent hip fracture): no Glucocorticoids (More than 3mos): yes (Ex: prednisone, prednisolone, methylprednisolone, dexamethasone, and hydrocortisone). History of Fracture in Adulthood: no Secondary Osteoporosis: 1. Type 1 Diabetes: no 2. Hyperthyroidism: no 3. Menopause before 45: no 4. Malnutrition: no 5. Chronic liver disease: no Rheumatoid Arthritis: no Current Tobacco Use: no RISK FACTORS HISTORY OF: Surgery to Spine/Hip(right/left)/Wrist (right/left): no Family History of Osteoporosis: no Active: no Diet low in dairy products/other sources of calcium: no Postmenopausal woman: no Lost more than 2 inches in height since high school: no MEDICATIONS: Prednisone or other steroids: yes How Long: long time Additional History: EXAM MEASUREMENTS: Bone mineral densitometry was performed using the [employer] System. Bone mineral density as measured about the Lumbar spine is: ----- L1-L4(G/cm2): 1.390 T Score Values are as follows: ----- L2: 1.9 ----- L3: 1.6 ----- L4: 1.9 ----- L1-L4: 1.7 Bone mineral density has: decreased -1.1 % since study of: 01.01.2017 Bone mineral density about the R hip (g/cm2): 0.992 Bone mineral density about the L hip (g/cm2): 1.016 T Score values are as follows: -----R Neck: -0.3 -----L Neck: -0.2 -----R Total: 1.0 -----L Total: 0.5 Bone mineral density has: increased 3.5 % since study of: 01.01.2017 IMPRESSION: Osteopenia (T Score between -2.5 and -1). There is slightly increased risk of fracture and the patient may be considered for treatment. Re-Screen 2-5 years. NOTE: T-SCORE=SD OF THE YOUNG ADULT MEAN.
== END | disposition home or self-care (01) ==
LOC: LABWHC1 09:25
PROVIDERS: ATTEND Internal Medicine Geriatric Medicine
DX: E04.2 Nontoxic multinodular goiter (principal); M85.80 Other specified disorders of bone density and structure, unspecified site
CPT/HCPCS: 36415; 76536; 77080; 85652; 86140

== ENCOUNTER 2021-03-07 11:50 | Day surgery (SDC) | payer MEDICARE, OTHER ==
[2021-03-07 12:55] VITALS: TEMP 98.2
--- NOTE | 2021-03-07 13:35 | US ---
ULTRASOUND GUIDED FNA THYROID BIOPSY: CLINICAL HISTORY: Left thyroid nodule FINDINGS: The procedure was explained to the patient. The risks, complications, benefits and alternatives were discussed and any questions were answered. Informed consent was obtained. Patient was placed supin e on the ultrasound table and prepped and draped in the usual sterile fashion. Utilizing a 25 gauge needle, five passes were made into the requested left thyroid nodule. The lymph node appeared to be in the difficult access route seen adjacent to the carotid artery. Measured in short axis of only 6 m m reduced in size from a carotid ultrasound of 12/09/2020 with a short axis with 7 mm. At a benign tomás tral fatty hilum. It was not easily accessible for percutaneous biopsy. Follow-up as clinically warra nted. Patient was stable throughout the procedure. Pathology is pending. All elements of maximal barrier technique were utilized. IMPRESSION: 1. Successful ultrasound guided FNA thyroid biopsy.
[2021-03-07 13:55] VITALS: BP 123/93; PULSE 94; RESP 18
== END 2021-03-07 13:51 | disposition home or self-care (01) ==
LOC: RADPROMAIN 11:50
PROVIDERS: ATTEND Otolaryngology
DX: E04.1 Nontoxic single thyroid nodule (principal)
CPT/HCPCS: 10005; 88173; 88305

== ENCOUNTER 2021-03-13 18:12 | Emergency (ER) | payer MEDICARE, OTHER ==
--- NOTE | 2021-03-13 18:23 | ED ---
General Adult HPI - General Stated complaint: cardiac concerns Time Seen by Provider: 03/13/21 18:12 Source: patient, RN notes reviewed, old records reviewed - History of Present Illness Initial comments: This is a 65-year-old female who presents to the emergency department with a history of SVT. Patient was having a fast heart rate and she called EMS. EMS arrived she was about 190 beats a minute they eventually gave her adenosine 6 mg neck converted back to normal sinus rhythm. Patient states she never felt any chest pain she says every time this occurs to her she becomes very short of breath and feels her heart racing. Patient states currently she is asymptomatic. Patient states the last time this happened was a few months ago. Patient is no swelling to the legs or calf tenderness. Patient denies lightheadedness or dizziness currently. Patient states she's scheduled for an ablation on March 21. - Related Data Home Medications Medication Instructions Recorded Confirmed Albuterol Sulfate [Ventolin HFA] 2 puff INHALATION RT-Q4H PRN 05/20/14 03/07/21 Budesonide [Pulmicort Flexhaler] 1 puff INHALATION RT-DAILY 05/20/14 03/07/21 Umeclidinium Brm/Vilanterol Tr 1 puff INHALATION RT-DAILY 11/11/14 03/07/21 [Anoro Ellipta 62.5-25 Mcg INH] Albuterol Nebulized [Ventolin 2.5 mg INHALATION RT-QID PRN 06/20/16 03/07/21 Nebulized] Ketotifen 0.025% Ophth Soln 1 drop BOTH EYES BID PRN 09/03/17 03/07/21 [Zaditor] Ezetimibe [Zetia] 10 mg PO HS 05/16/18 03/07/21 Magnesium Oxide 400 mg PO HS PRN 09/17/19 03/07/21 HYDROcodone/APAP 5-325MG [[place] 0.3 tab PO Q4H PRN 05/20/20 03/07/21 5-325] Triamcinolone 0.1% Cream [Kenalog 1 applic TOPICAL DAILY PRN 05/20/20 03/07/21 0.1% Cream] Ubidecarenone [Co Q-10] 200 mg PO DAILY 05/20/20 03/07/21 hydrALAZINE HCL [Apresoline] 25 mg PO BID PRN 05/20/20 03/07/21 Omeprazole 20 mg PO DAILY 11/13/20 03/07/21 Previous Rx's Medication Instructions Recorded Diltiazem Oral [Cardizem*] 90 mg PO BID tab 11/14/20 predniSONE 5 mg PO DAILY PRN tab 11/14/20 Allergies Allergy/AdvReac Type Severity Reaction Status Date / Time formoterol fumarate Allergy Severe Anaphylaxis Verified 03/13/21 18:27 [From Symbicort] amoxicillin Allergy GI Verified 03/13/21 18:27 DISTRESS AND DROWSINESS atorvastatin [From Lipitor] Allergy Leg Cramps Verified 03/13/21 18:27 budesonide [From Symbicort] Allergy Anaphylaxis Verified 03/13/21 18:27 clarithromycin Allergy GI Verified 03/13/21 18:27 DISTRESS AND DROWSINESS doxycycline Allergy GI Verified 03/13/21 18:27 DISTRESS AND DROWSINESS omalizumab [From Xolair] Allergy Anaphylaxis Verified 03/13/21 18:27 prednisolone acetate, Allergy Anaphylaxis Verified 03/13/21 18:27 micronized [prednisolone acetate, micro] prednisone Allergy Anaphylaxis-IN Verified 03/13/21 18:27 LARGE DOSES albuterol [From Combivent] AdvReac tinnitus Verified 03/13/21 18:27 beclomethasone [From Qvar] AdvReac Headache/Rash/Visual Verified 03/13/21 18:27 Changes cholestyramine AdvReac Diarrhea Verified 03/13/21 18:27 ciclesonide [From [place]] AdvReac RINGING IN Verified 03/13/21 18:27 THE EARS diltiazem [From Cartia XT] AdvReac tinnitus Verified 03/13/21 18:27 etodolac AdvReac MUSCLE Verified 03/13/21 18:27 CRAMPS fluorometholone AdvReac caused Verified 03/13/21 18:27 [From FML Forte] hair to fall out fluticasone propionate AdvReac RASH, Verified 03/13/21 18:27 [From Advair Diskus] ITCHING furosemide [From Lasix] AdvReac tinnitus Verified 03/13/21 18:27 gabapentin [From Neurontin] AdvReac MUSCLE Verified 03/13/21 18:27 CRAMPS, SENSATION OF BUGS CRAWLING ON LEGS gemfibrozil AdvReac Rapid Verified 03/13/21 18:27 Heart Rate ibuprofen AdvReac tinnitus Verified 03/13/21 18:27 ipratropium [From Combivent] AdvReac tinnitus Verified 03/13/21 18:27 levofloxacin [From Levaquin] AdvReac Muscle Verified 03/13/21 18:27 Cramps/Lower Back Pain lovastatin AdvReac cramps Verified 03/13/21 18:27 metoprolol AdvReac Diarrhea Verified 03/13/21 18:27 mometasone furoate AdvReac RASH, Verified 03/13/21 18:27 [From Asmanex Twisthaler] VISUAL CHANGES pregabalin [From Lyrica] AdvReac MUSCLE Verified 03/13/21 18:27 CRAMPS, SENSATION OF BUGS CRAWLING ON LEGS rosuvastatin calcium AdvReac MUSCLE Verified 03/13/21 18:27 [From Crestor] CRAMPS salmeterol xinafoate AdvReac Rash/Hives Verified 03/13/21 18:27 [From Advair Diskus] simvastatin AdvReac SENSATION Verified 03/13/21 18:27 OF BUGS CRAWLING ON LEGS thyroid, pork AdvReac Diarrhea Verified 03/13/21 18:27 [From [place] Thyroid] tiotropium AdvReac Dry Verified 03/13/21 18:27 [From Spiriva with mouth/Ringing HandiHaler] in ears Review of Systems ROS Statement: Those systems with pertinent positive or pertinent negative responses have been documented in the HPI. ROS Other: All systems not noted in ROS Statement are negative. Past Medical History Past Medical History: Asthma, COPD, GERD/Reflux, Hyperlipidemia, Musculoskeletal Disorder, Osteoarthritis (OA), Pneumonia Additional Past Medical History / Comment(s): Rapid heart beat at times, past COPD, hiatal hernia, bronchitis, arthritis in multiple joints, chronic low back pain, occasional vertigo, currently being treated for tonsillitis with antibiotic. History of Any Multi-Drug Resistant Organisms: Acinetobacter (MDRO) Date of last positivie culture/infection: 2015 MDRO Source:: unknown Past Surgical History: Hernia Repair, Orthopedic Surgery Additional Past Surgical History / Comment(s): R hand benign tumor removed, bilateral feet bunionectomies, total R knee arthroplaty, pain clinic procedures, abdominal hernia repair, colonoscopy, right knee exploratory sugery Past Anesthesia/Blood Transfusion Reactions: Previous Problems w/ Anesthesia Additional Past Anesthesia/Blood Transfusion Reaction / Comment(s): SLOW TO COME OUT OF ANESTHESIA, "does not take much" States has difficulty lying flat on her back Past Psychological History: No Psychological Hx Reported Additional Psychological History / Comment(s): Pt resides in an apartment alone. She has a nebulizer. She does not drive, she uses the senior bus. Smoking Status: Former smoker Past Alcohol Use History: Rare Additional Past Alcohol Use History / Comment(s): Pt started smoking in 1990 and quit in 2010. Past Drug Use History: None Reported - Past Family History Mother Family Medical History: Deep Vein Thrombosis (DVT) Father Family Medical History: Cancer Additional Family Medical History / Comment(s): Father of pancreatic cancer. General Exam - General Exam Comments Initial Comments: GENERAL: Patient is well-developed and well-nourished. Patient is nontoxic and well- hydrated and is in no acute distress. ENT: Neck is soft and supple. No significant lymphadenopathy is noted. Oropharynx is clear. Moist mucous membranes. Neck has full range of motion without eliciting any pain. EYES: The sclera were anicteric and conjunctiva were pink and moist. Extraocular movements were intact and pupils were equal round and reactive to light. Eye lids were unremarkable. PULMONARY: Unlabored respirations. Good breath sounds bilaterally. No audible rales rhonchi or wheezing was noted. CARDIOVASCULAR: There is a regular rate and rhythm without any murmurs gallops or rubs. ABDOMEN: Soft and nontender with normal bowel sounds. SKIN: Skin is clear with no lesions or rashes and otherwise unremarkable. NEUROLOGIC: Patient is alert and oriented x3. Cranial nerves II through XII are grossly intact. Motor and sensory are also intact. Normal speech, volume and content. Symmetrical smile. Cerebellar exam grossly intact. MUSCULOSKELETAL: Normal extremities with adequate strength and full range of motion. No lower extremity swelling or edema. No calf tenderness. LYMPHATICS: No significant lymphadenopathy is noted PSYCHIATRIC: Normal psychiatric evaluation. Course Vital Signs 03/13/21 18:23 Temperature 97.7 F Pulse Rate 114 H Respiratory 20 Rate Blood Pressure 111/93 O2 Sat by Pulse 95 Oximetry Medical Decision Making - Medical Decision Making EKG shows sinus tachycardia at 109 bpm WI interval is 160 QRS is 82 QT interval 344 QTC is 463. Patient's EKG shows no ST segment elevation or depression. Chest x-ray shows no acute normalities. Patient arrived a sinus rhythm and continues to be in sinus rhythm and also she arrives asymptomatic and she continues to be asymptomatic - Lab Data Result diagrams: 03/13/21 18:40 03/13/21 18:40 Lab Results 03/13/21 03/13/21 03/13/21 Range/Units 18:40 18:40 18:40 WBC 10.4 (3.8-10.6) k/uL RBC 4.70 (3.80-5.40) m/uL Hgb 14.8 (11.4-16.0) gm/dL Hct 43.3 (34.0-46.0) % MCV 92.1 (80.0-100.0) fL MCH 31.5 (25.0-35.0) pg MCHC 34.2 (31.0-37.0) g/dL RDW 13.1 (11.5-15.5) % Plt Count 253 (150-450) k/uL MPV 8.0 Neutrophils % 57 % Lymphocytes % 33 % Monocytes % 4 % Eosinophils % 4 % Basophils % 1 % Neutrophils # 6.0 (1.3-7.7) k/uL Lymphocytes # 3.5 (1.0-4.8) k/uL Monocytes # 0.4 (0-1.0) k/uL Eosinophils # 0.4 (0-0.7) k/uL Basophils # 0.1 (0-0.2) k/uL PT 10.3 (9.0-12.0) sec INR 1.0 (<1.2) APTT 24.5 (22.0-30.0) sec Sodium 138 (137-145) mmol/L Potassium 4.2 (3.5-5.1) mmol/L Chloride 106 (98-107) mmol/L Carbon Dioxide 21 L (22-30) mmol/L Anion Gap 11 mmol/L BUN 20 H (7-17) mg/dL Creatinine 1.04 (0.52-1.04) mg/dL Est GFR (CKD-EPI)AfAm 65 (>60 ml/min/1.73 sqM) Est GFR (CKD-EPI)NonAf 56 (>60 ml/min/1.73 sqM) Glucose 101 H (74-99) mg/dL Calcium 9.1 (8.4-10.2) mg/dL Magnesium 1.9 (1.6-2.3) mg/dL Total Bilirubin 0.4 (0.2-1.3) mg/dL AST 28 (14-36) U/L ALT 35 H (4-34) U/L Alkaline Phosphatase 109 (38-126) U/L Troponin I (0.000-0.034) ng/mL Total Protein 6.7 (6.3-8.2) g/dL Albumin 3.9 (3.5-5.0) g/dL 03/13/21 Range/Units 18:40 WBC (3.8-10.6) k/uL RBC (3.80-5.40) m/uL Hgb (11.4-16.0) gm/dL Hct (34.0-46.0) % MCV (80.0-100.0) fL MCH (25.0-35.0) pg MCHC (31.0-37.0) g/dL RDW (11.5-15.5) % Plt Count (150-450) k/uL MPV Neutrophils % % Lymphocytes % % Monocytes % % Eosinophils % % Basophils % % Neutrophils # (1.3-7.7) k/uL Lymphocytes # (1.0-4.8) k/uL Monocytes # (0-1.0) k/uL Eosinophils # (0-0.7) k/uL Basophils # (0-0.2) k/uL PT (9.0-12.0) sec INR (<1.2) APTT (22.0-30.0) sec Sodium (137-145) mmol/L Potassium (3.5-5.1) mmol/L Chloride (98-107) mmol/L Carbon Dioxide (22-30) mmol/L Anion Gap mmol/L BUN (7-17) mg/dL Creatinine (0.52-1.04) mg/dL Est GFR (CKD-EPI)AfAm (>60 ml/min/1.73 sqM) Est GFR (CKD-EPI)NonAf (>60 ml/min/1.73 sqM) Glucose (74-99) mg/dL Calcium (8.4-10.2) mg/dL Magnesium (1.6-2.3) mg/dL Total Bilirubin (0.2-1.3) mg/dL AST (14-36) U/L ALT (4-34) U/L Alkaline Phosphatase (38-126) U/L Troponin I <0.012 (0.000-0.034) ng/mL Total Protein (6.3-8.2) g/dL Albumin (3.5-5.0) g/dL Disposition Clinical Impression: Supraventricular tachycardia Disposition: HOME SELF-CARE Condition: Good Instructions (If sedation given, give patient instructions): Supraventricular Tachycardia (ED) Is patient prescribed a controlled substance at d/c from ED?: No Referrals: Kalia Machado MD [STAFF PHYSICIAN] - 1-2 days Time of Disposition: 19:25
[2021-03-13 18:27] VITALS: TEMP 97.7
[2021-03-13 19:04] LABS: Albumin 3.9 g/dL (3.5-5.0); Calcium 9.1 mg/dL (8.4-10.2); Magnesium 1.9 mg/dL (1.6-2.3); Potassium 4.2 mmol/L (3.5-5.1); Total Bilirubin 0.4 mg/dL (0.2-1.3); Total Protein 6.7 g/dL (6.3-8.2)
--- NOTE | 2021-03-13 19:07 | XR ---
EXAMINATION TYPE: XR chest 2V DATE OF EXAM: 03/13/2021 COMPARISON: 11/13/2020 HISTORY: Shortness of breath TECHNIQUE: Frontal and lateral views of the chest are obtained. FINDINGS: Scattered senescent parenchymal changes noted. Hyperinflation compatible with COPD. No evidence for infiltrate. No evidence for atelectasis. Heart size is stable. Mediastinal structures are stable and grossly unremarkable. No evidence for hilar prominence. Degenerative changes dorsal spine. IMPRESSION: 1. No evidence for acute pulmonary disease.
[2021-03-13 19:10] LABS: Basophils # (A) 0.1 k/uL (0-0.2); Basophils % (A) 1 %; Eosinophils # (A) 0.4 k/uL (0-0.7); Eosinophils % (A) 4 %; HCT 43.3 % (34.0-46.0); HGB 14.8 gm/dL (11.4-16.0); Lymphocytes # (A) 3.5 k/uL (1.0-4.8); Lymphocytes % (A) 33 %; MCH 31.5 pg (25.0-35.0); MCHC 34.2 g/dL (31.0-37.0); MCV 92.1 fL (80.0-100.0); Monocytes # (A) 0.4 k/uL (0-1.0); Monocytes % (A) 4 %; Neutrophils % (A) 57 %; Platelet Count 253 k/uL (150-450); RDW 13.1 % (11.5-15.5); WBC 10.4 k/uL (3.8-10.6)
[2021-03-13 19:13] LABS: Partial Thromboplastin Time 24.5 sec (22.0-30.0); Prothrombin Time 10.3 sec (9.0-12.0)
[2021-03-13 19:58] VITALS: BP 112/76; PULSE 87; RESP 16
== END 2021-03-13 19:56 | disposition home or self-care (01) ==
LOC: EC 18:12
DX: I47.1 Supraventricular tachycardia (principal); J45.909 Unspecified asthma, uncomplicated; K21.9 Gastro-esophageal reflux disease without esophagitis; E78.5 Hyperlipidemia, unspecified; M19.90 Unspecified osteoarthritis, unspecified site; Z88.0 Allergy status to penicillin; Z88.1 Allergy status to other antibiotic agents; Z88.6 Allergy status to analgesic agent; Z87.891 Personal history of nicotine dependence
CPT/HCPCS: 36415; 71046; 80053; 83735; 84443; 84484; 85025; 85610; 85730; 93005; 99285

== ENCOUNTER 2021-03-21 09:14 | Day surgery (SDC) | payer MEDICARE, OTHER ==
[2021-03-14 15:37] VITALS: BMI 43.2
[~2021-03-21 09:14] MED LIST changes: -ACETAMINOPHEN TAB 500 MG TAB PO ONE; -GABAPENTIN 300 MG CAP PO ONE; -HYDROmorphone 0.5 MG/0.5 ML SYRINGE IVP PRN; +LACTATED RINGERS 1,000 ML IV SCH; -LIDOCAINE 1% 20 ML VIAL (10MG/ML) FOR IV START INTRADERMA PRN; -MELOXICAM 7.5 MG TAB PO ONE; -METOCLOPRAMIDE 5 MG/ML 2 ML VIAL IVP PRN; -ONDANSETRON 4 MG/2 ML VIAL IVP ONE; -Pre Op ABX Message 1 EACH MISC MISCELLANE ONE; -ROPIVACAINE 246.25 MG, EPINEPHrine 0.5 MG, KETOROLAC 30 MG, cloNIDine HCL/PF 80 MCG, WA... MISCELLANE ONE; +SODIUM CHLORIDE 0.9% 1,000 ML IV SCH; -TRANEXAMIC ACID 1,000 MG in SODIUM CHLORIDE 0.9% 100 ML IVPB ONE
[2021-03-21] MEDS ORDERED: CLINDAMYCIN 900 MG in DEXTROSE 5% IN WATER 50 ML IVPB STA ×2 (09:54)
[2021-03-21] MEDS ORDERED: ROCURONIUM 10 MG/ML (5 ML VIAL) IV ONE (11:25)
[2021-03-21] MEDS ORDERED: fentaNYL (PF) 50 MCG/ML 2 ML AMP ONE (11:25)
[2021-03-21] MEDS ORDERED: SUCCINYLCHOLINE CHLORIDE 100 MG/5 ML SYR IV ONE (11:25)
[2021-03-21] MEDS ORDERED: GLYCOPYRROLATE 0.2 MG/ML 2 ML VIAL ONE (11:25)
[2021-03-21] MEDS ORDERED: ISOPROTERENOL 250 MCG/1.25 ML SYR IV ONE (11:25)
[2021-03-21] MEDS ORDERED: LIDOCAINE 1% INJ 10MG/ML (20 ML MDV) ONE ×2 (11:25→11:41)
[2021-03-21] MEDS ORDERED: diphenhydrAMINE 50 MG/ML 1 ML VIAL ONE (11:25)
[2021-03-21] MEDS ORDERED: PROPOFOL 10 MG/ML 20 ML VIAL IV ONE (11:25)
[2021-03-21] MEDS ORDERED: NEOSTIGMINE 1 MG/ML 10 ML VIAL ONE (11:25)
[2021-03-21] MEDS ORDERED: MIDAZOLAM 2 MG/2 ML VIAL ONE (11:25)
[2021-03-21] MEDS ORDERED: LIDOCAINE 1% INJ 10MG/ML (20 ML MDV) SQ ONE (12:02)
[2021-03-21] MEDS ORDERED: HEPARIN SODIUM (1,000 UNIT/ML) 1,000 UNIT in SODIUM CHLORIDE 0.9% 1,000 ML IRRIGATION ONE (13:03)
[2021-03-21] MEDS ORDERED: ALBUTEROL HFA INHALER INHALATION PRN (14:36)
[2021-03-21] MEDS ORDERED: predniSONE 5 MG TAB PO PRN (14:36)
[2021-03-21] MEDS ORDERED: hydrALAZINE HCL 25 MG TAB PO PRN (14:36)
[2021-03-21] MEDS ORDERED: ALBUTEROL NEBULIZED 2.5 MG/3 ML INHALATION PRN (14:36)
[2021-03-21] MEDS ORDERED: MAGNESIUM OXIDE 400 MG TAB PO PRN (14:36)
[2021-03-21] MEDS ORDERED: ACETAMINOPHEN TAB 325 MG TAB PO PRN (14:37)
--- NOTE | 2021-03-21 15:19 | P.EPPROC ---
- EP Procedure Note Electrophysiology Procedure Note: Diagnosis Recurrent SVT, adenosine sensitive Drug refractory Procedure details Patient was brought to the EP lab in a fasting state. Written informed consent was obtained prior to the procedure the right and left groins appropriate draped as a protocol. Venous sheaths were placed in both groins Diagnostic catheters were positioned in the high right atrium His bundle area right ventricular and coronary sinus Later a long sheath with an irrigated tip RF ablation catheter was used to map the slow pathway Sinus cycle length 659 ms, OH interval 157 ms, QRS 97 ms and QT interval 407 ms AH 80 ms and HV 39 ms Sinus node recovery times at 600, 500 & 400 ms were 920, 928 and 847 ms Slow pathway conduction for 20 ms AV node Wenckebach block 3:30 milliseconds VA Wenckebach block 400 ms No delta waves Retrograde conduction midline and decremental Balbina response to Parahisian pacing Diagnostic EP study is performed Straight pacing, burst stimulation, extrastimulation up double extrastimuli performed from the high right atrium, 2 coronary sinus sites and right ventricle This was performed on and off Isuprel SVT was induced with burst stimulation Later it also started spontaneously during Isuprel washout SVT consistent with AV balbina reentry, short septal times Could not be entrain from the RV Slow pathway mapping was performed RF ablation was performed with an irrigated tip catheter Thereafter there was no further evidence for any slow pathway conduction antegradely No evidence for SVT on and off Isuprel On Isuprel as well as off Isuprel straight pacing from the RV, burst stimulation from the right ventricle and extrastimulation was also performed Occasional nonsustained VT induced No sustained episodes induced No reproducibly inducible arrhythmia Sheaths were removed venous plugs were applied, [place] hemostasis was assured Patient or the procedure well without any acute complications Procedures performed Comprehensive diagnostic EP study with arrhythmia induction CS pacing and recording Mapping of the slow pathway RF ablation of the slow pathway Programmed stimulation following Isuprel
[2021-03-21] MEDS ORDERED: HYDROmorphone 0.5 MG/0.5 ML SYRINGE IVP ONE (15:20)
--- NOTE | 2021-03-21 15:25 | P.HPCAR ---
History of Present Illness This is Dr. Machado dictating an H/P on this patient The patient was interviewed and examined IMPRESSION / ASSESSMENT: Recurrent narcotics supraventricular tachycardia, adenosine sensitive Recent episode last week requiring IV adenosine once again Nonsustained ventricular tachycardia underwent monitor PLAN: Today the patient was evaluated once again and she is stable to proceed from a cardiac vascular standpoint under general anesthesia Patient has severe back pain and is unable to lie still alive flat on a firmer heart table without significant discomfort and movement Diagnostic EP study and radio frequency ablation of SVT HPI Patient had yet another episode of SVT at 190 beats a minute She called EMS last week because she was very short of breath and felt the palpitations IV adenosine 6 mg is administered in the field This resulted in termination of the tachycardia This is now her third episode of SVT ROS: No fever chills or rigors, no cough, phlegm or expectoration, no nausea, vomiting or diarrhea, no hematuria, dysuria, no musculoskeletal complaints, no strokes or seizures, no skin lesions. EXAMINATION: 98F, pulse rate 98, blood pressure 116/83 mmHg Breath sounds are clear no rhonchi no crackles Normal heart sounds normal S1 normal S2 no murmurs Abdomen is soft Extremities warm no edema REVIEW OF LABS, ECG & MEDICAL DATA extensive list of ALLERGIES and drug intolerances Physical Exam Vitals: Vital Signs Temp Pulse Resp BP BP Pulse Ox 03/21/21 15:05 98 16 127/96 97 03/21/21 14:50 103 H 16 122/82 96 03/21/21 14:38 97 F L 113 H 20 116/83 96 03/21/21 10:10 98.0 F 94 16 140/89 96 Intake and Output 03/21/21 03/21/21 03/21/21 06:59 14:59 22:59 Intake Total 737 Balance 737 Intake: IV 737 Other: Weight 122.8 kg Past Medical History Past Medical History: Asthma, COPD, GERD/Reflux, Hyperlipidemia, Musculoskeletal Disorder, Osteoarthritis (OA), Pneumonia Additional Past Medical History / Comment(s): Rapid heart beat at times, past COPD, hiatal hernia, bronchitis, arthritis in multiple joints, chronic low back pain, occasional vertigo, SVT, spot on thyroid with recent needle biopsy awaiting results History of Any Multi-Drug Resistant Organisms: Acinetobacter (MDRO) Date of last positivie culture/infection: 2015 MDRO Source:: unknown Past Surgical History: Hernia Repair, Joint Replacement, Orthopedic Surgery Additional Past Surgical History / Comment(s): R hand benign tumor removed, bilateral feet bunionectomies, total R knee arthroplasty, pain clinic procedures, abdominal hernia repair, colonoscopy.needle biopsy of thyroid Past Anesthesia/Blood Transfusion Reactions: Previous Problems w/ Anesthesia Additional Past Anesthesia/Blood Transfusion Reaction / Comment(s): SLOW TO COME OUT OF ANESTHESIA, "does not take much" States has difficulty lying flat on her back, hair falls out after anesthesia Smoking Status: Former smoker - Past Family History Mother Family Medical History: Deep Vein Thrombosis (DVT) Father Family Medical History: Cancer Additional Family Medical History / Comment(s): Father of pancreatic cancer. Physical Examination Vital Signs Temp Pulse Resp BP BP Pulse Ox 03/21/21 15:05 98 16 127/96 97 03/21/21 14:50 103 H 16 122/82 96 03/21/21 14:38 97 F L 113 H 20 116/83 96 03/21/21 10:10 98.0 F 94 16 140/89 96 Intake and Output 03/21/21 03/21/21 03/21/21 06:59 14:59 22:59 Intake Total 737 Balance 737 Intake: IV 737 Other: Weight 122.8 kg Results Current Medications Generic Name Dose Route Start Last Admin Trade Name Freq PRN Reason Stop Dose Admin Acetaminophen 650 mg 03/21/21 14:37 Acetaminophen Tab 325 Mg Tab PO 04/20/21 14:38 Q6HR PRN Mild Pain Albuterol Sulfate 2.5 mg 03/21/21 14:36 Albuterol Nebulized 2.5 Mg/3 Ml INHALATION 04/20/21 14:37 RT-QID PRN Dyspnea Famotidine 20 mg 03/22/21 09:00 Famotidine 20 Mg Tab PO 04/21/21 09:01 DAILY DAVIS Hydralazine HCl 25 mg 03/21/21 14:36 Hydralazine Hcl 25 Mg Tab PO 04/20/21 14:37 BID PRN bp over 160/90 Lactated Ringer's 1,000 mls @ 20 mls/hr 03/21/21 06:02 Lactated Ringers IV 04/20/21 06:03 .Q24H DAVIS Acetaminophen 1,000 mg/ IV 100 mls @ 400 mls/hr 03/21/21 16:00 Solution IVPB 03/21/21 16:14 ONCE ONE Magnesium Oxide 400 mg 03/21/21 14:36 Magnesium Oxide 400 Mg Tab PO HS PRN CRAMPS Non-Formulary Medication 1 puff 03/22/21 08:00 Budesonide [Pulmicort Flexhaler] INHALATION 04/21/21 08:01 RT-DAILY DAVIS Sodium Chloride 12 ml 03/21/21 21:00 Sodium Chloride 0.9% Flush 10 Ml Syringe IV 04/20/21 21:01 Q12HR DAVIS Intake and Output 03/21/21 03/21/21 03/21/21 06:59 14:59 22:59 Intake Total 737 Balance 737 Intake: IV 737 Other: Weight 122.8 kg Patient Weight 03/22/21 06:59 Weight 122.8 kg
[2021-03-21] MEDS ORDERED: ACETAMINOPHEN IV (For NPO) 1,000 MG/100 ML VIAL IVPB ONE (15:31)
[2021-03-21] MEDS ORDERED: ACETAMINOPHEN IV (For NPO) 1,000 MG in EMPTY BAG 1 BAG IVPB ONE (16:00)
[2021-03-21] MEDS: LACTATED RINGERS 1,000 ML IV SCH (17:37)
[2021-03-22] MEDS: LACTATED RINGERS 1,000 ML IV SCH (05:53)
--- NOTE | 2021-03-22 07:57 | P.DS ---
Providers Attending physician: Kalia Machado Primary care physician: [facility] Course: Patient is doing well. She is ambulated to the bathroom She is resting comfortably in bed No chest discomfort minimal sore throat No shortness of breath no dizziness or lightheadedness She complains of backache Both groins of healed well No swelling no hematoma Dressing was removed On examination afebrile 98.1F blood pressure 131/76 mmHg Heart rate in the 80s Twelve-lead EKG was reviewed and shows sinus rhythm normal ST segments normal SC Lungs are clear no rhonchi no crackles Abdomen soft Extremities warm no edema No JVD Impression Recurrent drug refractory SVT with recurrent hospitalization/need for IV adenosine AV nancy reentrant tachycardia induced at EP study Successful ablation of the slow pathway for management of AV nancy reentry Ventricular stimulation protocol did not induce any sustained VT Nor did induce any nonsustained ventricular tachycardia with any consistency Occasional NSVT noted Plan Continue current medications with the exception of diltiazem If she has nonsustained ventricular arrhythmias and PVCs, nadolol may be used in the future For now I have not added nadolol Follow-up Dr. Bergeron Follow-up with Dr. Palmer Plan - Discharge Summary Discharge Rx Participant: No New Discharge Prescriptions: Discontinued Diltiazem Oral [Cardizem*] 90 mg PO BID tab No Action Albuterol Sulfate [Ventolin HFA] 2 puff INHALATION RT-Q4H PRN PRN Reason: Shortness Of Breath Budesonide [Pulmicort Flexhaler] 1 puff INHALATION RT-DAILY Umeclidinium Brm/Vilanterol Tr [Anoro Ellipta 62.5-25 Mcg INH] 1 puff INHALATION RT-DAILY Albuterol Nebulized [Ventolin Nebulized] 2.5 mg INHALATION RT-QID PRN PRN Reason: Dyspnea Ketotifen 0.025% Ophth Soln [Zaditor] 1 drop BOTH EYES BID PRN PRN Reason: DRY/ITCHY EYES Ezetimibe [Zetia] 10 mg PO HS Magnesium Oxide 400 mg PO HS PRN PRN Reason: CRAMPS hydrALAZINE HCL [Apresoline] 25 mg PO BID PRN PRN Reason: bp over 160/90 HYDROcodone/APAP 5-325MG [[place] 5-325] 0.3 tab PO Q4H PRN PRN Reason: Pain Triamcinolone 0.1% Cream [Kenalog 0.1% Cream] 1 applic TOPICAL DAILY PRN PRN Reason: Rash Ubidecarenone [Co Q-10] 30 mg PO DAILY predniSONE 5 mg PO DAILY PRN tab PRN Reason: asthma Famotidine [Zantac-360 (Famotidine)] 20 mg PO DAILY Meclizine [Antivert] 12.5 mg PO DAILY PRN PRN Reason: dizziness Discharge Medication List Albuterol Sulfate [Ventolin HFA] 2 puff INHALATION RT-Q4H PRN 05/20/14 [History] Budesonide [Pulmicort Flexhaler] 1 puff INHALATION RT-DAILY 05/20/14 [History] Umeclidinium Brm/Vilanterol Tr [Anoro Ellipta 62.5-25 Mcg INH] 1 puff INHALATION RT-DAILY 11/11/14 [History] Albuterol Nebulized [Ventolin Nebulized] 2.5 mg INHALATION RT-QID PRN 06/20/16 [History] Ketotifen 0.025% Ophth Soln [Zaditor] 1 drop BOTH EYES BID PRN 09/03/17 [History] Ezetimibe [Zetia] 10 mg PO HS 05/16/18 [History] Magnesium Oxide 400 mg PO HS PRN 09/17/19 [History] HYDROcodone/APAP 5-325MG [[place] 5-325] 0.3 tab PO Q4H PRN 05/20/20 [History] Triamcinolone 0.1% Cream [Kenalog 0.1% Cream] 1 applic TOPICAL DAILY PRN 05/20/20 [History] Ubidecarenone [Co Q-10] 30 mg PO DAILY 05/20/20 [History] hydrALAZINE HCL [Apresoline] 25 mg PO BID PRN 05/20/20 [History] predniSONE 5 mg PO DAILY PRN tab 11/14/20 [Rx] Famotidine [Zantac-360 (Famotidine)] 20 mg PO DAILY 03/14/21 [History] Meclizine [Antivert] 12.5 mg PO DAILY PRN 03/14/21 [History] Follow up Appointment(s)/Referral(s): Kalia Machado MD [STAFF PHYSICIAN] - As Needed Sally Bergeron MD [STAFF PHYSICIAN] - 1 Week Activity/Diet/Wound Care/Special Instructions: Post EP study - Ablation instructions 1. Keep access sites dry for 2 days. 2. No heavy lifting or straining for 2 days. 3. Avoid bending the hips repeatedly for 2 days. 4. You may go up and down stairs slowly Call if the following is noted 1. Bleeding, increasing swelling or pain at the access sites. 2. Increasing chest discomfort, especially upon taking a deep breath. 3. Increasing shortness of breath, at rest or with exertion. 4. Undue cough / phlegm 5. Difficulty or pain while swallowing. 6. Pain or change in color in the extremities. 7. Fever, chills, rigors. 8. Increasing headache or neurologic symptoms. 9. Dizziness, fainting, palpitations Discontinue diltiazem Consider nadolol
[2021-03-22] MEDS ORDERED: PULMICORT INHALATION SCH (08:00)
[2021-03-22] MEDS ORDERED: [UNRECOGNIZED DRUG - OTHER] INHALATION SCH (08:00)
[2021-03-22 08:48] VITALS: BP 132/86; PULSE 90; RESP 16; TEMP 97.8
[2021-03-22] MEDS ORDERED: FAMOTIDINE 20 MG TAB PO SCH (09:00)
== END 2021-03-22 10:15 | disposition home or self-care (01) ==
LOC: CATHEP 09:14 → 6NMEDSUR 15:06 → CATHEP 03-22 10:15
PROVIDERS: ATTEND Internal Medicine Clinical Cardiac Electrophysiology
DX: R00.0 Tachycardia, unspecified (principal); I47.1 Supraventricular tachycardia; I10 Essential (primary) hypertension; E78.5 Hyperlipidemia, unspecified; Z20.822 Contact with and (suspected) exposure to COVID-19; G89.29 Other chronic pain; M54.50 Low back pain, unspecified; J44.9 Chronic obstructive pulmonary disease, unspecified; M19.90 Unspecified osteoarthritis, unspecified site; K21.9 Gastro-esophageal reflux disease without esophagitis; Z87.01 Personal history of pneumonia (recurrent); Z80.0 Family history of malignant neoplasm of digestive organs; Z98.890 Other specified postprocedural states; Z96.651 Presence of right artificial knee joint; Z87.891 Personal history of nicotine dependence; Z82.49 Family history of ischemic heart disease and other diseases of the circulatory system; Z79.51 Long term (current) use of inhaled steroids; Z79.899 Other long term (current) drug therapy; Z88.8 Allergy status to other drugs, medicaments and biological substances
CPT/HCPCS: 93623; 93653; 87635; C1894; C1769 ×2; C1760 ×2; C1766; C1730 ×3; C1732; J2250; J1200; J2710; J2001; J3010; J1644; J0131; J0330; J2704; J1170; 93613

== ENCOUNTER → 2021-04-25 | Outpatient (CLI) | payer MEDICARE, OTHER | END | disposition home or self-care (01) | LOC: LABWHC1 11:48 | PROVIDERS: ATTEND Otolaryngology | DX: J30.89 Other allergic rhinitis (principal) | CPT/HCPCS: 36415 ==

== ENCOUNTER → 2021-07-06 | Outpatient (CLI) | payer MEDICARE, OTHER ==
--- NOTE | 2021-07-06 12:57 | CT ---
EXAMINATION TYPE: CT abdomen wo con DATE OF EXAM: 07/06/2021 COMPARISON: CT dated 04/03/2018 HISTORY: hernia CT DLP: 1017 mGycm Automated exposure control for dose reduction was used. TECHNIQUE: Helical acquisition of images was performed from the lung bases through the top of iliac crest to include entire abdomen. CONTRAST: Performed with Oral Contrast and without IV contrast. FINDINGS: LUNG BASES: No significant abnormality is appreciated. LIVER/GB: 4 mm calcification/calculus within the gallbladder, otherwise unremarkable gallbladder. Que stionable hepatic steatosis. No definite hepatic focal lesion. PANCREAS: No significant abnormality is seen. SPLEEN: No significant abnormality is seen. ADRENALS: No significant abnormality is seen. KIDNEYS: No definite renal abnormality by this nonenhanced CT scan. No hydroureter or hydronephrosis. BOWEL: Small sliding hiatal hernia containing a small portion of the stomach, otherwise unremarkable remainder of the stomach, duodenum and visualized small bowel. No gross abnormality of the visualize d portion of the colon. LYMPH NODES: No pathologically enlarged abdominal lymph nodes. OSSEOUS STRUCTURES: Grade 1 anterolisthesis of L4 over L5 with bilateral L4-5 facet osteoarthropathy . No aggressive bone lesion. FREE AIR: No free air is visualized. OTHER: Scattered arterial atherosclerotic calcifications. There is apparent right lower quadrant ante rior abdominal wall hernia containing small bowel loops without evidence of bowel obstruction, not co mpletely included in the scan. Markedly enlarged uterus with multiple variable sized calcification li maile representing multiple uterine fibroids, not completely included in the scan, please correlate wi th pelvic ultrasound results. Further gynecologic consultation can be considered. No sizable free abd ominal fluid. IMPRESSION: Right lower quadrant anterior abdominal wall hernia containing fat and small bowel, not completely in cluded in the scan (CT scan of the pelvis was not performed). CT scan of the pelvis can be considered for better evaluation of the hernia if clinically required. Markedly enlarged uterus with multiple uterine fibroids and calcifications as described above, for co rrelation with pelvic ultrasound results and gynecology consultation. Other incidental findings as de scribed above.
== END | disposition home or self-care (01) ==
LOC: RADCTMAIN 08:57
PROVIDERS: ATTEND Internal Medicine Geriatric Medicine
DX: K43.9 Ventral hernia without obstruction or gangrene (principal); D25.9 Leiomyoma of uterus, unspecified; N85.8 Other specified noninflammatory disorders of uterus
CPT/HCPCS: 74150

== ENCOUNTER → 2021-08-31 | Outpatient (CLI) | payer MEDICARE, OTHER ==
--- NOTE | 2021-08-31 14:24 | US ---
EXAMINATION TYPE: US thyroid st tissue head/neck DATE OF EXAM: 08/31/2021 COMPARISON: 03/07/2020 CLINICAL HISTORY: 66-year-old female E04.1 Thyroid nodule. Follow-up exam, already had biopsy of larg est left nodule, on meds, no issues TECHNIQUE: Multiple sonographic images of the thyroid gland are obtained. FINDINGS: GLAND SIZE: Right Lobe: 4.7 x 1.0 x 1.6 cm Overall Parenchyma: heterogenous Left Lobe: 4.2 x 1.6 x 2.5 cm Overall Parenchyma: heterogeneous Isthmus Thickness: 0.6 cm NODULES RIGHT: # of nodules measured on right: 2 1. 0.9 X 0.9 x 0.6 cm, mid , solid or almost completely solid, hypoechoic nodule, which is wider th an tall, with smooth margins, without echogenic foci. Prior size: 0.9 x 1.0 x 0.5 cm 2. 0.5 X 0.6 x 0.6 cm, mid, solid or almost completely solid, hypoechoic nodule, which is wider javier n tall, with smooth margins, without echogenic foci. Prior size: 0.5 x 0.7 x 0.4 cm LEFT: # of nodules measured on left: 2 - previous biopsy 1. 1.8 X 0.9 x 1.7 cm, lower, solid or almost completely solid, hyperechoic nodule, which is taller than wide, with smooth margins, without echogenic foci. Prior size: 2.2 x 1.6 x 1.9 cm 2. 1.0 X 0.9 x 0.9 cm, mid, solid or almost completely solid, hyperechoic nodule, which is taller than wide, with smooth margins, without echogenic foci. Prior size: 0.9 x 0.9 x 1.0 cm ISTHMUS: # of nodules measured in the isthmus: 0 Bilateral neck scanned, no evidence of lymphadenopathy. IMPRESSION: Likely multinodular goiter. The nodules (measuring up to 1.8 cm on the left and up to 9 mm on the rig ht) are either stable or slightly smaller
== END | disposition home or self-care (01) ==
LOC: RADUSWWP 09:26
PROVIDERS: ATTEND Internal Medicine Geriatric Medicine
DX: E04.2 Nontoxic multinodular goiter (principal)
CPT/HCPCS: 76536

== ENCOUNTER 2021-10-23 08:24 | Day surgery (SDC) | payer MEDICARE, OTHER ==
[~2021-10-23 08:24] MED LIST changes: +ACETAMINOPHEN TAB 500 MG TAB PO PRN; +HEPARIN SODIUM,PORCINE/PF 5,000 UNIT/0.5 ML SYRINGE SQ PRN; -LACTATED RINGERS 1,000 ML IV SCH; +LIDOCAINE 1% (10MG/ML) FOR IV START INTRADERMA PRN; +MIDAZOLAM 2 MG/2 ML VIAL IV PRN; +ONDANSETRON 4 MG/2 ML VIAL IVP ONE; -SODIUM CHLORIDE 0.9% 1,000 ML IV SCH; +ceFAZolin 3 GM in SODIUM CHLORIDE 0.9% 100 ML IVPB PRN
[2021-10-23] MEDS: LACTATED RINGERS 1,000 ML IV SCH (08:44)
[2021-10-23 09:12] LABS: Glucose,Whole Blood 115 mg/dL (70-110)
[2021-10-23 09:39] LABS: Basophils # (A) 0.1 k/uL (0-0.2); Basophils % (A) 1 %; Eosinophils # (A) 0.4 k/uL (0-0.7); Eosinophils % (A) 4 %; HCT 46.3 % (34.0-46.0); HGB 15.2 gm/dL (11.4-16.0); Lymphocytes # (A) 2.9 k/uL (1.0-4.8); Lymphocytes % (A) 33 %; MCH 30.2 pg (25.0-35.0); MCHC 32.9 g/dL (31.0-37.0); MCV 91.8 fL (80.0-100.0); Mean Platelet Volume 7.8; Monocytes # (A) 0.3 k/uL (0-1.0); Monocytes % (A) 4 %; Neutrophils # (A) 4.9 k/uL (1.3-7.7); Neutrophils % (A) 57 %; Platelet Count 242 k/uL (150-450); RBC 5.04 m/uL (3.80-5.40); RDW 12.6 % (11.5-15.5); WBC 8.6 k/uL (3.8-10.6)
[2021-10-23] MEDS ORDERED: NEOSTIGMINE 1 MG/ML 10 ML VIAL ONE (09:40)
[2021-10-23] MEDS ORDERED: ROCURONIUM 10 MG/ML (5 ML VIAL) IV ONE (09:40)
[2021-10-23] MEDS ORDERED: LIDOCAINE 2% INJ 20 MG/ML (2 ML VIAL) ONE (09:40)
[2021-10-23] MEDS ORDERED: SUCCINYLCHOLINE CHLORIDE 200 MG/10 ML VIAL IV ONE (09:40)
[2021-10-23] MEDS ORDERED: HYDROmorphone (PF) 1 MG/ML ONE (09:40)
[2021-10-23] MEDS ORDERED: PROPOFOL 10 MG/ML 20 ML VIAL IV ONE (09:40)
[2021-10-23] MEDS ORDERED: GLYCOPYRROLATE 0.2 MG/ML 2 ML VIAL ONE (09:40)
[2021-10-23] MEDS ORDERED: fentaNYL (PF) 50 MCG/ML 2 ML AMP ONE (09:40)
[2021-10-23] MEDS ORDERED: BUPIVACAINE (PF) 0.25% 30 ML VIAL SQ ONE (09:50)
[2021-10-23 09:51] LABS: Albumin 4.2 g/dL (3.5-5.0); Calcium 9.2 mg/dL (8.4-10.2); Potassium 4.4 mmol/L (3.5-5.1); Total Bilirubin 0.6 mg/dL (0.2-1.3); Total Protein 6.9 g/dL (6.3-8.2)
--- NOTE | 2021-10-23 09:52 | P.GSHP ---
History of Present Illness H&P Date: 10/23/21 Chief Complaint: Incarcerated incisional hernia 66-year-old female seen in the office on 2 separate occasions. Scheduled today for incarcerated incisional hernia repair. Patient had a CAT scan in June showing fat and small bowel within the hernia. This varies in size but is never completely gone. It was repaired previously with she believes a Kugel patch. Patient did contact our office quite upset on Saturday. She actually was routed to my die technician and hung up on her. She apparently was being led to believe her surgery time was going to be later in the day after she was reviewing the portal at the hospital system. The patient was notified of the final arrival time on Saturday and apparently this was earlier than she had expected. She was also belligerent per the preop staff to them on the phone. I called her by phone at that time. Apparently she had told somebody that maybe she should just cancel. The patient was given the opportunity to cancel the surgery and applied a different provider. She was notified that she could not treat the staff in that manner. She was apologetic at that point. The main issue was that she did not have a ride earlier in the day and she had been asking to have a later arrival time. Informed her that that was out of my control. The patient was satisfied at that time and wanted to proceed with surgical repair today. No changes since the recent history and physical from 08/31. Past Medical History Past Medical History: Asthma, COPD, GERD/Reflux, Hyperlipidemia, Musculoskeletal Disorder, Osteoarthritis (OA), Pneumonia Additional Past Medical History / Comment(s): Rapid heart beat at times, past COPD, hiatal hernia, bronchitis, arthritis in multiple joints, chronic low back pain, occasional vertigo, tinnitus with high dose of any meds. can tolerate some capsule forms of meds no tablet. swelling in legs at times but not presently. History of Any Multi-Drug Resistant Organisms: Acinetobacter (MDRO) Date of last positivie culture/infection: 2009 MDRO Source:: abdomin Past Surgical History: Hernia Repair, Orthopedic Surgery Additional Past Surgical History / Comment(s): R hand benign tumor removed, bilateral feet bunionectomies, total R knee arthroplasty, pain clinic procedures, abdominal hernia repair, colonoscopy. ablation for SVT 04/08 Past Anesthesia/Blood Transfusion Reactions: Previous Problems w/ Anesthesia Additional Past Anesthesia/Blood Transfusion Reaction / Comment(s): SLOW TO COME OUT OF ANESTHESIA, "does not take much" States has difficulty lying flat on her back Smoking Status: Former smoker - Past Family History Mother Family Medical History: Deep Vein Thrombosis (DVT) Additional Family Medical History / Comment(s): renal failure Father Family Medical History: Cancer Additional Family Medical History / Comment(s): Father of pancreatic cancer. Medications and Allergies Home Medications Medication Instructions Recorded Confirmed Type Albuterol Sulfate [Ventolin HFA] 2 puff INHALATION RT-Q4H PRN 05/20/14 10/23/21 History Budesonide [Pulmicort Flexhaler] 1 puff INHALATION RT-DAILY 05/20/14 10/23/21 History Umeclidinium Brm/Vilanterol Tr 1 puff INHALATION RT-DAILY 11/11/14 10/23/21 History [Anoro Ellipta 62.5-25 Mcg INH] Albuterol Nebulized [Ventolin 2.5 mg INHALATION RT-QID PRN 06/20/16 10/23/21 History Nebulized] Ketotifen 0.025% Ophth Soln 1 drop BOTH EYES BID PRN 09/03/17 10/23/21 History [Zaditor] Ezetimibe [Zetia] 10 mg PO HS 05/16/18 10/23/21 History Magnesium Oxide 400 mg PO HS PRN 09/17/19 10/23/21 History HYDROcodone/APAP 5-325MG [Wray 0.3 tab PO Q4H PRN 05/20/20 10/23/21 History 5-325] Triamcinolone 0.1% Cream [Kenalog 1 applic TOPICAL DAILY PRN 05/20/20 10/23/21 History 0.1% Cream] Ubidecarenone [Co Q-10] 30 mg PO DAILY 05/20/20 10/23/21 History hydrALAZINE HCL [Apresoline] 25 mg PO BID PRN 05/20/20 10/23/21 History predniSONE 5 mg PO DAILY PRN tab 11/14/20 10/23/21 Rx Famotidine [Zantac-360 20 mg PO DAILY 03/14/21 10/23/21 History (Famotidine)] Meclizine [Antivert] 12.5 mg PO DAILY PRN 03/14/21 10/23/21 History Cetirizine HCl 10 mg PO DAILY PRN 10/19/21 10/23/21 History Fexofenadine HCl [Diann Allergy] 180 mg PO DAILY PRN 10/19/21 10/23/21 History Lansoprazole [Prevacid] 15 mg PO DAILY 10/19/21 10/23/21 History Verapamil HCl [Verapamil ER] 120 mg PO DAILY 10/19/21 10/23/21 History Allergies Allergy/AdvReac Type Severity Reaction Status Date / Time formoterol fumarate Allergy Severe Anaphylaxis Verified 10/23/21 08:47 [From Symbicort] amoxicillin Allergy GI Verified 10/23/21 08:47 DISTRESS AND DROWSINESS atorvastatin [From Lipitor] Allergy Leg Cramps Verified 10/23/21 08:47 budesonide [From Symbicort] Allergy Anaphylaxis Verified 10/23/21 08:47 clarithromycin Allergy GI Verified 10/23/21 08:47 DISTRESS AND DROWSINESS doxycycline Allergy GI Verified 10/23/21 08:47 DISTRESS AND DROWSINESS omalizumab [From Xolair] Allergy Anaphylaxis Verified 10/23/21 08:47 prednisolone acetate, Allergy Anaphylaxis Verified 10/23/21 08:47 micronized [prednisolone acetate, micro] prednisone Allergy Anaphylaxis-IN Verified 10/23/21 08:47 LARGE DOSES albuterol [From Combivent] AdvReac tinnitus Verified 10/23/21 08:47 beclomethasone [From Qvar] AdvReac Headache/Rash/Visual Verified 10/23/21 08:47 Changes cholestyramine AdvReac Diarrhea Verified 10/23/21 08:47 ciclesonide [From [place]] AdvReac RINGING IN Verified 10/23/21 08:47 THE EARS diltiazem [From Cartia XT] AdvReac tinnitus Verified 10/23/21 08:47 etodolac AdvReac MUSCLE Verified 10/23/21 08:47 CRAMPS fluorometholone AdvReac caused Verified 10/23/21 08:47 [From FML Forte] hair to fall out fluticasone propionate AdvReac RASH, Verified 10/23/21 08:47 [From Advair Diskus] ITCHING furosemide [From Lasix] AdvReac tinnitus Verified 10/23/21 08:47 gabapentin [From Neurontin] AdvReac MUSCLE Verified 10/23/21 08:47 CRAMPS, SENSATION OF BUGS CRAWLING ON LEGS gemfibrozil AdvReac Rapid Verified 10/23/21 08:47 Heart Rate ibuprofen AdvReac tinnitus Verified 10/23/21 08:47 ipratropium [From Combivent] AdvReac tinnitus Verified 10/23/21 08:47 levofloxacin [From Levaquin] AdvReac Muscle Verified 10/23/21 08:47 Cramps/Lower Back Pain lovastatin AdvReac cramps Verified 10/23/21 08:47 metoprolol AdvReac Diarrhea Verified 10/23/21 08:47 mometasone furoate AdvReac RASH, Verified 10/23/21 08:47 [From Asmanex Twisthaler] VISUAL CHANGES pregabalin [From Lyrica] AdvReac MUSCLE Verified 10/23/21 08:47 CRAMPS, SENSATION OF BUGS CRAWLING ON LEGS rosuvastatin calcium AdvReac MUSCLE Verified 10/23/21 08:47 [From Crestor] CRAMPS salmeterol xinafoate AdvReac Rash/Hives Verified 10/23/21 08:47 [From Advair Diskus] simvastatin AdvReac SENSATION Verified 10/23/21 08:47 OF BUGS CRAWLING ON LEGS thyroid, pork AdvReac Diarrhea Verified 10/23/21 08:47 [From [place] Thyroid] tiotropium AdvReac Dry Verified 10/23/21 08:47 [From Spiriva with mouth/Ringing HandiHaler] in ears Surgical - Exam Vital Signs Temp Pulse Resp BP Pulse Ox 98.2 F 107 H 18 146/78 95 10/23/21 08:54 10/23/21 08:54 10/23/21 08:54 10/23/21 08:54 10/23/21 08:54 Physical exam: General: Well-developed, well-nourished HEENT: Normocephalic, sclerae nonicteric Abdomen: Nontender, nondistended, incarcerated hernia extending to the right side of the umbilicus, previous curvilinear infraumbilical scar noted Extremities: No edema Neuro: Alert and oriented Results - Labs 10/23/21 09:15 Abnormal Lab Results - Last 24 Hours (Table) 10/23/21 10/23/21 Range/Units 09:09 09:15 Hct 46.3 H (34.0-46.0) % POC Glucose (mg/dL) 115 H (70-110) mg/dL Assessment and Plan (1) Incarcerated incisional hernia Narrative/Plan: 66-year-old female with symptomatic incarcerated incisional hernia containing small bowel and fat. Patient would like to proceed with surgical repair at this time. We'll proceed with open incisional herniorrhaphy with mesh. 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 I informed her that we treat her as we treat every patient and try to minimize the risk of surgical site infections in all cases. She will be receiving preoperative antibiotics at appropriate dosing. Risks of bleeding, infection, recurrence, bladder and bowel injury, possible need for bowel resection, numbness, nerve injury were discussed with the patient. The patient understands and wishes to proceed. Current Visit: Yes Status: Acute Code(s): K43.0 - INCISIONAL HERNIA WITH OBSTRUCTION, WITHOUT GANGRENE SNOMED Code(s): 856240593
[2021-10-23] MEDS ORDERED: NALOXONE 0.4 MG/ML 1 ML VIAL IV PRN (11:23)
[2021-10-23] MEDS ORDERED: ACETAMINOPHEN TAB 325 MG TAB PO PRN (11:23)
[2021-10-23] MEDS ORDERED: HYDROmorphone 1 MG/ML 1 ML SYRINGE IVP PRN (11:23)
[2021-10-23] MEDS ORDERED: ONDANSETRON 4 MG/2 ML VIAL IVP PRN (11:23)
--- NOTE | 2021-10-23 11:31 | P.OP ---
Date of Procedure: 10/23/21 Procedure(s) Performed: PREOPERATIVE DIAGNOSIS: Incarcerated incisional hernia POSTOPERATIVE DIAGNOSIS: Same PROCEDURE: Repair incarcerated incisional hernia with mesh, lysis of adhesions SURGEON: Dr. Nolen ANESTHESIA: General Dissection through the subcutaneous tissues took place using electrocautery. A large hernia sac was identified. The hernia sac was carefully dissected down to the level of the fascia where it was excised. There were loops of small bowel adhesed to the hernia sac. We were able to sharply dissect the hernia sac away from the small bowel loops and reduce the bowel back into the peritoneal cavity. No serosal tears were seen. The size of the fascial defect measured 5 x 3 cm. There were some adhesions to the previous mesh that was present medial to our hernia defect. These were lysed using both cautery and blunt dissection. These adhesions were to the omentum. Once we had the peritoneal surface fully dissected and free of adhesions the ventral X8 centimeter mesh was placed beneath the fascia and sutured to the fascia using trans-fascial 0 Ethibond sutures. Following that the fascial defect was reapproximated using interrupted mattress vest over pants 0 Ethibond sutures. The folding edge was sutured down using interrupted 0 Ethibond sutures as well. Some diastases of the fascia was present here. A drain was placed anterior to the fascial closure exiting through the right lower quadrant. This was sutured to the skin using a 3-0 silk stitch. The subcutaneous tissues were closed using 3-0 Vicryl sutures. The skin was closed using running 4-0 Monocryl sutures. Skin glue was applied. Sterile dressings were applied. HERNIA CHARACTERISTICS: Length: 5 cm Width: 3 cm Type: Incarcerated incisional TYPE OF MESH USED: Ventral X8 centimeter round LOCATION OF MESH: Sub-lay FIXATION: Trans-fascial 0 Ethibond sutures PREOPERATIVE DISCUSSION ON SMOKING CESSASTION: Yes PREOPERATIVE DISCUSSION ON MORBID OBESITY: Yes PREOPERATIVE DISCUSSION ON APPROPRIATE USE OF NARCOTIC USE: Yes PREOPERATIVE EDUCATION: Multi Modal, Smoking Cessation and Weight Loss with BMI over 35. DISPOSITION: Stable to recovery room
[2021-10-23] MEDS: HYDROmorphone 0.5 MG/0.5 ML SYRINGE IVP PRN ×4 (11:57→13:45)
[2021-10-23] MEDS ORDERED: LACTATED RINGERS 1,000 ML IV ONE ×2 (12:00→14:47)
[2021-10-23] MEDS: KETOROLAC 15 MG/ML 1 ML VIAL IVP SCH ×2 (17:04→18:10)
[2021-10-23] MEDS: D5-0.45% NACL WITH KCL 20MEQ/L 1,000 ML IV SCH (17:52)
[2021-10-23] MEDS: HEPARIN SODIUM,PORCINE/PF 5,000 UNIT/0.5 ML SYRINGE SQ SCH (17:52)
[2021-10-23] MEDS: HYDROcodone/APAP 5-325MG 1 EACH TAB PO PRN (21:06)
[2021-10-23] MEDS: FAMOTIDINE 20 MG/2 ML VIAL IV SCH (21:06)
[2021-10-24] MEDS: KETOROLAC 15 MG/ML 1 ML VIAL IVP SCH ×3 (00:38→12:28)
[2021-10-24] MEDS: HEPARIN SODIUM,PORCINE/PF 5,000 UNIT/0.5 ML SYRINGE SQ SCH ×4 (00:38→23:21)
[2021-10-24] MEDS: D5-0.45% NACL WITH KCL 20MEQ/L 1,000 ML IV SCH ×3 (00:40→17:43)
[2021-10-24] MEDS: LACTATED RINGERS 1,000 ML IV SCH (05:51)
[2021-10-24] MEDS: FAMOTIDINE 20 MG/2 ML VIAL IV SCH (09:55)
[2021-10-24] MEDS: HYDROcodone/APAP 5-325MG 1 EACH TAB PO PRN ×2 (09:55→16:53)
[2021-10-24] MEDS ORDERED: ALBUTEROL NEBULIZED 2.5 MG/3 ML INHALATION PRN ×2 (12:10)
[2021-10-24] MEDS ORDERED: MAGNESIUM OXIDE 400 MG TAB PO PRN (12:10)
[2021-10-24] MEDS ORDERED: TRIAMCINOLONE 0.1% CREAM 80 GM TUBE TOPICAL PRN (12:10)
[2021-10-24] MEDS ORDERED: KETOTIFEN 0.025% OPHTH DROPS 5 ML BTL BOTH EYES PRN (12:10)
--- NOTE | 2021-10-24 12:14 | P.CONS ---
History of Present Illness - Reason for Consult Tachycardia - History of Present Illness Patient is admitted for elective incisional hernia repair patient successfully underwent surgery patient is still having significant amount of pain. Patient doesn't have any fever chills does have sinus tachycardia secondary to pain. Patient is also on verapamil at home which will be resumed. REVIEW OF SYSTEMS: CONSTITUTIONAL: No fever, no malaise, no fatigue. HEENT: No recent visual problems or hearing problems. Denied any sore throat. CARDIOVASCULAR: No chest pain, orthopnea, PND, no palpitations, no syncope. PULMONARY: No shortness of breath, no cough, no hemoptysis. GASTROINTESTINAL: No diarrhea, no nausea, no vomiting, no abdominal pain. NEUROLOGICAL: No headaches, no weakness, no numbness. HEMATOLOGICAL: Denies any bleeding or petechiae. GENITOURINARY: Denies any burning micturition, frequency, or urgency. MUSCULOSKELETAL/RHEUMATOLOGICAL: Denies any joint pain, swelling, or any muscle pain. ENDOCRINE: Denies any polyuria or polydipsia. The rest of the 14-point review of systems is negative. PHYSICAL EXAMINATION: GENERAL: The patient is alert and oriented x3, not in any acute distress obese HEENT: Pupils are round and equally reacting to light. EOMI. No scleral icterus. No conjunctival pallor. Normocephalic, atraumatic. No pharyngeal erythema. No thyromegaly. CARDIOVASCULAR: S1 and S2 present. No murmurs, rubs, or gallops. PULMONARY: Chest is clear to auscultation, no wheezing or crackles. ABDOMEN: Soft, nontender, nondistended, normoactive bowel sounds. No palpable organomegaly. MUSCULOSKELETAL: No joint swelling or deformity. EXTREMITIES: No cyanosis, clubbing, or pedal edema. NEUROLOGICAL: Gross neurological examination did not reveal any focal deficits. SKIN: No rashes. Assessment and plan -Tachycardia: Reflects tachycardia. Patient will be resumed on verapamil. -Hypertension: Blood pressure is fairly well controlled will monitor patient takes a hydralazine additionally will be resumed depending on her blood pressures tomorrow -Mild acute renal failure expected to improve with IV fluids -Incisional hernia repair further management postoperative management as per primary service -Asthma without any acute exacerbation at this time patient was home dose of inhaled steroids and inhalation treatments as needed -Gases reflux disease -Hyperlipidemia DVT prophylaxis: Patient is on subcutaneous heparin Past Medical History Past Medical History: Asthma, COPD, GERD/Reflux, Hyperlipidemia, Musculoskeletal Disorder, Osteoarthritis (OA), Pneumonia Additional Past Medical History / Comment(s): Rapid heart beat at times, past COPD, hiatal hernia, bronchitis, arthritis in multiple joints, chronic low back pain, occasional vertigo, tinnitus with high dose of any meds. can tolerate some capsule forms of meds no tablet. swelling in legs at times but not presently. History of Any Multi-Drug Resistant Organisms: Acinetobacter (MDRO) Year Discovered:: 2009 MDRO Source:: abdomin Past Surgical History: Hernia Repair, Orthopedic Surgery Additional Past Surgical History / Comment(s): R hand benign tumor removed, bilateral feet bunionectomies, total R knee arthroplasty, pain clinic procedures, abdominal hernia repair, colonoscopy. ablation for SVT 04/08 Past Anesthesia/Blood Transfusion Reactions: Previous Problems w/ Anesthesia Additional Past Anesthesia/Blood Transfusion Reaction / Comm: SLOW TO COME OUT OF ANESTHESIA, "does not take much" States has difficulty lying flat on her back Past Psychological History: No Psychological Hx Reported Additional Psychological History / Comment(s): Pt resides in an apartment alone. She has a nebulizer. She does not drive, she uses the [employer] bus. Smoking Status: Former smoker Past Alcohol Use History: Rare Additional Past Alcohol Use History / Comment(s): Pt started smoking in 1990 and quit in 2010. 1ppd Past Drug Use History: None Reported - Past Family History Mother Family Medical History: Deep Vein Thrombosis (DVT) Additional Family Medical History / Comment(s): renal failure Father Family Medical History: Cancer Additional Family Medical History / Comment(s): Father of pancreatic cancer. Medications and Allergies Home Medications Medication Instructions Recorded Confirmed Type Albuterol Sulfate [Ventolin HFA] 2 puff INHALATION RT-Q4H PRN 05/20/14 10/23/21 History Budesonide [Pulmicort Flexhaler] 1 puff INHALATION RT-DAILY 05/20/14 10/23/21 History Umeclidinium Brm/Vilanterol Tr 1 puff INHALATION RT-DAILY 11/11/14 10/23/21 History [Anoro Ellipta 62.5-25 Mcg INH] Albuterol Nebulized [Ventolin 2.5 mg INHALATION RT-QID PRN 06/20/16 10/23/21 History Nebulized] Ketotifen 0.025% Ophth Soln 1 drop BOTH EYES BID PRN 09/03/17 10/23/21 History [Zaditor] Ezetimibe [Zetia] 10 mg PO HS 05/16/18 10/23/21 History Magnesium Oxide 400 mg PO HS PRN 09/17/19 10/23/21 History HYDROcodone/APAP 5-325MG [[place] 0.3 tab PO Q4H PRN 05/20/20 10/23/21 History 5-325] Triamcinolone 0.1% Cream [Kenalog 1 applic TOPICAL DAILY PRN 05/20/20 10/23/21 History 0.1% Cream] Ubidecarenone [Co Q-10] 30 mg PO DAILY 05/20/20 10/23/21 History hydrALAZINE HCL [Apresoline] 25 mg PO BID PRN 05/20/20 10/23/21 History predniSONE 5 mg PO DAILY PRN tab 11/14/20 10/23/21 Rx Famotidine [Zantac-360 20 mg PO DAILY 03/14/21 10/23/21 History (Famotidine)] Meclizine [Antivert] 12.5 mg PO DAILY PRN 03/14/21 10/23/21 History Cetirizine HCl 10 mg PO DAILY PRN 10/19/21 10/23/21 History Fexofenadine HCl [Diann Allergy] 180 mg PO DAILY PRN 10/19/21 10/23/21 History Lansoprazole [Prevacid] 15 mg PO DAILY 10/19/21 10/23/21 History Verapamil HCl [Verapamil ER] 120 mg PO DAILY 10/19/21 10/23/21 History HYDROcodone/APAP 7.5-325MG [[place] 1 tab PO Q6HR PRN 3 Days #12 tab 10/23/21 Rx 7.5-325] Allergies Allergy/AdvReac Type Severity Reaction Status Date / Time formoterol fumarate Allergy Severe Anaphylaxis Verified 10/23/21 08:47 [From Symbicort] monosodium glutamate [MSG] Allergy Unknown Unknown Verified 10/24/21 10:14 amoxicillin Allergy GI Verified 10/23/21 08:47 DISTRESS AND DROWSINESS atorvastatin [From Lipitor] Allergy Leg Cramps Verified 10/23/21 08:47 budesonide [From Symbicort] Allergy Anaphylaxis Verified 10/23/21 08:47 clarithromycin Allergy GI Verified 10/23/21 08:47 DISTRESS AND DROWSINESS doxycycline Allergy GI Verified 10/23/21 08:47 DISTRESS AND DROWSINESS omalizumab [From Xolair] Allergy Anaphylaxis Verified 10/23/21 08:47 prednisolone acetate, Allergy Anaphylaxis Verified 10/23/21 08:47 micronized [prednisolone acetate, micro] prednisone Allergy Anaphylaxis-IN Verified 10/23/21 08:47 LARGE DOSES albuterol [From Combivent] AdvReac tinnitus Verified 10/23/21 08:47 beclomethasone [From Qvar] AdvReac Headache/Rash/Visual Verified 10/23/21 08:47 Changes cholestyramine AdvReac Diarrhea Verified 10/23/21 08:47 ciclesonide [From [place]] AdvReac RINGING IN Verified 10/23/21 08:47 THE EARS diltiazem [From Cartia XT] AdvReac tinnitus Verified 10/23/21 08:47 etodolac AdvReac MUSCLE Verified 10/23/21 08:47 CRAMPS fluorometholone AdvReac caused Verified 10/23/21 08:47 [From FML Forte] hair to fall out fluticasone propionate AdvReac RASH, Verified 10/23/21 08:47 [From Advair Diskus] ITCHING furosemide [From Lasix] AdvReac tinnitus Verified 10/23/21 08:47 gabapentin [From Neurontin] AdvReac MUSCLE Verified 10/23/21 08:47 CRAMPS, SENSATION OF BUGS CRAWLING ON LEGS gemfibrozil AdvReac Rapid Verified 10/23/21 08:47 Heart Rate ibuprofen AdvReac tinnitus Verified 10/23/21 08:47 ipratropium [From Combivent] AdvReac tinnitus Verified 10/23/21 08:47 levofloxacin [From Levaquin] AdvReac Muscle Verified 10/23/21 08:47 Cramps/Lower Back Pain lovastatin AdvReac cramps Verified 10/23/21 08:47 metoprolol AdvReac Diarrhea Verified 10/23/21 08:47 mometasone furoate AdvReac RASH, Verified 10/23/21 08:47 [From Asmanex Twisthaler] VISUAL CHANGES pregabalin [From Lyrica] AdvReac MUSCLE Verified 10/23/21 08:47 CRAMPS, SENSATION OF BUGS CRAWLING ON LEGS rosuvastatin calcium AdvReac MUSCLE Verified 10/23/21 08:47 [From Crestor] CRAMPS salmeterol xinafoate AdvReac Rash/Hives Verified 10/23/21 08:47 [From Advair Diskus] simvastatin AdvReac SENSATION Verified 10/23/21 08:47 OF BUGS CRAWLING ON LEGS thyroid, pork AdvReac Diarrhea Verified 10/23/21 08:47 [From [place] Thyroid] tiotropium AdvReac Dry Verified 10/23/21 08:47 [From Spiriva with mouth/Ringing HandiHaler] in ears Physical Exam Vitals: Vital Signs Temp Pulse Pulse Resp BP Pulse Ox 10/24/21 05:00 97.7 F 102 H 15 129/86 94 L 10/23/21 20:41 98.1 F 111 H 16 128/85 93 L 10/23/21 20:00 111 H 101 H 16 10/23/21 17:37 99 128/91 91 L 10/23/21 17:22 98 133/87 93 L 10/23/21 17:08 99 150/82 90 L 10/23/21 16:59 98 F 101 H 22 134/91 93 L 10/23/21 14:58 103 H 16 119/79 95 10/23/21 14:30 103 H 16 123/81 96 10/23/21 14:15 99 12 130/79 95 10/23/21 13:57 93 12 109/65 97 10/23/21 13:41 89 12 123/77 97 10/23/21 13:26 94 18 128/73 97 10/23/21 13:10 93 16 111/75 97 10/23/21 12:55 92 18 116/74 93 L 10/23/21 12:40 90 18 103/77 95 10/23/21 12:25 93 18 102/77 95 Intake and Output 10/23/21 10/24/21 10/24/21 22:59 06:59 14:59 Intake Total 1125 Output Total 320 2000 Balance -320 -875 Intake: IV 1125 D5-0.45% NaCl with KCl 1125 20Meq/l 1,000 ml @ 125 mls/hr IV .Q8H [facility] Rx#: [id number] Output: Drainage 20 Right Abdomen 20 Urine 300 2000 Other: Voiding Method Bedside Commode Weight 124.4 kg Results CBC & Chem 7: 10/23/21 09:15 10/23/21 09:15
--- NOTE | 2021-10-24 14:11 | P.PN ---
Subjective Progress Note Date: 10/24/21 CHIEF COMPLAINT: Incarcerated incisional hernia HISTORY OF PRESENT ILLNESS: Patient is postop day #1 Repair of incarcerated incisional hernia with mesh and lysis of adhesions. Patient rating her pain 8 out of 10. She reports that she is having a headache after the Toradol was given. She reports that yesterday she had improvement with the [place] and IV pain medication. She did tolerate a clear liquid diet. She wants more to eat. Afebrile. She has a mildly tachycardic. WBC is 8.6 Hgb 15.2 platelets 242 sodium is 138 creatinine 1.09 PHYSICAL EXAM: VITAL SIGNS: Reviewed. GENERAL: Well-developed in no acute distress. HEENT: No sclera icterus. Extraocular movements grossly intact. Moist buccal mucosa. Head is atraumatic, normocephalic. ABDOMEN: Soft. Nondistended. Incisional dressing clean dry and intact. Abdominal binder in place. NEUROLOGIC: Alert and oriented. Cranial nerves II through XII grossly intact. ASSESSMENT: 1. Incarcerated incisional hernia status post repair of incarcerated incisional hernia with mesh and lysis of adhesions PLAN: -Advance diet to regular -Continue pain management -Encouraged patient ambulate -Continue supportive care -DVT prophylaxis subcu heparin and GI prophylaxis Pepcid Physician Engineering Technical Writer note has been reviewed by physician. Signing provider agrees with the documented findings, assessment, and plan of care. I have personally seen and examined the patient, reviewed the TECHNICAL CONSULTANT /PAs history, exam and MDM and agree with the assessment and plan as written. Based on total visit time, I have performed more than 50% of the visit. As above: Patient is having pain today. She says it is somewhat improved from yesterday. She does live alone. She would like to stay until tomorrow which I think is reasonable. Continue increasing activity. We will saline lock IV. Diet as tolerated. Probable discharge tomorrow. Objective - Vital Signs Vital signs: Vital Signs Temp 97.7 F 10/24/21 05:00 Pulse 102 H 10/24/21 05:00 Resp 15 10/24/21 05:00 BP 129/86 10/24/21 05:00 Pulse Ox 94 L 10/24/21 05:00 FiO2 Intake & Output 10/23/21 10/24/21 10/24/21 18:59 06:59 18:59 Intake Total 2100 1125 Output Total 40 2300 Balance 2059 -117 Weight 124.4 kg Intake: IV 2099 1124 D5-0.45% NaCl with KCl 1125 20Meq/l 1,000 ml @ 125 mls/hr IV .Q8H [facility] Rx#: [id number] Output: Drainage 20 Right Abdomen 20 Urine 2300 Estimated Blood Loss 20 Other: Voiding Method Bedside Commode - Labs CBC & Chem 7: 10/23/21 09:15 10/23/21 09:15
[2021-10-24] MEDS ORDERED: EZETIMIBE 10 MG TAB PO SCH (21:00)
[2021-10-25] MEDS: D5-0.45% NACL WITH KCL 20MEQ/L 1,000 ML IV SCH ×2 (00:33→08:05)
[2021-10-25] MEDS: LACTATED RINGERS 1,000 ML IV SCH (07:26)
[2021-10-25] MEDS: HEPARIN SODIUM,PORCINE/PF 5,000 UNIT/0.5 ML SYRINGE SQ SCH (07:54)
[2021-10-25] MEDS ORDERED: FLUTICASONE 44 MCG INHALER INHALATION SCH (08:00)
[2021-10-25] MEDS ORDERED: FAMOTIDINE 20 MG TAB PO SCH ×2 (09:00)
[2021-10-25] MEDS ORDERED: VERAPAMIL SR 120 MG TABLET.ER PO SCH (09:00)
[2021-10-25 11:53] LABS: African American GFR (CKD) 59.7 (60.0-200.0); Anion Gap 11.1 mmol/L (10.00-18.00); BUN/Creat Ratio 9.27 Ratio (12.00-20.00); Blood Urea Nitrogen 10.2 mg/dL (9.0-27.0); Calcium 9.2 mg/dL (8.7-10.3); Carbon Dioxide 23.9 mmol/L (20.0-27.5); Non-African American GFR(CKD) 51.5 (60.0-200.0); Potassium 4.3 mmol/L (3.5-5.5)
[2021-10-25] MEDS ORDERED: diphenhydrAMINE 2% CREAM 28.4 GM TUBE TOPICAL SCH (12:00)
[2021-10-25 12:42] VITALS: BP 122/70; PULSE 104; RESP 19; TEMP 98.8
[2021-10-25 13:03] LABS: Appearance,Urine Clear (Clear); Bilirubin,Urine Negative (Negative); Blood,Urine Negative (Negative); Color,Urine Light Yellow; Glucose,Urine (UA) Negative (Negative); Ketones,Urine Negative (Negative); Leukocyte Esterase,Urine Negative (Negative); Nitrite,Urine Negative (Negative); Protein,Urine Negative (Negative); Specific Gravity,Urine 1.007 (1.001-1.035); Urobilinogen,Urine <2.0 mg/dL (<2.0)
--- NOTE | 2021-10-25 13:11 | P.DS ---
Providers Expected date of discharge: 10/25/21 Attending physician: Rodri Nolen Consults: 10/23/21 11:31 Consult Physician Routine Consulting Provider: Yoel Garnica Reason/Comments: Medical management Do you want consulting provider notified?: Yes Primary care physician: Yoel Garnica Hospital Course: Discharge diagnosis 1. Incarcerated incisional hernia status post repair of incarcerated incisional hernia with mesh and lysis of adhesions Hospital course This is a 66-year-old with an incarcerated incisional hernia. She is status post repair of the incarcerated incisional hernia with mesh and lysis of adhesions. She tolerated surgery well. Her pain is controlled. She is tolerating diet. She is up and ambulating. She is afebrile. Incisional dressing clean dry and intact. She is stable for discharge. Please refer to chart for any further details. Physician Paper Sales Representative note has been reviewed by physician. Signing provider agrees with the documented findings, assessment, and plan of care. Patient Condition at Discharge: Stable Plan - Discharge Summary Discharge Rx Participant: No New Discharge Prescriptions: New HYDROcodone/APAP 7.5-325MG [[place] 7.5-325] 1 tab PO Q6HR PRN 3 Days #12 tab PRN Reason: Pain diphenhydrAMINE & Zinc Cream [Benadryl Cream] 1 applic TOPICAL BID each Docusate [Colace] 100 mg PO BID #30 capsule Continue Albuterol Sulfate [Ventolin HFA] 2 puff INHALATION RT-Q4H PRN PRN Reason: Shortness Of Breath Budesonide [Pulmicort Flexhaler] 1 puff INHALATION RT-DAILY Umeclidinium Brm/Vilanterol Tr [Anoro Ellipta 62.5-25 Mcg INH] 1 puff INHALATION RT-DAILY Albuterol Nebulized [Ventolin Nebulized] 2.5 mg INHALATION RT-QID PRN PRN Reason: Dyspnea Ketotifen 0.025% Ophth Soln [Zaditor] 1 drop BOTH EYES BID PRN PRN Reason: DRY/ITCHY EYES Ezetimibe [Zetia] 10 mg PO HS Magnesium Oxide 400 mg PO HS PRN PRN Reason: CRAMPS Triamcinolone 0.1% Cream [Kenalog 0.1% Cream] 1 applic TOPICAL DAILY PRN PRN Reason: Rash Ubidecarenone [Co Q-10] 30 mg PO DAILY Famotidine [Zantac-360 (Famotidine)] 20 mg PO DAILY Cetirizine HCl 10 mg PO DAILY PRN PRN Reason: Allergy Symptoms Fexofenadine HCl [Diann Allergy] 180 mg PO DAILY PRN PRN Reason: Allergy Symptoms Lansoprazole [Prevacid] 15 mg PO DAILY Verapamil HCl [Verapamil ER] 120 mg PO DAILY Meclizine [Antivert] 12.5 mg PO DAILY PRN PRN Reason: dizziness Discontinued HYDROcodone/APAP 5-325MG [[place] 5-325] 0.3 tab PO Q4H PRN PRN Reason: Pain No Action hydrALAZINE HCL [Apresoline] 25 mg PO BID PRN PRN Reason: bp over 160/90 predniSONE 5 mg PO DAILY PRN tab PRN Reason: asthma Discharge Medication List Albuterol Sulfate [Ventolin HFA] 2 puff INHALATION RT-Q4H PRN 05/20/14 [History] Budesonide [Pulmicort Flexhaler] 1 puff INHALATION RT-DAILY 05/20/14 [History] Umeclidinium Brm/Vilanterol Tr [Anoro Ellipta 62.5-25 Mcg INH] 1 puff INHALATION RT-DAILY 11/11/14 [History] Albuterol Nebulized [Ventolin Nebulized] 2.5 mg INHALATION RT-QID PRN 06/20/16 [History] Ketotifen 0.025% Ophth Soln [Zaditor] 1 drop BOTH EYES BID PRN 09/03/17 [History] Ezetimibe [Zetia] 10 mg PO HS 05/16/18 [History] Magnesium Oxide 400 mg PO HS PRN 09/17/19 [History] Triamcinolone 0.1% Cream [Kenalog 0.1% Cream] 1 applic TOPICAL DAILY PRN 05/20/20 [History] Ubidecarenone [Co Q-10] 30 mg PO DAILY 05/20/20 [History] hydrALAZINE HCL [Apresoline] 25 mg PO BID PRN 05/20/20 [History] predniSONE 5 mg PO DAILY PRN tab 11/14/20 [Rx] Famotidine [Zantac-360 (Famotidine)] 20 mg PO DAILY 03/14/21 [History] Meclizine [Antivert] 12.5 mg PO DAILY PRN 03/14/21 [History] Cetirizine HCl 10 mg PO DAILY PRN 10/19/21 [History] Fexofenadine HCl [Diann Allergy] 180 mg PO DAILY PRN 10/19/21 [History] Lansoprazole [Prevacid] 15 mg PO DAILY 10/19/21 [History] Verapamil HCl [Verapamil ER] 120 mg PO DAILY 10/19/21 [History] HYDROcodone/APAP 7.5-325MG [[place] 7.5-325] 1 tab PO Q6HR PRN 3 Days #12 tab 10/23/21 [Rx] Docusate [Colace] 100 mg PO BID #30 capsule 10/25/21 [Rx] diphenhydrAMINE & Zinc Cream [Benadryl Cream] 1 applic TOPICAL BID each 10/25/21 [Rx] Follow up Appointment(s)/Referral(s): [facility] Visiting Nurse, [NON-STAFF] - 1 Week Rodri Nolen MD [Medical Doctor] - 1 Week Patient Instructions/Handouts: *Surgery [facility] - (Anesthesia) Discharge Instructions Outpatient Surgery, [facility] Drain Care (DC), Incisional Hernia (DC) Activity/Diet/Wound Care/Special Instructions: No driving while taking [place] No lifting over 10 pounds You may shower. No soaking or tub baths for 2 weeks Very light activity until you are reevaluated at your follow up appointment with your surgeon Discharge Disposition: HOME WITH HOME HEALTH SERVICES
--- NOTE | 2021-10-25 14:28 | P.PN ---
Subjective Progress Note Date: 10/25/21 - Reason for Consult Tachycardia - History of Present Illness Patient is admitted for elective incisional hernia repair patient successfully underwent surgery patient is still having significant amount of pain. Patient doesn't have any fever chills does have sinus tachycardia secondary to pain. Patient is also on verapamil at home which will be resumed. 10/25/2021 Patient seen and evaluated in follow-up this morning and reports to feeling fatigued and continues with some abdominal pain although reports is improved from yesterday. Patient denies chest pain or shortness of breath. Discussed with the patient about resuming verapamil and refusing hospitals brand as she reports she has difficulty with anything other than taking her normal tablets. Encourage the patient to resume verapamil when getting home his blood pressures were mildly elevated. Patient is afebrile and reports the tolerating diet. Patient reports not much of an appetite and encourage the patient to continue to follow surgical recommendations and advance slowly as tolerated. Patient reports she follows Dr. Garnica in the outpatient setting and encouraged outpatient follow-up along with surgical follow-up. She reports she has been getting up and walking and encouraged increased activity as tolerated. Homecare being arranged. Review of systems: Constitutional: reports of fatigue, no reports of fever, or chills Cardiovascular: No reports of chest pain or palpitations Respiratory: No reports of shortness of breath or cough GI: No reports of nausea, vomiting, or diarrhea, reports passing gas with no bowel movement as of yet : No reports of dysuria or retention Neurovascular: No reports of weakness or numbness All medications have been reviewed PHYSICAL EXAMINATION: GENERAL: The patient is alert and oriented x3, not in any acute distress obese HEENT: Pupils are round and equally reacting to light. EOMI. No scleral icterus. No conjunctival pallor. Normocephalic, atraumatic. No pharyngeal erythema. No thyromegaly. CARDIOVASCULAR: S1 and S2 present. No murmurs, rubs, or gallops. PULMONARY: Chest is clear to auscultation, no wheezing or crackles. ABDOMEN: Soft, mildly tender on palpation, nondistended, normoactive bowel sounds. No palpable organomegaly. MUSCULOSKELETAL: No joint swelling or deformity. EXTREMITIES: No cyanosis, clubbing, or pedal edema. NEUROLOGICAL: Gross neurological examination did not reveal any focal deficits. SKIN: No rashes. Assessment: -Tachycardia: Reflex tachycardia. Patient to resume verapamil -Hypertension: Recommend resume hypertensive medications -Mild acute renal failure -Status post Incisional hernia repair -Asthma without any acute exacerbation at this time -Gastroesophageal reflux disease -Hyperlipidemia -DVT prophylaxis: Patient is on subcutaneous heparin Plan: Recommend continue with current medications and management per surgical services. Patient is status post incarcerated incisional hernia repair with mesh and lysis of adhesions Patient has not been taking hospitals verapamil as she reports she has complications with this brand and will resume once getting home Recommend resume home medications Encouraged increased activity as tolerated Continue with current diet and advance slowly as tolerated per surgical recommendations Encouraged the patient to follow-up with primary care provider Dr. Garnica in the outpatient setting and follow-up with repeat labs Reports she is being discharged today by surgery Thank you for this consultation. We will continue to follow during hospitalization The impression and plan of care has been dictated by Cheryl Humphrey, Nurse Practitioner as directed. Dr. Stanton MD I have performed a history and examination and MDM of this patient, discussed the same with the dictator, and agree with the dictator's assessment and plan as written ,documented as a scribe. Based on total visit time, I have performed more than 50% of the visit. Objective - Vital Signs Vital signs: Vital Signs Temp 97.8 F 10/25/21 04:11 Pulse 103 H 10/25/21 04:11 Resp 20 10/25/21 04:11 BP 145/82 10/25/21 04:11 Pulse Ox 94 L 10/25/21 04:11 FiO2 Intake & Output 10/24/21 10/25/21 10/25/21 18:59 06:59 18:59 Output Total 2110 730 Balance -2110 -730 Output: Drainage 10 30 Right Abdomen 10 30 Urine 2100 700 Other: Voiding Method Bedside Commode Bedside Commode # Voids 1 - Labs CBC & Chem 7: 10/23/21 09:15 10/25/21 05:46
== END 2021-10-25 14:52 | disposition home health service (06) ==
LOC: OR 08:24 → 5NMEDONC 11:46 → OR 10-25 14:52
PROVIDERS: ATTEND Surgery
DX: K43.0 Incisional hernia with obstruction, without gangrene (principal); K66.0 Peritoneal adhesions (postprocedural) (postinfection); R00.0 Tachycardia, unspecified; I10 Essential (primary) hypertension; N17.9 Acute kidney failure, unspecified; K21.9 Gastro-esophageal reflux disease without esophagitis; E78.5 Hyperlipidemia, unspecified; R51.9 Headache, unspecified; J44.9 Chronic obstructive pulmonary disease, unspecified; M19.90 Unspecified osteoarthritis, unspecified site; E66.01 Morbid (severe) obesity due to excess calories; Z68.41 Body mass index [BMI] 40.0-44.9, adult; Z88.0 Allergy status to penicillin; Z88.3 Allergy status to other anti-infective agents; Z88.8 Allergy status to other drugs, medicaments and biological substances; Z88.1 Allergy status to other antibiotic agents; Z88.6 Allergy status to analgesic agent; Z79.51 Long term (current) use of inhaled steroids; Z79.899 Other long term (current) drug therapy; Z87.891 Personal history of nicotine dependence
CPT/HCPCS: 80053; 80048; 85025; 81003; 88302; 49566; 49568; 49999; C1781; J0690; J2405; J1885 ×2; J1170; J1644 ×3

== ENCOUNTER → 2022-02-22 | Outpatient (CLI) | payer MEDICARE, OTHER ==
[2022-02-22 16:04] LABS: Chol/HDL Ratio 4.34 Ratio; LDL Cholesterol,Calculated 169.5 mg/dL (0.0-131.0)
== END | disposition home or self-care (01) ==
LOC: LABWHC1 09:05
PROVIDERS: ATTEND Internal Medicine Interventional Cardiology
DX: E78.2 Mixed hyperlipidemia (principal)
CPT/HCPCS: 36415; 80061

== ENCOUNTER → 2022-02-22 | Outpatient (CLI) | payer MEDICARE, OTHER ==
--- NOTE | 2022-02-23 07:27 | MM ---
Reason for Exam: Screening (asymptomatic). Last mammogram was performed 1 year(s) and 1 month(s) ago. Patient History: Menarche at age 9. Patient has no children. Postmenopausal. Patient used Hormonal Contraceptives for 2 years. Risk Values: Jody 5 year model risk: 2.1%. NCI Lifetime model risk: 6.7%. Prior Study Comparison: 12/06/2016 Bilateral Screening Mammogram, [facility]. 11/26/2017 Bilateral Screening Mammogram, [facility]. 11/28/2018 Bilateral Screening Mammogram, [facility]. 02/03/2020 Bilateral Screening Mammogram, [facility]. 02/03/2021 Bilateral Screening Mammogram, [facility]. Tissue Density: The breast tissue is almost entirely fat. Findings: Analyzed By CAD. A few tiny benign-appearing round and linear calcifications bilaterally are redemonstrated. There is no suspicious new group of microcalcifications or new suspicious mass in either breast. Overall Assessment: Benign, BI-RAD 2 Management: Screening Mammogram of both breasts in 1 year. A clinical breast exam by your physician is recommended on an annual basis and results should be correlated with mammographic findings. Electronically signed and approved by: Derrick Vargas M.D.
== END | disposition home or self-care (01) ==
LOC: RADMAMWWP 09:08
PROVIDERS: ATTEND Internal Medicine Geriatric Medicine
DX: Z12.31 Encounter for screening mammogram for malignant neoplasm of breast (principal); Z78.0 Asymptomatic menopausal state
CPT/HCPCS: 77063; 77067

== ENCOUNTER → 2022-09-07 | Outpatient (CLI) | payer MEDICARE, OTHER ==
--- NOTE | 2022-09-07 10:13 | US ---
EXAMINATION TYPE: US thyroid st tissue head/neck DATE OF EXAM: 09/07/2022 COMPARISON: US 2021 CLINICAL INDICATION: Female, 67 years old with history of E04.1 Thyroid nodule; GLAND SIZE: Right Lobe: 4.1 x 1.1 x 1.8 cm Overall Parenchyma: heterogenous Left Lobe: 3.9 x 2.0 x 1.8 cm Overall Parenchyma: heterogenous Isthmus Thickness: 0.4 cm NODULES RIGHT: # of nodules measured on right: 2 1. 1.0 X 0.6 x 1.0 cm, mid lateral, solid or almost completely solid, hypoechoic nodule, which is w ider than tall, with smooth margins, without echogenic foci. Prior size: 0.9 x 0.9 x 0.6 cm 2. 0.5 X 0.4 x 0.6 cm, lower mid, solid or almost completely solid, hypoechoic nodule, which is wide r than tall, with smooth margins, without echogenic foci. Prior size: 0.5 x 0.6 x 0.6 cm LEFT: # of nodules measured on left: 2 1. 1.9 X 1.8 x 1.4 cm, lower mid, solid or almost completely solid, isoechoic nodule, which is tall er than wide, with ill-defined margins, without echogenic foci. Prior size: 1.8 x 0.9 x 1.7 cm 2. 0.9 X 1.0 x 1.1 cm, mid medial, solid or almost completely solid, hyperechoic with hypoechoic r im nodule, which is wider than tall, with smooth margins, without echogenic foci. Prior size: 1.0 x 0.9 x 0.9 cm ISTHMUS: # of nodules measured in the isthmus: 0 Bilateral neck scanned, no evidence of lymphadenopathy. IMPRESSION: Stable glandular heterogeneity and nodularity.
== END | disposition home or self-care (01) ==
LOC: RADUSWWP 09:24
PROVIDERS: ATTEND Internal Medicine Geriatric Medicine
DX: E04.1 Nontoxic single thyroid nodule (principal)
CPT/HCPCS: 76536

== ENCOUNTER → 2022-09-17 | Outpatient (CLI) | payer MEDICARE, OTHER ==
--- NOTE | 2022-09-17 10:13 | CT ---
EXAMINATION TYPE: CT abdomen pelvis wo con DATE OF EXAM: 09/17/2022 COMPARISON: 07/06/2021 HISTORY: Hernia, Lt sided pain CT DLP: 1948.5 mGycm Automated exposure control for dose reduction was used. TECHNIQUE: Helical acquisition of images was performed from the lung bases through the pelvis. FINDINGS: LUNG BASES: No significant abnormality is appreciated. LIVER/GB: Cholelithiasis. Liver measures 18 cm compatible with hepatomegaly. PANCREAS: No significant abnormality is seen. SPLEEN: No significant abnormality is seen. ADRENALS: No significant abnormality is seen. KIDNEYS: No significant abnormality is seen. URINARY BLADDER: No significant abnormality is seen. ADENOPATHY: None visualized. OSSEOUS STRUCTURES: No significant abnormality is seen. BOWEL: Moderate hiatal hernia. There is changes of diverticulosis but no CT evidence of diverticulit is. OTHER: Uterus is enlarged with multiple large calcifications compatible with calcified uterine fibroi ds. There is abnormal attenuation in the subcutaneous fat in the location of prior hernia which may repre sent a large scar or residual hematoma measuring 3.6 cm. Favor scar. There is no evidence of herniate d bowel. There appears to be continued thinning and weakening of the anterior abdominal and pelvic an terior musculature. Tiny nonspecific calcification along the posterior margin of the liver. IMPRESSION: 1. THERE IS POSTSURGICAL CHANGES WITH SUSPECTED LARGE AREA OF SCARRING OR HEMATOMA INVOLVING THE ANTE RIOR ABDOMINAL WALL. THERE IS NO EVIDENCE OF HERNIATED BOWEL ON TODAY'S EXAM. THERE IS PERSISTENT THI NNING AND APPARENT WEAKENING OF THE ANTERIOR ABDOMINAL AND PELVIC MUSCULATURE PROTRUDING PERITONEAL F AT. 2. UTERUS IS ENLARGED WITH NUMEROUS LARGE CALCIFICATIONS. FINDINGS ARE SUGGESTIVE OF FIBROID UTERUS. 3. MODERATE HIATAL HERNIA. NEXT NUMBER CHOLELITHIASIS. 4. HEPATOMEGALY
== END | disposition home or self-care (01) ==
LOC: RADCTMAIN 09:17
PROVIDERS: ATTEND Surgery
DX: K46.9 Unspecified abdominal hernia without obstruction or gangrene (principal); K44.9 Diaphragmatic hernia without obstruction or gangrene; R16.0 Hepatomegaly, not elsewhere classified; K80.20 Calculus of gallbladder without cholecystitis without obstruction; J98.4 Other disorders of lung
CPT/HCPCS: 74176

== ENCOUNTER → 2023-02-05 | Outpatient (CLI) | payer MEDICARE, OTHER ==
[2023-02-05 11:31] LABS: INR 0.9 (<1.2); Partial Thromboplastin Time 25.7 sec (22.0-30.0); Prothrombin Time 10.3 sec (10.0-12.5)
[2023-02-05 18:13] LABS: Basophils # (A) 0.07 X 10*3/uL (0.00-0.10); Basophils % (A) 0.8 %; Eosinophils # (A) 0.39 X 10*3/uL (0.04-0.35); Eosinophils % (A) 4.2 %; HCT 45.5 % (37.2-46.3); HGB 14.7 g/dL (12.0-15.0); Lymphocytes # (A) 3.16 X 10*3/uL (0.90-5.00); Lymphocytes % (A) 34.1 %; MCH 29.9 pg (27.0-32.0); MCHC 32.3 g/dL (32.0-37.0); MCV 92.7 FL (80.0-97.0); Mean Platelet Volume 10.9 FL (9.5-12.2); Monocytes # (A) 0.55 X 10*3/uL (0.20-1.00); Monocytes % (A) 5.9 %; NRBC Per 100 WBC 0 X 10*3/uL (0.00-0.01); Neutrophils # (A) 5.08 X 10*3/uL (1.80-7.70); Neutrophils % (A) 54.8 %; Platelet Count 273 X 10*3/uL (140-440); RBC 4.91 X 10*6/uL (4.10-5.20); RDW 13.1 % (11.5-14.5); WBC 9.27 X 10*3/uL (4.50-10.00)
[2023-02-05 18:25] LABS: Appearance,Urine Clear (Clear); Bilirubin,Urine Negative (Negative); Blood,Urine Negative (Negative); Color,Urine Yellow (Yellow); Ketones,Urine Trace (Negative); Nitrite,Urine Negative (Negative); Specific Gravity,Urine 1.024 (1.001-1.030)
[2023-02-05 18:29] LABS: Bacteria,Urine None Seen (None Seen)
[2023-02-05 20:22] LABS: ALT 31 U/L (8-44); AST 21 U/L (13-35); Albumin 4.4 g/dL (3.8-4.9); Alkaline Phosphatase 96 U/L (41-126); Calcium 9.9 mg/dL (8.7-10.3); Carbon Dioxide 26.4 mmol/L (21.6-31.8); Chloride 104 mmol/L (96-109); Globulin 2.2 g/dL (1.6-3.3); Glucose 120 mg/dL (70-110); Potassium 4.5 mmol/L (3.5-5.5); Sodium 142 mmol/L (135-145); Total Bilirubin 0.4 mg/dL (0.3-1.2); Total Protein 6.6 g/dL (6.2-8.2)
== END | disposition home or self-care (01) ==
LOC: LABPAT 09:46
PROVIDERS: ATTEND Orthopaedic Surgery
DX: Z01.812 Encounter for preprocedural laboratory examination (principal)
CPT/HCPCS: 80053; 81001; 85025; 85610; 85730; 87070

== ENCOUNTER → 2023-02-05 | Outpatient (CLI) | payer MEDICARE, OTHER ==
[2023-02-05 20:22] LABS: Chol/HDL Ratio 2.56 Ratio; LDL Cholesterol,Calculated 89.3 mg/dL (0.0-131.0)
== END | disposition home or self-care (01) ==
LOC: LABWHC1 09:50
PROVIDERS: ATTEND Internal Medicine Interventional Cardiology
DX: E78.2 Mixed hyperlipidemia (principal)
CPT/HCPCS: 36415; 80061

== ENCOUNTER → 2023-02-15 | Outpatient (CLI) | payer MEDICARE, OTHER ==
[~2023-02-15] MED LIST changes: -ACETAMINOPHEN TAB 500 MG TAB PO PRN; -HEPARIN SODIUM,PORCINE/PF 5,000 UNIT/0.5 ML SYRINGE SQ PRN; -LIDOCAINE 1% (10MG/ML) FOR IV START INTRADERMA PRN; -MIDAZOLAM 2 MG/2 ML VIAL IV PRN; -ONDANSETRON 4 MG/2 ML VIAL IVP ONE; +REGADENOSON 0.4 MG/5 ML SYRINGE IV PRN; -ceFAZolin 3 GM in SODIUM CHLORIDE 0.9% 100 ML IVPB PRN
--- NOTE | 2023-02-15 12:17 | CA ---
Lexiscan Nuclear Stress Test Report Name: Janelle Waddell Exam Date: 02/15/2023 11:16 Exam Location: [place] Stress Ht (in): 65 Wt (lb): 260 BSA: 2.21 Ordering Phys: Yoel Garnica MD Referring Phys: Yoel Garnica MD Technologist: Idris Grayson Age: 67 Gender: F : 1955 Procedure CPT: Indications: I20.9 Angina ICD-10 Codes: Patient History: DIFFICULTY IN BREATHING, PALPITATIONS, ELEVATED CHOLESTEROL LEVELS, FAMILY HX OF HEART DISEASE, PRIOR SMOKER, COPD, ASTHMA, EMPHYSEMA Medications: Meds past 24 hrs: Pretest Chest Pain: STRESS TEST Lexiscan Protocol Exercise Duration (min:sec): 01:[address] Depressions (mm): Angina Score: Martínez Score: Resting HR (bpm): 102 Peak HR (bpm): 112 Resting BP (mmHg): 134 / 80 Peak BP (mmHg): 134 / 80 MPHR: 151 Target HR: 128 % MPHR: 74 METS: 1.0 Total Dose: Peak Dose: Atropine: Double Product: 00483 BP Response: Stress Termination: INFUSION COMPLETE Stress Symptoms: CHEST PRESSURE Stress Summary: ECG ANALYSIS Resting ECG: Normal sinus rhythm normal axis normal intervals Stress ECG: Negative stress test by EKG criteria CONCLUSIONS Negative EKG part of the stress test Cardiolite portion of the stress test will be reported separately Dr. Jose Carlos Valdez MD (Electronically Signed) Final Date: 15 February 2023 12:16
--- NOTE | 2023-02-17 15:32 | NM ---
EXAMINATION TYPE: NM stress lexiscan cardiolite DATE OF EXAM: 02/15/2023 COMPARISON: NONE HISTORY: Angina, chest pain TECHNIQUE: After the intravenous administration of 9.8 mCi Tc 99m Sestamibi - Cardiolite resting SPE CT images acquired 45 minutes post injection. At peak stress 25.3 mCi Tc 99m Sestamibi - Stress images obtained 45 minutes post injection The patient was stressed with 0.4mg Lexiscan. FINDINGS: No fixed defects are evident No reversible stress defects on Spect images Wall motion is normal Ejection fraction is calculated to be 57 %. IMPRESSION: 1. No stress-induced ischemic changes
== END | disposition home or self-care (01) ==
LOC: RADNMMAIN 09:20
PROVIDERS: ATTEND Internal Medicine Geriatric Medicine
DX: I20.9 Angina pectoris, unspecified (principal); J44.9 Chronic obstructive pulmonary disease, unspecified; J43.9 Emphysema, unspecified; E78.00 Pure hypercholesterolemia, unspecified; R00.2 Palpitations; Z87.891 Personal history of nicotine dependence
CPT/HCPCS: 93017; 78452; A9500; J2785

== ENCOUNTER 2023-02-25 07:22 | Inpatient (IN) | payer MEDICARE, OTHER ==
[2023-02-20 13:04] VITALS: BMI 43.2
[~2023-02-25 07:22] MED LIST changes: +ACETAMINOPHEN TAB 500 MG TAB PO PRN; +GABAPENTIN 300 MG CAP PO PRN; +MELOXICAM 7.5 MG TAB PO PRN; -REGADENOSON 0.4 MG/5 ML SYRINGE IV PRN; +TRANEXAMIC 1,000 MG/100ML-NACL 1,000 MG in SALINE 1 100ML.BAG IVPB PRN
[2023-02-25] MEDS ORDERED: ONDANSETRON 4 MG/2 ML VIAL IVP ONE (07:57)
[2023-02-25 08:27] LABS: Glucose,Whole Blood 120 mg/dL (70-110)
[2023-02-25] MEDS: LACTATED RINGERS 1,000 ML IV SCH (08:30)
[2023-02-25] MEDS ORDERED: MIDAZOLAM 2 MG/2 ML VIAL IVP ONE (08:37)
[2023-02-25] MEDS ORDERED: HYDROmorphone 0.5 MG/0.5 ML SYRINGE IVP PRN ×2 (08:48)
[2023-02-25] MEDS ORDERED: ONDANSETRON 4 MG/2 ML VIAL IVP PRN (08:48)
[2023-02-25] MEDS ORDERED: MAGNESIUM HYDROXIDE 2,400 MG/30 ML CUP PO PRN (08:48)
[2023-02-25] MEDS ORDERED: bisacodyL 10 MG SUPP RECTAL PRN (08:48)
[2023-02-25] MEDS ORDERED: NA PHOS,M-B/NA PHOS,DI-BA 133 ML ENEMA RECTAL PRN (08:48)
[2023-02-25] MEDS ORDERED: NALOXONE 0.4 MG/ML 1 ML VIAL IV PRN (08:48)
--- NOTE | 2023-02-25 09:02 | P.ANPRN ---
Procedure Note - Anesthesia - Nerve Block Performed Right Adductor Canal Infusion Time Out Performed: Yes Date of Procedure: 02/25/23 Procedure Start Time: 08:36 Procedure Stop Time: 08:43 Location of Patient: PreOp Indication: Acute Post-Operative Pain, Requested by Surgeon Sedation Type: Sedate with meaningful contact maintained Preparation: Sterile Prep, Sterile Dressing Position: Supine Needle Gauge: 18 Ultrasound used to visualize needle placement: Yes Ultrasound used to observe medication spread: Yes Injectate: 0.5% Ropivacaine (see comment for volume) (15 ml + lidocaine 1% with epi 1/200 K) Blood Aspirated: No Pain Paresthesia on Injection Noted: No Resistance on Injection: Normal Image Stored and Saved: Yes Events: Uneventful and Well Tolerated
--- NOTE | 2023-02-25 09:03 | P.ANPRN ---
Procedure Note - Anesthesia - Nerve Block Performed Right Stefanck Single Time Out Performed: Yes Date of Procedure: 02/25/23 Procedure Start Time: 08:44 Procedure Stop Time: 08:50 Location of Patient: PreOp Indication: Acute Post-Operative Pain, Requested by Surgeon Sedation Type: Sedate with meaningful contact maintained Preparation: Sterile Prep Position: Left Lateral Needle Types: Pajunk Needle Gauge: 21 Ultrasound used to visualize needle placement: Yes Ultrasound used to observe medication spread: Yes Injectate: 0.5% Ropivacaine (see comment for volume) (15 ml + 15 ml Lidocaine 1% with epi 1/200 K) Blood Aspirated: No Pain Paresthesia on Injection Noted: No Resistance on Injection: Normal Image Stored and Saved: Yes Events: Uneventful and Well Tolerated
[2023-02-25] MEDS ORDERED: SUCCINYLCHOLINE CHLORIDE 200 MG/10 ML VIAL IV ONE (09:12)
[2023-02-25] MEDS ORDERED: LIDOCAINE 1%-EPI 1:100,000 20 ML VIAL ONE (09:12)
[2023-02-25] MEDS ORDERED: NEOSTIGMINE 1 MG/ML 10 ML VIAL ONE (09:12)
[2023-02-25] MEDS ORDERED: TRANEXAMIC 1,000 MG/100ML-NACL PREMIX BAG ONE (09:12)
[2023-02-25] MEDS ORDERED: GLYCOPYRROLATE 0.2 MG/ML 2 ML VIAL ONE (09:12)
[2023-02-25] MEDS ORDERED: HYDROmorphone (PF) 1 MG/ML ONE (09:12)
[2023-02-25] MEDS ORDERED: diphenhydrAMINE 50 MG/ML 1 ML VIAL ONE (09:12)
[2023-02-25] MEDS ORDERED: PROPOFOL 10 MG/ML 20 ML VIAL IV ONE (09:12)
[2023-02-25] MEDS ORDERED: MIDAZOLAM 2 MG/2 ML VIAL ONE (09:12)
[2023-02-25] MEDS ORDERED: ROPIVACAINE 5 MG/ML 30 ML VIAL ONE (09:12)
[2023-02-25] MEDS ORDERED: ALBUTEROL HFA INHALER INHALATION ONE (09:12)
[2023-02-25] MEDS ORDERED: LIDOCAINE 1% INJ 10MG/ML (20 ML MDV) ONE (09:12)
[2023-02-25] MEDS ORDERED: ROCURONIUM 10 MG/ML (5 ML VIAL) IV ONE (09:12)
[2023-02-25] MEDS ORDERED: fentaNYL (PF) 50 MCG/ML 2 ML AMP ONE (09:12)
[2023-02-25] MEDS ORDERED: ceFAZolin 1,000 MG in SODIUM CHLORIDE 0.9% 1,000 ML IRRIGATION ONE (09:45)
[2023-02-25] MEDS ORDERED: LACTATED RINGERS 1,000 ML IV ONE (10:40)
--- NOTE | 2023-02-25 11:07 | P.OP ---
Date of Procedure: 02/25/23 Preoperative Diagnosis: Failed right total knee arthroplasty Postoperative Diagnosis: Failed right total knee arthroplasty Procedure(s) Performed: Revision right total knee arthroplasty Implants: Hendrickson [employer] Nephew Legion Oxinium constrained femoral component size 5, right [employer] Legion press-fit stem, straight 15 mm x 160 mm Hendrickson [employer] Nephew legion revision tibial baseplate size 3, right Hend[employer] Legion press-fit stem, straight 12 mm x 160 mm Hendrickson [employer] Nephew Zara II constrained articular insert size 3-4, 9 mm All components were cemented using Palacos R bone cement.. The articulation is Oxinium on polyethylene. Anesthesia: GETA Surgeon: Esteban Schmidt Pulp Piler #1: Vangie Severino Estimated Blood Loss (ml): 50 Pathology: other (Cultures 2) Condition: stable Disposition: PACU Indications for Procedure: This is a 67-year-old female that had a right total knee arthroplasty on 12/24/2018 she continues to have pain since her surgery and after discussing the surgical nonsurgical treatment options with her at length, she was to proceed with a revision right total knee arthroplasty. Informed consent was obtained. Operative Findings: The operative findings revealed a well fixed right total knee arthroplasty with no evidence of infection grossly Description of Procedure: Patient was seen in the preoperative area consent was reviewed and operative site was marked with a skin marker. An adductor canal pain catheter was placed by anesthesia in the preoperative area. Patient was then brought to the operating room and given preoperative antibiotics intravenously. A general anesthetic was administered by the anesthesia department. A tourniquet was placed on the upper thigh and the lower extremity was prepped and draped in usual sterile fashion. A gram of transexamic acid was given. A universal timeout was then performed which confirmed the patient's name, surgical site, ALLERGIES, and consent. The lower extremity was then exsanguinated and tourniquet was inflated to 300 mmHg. A standard and anterior midline approach to the knee was performed. The skin and subcutaneous tissue was dissected down to the patellar tendon, with the prior scar being excised. A medial parapatellar arthrotomy was then performed. A moderate amount of clear fluid was encountered, and this was cultured 2. The knee was then extended, the patellar was everted, and the knee was again flexed. The components were then inspected and grossly were found to be well fixed. The tibial poly-was then removed without incident. Attention was directed to the femur. Using a small oscillating saw, the implant cement interface was disrupted, and the femoral component was easily removed with an osteotome and a mallet. There was minimal bone loss encountered. Attention was then directed to the tibia. Again using a small oscillating saw, the implant bone interface was disrupted. The tibial component was an easily removed with an osteotome and a mallet. The undersurface of the tibial component showed very little bone ingrowth. There was very little bone loss from the tibia. Next, the saw was then used to remove the patellar bone and as well. Attention was redirected to the femur. Sequential reaming of the femoral canal was performed until good cortical fit at 15 mm. The distal cutting guide was then placed over the reamer the distal femur cut was performed. Next the 4-in-1 cutting block was placed over the reamer and the appropriate cuts were performed. The cutting block and reamer were then removed and the femoral trial was placed. The bone was then removed for the box. Femoral trial was then removed. Attention was then redirected to the tibia. Sequential reaming of the tibial canal was performed until good cortical fit at 12 mm. The intramedullary proximal tibial cutting guide was then placed over the reamer, the proximal tibia was cut. The tibia was sized. Proximal tibia was then prepared. Trials were then placed with a 9 mm constrained liner. The knee was able to fully extend and flex to 115 and was stable throughout all range of motion. Trials were then removed. The cut surfaces of bone were then irrigated with pulsatile lavage. The knee was also irrigated with Irrisept solution. The components were then opened, the cement was mixed, and the components were then cemented in place. The cement was allowed to harden with the knee in full extension. . After the cemented hardened. The tourniquet was released, and hemostasis was obtained. A second gram of transexamic acid was given. The knee was again irrigated. The knee was again taken through range of motion and found to be stable throughout all range of motion of 0-120, and the patella tracked normally. The fascia was then closed with #2 strata fix suture. The subcutaneous tissue was closed with 3-0 Vicryl and 3-0 strata fix. Exofin glue was used for the skin and placed with the knee in flexion. The patient was placed in a sterile silver dressing. Patient was then transferred to recovery room in stable condition. The recruitment and outreach assistant SIMEON Gracia was required due the complexity surgery and the need for a skilled surgical supply assistant. She assisted in positioning, draping, retraction, and closure of the wound.
[2023-02-25] MEDS: ROPIVACAINE 1,100 MG, SODIUM CHLORIDE 0.9% 500 ML 330 ML, EMPTY PAIN BALL 1 EACH MISCELLANE PRN ×4 (12:07→14:00)
[2023-02-25] MEDS: HYDROmorphone 0.5 MG/0.5 ML SYRINGE IVP PRN ×6 (12:29→20:46)
--- NOTE | 2023-02-25 12:53 | XR ---
EXAMINATION TYPE: XR knee limited RT DATE OF EXAM: 02/25/2023 COMPARISON: None HISTORY: Postop abnormality TECHNIQUE: 2 view right knee FINDINGS: Tibiofemoral components of an place. No acute fracture or dislocation is evident. Postsurgi jose soft tissue changes are present. IMPRESSION: 1. Acute fracture post knee replacement.
[2023-02-25 13:44] LABS: Glucose,Whole Blood 108 mg/dL (70-110)
[2023-02-25] MEDS ORDERED: droPERidol 5 MG/2 ML VIAL IVP ONE (14:58)
[2023-02-25] MEDS: HYDROcodone/APAP 7.5-325MG 1 EACH TAB PO PRN (16:08)
[2023-02-25] MEDS: ceFAZolin 3 GM in SODIUM CHLORIDE 0.9% 100 ML IVPB SCH (18:05)
[2023-02-25] MEDS: SODIUM CHLORIDE 0.9% 1,000 ML IV SCH (19:37)
[2023-02-25] MEDS ORDERED: ALBUTEROL HFA INHALER INHALATION PRN (20:29)
[2023-02-25] MEDS ORDERED: FLUOCINOLONE ACETONIDE OIL BOTH EARS PRN (20:29)
[2023-02-25] MEDS ORDERED: MECLIZINE 12.5 MG TAB PO PRN (20:29)
[2023-02-25] MEDS ORDERED: FEXOFENADINE PO PRN (20:29)
[2023-02-25] MEDS ORDERED: diphenhydrAMINE 25 MG CAP PO PRN (20:29)
[2023-02-25] MEDS ORDERED: hydrALAZINE HCL 25 MG TAB PO PRN (20:29)
[2023-02-25] MEDS ORDERED: AMMONIUM LACTATE 12% CREAM 140 GM TUBE TOPICAL PRN (20:29)
[2023-02-25] MEDS ORDERED: [UNRECOGNIZED DRUG - OTHER] PO PRN (20:29)
[2023-02-25] MEDS ORDERED: CLOBETASOL PROP 0.05% CR 15GM TOPICAL PRN (20:29)
[2023-02-25] MEDS ORDERED: FLUTICASONE 50MCG/SPRAY NASAL 16GM EA NOSTRIL PRN (20:29)
[2023-02-25] MEDS ORDERED: MAGNESIUM OXIDE 400 MG TAB PO PRN (20:29)
[2023-02-25] MEDS ORDERED: predniSONE 2.5 MG TAB PO PRN (20:29)
[2023-02-25] MEDS ORDERED: NYSTATIN 100,000 UNIT/ML SUSP 500,000 UNIT/5 ML CUP PO PRN (20:29)
[2023-02-25] MEDS: SENNOSIDES-DOCUSATE SODIUM 1 EACH TAB PO SCH (20:46)
[2023-02-25] MEDS: ASPIRIN 325 MG TAB PO SCH (20:47)
[2023-02-25] MEDS: ALBUTEROL NEBULIZED 2.5 MG/3 ML INHALATION SCH (21:29)
[2023-02-26] MEDS: HYDROmorphone 0.5 MG/0.5 ML SYRINGE IVP PRN ×4 (00:21→21:36)
[2023-02-26] MEDS: SODIUM CHLORIDE 0.9% 1,000 ML IV SCH ×3 (00:21→21:38)
[2023-02-26] MEDS: ceFAZolin 3 GM in SODIUM CHLORIDE 0.9% 100 ML IVPB SCH (01:37)
[2023-02-26] MEDS: HYDROcodone/APAP 7.5-325MG 1 EACH TAB PO PRN ×2 (01:37→06:30)
[2023-02-26] MEDS: PANTOPRAZOLE 40 MG TABLET PO SCH (06:30)
[2023-02-26] MEDS: LACTATED RINGERS 1,000 ML IV SCH (08:19)
[2023-02-26 08:58] LABS: Basophils # (A) 0.05 X 10*3/uL (0.00-0.10); Basophils % (A) 0.6 %; Eosinophils # (A) 0.35 X 10*3/uL (0.04-0.35); Eosinophils % (A) 3.9 %; HCT 38.1 % (37.2-46.3); HGB 12.1 g/dL (12.0-15.0); Lymphocytes # (A) 1.85 X 10*3/uL (0.90-5.00); Lymphocytes % (A) 20.6 %; MCH 29.9 pg (27.0-32.0); MCHC 31.8 g/dL (32.0-37.0); MCV 94.1 FL (80.0-97.0); Mean Platelet Volume 10.2 FL (9.5-12.2); Monocytes # (A) 0.61 X 10*3/uL (0.20-1.00); Monocytes % (A) 6.8 %; NRBC Per 100 WBC 0 X 10*3/uL (0.00-0.01); Neutrophils # (A) 6.07 X 10*3/uL (1.80-7.70); Neutrophils % (A) 67.8 %; Platelet Count 199 X 10*3/uL (140-440); RBC 4.05 X 10*6/uL (4.10-5.20); RDW 13.3 % (11.5-14.5); WBC 8.96 X 10*3/uL (4.50-10.00)
[2023-02-26] MEDS: VERAPAMIL SR 120 MG TABLET.ER PO SCH (09:44)
[2023-02-26] MEDS: ASPIRIN 325 MG TAB PO SCH ×2 (09:44→21:35)
[2023-02-26] MEDS: KETOTIFEN 0.025% OPHTH DROPS 5 ML BTL BOTH EYES SCH (09:57)
[2023-02-26] MEDS: ALBUTEROL NEBULIZED 2.5 MG/3 ML INHALATION SCH ×5 (10:00→21:20)
[2023-02-26] MEDS: BUDESONIDE 90 MCG INHALATION SCH (10:14)
[2023-02-26] MEDS: VILANTEROL TR INHALATION SCH (10:14)
[2023-02-26] MEDS: UMECLIDINIUM BRM INHALATION SCH (10:14)
--- NOTE | 2023-02-26 10:16 | P.PN ---
Progress Note - Text 02/26/23 622am 67-year-old status post total knee replacement by Dr. Orellana height off. Patient has a On-Q pump for postop pain control with the solution running at 8 mL an hour with a VAS of 10 patient has been receiving oral pain medications for breakthrough pain. Plan to continue On-Q pump infusion
--- NOTE | 2023-02-26 14:13 | P.CONS ---
History of Present Illness - Reason for Consult Consult date: 02/26/23 Medical management - History of Present Illness History of present illness; patient is 67-year-old lady with past medical history significant for asthma, hyperlipidemia, who presented to the hospital for elective revision of right total knee arthroplasty. Patient underwent right total knee replacement in 2008 and arthroscopic lysis of adhesions in 2020. patient has been following up outpatient with orthopedics and has been complaining of increasing pain . Orthopedics discussed with patient and d ecision was made to proceed with revision of right total knee arthroplasty . Postoperatively internal medicine team was consulted for medical management REVIEW OF SYSTEMS: CONSTITUTIONAL: No fever, no malaise, no fatigue. HEENT: No recent visual problems or hearing problems. Denied any sore throat. CARDIOVASCULAR: No chest pain, orthopnea, PND, no palpitations, no syncope. PULMONARY: No shortness of breath, no cough, no hemoptysis. GASTROINTESTINAL: No diarrhea, no nausea, no vomiting, no abdominal pain. NEUROLOGICAL: No headaches, no weakness, no numbness. HEMATOLOGICAL: Denies any bleeding or petechiae. GENITOURINARY: Denies any burning micturition, frequency, or urgency. MUSCULOSKELETAL/RHEUMATOLOGICAL: Complaining of right knee pain ENDOCRINE: Denies any polyuria or polydipsia. The rest of the 14-point review of systems is negative. PHYSICAL EXAMINATION: GENERAL: The patient is alert and oriented x3, not in any acute distress. Well developed, well nourished. HEENT: Pupils are round and equally reacting to light. EOMI. No scleral icterus. No conjunctival pallor. Normocephalic, atraumatic. No pharyngeal erythema. No thyromegaly. CARDIOVASCULAR: Patient refused to let me auscultate her as she stated that I had cologne on. PULMONARY: Patient refused to let me auscultate her as she stated that I had cologne on. ABDOMEN: Soft, nontender, nondistended, normoactive bowel sounds. No palpable organomegaly. MUSCULOSKELETAL: Right knee surgical incision seen EXTREMITIES: No cyanosis, clubbing, or pedal edema. NEUROLOGICAL: Gross neurological examination did not reveal any focal deficits. SKIN: No rashes. Assessment and plan Status post revision of right total knee arthroplasty Hypertension Asthma Monitor vital signs Monitor CBC Monitor CMP Continue postop care per orthopedics Continue DVT prophylaxis per orthopedic Continue pain management per orthopedics Resume home meds PT and OT consulted Labs and medication were reviewed.. Continue same treatment. Continue with symptomatic treatment. Resume home medication. Monitor labs and vitals. DVT and GI prophylaxis. Further recommendations as per clinical course of the patient Dictation was produced using [employer] dictation software. please excuse any grammatical, word or spelling errors. Past Medical History Past Medical History: Asthma, COPD, GERD/Reflux, Hearing Disorder / Deafness, Hyperlipidemia, Musculoskeletal Disorder, Osteoarthritis (OA), Pneumonia, Skin Disorder, Supraventricular Tachycardia (SVT), Thyroid Disorder Additional Past Medical History / Comment(s): Rapid heart beat/palpitations at times, trouble at times. Hiatal hernia, hx bronchitis, chronic low back pain, occasional vertigo, tinnitus with high dose of any meds, can tolerate some liquid/capsule forms of medication but no tablets. Swelling in legs at times. Hx kidney stones 30 yrs ago. Eczema. Itchy eyes from Allergy realted Asthma. Thyroid nodule. History of Any Multi-Drug Resistant Organisms: Acinetobacter (MDRO) Year Discovered:: 2009 MDRO Source:: abdomin Past Surgical History: Cardiac Ablation, Hernia Repair, Orthopedic Surgery Additional Past Surgical History / Comment(s): Right hand benign tumor removed, bilateral bunionectomies, total right knee arthroplasty, pain clinic procedures, abdominal hernia repair, colonoscopy, cardiac ablation for SVT 04/08. Past Anesthesia/Blood Transfusion Reactions: Previous Problems w/ Anesthesia Additional Past Anesthesia/Blood Transfusion Reaction / Comm: SLOW TO COME OUT OF ANESTHESIA, "does not take much." Difficulty lying flat on her back. Past Psychological History: No Psychological Hx Reported Additional Psychological History / Comment(s): Pt resides in an apartment alone. She has a nebulizer. She does not drive, she uses the [employer] bus. Smoking Status: Former smoker Past Alcohol Use History: Rare Additional Past Alcohol Use History / Comment(s): Started smoking in 1990 and quit in 2010, smoked 1ppd. Past Drug Use History: None Reported - Past Family History Mother Family Medical History: Deep Vein Thrombosis (DVT), Renal Disease Additional Family Medical History / Comment(s): Renal failure. Father Family Medical History: Cancer Additional Family Medical History / Comment(s): Father of pancreatic cancer. Medications and Allergies Home Medications Medication Instructions Recorded Confirmed Type Albuterol Sulfate [Ventolin HFA] 2 puff INHALATION Q4H PRN 05/20/14 02/25/23 History Budesonide [Pulmicort Flexhaler] 1 puff INHALATION QAM 05/20/14 02/25/23 History Umeclidinium Brm/Vilanterol Tr 1 puff INHALATION QAM 11/11/14 02/25/23 History [Anoro Ellipta 62.5-25 Mcg INH] Albuterol Nebulized [Ventolin 2.5 mg INHALATION QID 06/20/16 02/25/23 History Nebulized] Magnesium Oxide 400 mg PO HS PRN 09/17/19 02/25/23 History hydrALAZINE HCL [Apresoline] 25 mg PO BID PRN 05/20/20 02/25/23 History Meclizine [Antivert] 6.25 mg PO DAILY PRN 03/14/21 02/25/23 History Lansoprazole [Prevacid] 15 mg PO QAM 10/19/21 02/25/23 History Verapamil HCl [Verapamil ER] 120 mg PO QAM 10/19/21 02/25/23 History Diann Liquid 30mg/5ml 5 ml PO DAILY PRN 02/20/23 02/25/23 History Ammonium Lactate Cream [Lac-Hydrin 1 applic TOPICAL BID PRN 02/20/23 02/25/23 History 12% Cream] Dm/PE/Acetaminophen/Doxylamine 1 each PO DIRECTED PRN 02/20/23 02/25/23 History [Jacquie-[place] Plus Day-Night Cp] Evolocumab [Repatha Sureclick] 140 mg SQ Q14D 02/20/23 02/25/23 History Fluticasone Nasal [place] [Flonase 1 spray EA NOSTRIL DAILY PRN 02/20/23 02/25/23 History Nasal [place]] Halobetasol Propionate [Ultravate 1 applic TOPICAL DIRECTED PRN 02/20/23 02/25/23 History 0.05%] Nystatin 100,000 Unit/ml Susp 5 ml PO QID PRN MDD 4-5 times per 02/20/23 02/25/23 History [Mycostatin Oral Susp] day Olopatadine HCl [Pataday] 1 drop BOTH EYES DIRECTED 02/20/23 02/25/23 History diphenhydrAMINE [Benadryl] 25 mg PO DIRECTED PRN 02/20/23 02/25/23 History fluocinolone acetonide oiL 1 applic BOTH EARS DIRECTED PRN 02/20/23 02/25/23 History [fluocinolone acetonide oiL 0.01% (Otic)] predniSONE 2.5 - 5 mg PO DAILY PRN 02/20/23 02/25/23 History Aspirin 325 mg PO BID #60 tab 02/25/23 Rx HYDROcodone/APAP 7.5-325MG [[place] 1 - 2 tab PO Q6H PRN #32 tab 02/25/23 Rx 7.5-325] Sennosides [Senokot] 2 tab PO DAILY PRN #60 tablet 02/25/23 Rx Allergies Allergy/AdvReac Type Severity Reaction Status Date / Time formoterol fumarate Allergy Severe Anaphylaxis Verified 02/25/23 07:59 [From Symbicort] monosodium glutamate [MSG] Allergy Unknown Unknown Verified 02/25/23 07:59 amoxicillin Allergy GI Verified 02/25/23 07:59 DISTRESS AND DROWSINESS atorvastatin [From Lipitor] Allergy Leg Cramps Verified 02/25/23 07:59 budesonide [From Symbicort] Allergy Anaphylaxis Verified 02/25/23 07:59 clarithromycin Allergy GI Verified 02/25/23 07:59 DISTRESS AND DROWSINESS doxycycline Allergy GI Verified 02/25/23 07:59 DISTRESS AND DROWSINESS omalizumab [From Xolair] Allergy Anaphylaxis Verified 02/25/23 07:59 prednisolone acetate, Allergy Anaphylaxis Verified 02/25/23 07:59 micronized [prednisolone acetate, micro] prednisone Allergy Anaphylaxis-IN Verified 02/25/23 07:59 LARGE DOSES albuterol [From Combivent] AdvReac tinnitus Verified 02/25/23 07:59 beclomethasone [From Qvar] AdvReac Headache/Rash/Visual Verified 02/25/23 07:59 Changes cholestyramine AdvReac Diarrhea Verified 02/25/23 07:59 ciclesonide [From [place]] AdvReac RINGING IN Verified 02/25/23 07:59 THE EARS diltiazem [From Cartia XT] AdvReac tinnitus Verified 02/25/23 07:59 etodolac AdvReac MUSCLE Verified 02/25/23 07:59 CRAMPS fluorometholone AdvReac caused Verified 02/25/23 07:59 [From FML Forte] hair to fall out fluticasone propionate AdvReac RASH, Verified 02/25/23 07:59 [From Advair Diskus] ITCHING furosemide [From Lasix] AdvReac tinnitus Verified 02/25/23 07:59 gabapentin [From Neurontin] AdvReac MUSCLE Verified 02/25/23 07:59 CRAMPS, SENSATION OF BUGS CRAWLING ON LEGS gemfibrozil AdvReac Rapid Verified 02/25/23 07:59 Heart Rate ibuprofen AdvReac tinnitus Verified 02/25/23 07:59 ipratropium [From Combivent] AdvReac tinnitus Verified 02/25/23 07:59 levofloxacin [From Levaquin] AdvReac Muscle Verified 02/25/23 07:59 Cramps/Lower Back Pain lovastatin AdvReac cramps Verified 02/25/23 07:59 metoprolol AdvReac Diarrhea Verified 02/25/23 07:59 mometasone furoate AdvReac RASH, Verified 02/25/23 07:59 [From Asmanex Twisthaler] VISUAL CHANGES pregabalin [From Lyrica] AdvReac MUSCLE Verified 02/25/23 07:59 CRAMPS, SENSATION OF BUGS CRAWLING ON LEGS rosuvastatin calcium AdvReac MUSCLE Verified 02/25/23 07:59 [From Crestor] CRAMPS salmeterol xinafoate AdvReac Rash/Hives Verified 02/25/23 07:59 [From Advair Diskus] simvastatin AdvReac SENSATION Verified 02/25/23 07:59 OF BUGS CRAWLING ON LEGS thyroid, pork AdvReac Diarrhea Verified 02/25/23 07:59 [From [place] Thyroid] tiotropium AdvReac Dry Verified 02/25/23 07:59 [From Spiriva with mouth/Ringing HandiHaler] in ears Physical Exam Vitals: Vital Signs Temp Pulse Pulse Pulse Resp BP Pulse Ox 02/26/23 10:16 96 02/26/23 10:01 100 02/26/23 08:00 107 H 121 H 19 02/26/23 07:49 99.1 F 121 H 19 100/52 95 02/26/23 00:35 99.9 F H 110 H 20 118/66 91 L 12/11/23 17:00 107 H 18 122/86 95 02/25/23 16:00 118 H 18 153/81 94 L 02/25/23 15:00 100 18 118/62 94 L 02/25/23 14:30 99 16 120/68 95 Intake and Output 02/25/23 02/26/23 02/26/23 22:59 06:59 14:59 Intake Total 550 Output Total 1100 Balance 550 -1100 Intake: IV 550 Output: Urine 1100 Straight 1100 Other: # Voids 1 Weight 126.1 kg Results CBC & Chem 7: 02/26/23 05:54 Labs: Abnormal Lab Results - Last 24 Hours (Table) 02/26/23 Range/Units 05:54 RBC 4.05 L (4.10-5.20) X 10*6/uL MCHC 31.8 L (32.0-37.0) g/dL Microbiology - Last 24 Hours (Table) 02/25/23 09:56 Gram Stain - Preliminary Knee - Right
--- NOTE | 2023-02-26 15:14 | P.PN ---
Subjective Progress Note Date: 02/26/23 This is a 67-year-old female who is status post revision right total knee arthroplasty. This is postoperative day #1 and patient is seen and evaluated at bedside with Dr. Esteban Schmidt. Patient states that she is having difficulty with mobilization today, but was able to transfer to a chair with assistance. Objective - Vital Signs Vital signs: Vital Signs Temp 99.1 F 02/26/23 07:49 Pulse 96 02/26/23 10:16 Resp 19 02/26/23 08:00 BP 100/52 02/26/23 07:49 Pulse Ox 95 02/26/23 07:49 FiO2 Intake & Output 02/25/23 02/26/23 02/26/23 18:59 06:59 18:59 Intake Total 1801 Output Total 50 1100 Balance 1751 -1100 Weight 126.1 kg Intake: IV 1801 Output: Urine 1100 Straight 1100 Estimated Blood Loss 50 Other: # Voids 1 - Exam Vital signs are stable. Patient is in no acute distress and is alert and oriented 3. Calf is soft and nontender to palpation. Dressing is clean, dry, and intact. Patient has full foot and ankle motion without pain or difficulty. Sensation intact. Neurovascular status and circulatory status are intact. - Labs CBC & Chem 7: 02/26/23 05:54 Labs: Abnormal Lab Results - Last 24 Hours (Table) 02/26/23 Range/Units 05:54 RBC 4.05 L (4.10-5.20) X 10*6/uL MCHC 31.8 L (32.0-37.0) g/dL Microbiology - Last 24 Hours (Table) 02/25/23 09:56 Gram Stain - Preliminary Knee - Right Assessment and Plan (1) Status post revision of total replacement of right knee Current Visit: Yes Status: Acute Code(s): Z96.651 - PRESENCE OF RIGHT ARTIFICIAL KNEE JOINT SNOMED Code(s): 613880286472745 Plan: #1 Continue with routine postoperative care and pain control, leave dressing in place for 7 days. #2 Anticoagulation with aspirin. #3 Physical therapy today. #4 Appreciate input from internal medicine. #5 Anticipate discharge home with home care in the next 24-48 hours.
[2023-02-26] MEDS: SENNOSIDES-DOCUSATE SODIUM 1 EACH TAB PO SCH (21:35)
[2023-02-27] MEDS: LACTATED RINGERS 1,000 ML IV SCH (05:34)
[2023-02-27] MEDS: PANTOPRAZOLE 40 MG TABLET PO SCH (06:21)
[2023-02-27] MEDS: HYDROmorphone 0.5 MG/0.5 ML SYRINGE IVP PRN (06:21)
[2023-02-27] MEDS: KETOTIFEN 0.025% OPHTH DROPS 5 ML BTL BOTH EYES SCH (07:22)
[2023-02-27] MEDS: HYDROcodone/APAP 7.5-325MG 1 EACH TAB PO PRN ×2 (09:02→20:03)
[2023-02-27] MEDS: VERAPAMIL SR 120 MG TABLET.ER PO SCH (09:02)
[2023-02-27] MEDS: ASPIRIN 325 MG TAB PO SCH ×2 (09:02→20:04)
[2023-02-27] MEDS: ALBUTEROL NEBULIZED 2.5 MG/3 ML INHALATION SCH ×4 (09:27→19:49)
[2023-02-27] MEDS: BUDESONIDE 90 MCG INHALATION SCH (09:29)
[2023-02-27] MEDS: UMECLIDINIUM BRM INHALATION SCH (09:29)
[2023-02-27] MEDS: VILANTEROL TR INHALATION SCH (09:29)
--- NOTE | 2023-02-27 10:11 | P.PN ---
Subjective Progress Note Date: 02/27/23 This is a 67-year-old female who is status post revision right total knee arthroplasty. This is postoperative day #2 and patient is seen and evaluated at bedside with Dr. Esteban Schmidt. Patient states that she continues to have difficulty with mobilization and is considering discharge ECF because she lives alone. Patient denies any new complaints today. Objective - Vital Signs Vital signs: Vital Signs Temp 98.7 F 02/27/23 06:58 Pulse 116 H 02/27/23 09:38 Resp 18 02/27/23 07:20 BP 132/84 02/27/23 06:58 Pulse Ox 94 L 02/27/23 06:58 FiO2 Intake & Output 02/26/23 02/27/23 02/27/23 18:59 06:59 18:59 Intake Total 910 Balance 910 Intake: Intake, IV Titration 560 Amount Sodium Chloride 0.9% 1, 560 000 ml @ 70 mls/hr IV . [id number] DAVIS Rx#:[id number] Oral 350 Other: Voiding Method Bedside Commode Bedside Commode # Voids 3 - Exam Vital signs are stable. Patient is in no acute distress and is alert and oriented 3. Calf is soft and nontender to palpation. Dressing is clean, dry, and intact. Patient has full foot and ankle motion without pain or difficulty. Sensation intact. Neurovascular status and circulatory status are intact. - Labs CBC & Chem 7: 02/26/23 05:54 Labs: Microbiology - Last 24 Hours (Table) 02/25/23 09:56 Wound Culture - Preliminary Knee - Right 02/25/23 09:56 Gram Stain - Preliminary Knee - Right Wound Culture - Preliminary Assessment and Plan (1) Status post revision of total replacement of right knee Current Visit: Yes Status: Acute Code(s): Z96.651 - PRESENCE OF RIGHT ARTIFICIAL KNEE JOINT SNOMED Code(s): 939604732535869 Plan: #1 Continue with routine postoperative care and pain control, leave dressing in place for 7 days. #2 Anticoagulation with aspirin. #3 Physical therapy today. #4 Appreciate input from internal medicine. #5 Anticipate the need for discharge to ECF.
[2023-02-27] MEDS: SENNOSIDES-DOCUSATE SODIUM 1 EACH TAB PO SCH (20:04)
[2023-02-27] MEDS: SODIUM CHLORIDE 0.9% 1,000 ML IV SCH (20:07)
[2023-02-28] MEDS: HYDROcodone/APAP 7.5-325MG 1 EACH TAB PO PRN ×3 (06:32→20:13)
[2023-02-28] MEDS: PANTOPRAZOLE 40 MG TABLET PO SCH (06:32)
[2023-02-28] MEDS: KETOTIFEN 0.025% OPHTH DROPS 5 ML BTL BOTH EYES SCH (07:36)
[2023-02-28] MEDS: ASPIRIN 325 MG TAB PO SCH ×2 (08:12→20:13)
[2023-02-28] MEDS: UMECLIDINIUM BRM INHALATION SCH (09:07)
[2023-02-28] MEDS: ALBUTEROL NEBULIZED 2.5 MG/3 ML INHALATION SCH ×4 (09:07→20:32)
[2023-02-28] MEDS: BUDESONIDE 90 MCG INHALATION SCH (09:07)
[2023-02-28] MEDS: VILANTEROL TR INHALATION SCH (09:07)
--- NOTE | 2023-02-28 09:21 | P.PN ---
Subjective Progress Note Date: 02/28/23 This is a 67-year-old female who is status post revision right total knee arthroplasty. This is postoperative day #3 and patient is seen and evaluated at bedside today. Patient denies any new complaints today. Objective - Vital Signs Vital signs: Vital Signs Temp 98.7 F 02/28/23 06:53 Pulse 110 H 02/28/23 06:53 Resp 19 02/28/23 06:53 BP 128/78 02/28/23 06:53 Pulse Ox 95 02/28/23 06:53 FiO2 Intake & Output 02/27/23 02/28/23 02/28/23 18:59 06:59 18:59 Other: Voiding Method Bedside Commode Bedside Commode # Voids 1 1 # Bowel Movements 1 - Exam Vital signs are stable. Patient is in no acute distress and is alert and oriented 3. Calf is soft and nontender to palpation. Dressing is clean, dry, and intact. Patient has full foot and ankle motion without pain or difficulty. Sensation intact. Neurovascular status and circulatory status are intact. - Labs CBC & Chem 7: 02/26/23 05:54 Labs: Microbiology - Last 24 Hours (Table) 02/25/23 09:56 Gram Stain - Final Knee - Right Wound Culture - Final 02/25/23 09:56 Gram Stain - Final Knee - Right Wound Culture - Final 02/25/23 09:56 Anaerobic Culture - Preliminary Knee - Right 02/25/23 09:56 Anaerobic Culture - Preliminary Knee - Right Assessment and Plan (1) Status post revision of total replacement of right knee Current Visit: Yes Status: Acute Code(s): Z96.651 - PRESENCE OF RIGHT ARTIFICIAL KNEE JOINT SNOMED Code(s): 435141928704939 Plan: #1 Continue with routine postoperative care and pain control, leave dressing in place for 7 days. #2 Anticoagulation with aspirin. #3 Physical therapy today. #4 Appreciate input from internal medicine. #5 Anticipate the need for discharge to ECF.
[2023-02-28 09:23] LABS: Basophils # (A) 0.03 X 10*3/uL (0.00-0.10); Basophils % (A) 0.3 %; Eosinophils # (A) 0.52 X 10*3/uL (0.04-0.35); Eosinophils % (A) 5.6 %; HCT 34.7 % (37.2-46.3); HGB 11.4 g/dL (12.0-15.0); Lymphocytes # (A) 1.88 X 10*3/uL (0.90-5.00); Lymphocytes % (A) 20.2 %; MCH 30.4 pg (27.0-32.0); MCHC 32.9 g/dL (32.0-37.0); MCV 92.5 FL (80.0-97.0); Mean Platelet Volume 10.5 FL (9.5-12.2); Monocytes # (A) 0.68 X 10*3/uL (0.20-1.00); Monocytes % (A) 7.3 %; NRBC Per 100 WBC 0 X 10*3/uL (0.00-0.01); Neutrophils # (A) 6.17 X 10*3/uL (1.80-7.70); Neutrophils % (A) 66.3 %; Platelet Count 194 X 10*3/uL (140-440); RBC 3.75 X 10*6/uL (4.10-5.20); RDW 13.2 % (11.5-14.5); WBC 9.31 X 10*3/uL (4.50-10.00)
[2023-02-28] MEDS: VERAPAMIL SR 120 MG TABLET.ER PO SCH (13:07)
[2023-02-28] MEDS: LACTATED RINGERS 1,000 ML IV SCH (13:08)
[2023-02-28] MEDS: BENZOCAINE/MENTHOL LOZENG 1 EACH LOZENGE MUCOUS MEM PRN (18:54)
[2023-02-28] MEDS: SODIUM CHLORIDE 0.9% 1,000 ML IV SCH ×2 (20:14→22:34)
[2023-02-28] MEDS: SENNOSIDES-DOCUSATE SODIUM 1 EACH TAB PO SCH (20:15)
[2023-03-01] MEDS: BENZOCAINE/MENTHOL LOZENG 1 EACH LOZENGE MUCOUS MEM PRN ×2 (01:13→08:56)
--- NOTE | 2023-03-01 08:48 | P.PN ---
Subjective Progress Note Date: 03/01/23 Principal diagnosis: Failed components right knee. Status post revision total right knee arthroplasty. This is a 67-year-old female who is postop day #4 status post revision total right knee arthroplasty. The patient has complaint of a continued sore throat. She also states that her lower extremities have been old bit more swollen at the ankles and feet. She is awaiting inpatient rehab placement. Objective - Vital Signs Vital signs: Vital Signs Temp 98.9 F 03/01/23 07:05 Pulse 94 03/01/23 07:05 Resp 20 03/01/23 07:05 BP 92/61 03/01/23 07:05 Pulse Ox 94 L 03/01/23 07:05 FiO2 Intake & Output 02/28/23 03/01/23 03/01/23 18:59 06:59 18:59 Other: Voiding Method Bedside Commode # Voids 1 1 # Bowel Movements 1 - Exam This is a 67-year-old female in no acute distress. She is alert and oriented 3. Exam of the lower extremities reveals that her operative dressing is clean, dry and intact. She has full foot ankle motion bilaterally. There is some calf pain with palpation to the right calf. There is some pedal edema bilaterally. Neurovascular status to the lower extremities is grossly intact. - Labs CBC & Chem 7: 02/28/23 06:20 Labs: Abnormal Lab Results - Last 24 Hours (Table) 02/28/23 Range/Units 06:20 RBC 3.75 L (4.10-5.20) X 10*6/uL Hgb 11.4 L (12.0-15.0) g/dL Hct 34.7 L (37.2-46.3) % Eosinophils # 0.52 H (0.04-0.35) X 10*3/uL Assessment and Plan (1) Status post revision of total replacement of right knee Current Visit: Yes Status: Acute Code(s): Z96.651 - PRESENCE OF RIGHT ARTIFICIAL KNEE JOINT SNOMED Code(s): 942442643154545 (2) Morbid obesity Current Visit: No Status: Chronic Code(s): E66.01 - MORBID (SEVERE) OBESITY DUE TO EXCESS CALORIES SNOMED Code(s): 377745258 Plan: The clinical findings are discussed the patient. I will order a venous Doppler today. If Doppler is negative she may be transferred to inpatient rehab if cleared medically.
[2023-03-01] MEDS: ALBUTEROL NEBULIZED 2.5 MG/3 ML INHALATION SCH ×5 (08:53→20:10)
[2023-03-01] MEDS: BUDESONIDE 90 MCG INHALATION SCH (08:53)
[2023-03-01] MEDS: UMECLIDINIUM BRM INHALATION SCH (08:53)
[2023-03-01] MEDS: VILANTEROL TR INHALATION SCH (08:53)
[2023-03-01] MEDS: HYDROcodone/APAP 7.5-325MG 1 EACH TAB PO PRN (08:56)
[2023-03-01] MEDS: ASPIRIN 325 MG TAB PO SCH ×2 (08:56→19:59)
--- NOTE | 2023-03-01 10:20 | US ---
EXAMINATION TYPE: US venous doppler duplex LE RT DATE OF EXAM: 03/01/2023 9:29 AM COMPARISON: 01/08/2020 CLINICAL INDICATION: Female, 67 years old with history of Rule out DVT RLE, s/p revision TKA; TKA Sat, leg swelling began last night SIDE PERFORMED: Right TECHNIQUE: The lower extremity deep venous system is examined utilizing real time linear array sonog jarad with graded compression, doppler sonography and color-flow sonography. VESSELS IMAGED: Common Femoral Vein Deep Femoral Vein Greater Saphenous Vein * Femoral Vein Popliteal Vein Small Saphenous Vein * Proximal Calf Veins (* superficial vessels) Right Leg: Negative for DVT in visualized vessels Limited exam, the right Mid-Distal Femoral Vein could not be visualized at this time as ultrasound wa s unable to penetrate to vessels due to edema and body habitus IMPRESSION: Grayscale, color doppler, spectral doppler imaging performed of the deep veins of the lo wer extremities. There is normal flow, compressibility, vascular waveforms.
--- NOTE | 2023-03-01 10:20 | XR ---
EXAMINATION TYPE: XR chest 2V DATE OF EXAM: 03/01/2023 COMPARISON: 03/13/2021 HISTORY: 67-year-old female hypoxia TECHNIQUE: PA and lateral views FINDINGS: Heart normal size. Diffuse interstitial density is increased. Mild hyperinflation. No pleural effusio n. IMPRESSION: Correlate for underlying COPD. There is increased interstitial density which could represent superimp osed acute bronchitis, mild pulmonary vascular congestion, or atypical/COVID pneumonia.
[2023-03-01 11:22] LABS: African American GFR (CKD) 80 (>60 ml/min/1.73 sqM); Anion Gap 8 mmol/L; Blood Urea Nitrogen 12 mg/dL (7-17); Calcium 8.7 mg/dL (8.4-10.2); Carbon Dioxide 25 mmol/L (22-30); Chloride 106 mmol/L (98-107); Glucose 106 mg/dL (74-99); Non-African American GFR(CKD) 70 (>60 ml/min/1.73 sqM); Potassium 3.9 mmol/L (3.5-5.1); Sodium 139 mmol/L (137-145)
[2023-03-01] MEDS: LACTATED RINGERS 1,000 ML IV SCH (11:54)
[2023-03-01] MEDS: PANTOPRAZOLE 40 MG TABLET PO SCH (11:54)
[2023-03-01] MEDS: KETOTIFEN 0.025% OPHTH DROPS 5 ML BTL BOTH EYES SCH (11:55)
[2023-03-01] MEDS: VERAPAMIL SR 120 MG TABLET.ER PO SCH (11:55)
[2023-03-01] MEDS ORDERED: FUROSEMIDE 10 MG/ML 2 ML VIAL IV ONE (13:13)
[2023-03-01] MEDS: SENNOSIDES-DOCUSATE SODIUM 1 EACH TAB PO SCH (20:07)
--- NOTE | 2023-03-01 23:15 | P.PN ---
Subjective Progress Note Date: 03/01/23 History of present illness; patient is 67-year-old lady with past medical history significant for asthma, hyperlipidemia, who presented to the hospital for elective revision of right total knee arthroplasty. Patient underwent right total knee replacement in 2008 and arthroscopic lysis of adhesions in 2020. patient has been following up outpatient with orthopedics and has been complaining of increasing pain . Orthopedics discussed with patient and decision was made to proceed with revision of right total knee arthroplasty . Postoperatively internal medicine team was consulted for medical management 03/01/2023 Patient seen in follow up today on the medical floor postoperative right total knee revision. Has been maintained on IV fluids having some expiratory and audible wheezing. Additionally has lower extremity edema worse on the right. Venous Doppler not showing any DVT. Suspect mild volume overload. REVIEW OF SYSTEMS: CONSTITUTIONAL: No fever, no malaise, no fatigue. HEENT: No recent visual problems or hearing problems. Denied any sore throat. CARDIOVASCULAR: No chest pain, orthopnea, PND, no palpitations, no syncope. PULMONARY: No shortness of breath, no cough, no hemoptysis. GASTROINTESTINAL: No diarrhea, no nausea, no vomiting, no abdominal pain. NEUROLOGICAL: No headaches, no weakness, no numbness. PHYSICAL EXAMINATION: GENERAL: The patient is alert and oriented x3, not in any acute distress. Well developed, well nourished. HEENT: Pupils are round and equally reacting to light. EOMI. No scleral icterus. No conjunctival pallor. Normocephalic, atraumatic. No pharyngeal erythema. No thyromegaly. CARDIOVASCULAR: Patient refused to let me auscultate her as she stated that I had cologne on. PULMONARY: Patient refused to let me auscultate her as she stated that I had cologne on. ABDOMEN: Soft, nontender, nondistended, normoactive bowel sounds. No palpable or ganomegaly. MUSCULOSKELETAL: Right knee surgical incision seen EXTREMITIES: No cyanosis, clubbing, or pedal edema. Post surgical right knee dressing intact. Bilateral right greater than left lower extremity edema NEUROLOGICAL: Gross neurological examination did not reveal any focal deficits. SKIN: No rashes. Assessment and plan Status post revision of right total knee arthroplasty Hypertension Hx COPD with mild acute excerbation on inhaled steroids Hx of SVT Gastroesophageal reflux disease Asthma follows with reed worker outpatient GI prophylaxis DVT prophylaxis per primary service Full Code Monitor vital signs Continue postop care per orthopedics Chest xray ordered Check BMP May require dose of IV lasix Continue on inahaled steroids Stop IV fluids Pending final culture from [facility] The impression and plan of care has been dictated by Ramointa Cohen, Nurse Practitioner as directed. Dr. Lindy ALVAREZ I have performed a history and physical examination and medical decision making of this patient, discussed the same with the dictator, and agree with the dictators assessment and plan as written, documented as a scribe. Based on total visit time, I have performed more than 50% of this visit. Objective - Vital Signs Vital signs: Vital Signs Temp 98.4 F 03/01/23 13:24 Pulse 103 H 03/01/23 13:24 Resp 19 03/01/23 13:24 BP 110/73 03/01/23 13:24 Pulse Ox 96 03/01/23 13:24 FiO2 Intake & Output 02/28/23 03/01/23 03/01/23 18:59 06:59 18:59 Other: Voiding Method Bedside Commode # Voids 1 1 # Bowel Movements 1 - Labs CBC & Chem 7: 02/28/23 06:20 03/01/23 10:16 Labs: Abnormal Lab Results - Last 24 Hours (Table) 03/01/23 Range/Units 10:16 Glucose 106 H (74-99) mg/dL Assessment and Plan Time with Patient: Less than 30
[2023-03-02] MEDS: HYDROcodone/APAP 7.5-325MG 1 EACH TAB PO PRN ×2 (00:55→09:08)
[2023-03-02] MEDS: VILANTEROL TR INHALATION SCH (07:28)
[2023-03-02] MEDS: UMECLIDINIUM BRM INHALATION SCH (07:28)
[2023-03-02] MEDS: BUDESONIDE 90 MCG INHALATION SCH (07:28)
[2023-03-02] MEDS: ALBUTEROL NEBULIZED 2.5 MG/3 ML INHALATION SCH ×2 (07:28→11:07)
[2023-03-02 08:07] VITALS: BP 130/87; PULSE 110; RESP 19; TEMP 98.8
--- NOTE | 2023-03-02 08:13 | P.DS ---
Providers Date of admission: 02/27/23 10:09 Expected date of discharge: 03/02/23 Attending physician: Esteban Schmidt Consults: 02/25/23 08:48 Consult Physician Routine Consulting Provider: Fer Ramirez Consult Reason/Comments: medical management Do you want consulting provider notified?: Yes Primary care physician: Yoel Garnica - Discharge Diagnosis(es) (1) Failed total knee, right Current Visit: Yes Status: Acute (2) Status post revision of total replacement of right knee Current Visit: Yes Status: Acute (3) COPD (chronic obstructive pulmonary disease) Current Visit: No Status: Acute (4) Morbid obesity Current Visit: No Status: Chronic Hospital Course: This is a 67 year-old female last seen in our office with complaints of ongoing right knee pain. The patient has a known history of a right total knee arthroplasty in 2019 with continued pain and presented to discuss options. A fter discussion and consideration the patient elected to proceed with a right revision total knee arthroplasty. The patient was seen preoperatively by her primary care physician and cleared for surgery. The patient was admitted to [facility] on 02/25/2023 and underwent a right revision total knee arthroplasty by Dr. Esteban Schmidt. The procedure was performed without complications or sequelae. The patient was seen and evaluated at bedside today. The patient's pain is well-controlled. The patient has no new complaints today denies any fevers, chills, nausea, vomiting, or shortness of breath. Vital signs are stable. The dressing is clean, dry and intact. Incision looks fine with no erythema or active drainage. Calf is soft and nontender. The patient has full ankle motion without difficulty. The patient's right lower extremity is neurovascularly intact. The patient is orthopedically stable for discharge to skilled rehab today in stable condition. See medication reconciliation for accurate list for discharge medications. Pertinent Studies: Laboratory Tests 02/28/23 03/01/23 06:20 10:16 WBC 9.31 RBC 3.75 L Hgb 11.4 L Hct 34.7 L Glucose 106 H Patient Condition at Discharge: Stable Plan - Discharge Summary Discharge Rx Participant: Yes New Discharge Prescriptions: New Aspirin 325 mg PO BID #60 tab Sennosides [Senokot] 2 tab PO DAILY PRN #60 tablet PRN Reason: Constipation HYDROcodone/APAP 7.5-325MG [Jber 7.5-325] 1 - 2 tab PO Q6H PRN #32 tab PRN Reason: Pain No Action Albuterol Sulfate [Ventolin HFA] 2 puff INHALATION Q4H PRN PRN Reason: Shortness Of Breath Budesonide [Pulmicort Flexhaler] 1 puff INHALATION QAM Umeclidinium Brm/Vilanterol Tr [Anoro Ellipta 62.5-25 Mcg INH] 1 puff INHALATION QAM Albuterol Nebulized [Ventolin Nebulized] 2.5 mg INHALATION QID Magnesium Oxide 400 mg PO HS PRN PRN Reason: CRAMPS hydrALAZINE HCL [Apresoline] 25 mg PO BID PRN PRN Reason: Blood Pressure - High Lansoprazole [Prevacid] 15 mg PO QAM Verapamil HCl [Verapamil ER] 120 mg PO QAM predniSONE 2.5 - 5 mg PO DAILY PRN PRN Reason: Asthma/Allergies Evolocumab [Repatha Sureclick] 140 mg SQ Q14D Dm/PE/Acetaminophen/Doxylamine [Jacquie-[place] Plus Day-Night Cp] 1 each PO DIRECTED PRN PRN Reason: Allergic Reaction Meclizine [Antivert] 6.25 mg PO DAILY PRN PRN Reason: Dizziness Ammonium Lactate Cream [Lac-Hydrin 12% Cream] 1 applic TOPICAL BID PRN PRN Reason: Eczema fluocinolone acetonide oiL [fluocinolone acetonide oiL 0.01% (Otic)] 1 applic BOTH EARS DIRECTED PRN PRN Reason: Itching Diann Liquid 30mg/5ml 5 ml PO DAILY PRN PRN Reason: Allergic Reaction Nystatin 100,000 Unit/ml Susp [Mycostatin Oral Susp] 5 ml PO QID PRN MDD 4-5 times per day PRN Reason: Oral Thrush Olopatadine HCl [Pataday] 1 drop BOTH EYES DIRECTED Halobetasol Propionate [Ultravate 0.05%] 1 applic TOPICAL DIRECTED PRN PRN Reason: Eczema diphenhydrAMINE [Benadryl] 25 mg PO DIRECTED PRN PRN Reason: Allergic Reaction Fluticasone Nasal [place] [Flonase Nasal [place]] 1 spray EA NOSTRIL DAILY PRN PRN Reason: Ear Pain/Itching Discharge Medication List Albuterol Sulfate [Ventolin HFA] 2 puff INHALATION Q4H PRN 05/20/14 [History] Budesonide [Pulmicort Flexhaler] 1 puff INHALATION QAM 05/20/14 [History] Umeclidinium Brm/Vilanterol Tr [Anoro Ellipta 62.5-25 Mcg INH] 1 puff INHALATION QAM 11/11/14 [History] Albuterol Nebulized [Ventolin Nebulized] 2.5 mg INHALATION QID 06/20/16 [History] Magnesium Oxide 400 mg PO HS PRN 09/17/19 [History] hydrALAZINE HCL [Apresoline] 25 mg PO BID PRN 05/20/20 [History] Meclizine [Antivert] 6.25 mg PO DAILY PRN 03/14/21 [History] Lansoprazole [Prevacid] 15 mg PO QAM 10/19/21 [History] Verapamil HCl [Verapamil ER] 120 mg PO QAM 10/19/21 [History] Diann Liquid 30mg/5ml 5 ml PO DAILY PRN 02/20/23 [History] Ammonium Lactate Cream [Lac-Hydrin 12% Cream] 1 applic TOPICAL BID PRN 02/20/23 [History] Dm/PE/Acetaminophen/Doxylamine [Jacquie-[place] Plus Day-Night Cp] 1 each PO DIRECTED PRN 02/20/23 [History] Evolocumab [Repatha Sureclick] 140 mg SQ Q14D 02/20/23 [History] Fluticasone Nasal [place] [Flonase Nasal [place]] 1 spray EA NOSTRIL DAILY PRN 02/20/23 [History] Halobetasol Propionate [Ultravate 0.05%] 1 applic TOPICAL DIRECTED PRN 02/20/23 [History] Nystatin 100,000 Unit/ml Susp [Mycostatin Oral Susp] 5 ml PO QID PRN MDD 4-5 times per day 02/20/23 [History] Olopatadine HCl [Pataday] 1 drop BOTH EYES DIRECTED 02/20/23 [History] diphenhydrAMINE [Benadryl] 25 mg PO DIRECTED PRN 02/20/23 [History] fluocinolone acetonide oiL [fluocinolone acetonide oiL 0.01% (Otic)] 1 applic BOTH EARS DIRECTED PRN 02/20/23 [History] predniSONE 2.5 - 5 mg PO DAILY PRN 02/20/23 [History] Aspirin 325 mg PO BID #60 tab 02/25/23 [Rx] Sennosides [Senokot] 2 tab PO DAILY PRN #60 tablet 02/25/23 [Rx] HYDROcodone/APAP 7.5-325MG [Jber 7.5-325] 1 - 2 tab PO Q6H PRN #32 tab 02/28/23 [Rx] Follow up Appointment(s)/Referral(s): [facility] [NON-STAFF] - 1-2 Days Esteban Schmidt DO [Doctor of Osteopathic Medicine] - 03/13/23 10:00 am Activity/Diet/Wound Care/Special Instructions: Weightbearing as tolerated with a walker. CPM 5-6h daily as tolerated. Leave dressing intact. Dressing may be removed by home care nurse or by patient in 7 days. Then change dressing twice daily until follow up. May shower with initial dressing intact and after removal. If dressing become saturated, please remove. Recommend use of compression stockings daily until follow up to help prevent swelling and blood clots. May remove at night before sleeping. Please take aspirin 325mg twice daily for 30 days to prevent blood clots. Please follow up with [facility] and call with any questions or concerns, . Discharge Disposition: TRANSFER TO SNF/ECF
[2023-03-02] MEDS: ASPIRIN 325 MG TAB PO SCH (09:08)
[2023-03-02] MEDS: BENZOCAINE/MENTHOL LOZENG 1 EACH LOZENGE MUCOUS MEM PRN (09:09)
[2023-03-02] MEDS: PANTOPRAZOLE 40 MG TABLET PO SCH (09:10)
[2023-03-02] MEDS: LACTATED RINGERS 1,000 ML IV SCH (09:10)
[2023-03-02] MEDS: KETOTIFEN 0.025% OPHTH DROPS 5 ML BTL BOTH EYES SCH (09:10)
[2023-03-02] MEDS: VERAPAMIL SR 120 MG TABLET.ER PO SCH (09:10)
--- NOTE | 2023-03-04 15:47 | P.PN ---
Subjective Progress Note Date: 03/02/23 History of present illness; patient is 67-year-old lady with past medical history significant for asthma, hyperlipidemia, who presented to the hospital for elective revision of right total knee arthroplasty. Patient underwent right total knee replacement in 2008 and arthroscopic lysis of adhesions in 2020. patient has been following up outpatient with orthopedics and has been complaining of increasing pain . Orthopedics discussed with patient and decision was made to proceed with revision of right total knee arthroplasty . Postoperatively internal medicine team was consulted for medical management 03/01/2023 Patient seen in follow up today on the medical floor postoperative right total knee revision. Has been maintained on IV fluids having some expiratory and audible wheezing. Additionally has lower extremity edema worse on the right. Venous Doppler not showing any DVT. Suspect mild volume overload. 03/02/2023 Patient was seen in follow up today for medical. Received a dose of IV lasix yesterday. Encouraged to wrap lower extremities/compression stockings for the swelling. She refuses to take any additional lasix. She does feel less short of breath. She has been cleared for discharge home by orthopedics. Patient needs to see her PCP Dr Garnica in 1 to 2 days. Wound cultures from the right knee are final and negative. REVIEW OF SYSTEMS: CONSTITUTIONAL: No fever, no malaise, no fatigue. HEENT: No recent visual problems or hearing problems. Denied any sore throat. CARDIOVASCULAR: No chest pain, orthopnea, PND, no palpitations, no syncope. PULMONARY: No shortness of breath, no cough, no hemoptysis. GASTROINTESTINAL: No diarrhea, no nausea, no vomiting, no abdominal pain. NEUROLOGICAL: No headaches, no weakness, no numbness. PHYSICAL EXAMINATION: GENERAL: The patient is alert and oriented x3, not in any acute distress. Well developed, well nourished. HEENT: Pupils are round and equally reacting to light. EOMI. No scleral icterus. No conjunctival pallor. Normocephalic, atraumatic. No pharyngeal erythema. No thyromegaly. CARDIOVASCULAR: Patient refused to let me auscultate her as she stated that I had cologne on. PULMONARY: Patient refused to let me auscultate her as she stated that I had cologne on. ABDOMEN: Soft, nontender, nondistended, normoactive bowel sounds. No palpable organomegaly. MUSCULOSKELETAL: Right knee surgical incision seen EXTREMITIES: No cyanosis, clubbing, or pedal edema. Post surgical right knee dressing intact. Bilateral right greater than left lower extremity edema NEUROLOGICAL: Gross neurological examination did not reveal any focal deficits. SKIN: No rashes. Assessment and plan Status post revision of right total knee arthroplasty Hypertension Hx COPD with mild acute excerbation on inhaled steroids Hx of SVT Gastroesophageal reflux disease Asthma follows with tax agent outpatient GI prophylaxis DVT prophylaxis per primary service Full Code Monitor vital signs Continue postop care per orthopedics Continue on inahaled steroids Recommend to discontinue verapamil and hydralazine on discharge. Patient to continue on bowel regimen. Continues on aspirin 325 mg BID for DVT prophylaxis from primary services Medically cleared for DC to subacute rehab. The impression and plan of care has been dictated by Ramonita Cohen, Nurse Practitioner as directed. Dr. Lindy ALVAREZ I have performed a history and physical examination and medical decision making of this patient, discussed the same with the dictator, and agree with the dictators assessment and plan as written, documented as a scribe. Based on total visit time, I have performed more than 50% of this visit. Objective - Vital Signs Vital signs: Vital Signs Temp 98.8 F 03/02/23 07:41 Pulse 110 H 03/02/23 07:41 Resp 19 03/02/23 07:41 BP 130/87 03/02/23 07:41 Pulse Ox 95 03/02/23 07:41 FiO2 Intake & Output 03/01/23 03/02/23 03/02/23 18:59 06:59 18:59 Other: Voiding Method Bedside Commode Bedside Commode # Voids 1 0 - Labs CBC & Chem 7: 02/28/23 06:20 03/01/23 10:16 Labs: Abnormal Lab Results - Last 24 Hours (Table) 03/01/23 Range/Units 10:16 Glucose 106 H (74-99) mg/dL Microbiology - Last 24 Hours (Table) 02/25/23 09:56 Anaerobic Culture - Final Knee - Right 02/25/23 09:56 Anaerobic Culture - Final Knee - Right Assessment and Plan Time with Patient: Less than 30
[2023-03-09] MEDS ORDERED: Evolocumab [Repatha Sureclick] 140 MG/ML Each SQ SCH (09:00)
== END 2023-03-02 11:22 | DRG 467 ==
LOC: OR 07:22 → 4SSUR 11:36 → OR 02-27 10:09
PROVIDERS: ADMIT Orthopaedic Surgery; ATTEND Orthopaedic Surgery
PROC: 0SRC069 Replacement of Right Knee Joint with Oxidized Zirconium on Polyethylene Synthetic Substitute, Cemented, Open Approach (ICD-10-PCS; principal; 2023-02-25 09:10)
PROC: 0SPC0JZ Removal of Synthetic Substitute from Right Knee Joint, Open Approach (ICD-10-PCS; principal; 2023-02-25 09:10)
DX: T84.092A Other mechanical complication of internal right knee prosthesis, initial encounter (principal); Z68.42 Body mass index [BMI] 45.0-49.9, adult; M17.11 Unilateral primary osteoarthritis, right knee; Y79.2 Prosthetic and other implants, materials and accessory orthopedic devices associated with adverse incidents; K21.9 Gastro-esophageal reflux disease without esophagitis; E66.01 Morbid (severe) obesity due to excess calories; H91.90 Unspecified hearing loss, unspecified ear; K44.9 Diaphragmatic hernia without obstruction or gangrene; E04.1 Nontoxic single thyroid nodule; I10 Essential (primary) hypertension; J44.89 Other specified chronic obstructive pulmonary disease; E78.5 Hyperlipidemia, unspecified; Z79.82 Long term (current) use of aspirin; Z79.899 Other long term (current) drug therapy; Z87.442 Personal history of urinary calculi; Z87.891 Personal history of nicotine dependence; Z53.29 Procedure and treatment not carried out because of patient's decision for other reasons; Z60.2 Problems related to living alone; Z79.51 Long term (current) use of inhaled steroids; Z79.52 Long term (current) use of systemic steroids; Z87.01 Personal history of pneumonia (recurrent); Z88.1 Allergy status to other antibiotic agents; Z88.0 Allergy status to penicillin; Z88.8 Allergy status to other drugs, medicaments and biological substances
CPT/HCPCS: 64448; 64999; 71046; 80048; 85025; 87070; 87075; 87205; 93005; 94640

== ENCOUNTER → 2023-04-15 | Outpatient (CLI) | payer MEDICARE, OTHER ==
[2023-04-15 09:04] LABS: African American GFR (CKD) 59 (>60 ml/min/1.73 sqM); Blood Urea Nitrogen 21 mg/dL (7-17); Non-African American GFR(CKD) 51 (>60 ml/min/1.73 sqM)
--- NOTE | 2023-04-15 10:41 | CT ---
EXAMINATION TYPE: CT abdomen pelvis w con CT DLP: 2300.7 mGycm, Automated exposure control for dose reduction was used. DATE OF EXAM: 04/15/2023 10:31 AM COMPARISON: CT abdomen pelvis most recent from 09/17/2022. CLINICAL INDICATION:Female, 67 years old with history of R10.11 RIGHT UPPER QUADRANT PAIN; RLQ pain TECHNIQUE: Standard CT of the abdomen and pelvis following the administration of 100 cc of Isovue 3 00 IV contrast material and oral contrast. Coronal and sagittal reformats were performed. FINDINGS: LOWER CHEST: Unremarkable ABDOMEN LIVER: Diffusely hypoattenuating parenchyma. GALLBLADDER AND BILE DUCTS: Layering increased densities within the lumen consistent with gallstones are present. PANCREAS: Unremarkable. SPLEEN: Unremarkable. ADRENAL GLANDS: Unremarkable. KIDNEYS AND URETERS: No evidence of hydronephrosis or renal calculus. The ureters are unremarkable. PELVIS BLADDER: Unremarkable REPRODUCTIVE: Fibroid uterus with coarse calcifications. ABDOMEN & PELVIS STOMACH AND BOWEL: Small to moderate-sized hiatal hernia, duodenum is unremarkable. Enteric contrast reaches the distal small bowel.Distal colonic diverticulosis without evidence for acute diverticuliti s. No evidence of bowel obstruction. The appendix is not identified. No stranding identified within t he right lower quadrant. PERITONEUM: No evidence of pneumoperitoneum or free fluid. VASCULATURE: Mild atherosclerotic calcifications are present throughout the abdominal aorta and its b ranches. No evidence of aortic aneurysm. MUSCULOSKELETAL: No acute osseous abnormalities. Grade 1 anterolisthesis of L4 on L5. No pars defects . LYMPH NODES: No gross evidence for lymphadenopathy. SOFT TISSUE/ABDOMINAL WALL: Postsurgical changes involving the midline anterior abdominal wall with s imilar scarring demonstrated. IMPRESSION: 1. No acute abdominal/pelvic process. 2. Stable post surgical changes involving the anterior abdominal wall with scarring demonstrated. 3. Cholelithiasis. 4. Hepatic steatosis. 5. Fibroid changes of the uterus redemonstrated. 6. Small to moderate-sized hiatal hernia redemonstrated. 7. Colonic diverticulosis without evidence for acute diverticulitis.
== END | disposition home or self-care (01) ==
LOC: RADCTMAIN 08:26
PROVIDERS: ATTEND Surgery
DX: K57.30 Diverticulosis of large intestine without perforation or abscess without bleeding (principal); K44.9 Diaphragmatic hernia without obstruction or gangrene; D25.9 Leiomyoma of uterus, unspecified; K76.0 Fatty (change of) liver, not elsewhere classified; K80.20 Calculus of gallbladder without cholecystitis without obstruction; Z98.890 Other specified postprocedural states
CPT/HCPCS: 82565; 84520; 74177; 36415; Q9967

== ENCOUNTER → 2023-05-30 | Outpatient (CLI) | payer MEDICARE, OTHER ==
--- NOTE | 2023-05-30 14:48 | BD ---
EXAMINATION TYPE: Axial Bone Density DATE OF EXAM: 05/30/2023 CLINICAL HISTORY: 67 years old Female. ICD-10 CODE: M810 OSTEO Height: 64.5 Weight: 278.6 FRAX RISK QUESTIONS: Alcohol (3 or more units per day): no Family History (Parent hip fracture): no Glucocorticoids (More than 3mos): Prednisone past 2 weeks but off and on past 10 years History of Fracture in Adulthood: no Secondary Osteoporosis: 1. Type 1 Diabetes: no 2. Hyperthyroidism: no 3. Menopause before 45: no 4. Malnutrition: no 5. Chronic liver disease: no Rheumatoid Arthritis: no Current Tobacco Use: no RISK FACTORS HISTORY OF: Hip Fracture (Right/Left): no Spine Fracture: no History of Wrist Fracture: no Surgery to Spine/Hip(right/left)/Wrist (right/left): no MEDICATIONS: Thyroid Medications: no Osteoporosis Medications:no EXAM MEASUREMENTS: Bone mineral densitometry was performed using the [employer] System. Bone mineral density as measured about the Lumbar spine is: ----- L1-L4(G/cm2): 1.445 T Score Values are as follows: ----- L1: 1.6 ----- L2: 2.1 ----- L3: 2.4 ----- L4: 2.4 ----- L1-L4: 2.2 Z Score Values are as follows: ----- L1: 2.0 ----- L2: 2.6 ----- L3: 2.9 ----- L4: 2.9 ----- L1-L4: 2.7 Bone mineral density has: increased 4.0 % since study of: 03/01/2021 Bone mineral density about the R hip (g/cm2): 1.068 Bone mineral density about the L hip (g/cm2): 0.955 T Score values are as follows: -----R Neck: -1.0 -----L Neck: -0.7 -----R Total: 0.5 -----L Total: -0.4 Z Score values are as follows: -----R Neck: 0.0 -----L Neck: 0.3 -----R Total: 11 -----L Total: 0.2 Bone mineral density has: decreased -8.3 % since study of: 03/01/2021 FRAX%s: The graph provided illustrates a 11.3% chance for a major osteoporotic fx and a 1.1% chance f or the hips probability for fx in 10 years time. IMPRESSION: Normal (Values between +1 and -1 indicate normal bone mass). Note that measurements border on osteop enia at the right hip. Consider repeating this study in 5 years or sooner if there is some new clinic al indication. NOTE: T-SCORE=SD OF THE YOUNG ADULT MEAN.
--- NOTE | 2023-06-02 18:04 | MM ---
Reason for Exam: Screening (asymptomatic). Last mammogram was performed 1 year(s) and 3 month(s) ago. Patient History: Menarche at age 9. Patient has no children. Postmenopausal. Patient used Hormonal Contraceptives for 2 years. Risk Values: Jody 5 year model risk: 2.1%. NCI Lifetime model risk: 6.4%. Prior Study Comparison: 02/03/2020 Bilateral Screening Mammogram, [facility]. 02/03/2021 Bilateral Screening Mammogram, [facility]. 02/22/2022 Bilateral MG 3D screening mammo w/cad, [facility]. Tissue Density: The breasts are almost entirely fatty. Findings: Analyzed By CAD. Focal asymmetry centrally on the left remains unchanged. There is no suspicious group of microcalcifications or new suspicious mass in either breast. Overall Assessment: Benign, BI-RAD 2 Management: Screening Mammogram of both breasts in 1 year. . Patient should continue monthly self-breast exams. A clinical breast exam by your physician is recommended on an annual basis. This exam should not preclude additional follow-up of suspicious palpable abnormalities. Note on Jody scores and lifetime risk: 1. A Jody score greater than 3% is considered moderate risk. If this is the case, consider specialist referral to assess eligibility for a risk reducing agent. 2. If overall lifetime risk for the development of breast cancer is 20% or higher, the patient may qualify for future screening with alternating mammogram and breast MRI. Electronically signed and approved by: Manish Jimenez M.D. Radiologist
== END | disposition home or self-care (01) ==
LOC: RADMAMWWP 09:24
PROVIDERS: ATTEND Internal Medicine Geriatric Medicine
DX: Z12.31 Encounter for screening mammogram for malignant neoplasm of breast (principal); M85.851 Other specified disorders of bone density and structure, right thigh; M85.852 Other specified disorders of bone density and structure, left thigh; Z78.0 Asymptomatic menopausal state
CPT/HCPCS: 77063; 77067; 77080

== ENCOUNTER → 2023-05-30 | Outpatient (CLI) | payer MEDICARE, OTHER ==
--- NOTE | 2023-05-30 14:43 | XR ---
EXAMINATION TYPE: XR chest 2V DATE OF EXAM: 05/30/2023 COMPARISON: 03/01/2023 HISTORY: 67-year-old female J449, COPD, wheezing and shortness of breath TECHNIQUE: Frontal and lateral views FINDINGS: Heart normal size. Mild interstitial prominence of the chronic appearance. No consolidation or pleura l effusion. IMPRESSION: Chronic-appearing changes, possible bronchitis or asthma. No focal infiltrate seen.
== END | disposition home or self-care (01) ==
LOC: RADXRMAIN 09:29
PROVIDERS: ATTEND Internal Medicine Sleep Medicine
DX: J44.9 Chronic obstructive pulmonary disease, unspecified (principal); R06.02 Shortness of breath; R06.2 Wheezing; J84.89 Other specified interstitial pulmonary diseases
CPT/HCPCS: 71046

== ENCOUNTER → 2023-09-09 | Outpatient (CLI) | payer MEDICARE, OTHER ==
--- NOTE | 2023-09-09 12:30 | US ---
EXAMINATION TYPE: US thyroid st tissue head/neck DATE OF EXAM: 09/09/2023 COMPARISON: US 2022 CLINICAL INDICATION: Female, 68 years old with history of E04.1 NONTOXIC SINGLE THYROID NODULE; GLAND SIZE: Right Lobe: 4.3 x 1.1 x 1.6 cm Overall Parenchyma: heterogeneous Left Lobe: 4.5 x 2.0 x 1.47 cm Overall Parenchyma: heterogeneous Isthmus Thickness: 0.4 cm NODULES RIGHT: # of nodules measured on right: 2 1. 1.0 X 0.6 x 0.8 cm, upper lateral, Prior size: 1.0 x 0.6 x 1.0 cm TIRADS Score: 4 TIRADS Category 4: Composition: Solid or almost completely solid (2 points). Echogenicity: Hypoechoic (2 points). Shape: Wider than tall (0 points). Margin: Smooth (0 points). Echogenic foci: None or large comet-tail artifacts (0 points) Recommendation: If >1.5cm: FNA; If >1cm: Follow up at 1,2, 3,5 years 2. 0.6 X 0.4 x 0.5 cm, lower medial, Prior size: 0.5 x 0.4 x 0.6 cm TIRADS Score: 4 TIRADS Category 4: Composition: Solid or almost completely solid (2 points). Echogenicity: Hypoechoic (2 points). Shape: Wider than tall (0 points). Margin: Smooth (0 points). Echogenic foci: None or large comet-tail artifacts (0 points) Recommendation: If >1.5cm: FNA; If >1cm: Follow up at 1,2, 3,5 years LEFT: # of nodules measured on left: 2 1. 2.1 X 1.7 x 1.7 cm, lower mid, Prior size: 1.9 x 1.8 x 1.4 cm TIRADS Score: 3 TIRADS Category 3: Composition: Solid or almost completely solid (2 points). Echogenicity: Hyperechoic or isoechoic (1 point). Shape: Wider than tall (0 points). Margin: Smooth (0 points). Echogenic foci: None or large comet-tail artifacts (0 points) Recommendation: If >2.5cm: FNA; If >1.5cm: Follow up at 1,3,5 years 2. 1.2 X 1.1 x 1.2 cm, upper mid, Prior size: 0.9 x 1.0 x 1.1 cm TIRADS Score: 4 TIRADS Category 4: Composition: Solid or almost completely solid (2 points). Echogenicity: Hypoechoic (2 points). Shape: Wider than tall (0 points). Margin: Smooth (0 points). Echogenic foci: None or large comet-tail artifacts (0 points) Recommendation: If >1.5cm: FNA; If >1cm: Follow up at 1,2, 3,5 years ISTHMUS: # of nodules measured in the isthmus: 0 Bilateral neck scanned, no evidence of lymphadenopathy. IMPRESSION: Thyroid nodules bilaterally that meet criteria for follow-up.
== END | disposition home or self-care (01) ==
LOC: RADUSWWP 10:11
PROVIDERS: ATTEND Internal Medicine Geriatric Medicine
DX: E04.2 Nontoxic multinodular goiter (principal)
CPT/HCPCS: 76536

== ENCOUNTER → 2023-09-09 | Outpatient (CLI) | payer MEDICARE, OTHER ==
[2023-09-09 17:34] LABS: NT-Pro-B-Type Natriuretic Pept 102 pg/mL (0-125)
[2023-09-09 17:41] LABS: Blood Urea Nitrogen 17.2 mg/dL (9.0-27.0); Chloride 104 mmol/L (96-109); Potassium 4.3 mmol/L (3.5-5.5); Sodium 138 mmol/L (135-145)
== END | disposition home or self-care (01) ==
LOC: LABWHC1 10:05
PROVIDERS: ATTEND Internal Medicine Interventional Cardiology
DX: R60.0 Localized edema (principal)
CPT/HCPCS: 36415; 80051; 82565; 83880; 84520

== ENCOUNTER → 2024-07-07 | Outpatient (CLI) | payer MEDICARE, OTHER ==
[2024-07-07 14:49] LABS: Basophils # (A) 0.09 X 10*3/uL (0.00-0.10); Basophils % (A) 0.8 %; Eosinophils # (A) 0.49 X 10*3/uL (0.04-0.35); Eosinophils % (A) 4.3 %; HCT 47.5 % (37.2-46.3); HGB 15.6 g/dL (12.0-15.0); Lymphocytes # (A) 2.69 X 10*3/uL (0.90-5.00); Lymphocytes % (A) 23.8 %; MCH 30.4 pg (27.0-32.0); MCHC 32.8 g/dL (32.0-37.0); MCV 92.4 FL (80.0-97.0); Mean Platelet Volume 10.9 FL (9.5-12.2); Monocytes # (A) 0.57 X 10*3/uL (0.20-1.00); NRBC Per 100 WBC 0 X 10*3/uL (0.00-0.01); Neutrophils # (A) 7.42 X 10*3/uL (1.80-7.70); Neutrophils % (A) 65.7 %; Platelet Count 272 X 10*3/uL (140-440); RBC 5.14 X 10*6/uL (4.10-5.20); RDW 13.1 % (11.5-14.5)
[2024-07-07 15:06] LABS: ALT 20 U/L (8-44); AST 18 U/L (13-35); Albumin 4.3 g/dL (3.8-4.9); Albumin/Globulin Ratio 1.79 Ratio (1.60-3.17); Alkaline Phosphatase 88 U/L (41-126); Blood Urea Nitrogen 21.7 mg/dL (9.0-27.0); Calcium 9.6 mg/dL (8.7-10.3); Carbon Dioxide 20.6 mmol/L (21.6-31.8); Chloride 104 mmol/L (96-109); Chol/HDL Ratio 2.58 Ratio; Globulin 2.4 g/dL (1.6-3.3); Glucose 102 mg/dL (70-110); LDL Cholesterol,Calculated 86.8 mg/dL (0.0-131.0); Potassium 4.4 mmol/L (3.5-5.5); Sodium 139 mmol/L (135-145); T4, Free (Free Thyroxine) 1.06 ng/dL (0.80-1.80); Total Bilirubin 0.4 mg/dL (0.3-1.2); Total Protein 6.7 g/dL (6.2-8.2)
[2024-07-07 15:57] LABS: Erythrocyte Sedimentation Rate 23 mm/Hr (0-30)
[2024-07-07 19:11] LABS: Microalbumin Creatinine Ratio <8 mg/g Cr (0-30)
== END | disposition home or self-care (01) ==
LOC: LABWHC1 10:34
PROVIDERS: ATTEND Internal Medicine Geriatric Medicine
DX: Z00.00 Encounter for general adult medical examination without abnormal findings (principal); T84.84XA Pain due to internal orthopedic prosthetic devices, implants and grafts, initial encounter; E04.1 Nontoxic single thyroid nodule; E11.65 Type 2 diabetes mellitus with hyperglycemia; Z96.651 Presence of right artificial knee joint
CPT/HCPCS: 36415; 80053; 80061; 82043; 82570; 83036; 84439; 84443; 85025; 85652; 86140

== ENCOUNTER → 2024-07-07 | Outpatient (CLI) | payer MEDICARE, OTHER ==
--- NOTE | 2024-07-07 10:56 | MM ---
Reason for Exam: Screening (asymptomatic). Last mammogram was performed 1 year(s) and 1 month(s) ago. Patient History: Menarche at age 9. Patient has no children. Postmenopausal. Patient used Hormonal Contraceptives for 2 years. Risk Values: Jody 5 year model risk: 2.1%. NCI Lifetime model risk: 6.1%. Prior Study Comparison: 02/03/2021 Bilateral Screening Mammogram, [facility]. 02/22/2022 Bilateral MG 3D screening mammo w/cad, [facility]. 05/30/2023 Bilateral MG 3D screening mammo w/cad, [facility]. Tissue Density: There are scattered areas of fibroglandular density. Findings: Analyzed By CAD. There is no suspicious group of microcalcifications or new suspicious mass in either breast. Overall Assessment: Benign, BI-RAD 2 Management: Screening Mammogram of both breasts in 1 year. . Patient should continue monthly self-breast exams. A clinical breast exam by your physician is recommended on an annual basis. This exam should not preclude additional follow-up of suspicious palpable abnormalities. Note on Jody scores and lifetime risk: 1. A Jody score greater than 3% is considered moderate risk. If this is the case, consider specialist referral to assess eligibility for a risk reducing agent. 2. If overall lifetime risk for the development of breast cancer is 20% or higher, the patient may qualify for future screening with alternating mammogram and breast MRI. [facility], , 07/07/2024 10:53 AM. Electronically signed and approved by: Zeferino Noel M.D. Radiologis
== END | disposition home or self-care (01) ==
LOC: RADMAMWWP 10:27
PROVIDERS: ATTEND Internal Medicine Geriatric Medicine
DX: Z12.31 Encounter for screening mammogram for malignant neoplasm of breast (principal); R92.323 Mammographic fibroglandular density, bilateral breasts; Z78.0 Asymptomatic menopausal state; Z92.0 Personal history of contraception
CPT/HCPCS: 77063; 77067

== ENCOUNTER → 2024-07-21 | Outpatient (CLI) | payer MEDICARE, OTHER ==
--- NOTE | 2024-07-21 11:50 | US ---
EXAMINATION TYPE: US thyroid st tissue head/neck DATE OF EXAM: 07/21/2024 COMPARISON: 09/09/2023 CLINICAL INDICATION: Female, 69 years old with history of E04.1 THYROID NODULE; TECHNIQUE: Grayscale and color Doppler imaging of the thyroid gland. FINDINGS: GLAND SIZE: Right Lobe: 3.9 x 1.2 x 1.9 cm Overall Parenchyma: heterogeneous Left Lobe: 4.6 x 2.2 x 2.1 cm Overall Parenchyma: heterogeneous Isthmus Thickness: 0.4 cm NODULES RIGHT: # of nodules measured on right: 1 1. 1.0 X 0.6 x 0.9 cm, mid lateral, solid or almost completely solid, hypoechoic TR4 nodule, which is wider than tall, with ill-defined margins, without echogenic foci. Prior size: 1.0 x 0.6 x 0.8 cm LEFT: # of nodules measured on left: 2 1. 2.2 X 2.1 x 1.9 cm, lower mid, solid or almost completely solid, isoechoic TR3 nodule, which is taller than wide, with ill-defined margins, without echogenic foci. Prior size: 2.1 x 1.7 x 1.7 cm 2. 1.2 X 1.3 x 1.3 cm, lower mid, solid or almost completely solid, hyperechoic TR 3 nodule, which is wider than tall, with ill-defined margins, without echogenic foci. Prior size: 1.2 x 1.1 x 1.2 cm ISTHMUS: # of nodules measured in the isthmus: 0 [employer] notes: Diffusely heterogeneous gland with a few discrete nodules described above Bilateral neck scanned, no evidence of lymphadenopathy. IMPRESSION: 1. Heterogeneous gland redemonstrated with a few discrete nodules. The largest are on the left measur ing 2.2 cm and 1.2 cm. These are TR3 nodules and can continue to be followed. 2. The solitary TR4 nodule on the right remains unchanged at 1.0 cm. TR3: If nodule size is ? 2.5 cm, FNA is recommended. If nodule size is ? 1.5 cm, follow-up imaging at 1, 3, and 5 years is recommended. TR4: If nodule size is ? 1.5 cm, FNA is recommended. If nodule size is ? 1.0 cm, follow-up imaging at 1, 2, 3, and 5 years is recommended. [facility], , 07/21/2024 11:48 AM
== END | disposition home or self-care (01) ==
LOC: RADUSWWP 10:21
PROVIDERS: ATTEND Internal Medicine Geriatric Medicine
DX: E04.2 Nontoxic multinodular goiter (principal); E07.89 Other specified disorders of thyroid
CPT/HCPCS: 76536

== ENCOUNTER → 2024-09-09 | Outpatient (CLI) | payer MEDICARE, OTHER ==
[2024-09-09 15:20] LABS: ALT 17 U/L (8-44); AST 15 U/L (13-35); Chol/HDL Ratio 2.43 Ratio; LDL Cholesterol,Calculated 49.9 mg/dL (0.0-131.0)
== END | disposition home or self-care (01) ==
LOC: LABWHC1 09:38
PROVIDERS: ATTEND Nurse Practitioner Adult Health
DX: E78.2 Mixed hyperlipidemia (principal)
CPT/HCPCS: 36415; 80061; 84450; 84460